=== PATIENT | female | born 2005 | race Caucasian/White ===

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

== ENCOUNTER 2023-05-06 22:04 | Outpatient (REF) | payer BC, SELFPAY ==
[2023-05-08 13:01] LABS: GC Result Negative (Negative)
[2023-05-08 14:07] LABS: Specimen Description URINE
[2023-05-08 14:12] LABS: Chlamydia Result Positive (Negative)
[2023-05-10 08:56] LABS: Hepatitis B Surface Ag Negative (Negative)
[2023-05-10 09:23] LABS: Syphilis Serology (RPR) Negative (Negative)
[2023-05-10 09:50] LABS: Hepatitis C Ab w Rflx HCV PCR Negative (Negative)
[2023-05-10 10:01] LABS: HIV-1/2 Ag & Ab Screen Negative (Negative)
== END 2023-05-06 22:05 | disposition home or self-care (01) ==
LOC: LBN 22:04
PROVIDERS: Visit Provider Physician Assistant Medical
DX: Z11.3 Encounter for screening for infections with a predominantly sexual mode of transmission (principal)
CPT/HCPCS: 86803; 87340; 87389; 87491; 87591; 86592

== ENCOUNTER 2023-06-25 14:19 | Outpatient (REF) | payer BC, SELFPAY ==
[2023-06-27 13:07] LABS: Chlamydia Result Negative (Negative); GC Result Negative (Negative)
== END 2023-06-25 14:20 | disposition home or self-care (01) ==
LOC: LBN 14:19
PROVIDERS: Visit Provider Physician Assistant Medical
DX: Z11.3 Encounter for screening for infections with a predominantly sexual mode of transmission (principal)
CPT/HCPCS: 87491; 87591

== ENCOUNTER 2024-05-18 14:20 | Emergency (ER) | payer BC, SELFPAY ==
[2024-05-18] VITALS (12 sets, daily range): BP systolic 136–158; BP diastolic 74–83; PULSE 63–87; RESP 12–28; TEMP 36.5–36.8; O2SAT 96–100
--- NOTE | 2024-05-18 14:15 | RT.EKG_ITS ---
APPROVED REPORT Exam: Resting ECG Reason for Exam: Chest Pain Patient Location: E HR:75 bpm ECG Measurements Heart Rate 75 AXIS DE 145 P 19 QRSd 139 QRS -13 QT 426 T 46 QTc 475 Conclusion Sinus rhythm...normal P axis, V-rate 60- 99 Right bundle branch block...QRSd>120, terminal axis(90,270)
--- NOTE | 2024-05-18 14:30 | DI.RAD_ITS ---
Exam(s) XR PORTABLE CHEST AP EXAM: XR PORTABLE CHEST AP CLINICAL HISTORY: chest pain TECHNIQUE: 2D digital imaging was performed of the chest. One image was obtained. An AP view was ob tained. COMPARISON: No exams were available for comparison FINDINGS: MEDIASTINUM: Normal. HEART: Normal. PULMONARY VASCULATURE: Normal. Incidental note is made of a right-sided aortic arch. LUNGS: Clear. Note is made of an azygos lobe. PLEURAL SPACE: No pleural effusion or pneumothorax. BONE:Within normal limits for the patient's age. OTHER FINDINGS:The stomach bubble is on the left. IMPRESSION: No acute pulmonary findings. DATA REPOSITORY: RADIATION DOSE DELIVERED:
--- NOTE | 2024-05-18 14:45 | W.ED.GENAD ---
Discharge Plan Disposition Patient Disposition: Home Discharge Details Chief Complaint: Chest Pain Clinical Impression: Chest pain Primary Care Provider: Unknown,Unknown ED Provider: Ej Marrero Home Meds and New Rx's Prescriptions: No Action No Known Home Meds Discharge Instructions Instructions: Chest Pain (DC) Additional Instructions: You were seen in the emergency department for chest pain. We performed labs, EKG, and chest x-ray that were all unremarkable. The exact cause of your symptoms is not known. Follow-up with your environmental issues instructor and primary care doctor. Return here for worsening symptoms or if you have any other concerns. HPI General Date/Time Provider Initiated Documentation: 05/18/24 14:27. 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 She was in class and sitting and not doing anything in particular. There is about 20 minutes after low intensity exercise. She had an episode of a dull chest pain. Started on its own at around 1230. Associated with some shortness of breath. No nausea or sweatiness. She did not had any other complaints with this. Says it has been getting better but brought it up to her teacher and ultimately was brought here. Denies any other complaints. She says she follows up with her environmental issues instructor every 1 to 2 years at [facility]. She cannot remember the name of her environmental issues instructor. Related Data Home Medications ?Medication ?Instructions ?Recorded ?Confirmed Unknown [No Known Home Meds] 05/18/24 05/18/24 Allergies Allergy/AdvReac Type Severity Reaction Status Date / Time No Known Allergies Allergy Verified 05/18/24 14:23 General Stated Complaint: Chest Pain BERTIN: 2 Review of Systems Constitutional Constitutional: Denies chills, Denies fever(s) and Denies headache(s) Eyes Eyes: Denies change in vision ENT Ears, Nose, Mouth, and Throat: Denies headache(s) and Denies odynophagia Cardiovascular Cardiovascular: Reports chest pain and Reports dyspnea Respiratory Respiratory: Reports dyspnea Gastrointestinal Gastrointestinal: Denies abdominal pain, Denies diarrhea, Denies nausea, Denies odynophagia and Denies vomiting Genitourinary Genitourinary: Denies dysuria Musculoskeletal Musculoskeletal: Denies myalgias Integumentary/Breasts Skin/Breast: Denies changing lesions Neurologic Neurologic: Denies behavioral changes and Denies headache(s) Psychiatric Psychiatric: Denies behavioral changes Endocrine Endocrine: Denies heat intolerance Hematologic/Lymphatic Hematologic/Lymphatic: Denies lymphadenopathy Exam Const General: cooperative Nutritional Appearance: average body habitus Orientation: alert, awake and oriented x3 HENMT Head: normal to inspection Ears: external ears normal Mouth: moist mucous membranes Eyes Pupils: PERRL EOM: EOM intact bilaterally and No nystagmus Neck Neck: full ROM and no tracheal deviation Chest Chest: normal inspection of the chest Resp Auscultation: clear to auscultation bilaterally Cardio Rate: regular rate Rhythm: regular rhythm GI Inspection: normal to inspection Palpation: soft, no guarding, not rigid and nontender Back/Spine/Pelvis Back: No no CVA tenderness Thoracic/Lumbar Spine: thoracic and lumbar spine normal to inspection Skin General skin exam: no rashes or lesions noted Neuro General: patient alert, patient awake and patient oriented x3 Cranial Nerves: CN's II-XI intact bilaterally, PERRL and no nystagmus Cognition: normal cognition Motor: muscle tone normal throughout and strength 5/5 throughout Sensory Exam: no sensory deficits noted Extrem General: normal to inspection Course This is a 19-year-old female who presents after an episode of chest pain. History of tetralogy of Fallot with repair in childhood. Has been doing well. She has had intermittent episodes of chest pain like this over the last 5 or 6 years. Has seen her environmental issues instructor for similar pain. She tells me that she had a MRI of her heart and other tests about 2 years ago that were unremarkable. She had not had any symptoms in a while and was worried and came here today. Her EKG is similar to prior showing a right bundle branch block but no other new changes. No signs of ischemia. Will send cardiac enzymes though I do not think this represents acute coronary syndrome and if unremarkable we will not pursue the diagnosis further. Will get chest x-ray to screen for pneumonia or pneumothorax or any signs of pulmonary edema though I think that this is also unlikely. Will send broad labs to look for electrolyte or metabolic cause of the patient's symptoms. Ultimately if her workup is unremarkable she says that she is feeling better and would like to leave. Certainly I would want her to follow-up with her environmental issues instructor. Will await initial testing and reevaluate. Reevaluation(s) Initial Evaluation: Labs, EKG and chest x-ray unremarkable. Symptom-free. Will discharge with cardiology follow-up. Vital Signs Vital signs: Vital Signs Temperature 36.5 C 05/18/24 14:25 Pulse 66 05/18/24 14:25 Respiratory Rate 16 05/18/24 14:25 Blood Pressure 136/83 05/18/24 14:25 Pulse Oximetry 100 05/18/24 14:25 Temperature 36.5 C 05/18/24 14:25 Temperature Source Temporal Artery Scan 05/18/24 14:25 Pulse 66 05/18/24 14:25 Respiratory Rate 16 05/18/24 14:25 Respiratory Effort Normal, Non-Labored 05/18/24 14:36 Blood Pressure 136/83 05/18/24 14:25 Blood Pressure Position Sitting 05/18/24 14:25 Pulse Oximetry 100 05/18/24 14:25 Oxygen Delivery Method Room Air 05/18/24 14:25 Oxygen Flow Rate 0 05/18/24 14:25 Pain Level 9 05/18/24 14:25 Lab/Test Results Lab/Test Results: Labs are grossly unremarkable Medical Decision Making Labs, EKG, and chest x-ray unremarkable. Unclear cause of chest pain. Symptom-free now. Will refer back to her environmental issues instructor. Imaging Data Radiologic Study: Attestation: I personally reviewed and interpreted this imaging study as follows: Imaging: X-Ray (chest) Radiologist's impression: unremarkable ECG Data Interpretation: Normal sinus rhythm with right bundle branch block but otherwise unremarkable EKG with otherwise normal intervals with no ST or T wave changes. Similar to prior EKG. Quality:SDOH Health Related Social Needs: No Data to Display PFSH All Active Problems (Updated 05/18/24 @ 15:29 by Ej Marrero MD) Chest pain (Acute) Social History Smoking/Tobacco Use Status: Never Smoking risk assessment performed?: Yes Alcohol Intake: never Drug use: Never Substance use type: does not use Housing: apartment Do you feel safe at home: Yes Do you feel safe in your relationship?: Yes
[2024-05-18 15:07] LABS: Abs Immature Grans 0.01 10^3/uL (0.0-0.06); Absolute Basophil Count 0.05 10^3/uL (0.0-0.2); Absolute Lymphocyte Count 1.04 10^3/uL (1.2-3.4); Absolute Monocyte Count 0.52 10^3/uL (0.1-0.8); Absolute Neutrophil Count 3.23 10^3/uL (1.2-6.7); HGB 12.8 g/dL (11.2-15.7); Immature Grans % 0.2 %; MCH 28.9 pg (27.0-33.0); MCHC 32.8 % (32.0-36.0); MCV 88 fL (80-95); MPV 12.5 fL (8.0-11.0); Monocytes % 10.5 %; Neutrophils % 65.3 %; Platelet Count 200 10^3/uL (130-400); RBC 4.43 10^6/uL (3.93-5.22); RDW 15.4 % (11.7-14.6); RDW-SD 49.9 fL; WBC 4.95 10^3/uL (4.4-10.8)
--- OUTSIDE RECORDS SUMMARY | 2024-05-18 15:24 | XMS_ITS | Referral Summary ---
Author Organization [facility] Address [address] [place] [address] Care Team Providers Care Maintenance Tech Name Role Phone Unavailable Primary Care Provider Unavailabl e Social History Tobacco Use Types Packs/Day Years Used Date Smoking Tobacco: Never Assessed Sex and Gender Information Value Date Recorded Sex Assigned at Not on file Gender Identity Not on file Sexual Orientation Not on file Plan of Treatment Not on file Procedures Procedure Name Priority Date/Time Associated Diagnosis Comments HEPATITIS C AB W REFLEX TO HCV RNA BY PCR Routine 05/06/2023 15:18 EDT from Last 3 Months or Most Recently Relevant to Health Maintenance Results * HEPATITIS C AB W REFLEX TO HCV RNA BY PCR (05/06/2023 15:18 EDT) Hep C Antibody Negative Negative 05/10/2023 9:45 EDT [facility] Blood VENOUS BLOOD / Unknown 05/06/2023 15:18 EDT 05/07/2023 19:28 EDT Provider Outr Resulting Lab CHEMISTRY & BLOOD GAS ORDERABLES [facility] [address] [place] [address] from Last 3 Months or Most Recently Relevant to Health Maintenance
--- OUTSIDE RECORDS SUMMARY | 2024-05-18 15:24 | XMS_ITS | Encounter Summary ---
Author Organization [facility] Address [address] [place] [address] Care Team Providers Care Machine Deicer Element Winder Name Role Phone Unavailable Primary Care Provider Unavailabl e Encounter Details Date Type Department Care Team (Late st Contact Info) Description 06/26/2023 Lab Requisition [facility] Pathology & Laboratory Medicine - [address] [address] Outr Resulting Lab, Provider Social History Tobacco Use Types Packs/Day Years Used Date Smoking Tobacco: Never Assessed Sex and Gender Information Value Date Recorded Sex Assigned at Not on file Gender Identity Not on file Sexual Orientation Not on file documented as of this encounter Plan of Treatment Not on file documented as of this encounter Procedures Procedure Name Priority Date/Time Associated Diagnosis Comments CHLAMYDIA/N. GONORRHOEAE AMPLIFIED NUCLEIC ACID Routine 06/25/2023 14:20 EDT documented in this encounter Results * CHLAMYDIA/N. GONORRHOEAE AMPLIFIED RNA (06/25/2023 14:20 EDT) Neisseria gonorrhoeae Result Negative Negative 06/27/2023 13:02 EDT [facility] Chlamydia trachomatis Result Negative Negative 06/27/2023 13:02 EDT [facility] Urine URINE / Unknown 06/25/2023 1 4:20 EDT 06/26/2023 21:57 EDT Narrative [facility] - 06/27/2023 13:02 EDT A first catch urine specimen is acceptable for detection of Gonorrhea and Chlamydia, but might detect up to 10% fewer infections when compared with vaginal and endocervical swab samples. Provider Outr Resulting Lab MICROBIOLOGY - GENERAL ORDERABLES [facility] [address] [place] [address] documented in this encounter Visit Diagnoses Not on filedocumented in this encounter
--- OUTSIDE RECORDS SUMMARY | 2024-05-18 15:24 | XMS_ITS | Encounter Summary ---
Author Organization [facility] Address [address] [place] [id number] Care Team Providers Care Grocery Clerk Marking Name Role Phone Unavailable Primary Care Provider Unavailabl e Encounter Details Date Type Department Care Team (Late st Contact Info) Description 05/07/2023 Lab Requisition [facility] Pathology & Laboratory Medicine - [facility] [address] [place] [address] Outr Resulting Lab, Provider Social History Tobacco [...] Comments CHLAMYDIA/N. GONORRHOEAE AMPLIFIED NUCLEIC ACID Routine 05/06/2023 15:18 EDT documented in this encounter Results * (ABNORMAL) CHLAMYDIA/N. GONORRHOEAE AMPLIFIED RNA (05/06/2023 15:18 EDT) Neisseria gonorrhoeae Result Negative Negative 05/08/2023 12:55 EDT [facility] Chlamydia trachomatis Result Positive(A) Negative 05/08/2023 12:55 EDT [facility] Urine URINE / Unknown 05/06/2023 1 5:18 EDT 05/07/2023 22:35 EDT Narrative [facility] - 05/08/2023 12:55 EDT A first catch urine specimen is acceptable for detection of Gonorrhea and Chlamydia, but might detect up to 10% fewer infections when compared with vaginal and endocervical swab samples. Provider Outr Resulting Lab MICROBIOLOGY - GENERAL ORDERABLES [facility] [address] [place] [address] documented in this encounter Visit Diagnoses Not on filedocumented in this encounter
--- OUTSIDE RECORDS SUMMARY | 2024-05-18 15:24 | XMS_ITS | Clinical Summary ---
Author Organization [facility] Address [address] [place] [address] Care Team Providers Care Specialty Sales Consultant Name Role Phone Unavailable Primary Care Provider Unavailabl e Social History Tobacco Use Types Packs/Day Years Used Date Smoking Tobacco: Never Assessed Sex and Gender Information Value Date Recorded Sex Assigned at Not on file Gender Identity Not on file Sexual Orientation Not on file Plan of Treatment Health Maintenance Due Date Last Done Comments Hepatitis B Vaccine (1 of 3 - 19+ 3-dose series) 2022 COVID-19 Vaccine (2022- season) 2023 Hepatitis C Screen Completed 05/06/2023, 10/28/2022 Procedures Procedure Name Priority Date/Time Associated Diagnosis Comments HEPATITIS C AB W REFLEX TO HCV RNA BY PCR Routine 05/06/2023 15:18 EDT from Last 3 Months or Most Recently Relevant to Health Maintenance Results * HEPATITIS C AB W REFLEX TO HCV RNA BY PCR (05/06/2023 15:18 EDT) Hep C Antibody Negative Negative 05/10/2023 9:45 EDT [facility] Blood VENOUS BLOOD / Unknown 05/06/2023 15:18 EDT 05/07/2023 19:28 EDT Provider Outr Resulting Lab CHEMISTRY & BLOOD GAS ORDERABLES [facility] [address] [place] [address] from Last 3 Months or Most Recently Relevant to Health Maintenance
--- OUTSIDE RECORDS SUMMARY | 2024-05-18 15:24 | XMS_ITS | Encounter Summary ---
Author Organization [facility] Address [address] [place] [address] Care Team Providers Care Human Resources Coordinator Name Role Phone Unavailable Primary Care Provider Unavailabl e Encounter Details Date Type Department Care Team (Late st Contact Info) Description 05/07/2023 Lab Requisition [facility] Pathology & Laboratory Medicine - [facility] [address] [place] [address] Outr Resulting Lab, Provider Social History Tobacco [...] Procedure Name Priority Date/Time Associated Diagnosis Comments SYPHILIS SEROLOGY Routine 05/06/2023 15: 18 EDT documented in this encounter Results * SYPHILIS SEROLOGY (05/06/2023 15:18 EDT) Syphilis Serology Negative Negative 05/10/2023 9:18 EDT [facility] Blood VENOUS BLOOD / Unknown 05/06/2023 15:18 EDT 05/07/2023 19:28 EDT Provider Outr Resulting Lab IMMUNOLOGY A ND SEROLOGY ORDERABLES [facility] [address] [place] [address] documented in this encounter Visit Diagnoses Not on filedocumented in this encounter
--- OUTSIDE RECORDS SUMMARY | 2024-05-18 15:24 | XMS_ITS | Encounter Summary ---
Author Organization [facility] Address [address] [place] [address] Care Team Providers Care Diet Supervisor Name Role Phone Unavailable Primary Care Provider Unavailabl e Encounter Details Date Type Department Care Team (Late st Contact Info) Description 05/07/2023 Lab Requisition [facility] Pathology & Laboratory Medicine - [facility] [address] [place] [address] Outr Resulting Lab, Provider Social History Tobacco [...] Procedure Name Priority Date/Time Associated Diagnosis Comments HIV 1/2 ANTIGEN AND ANTIBODY, 4TH GENERATION Routine 05/06/2023 15:18 EDT documented in this encounter Results * HIV 1/2 ANTIGEN AND ANTIBODY, 4TH GENERATION (05/06/2023 15:18 EDT) HIV 1 and 2 Antibody/p24 Antigen, 4th Generation Negative Negative 05/10/2023 9:56 EDT [facility] Comment:If acute HIV-1 infec tion is suspected in a high risk patient, submit plasma specimen for HIV-1 RNA quantitation test. Blood VENOUS BLOOD / Unknown 05/06/2023 15:18 EDT 05/07/2023 19:28 EDT Narrative [facility] - 05/10/2023 9:56 EDT Fourth Generation assay performed on the Siemens Centaur XPT. Provider Outr Resulting Lab IMMUNOLOGY A ND SEROLOGY ORDERABLES [facility] [address] [place] [address] documented in this encounter Visit Diagnoses Not on filedocumented in this encounter
--- OUTSIDE RECORDS SUMMARY | 2024-05-18 15:24 | XMS_ITS | Encounter Summary ---
Author Organization [facility] Address [address] [place] [address] Care Team Providers Care Communications Representative Name Role Phone Unavailable Primary Care Provider Unavailabl e Encounter Details Date Type Department Care Team (Late st Contact Info) Description 05/07/2023 Lab Requisition [facility] Pathology & Laboratory Medicine - [facility] [address] [place] [address] Outr Resulting Lab, Provider Social History Tobacco [...] RNA BY PCR Routine 05/06/2023 15:18 EDT HEPATITIS B SURFACE ANTIGEN Routine 05/06/2023 15:18 EDT documented in this encounter Results * HEPATITIS B SURFACE ANTIGEN (05/06/2023 15:18 EDT) Hep B Surface Ag Negative Negative 05/10/2023 8:51 EDT [facility] Blood VENOUS BLOOD / Unknown 05/06/2023 15:18 EDT 05/07/2023 19:28 EDT Provider Outr Resulting Lab CHEMISTRY & BLOOD GAS ORDERABLES [facility] [address] [place] [address] * HEPATITIS C AB W REFLEX TO HCV RNA BY PCR (05/06/2023 15:18 EDT) Hep C Antibody Negative Negative 05/10/2023 9:45 EDT [facility] Blood VENOUS BLOOD / Unknown 05/06/2023 15:18 EDT 05/07/2023 19:28 EDT Provider Outr Resulting Lab CHEMISTRY & BLOOD GAS ORDERABLES [facility] [address] [place] [address] documented in this encounter Visit Diagnoses Not on filedocumented in this encounter
[2024-05-18 15:25] LABS: ALT 37 U/L (14-59); AST 25 U/L (15-37); Albumin 3.9 g/dL (3.4-5.0); Alkaline Phosphatase 54 U/L (46-116); Anion Gap 9.5 mmol/L (3-11); BUN 8 mg/dL (7-18); Bilirubin, Total 0.68 mg/dL (0.2-1.0); CO2 27.5 mmol/L (21.0-32.0); CREATININE 1.2 mg/dL (0.55-1.02); Calcium 8.9 mg/dL (8.5-10.1); Chloride 107 mmol/L (98-107); Estimated GFR 66.05 (mL/min/1.73m2); Glucose 94 mg/dL (74-106); Magnesium 2.1 mg/dL (1.8-2.4); NT-proBNP 63 pg/mL (<300); Potassium 3.7 mmol/L (3.5-5.1); Sodium 144 mmol/L (136-145); Total Protein 8.3 g/dL (6.4-8.2); Troponin I < 50 ng/L (< or =60)
--- OUTSIDE RECORDS SUMMARY | 2024-05-18 15:25 | XMS_ITS | Encounter Summary ---
Author Organization [facility] [place] [address] Care Team Providers Care Park Warden Name Role Phone Inge Carl MD Primary Care Provider + Reason for Visit * Reason Comments Cerumen Impaction Encounter Details Date Type Department Care Team ([facility] st Contact Info) Description 09/09/2022 9:45 AM EST Office Visit Otolaryngology at [address] [phone] Felipe De Luna MD [address] [place] [address] Bilateral impacted cerumen; External ear canal stenosis, acquired, bilateral Social History Tobacco Use Types Packs/Day Years Used Date Smoking Tobacco: Never Smokeless Tobacco: Never Sex and Gender Information Value Date Recorded Sex Assigned at Not on file Gender Identity Not on file Sexual Orientation Not on file documented as of this encounter Last Filed Vital Signs Vital Sign Reading Time Taken Comments Blood Pressure 100/60 09/09/2022 10:04 AM EST Pulse 82 09/09/2022 10:04 AM EST Temperature 37 ??C (98.6 ??F) 09/09/2022 10:04 AM EST Respiratory Rate - - Oxygen Saturation 99% 09/09/2022 10:04 AM EST Inhaled Oxygen Concentration - - Weight - - Height - - Body Mass Index - - documented in this encounter Progress Notes * Felipe De Luna MD - 09/09/2022 9:45 AM EST Subjective: Shama is a 17-year-old female seen back in the ENT clinic for follow-up of bilateralwax impactions and congenital ear canal stenosis. Her chief complaint today is both ears feel plugged. Objective: Vital signs reviewed in electronic medical record by me today patient is good color pleasant demeanor. The external ear canals are small. There are wax impactions. Mastoids nontender facial nerve function intact bilaterally. Procedure: With the patient's permission and using a head mirror ear speculum and small wax curette, bilateral wax impactions are removed. Eardrums are intact. No bleeding. No fluid in middle ear space. Impression: Bilateral wax impactions removed today. Plan: #1 follow-up ENT October 23 for recheck of ears sooner with problems. documented in this encounter Plan of Treatment Upcoming Encounters Date Type Department Care Team (Late st Contact Info) Description 05/31/2024 9:30 AM EDT Clinical Support Otolaryngology at [address] [phone] Jennifer Grimaldo PA [address] [place] [address] [place] [address] documented as of this encounter Visit Diagnoses Diagnosis Bilateral impacted cerumen Impacted cerumen External ear canal stenosis, acquired, bilateral documented in this encounter Care Teams Park Warden Relationship Specialty Start Date End Date Inge Carl MD [address] [place] [address] PCP - General Pediatrics 10/29/21 documented as of this encounter
--- OUTSIDE RECORDS SUMMARY | 2024-05-18 15:25 | XMS_ITS | Encounter Summary ---
Author Organization [facility] Address [facility] [place] [address] Care Team Providers Care It Generalist Name Role Phone Hayde Uribe MD Primary Care Provider [phone] Encounter Details Date Type Department Care Team (Late st Contact Info) Description 07/22/2020 9:00 AM EDT Office Visit Otolaryngology at [address] [address] Felipe De Luna MD [address] [place] [address] External ear canal stenosis, acquired, bilateral; Bilateral impacted cerumen Social History Tobacco Use Types Packs/Day Years Used Date Smoking Tobacco: Never Smokeless Tobacco: Never Sex and Gender Information Value Date Recorded Sex Assigned at Not on file Gender Identity Not on file Sexual Orientation Not on file documented as of this encounter Last Filed Vital Signs Vital Sign Reading Time Taken Comments Blood Pressure 110/70 07/22/2020 9:38 AM EDT Pulse 59 07/22/2020 9:38 AM EDT Temperature 36.2 ??C (97.1 ??F) 07/22/2020 9:38 AM ED T Respiratory Rate - - Oxygen Saturation 98% 07/22/2020 9:38 AM EDT Inhaled Oxygen Concentration - - Weight - - Height - - Body Mass Index - - documented in this encounter Progress Notes * Felipe De Luna MD - 07/22/2020 9:00 AM EDT Subjective: Lali is a 69-year-old female with bilateral external auditory canal congenital stenosis and wax impactions that are removed every 2-1/2 months approximately. Her chief complaint today is both ears feel a little bit plugged. She is here for wax impaction removal. Objective: Vital signs reviewed in electronic medical record by me today patient is good color pleasant demeanor. The external ear canals are very small and there are bilateral wax impactions. Mastoid nontender facial nerve function intact. Procedure: With the patient's permission and using a head mirror small wax curette and small ear speculum bilateral wax impactions are removed. There is a small amount of bleeding from the right ear canal during the procedure. Both eardrums are intact at the end of the procedure. Floxin drops were placed in the right ear canal and a cottonball placed. Impression: Bilateral wax impactions removed today. Plan: #1 water precautions both ears. 2. Floxin 3 drops right ear daily for 3 days followed by cottonball for 15 minutes. 3. Follow-up ENT in 2 and half months for recheck sooner with problems. documented in this encounter Plan of Treatment Upcoming Encounters Date Type Department Care Team (Late st Contact Info) Description 05/31/2024 9:30 AM EDT Clinical Support Otolaryngology at [address] [phone] Jennifer Grimaldo PA [address] [place] [address] [place] [address] documented as of this encounter Visit Diagnoses Diagnosis External ear canal stenosis, acquired, bilateral Bilateral impacted cerumen Impacted cerumen documented in this encounter Care Teams It Generalist Relationship Specialty Start Date End Date Hayde Uribe MD [address] [place] [address] PCP - General Pediatrics 10/27/17 10/28/21 documented as of this encounter
--- OUTSIDE RECORDS SUMMARY | 2024-05-18 15:25 | XMS_ITS | Encounter Summary ---
Author Organization [facility] Address [facility] [place] [address] Care Team Providers Care Optical Design Engineer Name Role Phone Hayde Uribe MD Primary Care Provider [phone] Encounter Details Date Type Department Care Team (Late st Contact Info) Description 09/30/2020 9:30 AM EST Office Visit Otolaryngology at [address] [address] Felipe De Luna MD [address] [place] [address] External ear canal stenosis, acquired, [...] Sign Reading Time Taken Comments Blood Pressure 106/70 09/30/2020 9:34 AM EST Pulse 61 09/30/2020 9:34 AM EST Temperature 36 ??C (96.8 ??F) 09/30/2020 9:34 AM EST Respiratory Rate - - Oxygen Saturation 94% 09/30/2020 9:34 AM EST Inhaled Oxygen Concentration - - Weight - - Height - - Body Mass Index - - documented in this encounter Progress Notes * Felipe De Luna MD - 09/30/2020 9:30 AM EST Subjective: Shama is a 15-year-old high school senior seen back in the ENT clinic for follow-up of bilateral wax impaction she is known to have bilateral congenital external ear canal stenosis. Her chief complaint today is both ears feel plugged with wax. She is not having any pain bleeding or drainage from her ears. Objective: Vital signs reviewed in electronic medical record by me today patient is good color pleasant demeanor alert oriented to person place and time she is normocephalic atraumatic. The external ear ear canals show stenosis with wax impactions. Mastoids nontender facial nerve function intact. Procedure: With the patient's permission and using an ear speculum a head mirror and a wax curette,bilateral wax impactions are removed. No bleeding. Eardrums are intact bilaterally without middle ear fluid. Impression: Bilateral wax impactions removed today. Plan: #1 water precautions both ears. 2. Follow-up ENT in 2 and half months for recheck sooner with problems. documented in this encounter Plan of Treatment Upcoming Encounters Date Type Department Care Team (Late st Contact Info) Description 05/31/2024 9:30 AM EDT Clinical Support Otolaryngology at [address] [phone] Jennifer Grimaldo PA [address] [place] [address] [place] [address] documented as of this encounter Visit Diagnoses Diagnosis External ear canal stenosis, acquired, bilateral Bilateral impacted cerumen Impacted cerumen documented in this encounter Care Teams Optical Design Engineer Relationship Specialty Start Date End Date Hayde Uribe MD [address] [place] [address] PCP - General Pediatrics 10/27/17 10/28/21 documented as of this encounter
--- OUTSIDE RECORDS SUMMARY | 2024-05-18 15:25 | XMS_ITS | Encounter Summary ---
Author Organization [facility] [place] [address] Care Team Providers Care International Travel Consultant Name Role Phone Unavailable Primary Care Provider Unavailabl e Encounter Details Date Type Department Care Team (Late st Contact Info) Description 12/09/2016 9:00 AM EST Office Visit Otolaryngology [address] [address] Felipe De Luna MD [address] [place] [address] Social History Tobacco Use Types Packs/Day Years Used Date Smoking Tobacco: Never Assessed Sex and Gender Information Value Date Recorded Sex Assigned at Not on file Gender Identity Not on file Sexual Orientation Not on file documented as of this encounter Plan of Treatment Upcoming Encounters Date Type Department Care Team (Late st Contact Info) Description 05/31/2024 9:30 AM EDT Clinical Support Otolaryngology at [address] [address] Jennifer Grimaldo PA [address] [facility] [place] [address] documented as of this encounter Visit Diagnoses Not on filedocumented in this encounter
--- OUTSIDE RECORDS SUMMARY | 2024-05-18 15:25 | XMS_ITS | Encounter Summary ---
Author Organization [facility] [place] [address] Care Team Providers Care Milking Worker Name Role Phone Unavailable Primary Care Provider Unavailabl e Encounter Details Date Type Department Care Team (Late st Contact Info) Description 01/06/2016 Abstract [facility] Information Services [address] [place] [address] Provider, His MD [place] Social History Tobacco Use Types Packs/Day Years Used Date Smoking Tobacco: Never Assessed Sex and Gender Information Value Date Recorded Sex Assigned at Not on file Gender Identity Not on file Sexual Orientation Not on file documented as of this encounter Last Filed Vital Signs Vital Sign Reading Time Taken Comments Blood Pressure - - Pulse - - Temperature - - Respiratory Rate - - Oxygen Saturation - - Inhaled Oxygen Concentration - - Weight 51.3 kg (113 lb) 01/06/2016 4:00 AM EDT Sourced from [place] Conversion Height - - Body Mass Index - - documented in this encounter Plan of Treatment Upcoming Encounters Date Type Department Care Team (Late st Contact Info) Description 05/31/2024 9:30 AM EDT Clinical Support Otolaryngology at [facility] [address] [place] [address] Jennifer Grimaldo PA 580 [facility] OTOLARYNGOLOGY [place], [place] [id number] documented as of this encounter Visit Diagnoses Not on filedocumented in this encounter
--- OUTSIDE RECORDS SUMMARY | 2024-05-18 15:25 | XMS_ITS | Encounter Summary ---
Author Organization [facility] [place] [address] Care Team Providers Care Neurology Technologist Name Role Phone Unavailable Primary Care Provider Unavailabl e Encounter Details Date Type Department Care Team (Late st Contact Info) Description 06/04/2014 10:30 AM EDT Office Visit [address] [address] Felipe De Luna MD [address] [place] [address] Social History Tobacco Use Types [...] AM EDT Clinical Support Otolaryngology at [address] [address] Jennifer Grimaldo PA [address] [facility] [place] [address] documented as of this encounter Visit Diagnoses Not on filedocumented in this encounter
--- OUTSIDE RECORDS SUMMARY | 2024-05-18 15:25 | XMS_ITS | Encounter Summary ---
Author Organization [facility] Address [facility] [place] [address] Care Team Providers Care Brass Sorter Name Role Phone Hayde Uribe MD Primary Care Provider [phone] Encounter Details Date Type Department Care Team (Late st Contact Info) Description 11/11/2019 Interpretation Only [address] [address] Loy Flores MD [address] [place] [address] [place] [address] Social History Tobacco Use Types Packs/Day Years [...] 9:30 AM EDT Clinical Support Otolaryngology at [address] [phone] Jennifer Grimaldo PA [address] [place] [address] [place] [address] documented as of this encounter Procedures Procedure Name Priority Date/Time Associated Diagnosis Comments XR CHEST PA AND LATERAL Routine 11/11/2019 9:06 PM EST documented in this encounter Results * XR Chest PA & Lateral (Generic) (11/11/2019 9:06 PM EST) Anatomical Region Laterality Modality Chest N/A Radiographic Yvonne ging 11/11/2019 9:06 PM EST Impressions 11/11/2019 11:33 PM EST 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 Cardiac enlargement. No comparison available. Evidence of right-sided aortic arch. No consolidation, pleural effusion, or pulmonary vasculature abnormality. Preliminary report signed by a [facility] Supervisor Delivery Department or Fellow: Clarke Galarza at 11/11/2019 9:25 PM I have personally reviewed the image(s) and the resident's interpretation and agree with the findings, Frank Diaz MD at 11/11/2019 11:28 PM Thank you for letting us participate in the care of this patient. For questions regarding this report, please contact the number below. ? Narrative 11/11/2019 11:33 PM EST EXAMINATION: XR Chest 2 Views CLINICAL HISTORY: chest pain, ?cardiac TECHNIQUE: Frontal and lateral chest radiograph. COMPARISON: None. FINDINGS: Right-sided aortic arch. Abdominal viscera appear correct side. No focal consolidation. Incidentally visualized azygous fissure in the right upper lung. No pneumothorax or pleural effusions. Cardiac silhouette is enlarged. Pulmonary vasculature is normal.. No acute osseous abnormalities identified. Median sternotomy wires are present. Fused vertebral bodies thoracolumbar junction on lateral projection. Procedure Note Frank Bear MD - 11/11/2019 EXAMINATION: XR Chest 2 Views CLINICAL HISTORY: chest pain, ?cardiac TECHNIQUE: Frontal and lateral chest radiograph. COMPARISON: None. FINDINGS: Right-sided aortic arch. Abdominal viscera appear correct side. No focal consolidation. Incidentally visualized azygous fissure in theright upper lung. No pneumothorax or pleural effusions. Cardiac silhouette is enlarged. Pulmonary vasculature is normal.. No acute osseousabnormalities identified. Median sternotomy wires are present. Fused vertebral bodies thoracolumbar junction on lateral projection. 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 Cardiac enlargement. No comparison available. Evidence of right-sided aorticarch. No consolidation, pleural effusion, or pulmonary vasculatureabnormality. Preliminary [facility] or Fellow: Clarke Galarza at 11/11/2019 9:25 PM I have personally reviewed the image(s) and the resident's interpretationand agree with the findings, Frank Diaz MD at 11/11/2019 11:28 PM Thank you for letting us participate in the care of this patient. Forquestions regarding this report, please contact the number below. Loy Flores MD IMG DX ORDERABLES documented in this encounter Visit Diagnoses Not on filedocumented in this encounter Care Teams Brass Sorter Relationship Specialty Start Date End Date Hayde Uribe MD [address] [place] [address] PCP - General Pediatrics 10/27/17 10/28/21 documented as of this encounter
--- OUTSIDE RECORDS SUMMARY | 2024-05-18 15:25 | XMS_ITS | Encounter Summary ---
Author Organization [facility] Address [facility] [place] [address] Care Team Providers Care Technology Coordinator Name Role Phone Hayde Uribe MD Primary Care Provider [phone] Encounter Details Date Type Department Care Team (Late st Contact Info) Description 09/08/2021 11:15 AM EST Office Visit Otolaryngology at [address] [phone] Felipe De Luna MD [address] [place] [address] External ear canal stenosis, acquired, [...] Sign Reading Time Taken Comments Blood Pressure 100/71 09/08/2021 11:18 AM EST Pulse 74 09/08/2021 11:18 AM EST Temperature 36.3 ??C (97.4 ??F) 09/08/2021 11:[address] Respiratory Rate - - Oxygen Saturation 94% 09/08/2021 11:18 AM EST Inhaled Oxygen Concentration - - Weight - - Height - - Body Mass Index - - documented in this encounter Progress Notes * Felipe De Luna MD - 09/08/2021 11:15 AM EST Subjective: Shama is an 16-year-old female with bilateral congenital ear canal stenosis seen back in the ENT clinic for interval earwax cleaning. Her chief complaint today is both ears feel a bit clogged. She is in her first semester of college and doing well at [employer]. Objective: Vital signs reviewed in electronic medical record by me today patient is good color pleasant demeanor. The external ear ear canals are small and there is wax accumulation and buildup that is blocking both ear canals bilaterally. Procedure: Using a head mirror ear speculum and a small wax curette bilateral wax impactions are removed. The eardrums are then intact no fluid the middle ear spaces. Impression: Doing well following bilateral wax impaction removal. Plan: #1 follow-up ENT in mid October for ear cleaning sooner with problems. documented in this encounter Plan of Treatment Upcoming Encounters Date Type Department Care Team (Late st Contact Info) Description 05/31/2024 9:30 AM EDT Clinical Support Otolaryngology at [address] [phone] Jennifer Grimaldo PA [address] [place] [address] [place] [address] documented as of this encounter Visit Diagnoses Diagnosis External ear canal stenosis, acquired, bilateral Bilateral impacted cerumen Impacted cerumen documented in this encounter Care Teams Technology Coordinator Relationship Specialty Start Date End Date Hayde Uribe MD [address] [place] [address] PCP - General Pediatrics 10/27/17 10/28/21 documented as of this encounter
--- OUTSIDE RECORDS SUMMARY | 2024-05-18 15:25 | XMS_ITS | Encounter Summary ---
Author Organization [facility] [place] [address] Care Team Providers Care Fondant Cooker Name Role Phone Unavailable Primary Care Provider Unavailabl e Encounter Details Date Type Department Care Team (Late st Contact Info) Description 11/10/2013 Abstract [facility] Information Services [address] [place] [address] Provider, His MD [place] Social [...] - Inhaled Oxygen Concentration - - Weight 38.1 kg (84 lb) 11/10/2013 4:30 AM EST Sourced from [place] Conversion Height - - Body Mass Index - - documented in this encounter Plan of Treatment Upcoming Encounters Date Type Department Care Team (Late st Contact Info) Description 05/31/2024 9:30 AM EDT Clinical Support Otolaryngology at [facility] [address] [place] [address] Jennifer Grimaldo PA 580 [facility] OTOLARYNGOLOGY [place], [place] [phone] documented as of this encounter Visit Diagnoses Not on filedocumented in this encounter
--- OUTSIDE RECORDS SUMMARY | 2024-05-18 15:25 | XMS_ITS | Encounter Summary ---
Author Organization [facility] [place] [address] Care Team Providers Care Fuel Efficient Aircraft Designer Name Role Phone Inge Carl MD Primary Care Provider + Reason for Visit * Reason Comments Cerumen Impaction Encounter Details Date Type Department Care Team ([facility] st Contact Info) Description 10/29/2021 3:00 PM EST Office Visit Otolaryngology at [address] [address] Felipe De Luna MD [address] [place] [address] Bilateral impacted cerumen Social History Tobacco Use Types Packs/Day Years Used Date Smoking Tobacco: Never Smokeless Tobacco: Never Sex and Gender Information Value Date Recorded Sex Assigned at Not on file Gender Identity Not on file Sexual Orientation Not on file documented as of this encounter Last Filed Vital Signs Vital Sign Reading Time Taken Comments Blood Pressure 108/66 10/29/2021 2:44 PM EST Pulse 60 10/29/2021 2:44 PM EST Temperature 37.2 ??C (98.9 ??F) 10/29/2021 2:44 PM ES T Respiratory Rate - - Oxygen Saturation 99% 10/29/2021 2:44 PM EST Inhaled Oxygen Concentration - - Weight - - Height - - Body Mass Index - - documented in this encounter Progress Notes * Felipe De Luna MD - 10/29/2021 3:00 PM EST Subjective: 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 She has congenital bilateral ear canal stenosis and requires every 2 months or so wax removal. Her chief complaint today is both ears feel plugged. Objective: Vital signs reviewed in electronic medical record by me today patient is good color pleasant demeanor alert oriented to person place and time she is normocephalic atraumatic. The external ear canals show stenosis bilaterally. There are wax impactions. Mastoids nontender facial nerve function intact. Procedure: With the patient's permission and wearing appropriate PPE and using a head mirror ear speculum and a wax curette, bilateral wax impactions are removed. No bleeding. Both eardrums are intact. Impression: Bilateral wax impaction removal done today. Plan: #1 follow-up ENT in 2 months for recheck sooner with problems. documented in this encounter Plan of Treatment Upcoming Encounters Date Type Department Care Team (Late st Contact Info) Description 05/31/2024 9:30 AM EDT Clinical Support Otolaryngology at [address] [phone] Jennifer Grimaldo PA [address] [place] [address] [place] [address] documented as of this encounter Visit Diagnoses Diagnosis Bilateral impacted cerumen Impacted cerumen documented in this encounter Care Teams Fuel Efficient Aircraft Designer Relationship Specialty Start Date End Date Inge Carl MD [address] [place] [address] PCP - General Pediatrics 10/29/21 documented as of this encounter
--- OUTSIDE RECORDS SUMMARY | 2024-05-18 15:25 | XMS_ITS | Clinical Summary ---
Author Organization [facility] Address [facility] [place] [address] Care Team Providers Care Carbide Grinder Name Role Phone Inge Carl MD Primary Care Provider + Allergies No known active allergies Medications Medication Sig Dispensed Refills Start Date End Date Status amoxicillin (AMOXIL) 500 mg Tablet TAKE 4 TABLETS BY MOUTH BEFORE DENTAL PROCEDURE 10/28/2020 Active Uqh-Kh-Zvqnhtxw 0.18/0.215/0.25 mg-25 mcg Tablet TAKE 1 TABLET BY MOUTH EVERY DAY 12/17/2020 Active Alberto [place] [facility] Spacer USE DIRECTED WITH albuterol inhaler. 08/03/2022 Active albuteroL 90 mcg/actuation HFA Aerosol Inhaler Inhale into the lungs. 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 0 01/26/2024 External ear canal stenosis, acquired, bilateral 12/29/2017 Bilateral impacted cerumen 12/29/2017 Impacted cerumen of both ears 03/08/2017 Social History Tobacco Use Types Packs/Day Years Used Date Smoking Tobacco: Never Smokeless Tobacco: Never Sex and Gender Information Value Date Recorded Sex Assigned at Not on file Gender Identity Not on file Sexual Orientation Not on file Last Filed Vital Signs Vital Sign Reading Time Taken Comments Blood Pressure 115/62 09/08/2023 1:58 PM EST Pulse 88 09/08/2023 1:58 PM EST Temperature 36.4 ??C (97.6 ??F) 09/08/2023 1 :58 PM EST Respiratory Rate 17 03/27/2022 1:57 PM EDT Oxygen Saturation 94% 09/08/2023 1:5 8 PM EST Inhaled Oxygen Concentration - - Weight 65.8 kg (145 lb) 05/27/2022 2:47 PM EDT Height 137.2 cm (4' 6) 08/01/2012 4:15 AM EDT Sourced from [facility] Body Mass Index - - Plan of Treatment Upcoming Encounters Date Type Department Care Team (Late st Contact Info) Description 05/31/2024 9:30 AM EDT Clinical Support Otolaryngology at [address] [phone] Jennifer Grimaldo PA [address] [place] [address] [place] [address] Health Maintenance Due Date Last Done Comments Chlamydia Screening 2018 HPV vaccine (1 - 3-dose series) 2018 HIV screen 2021 Hepatitis C Screening 2021 Hepatitis B vaccine (0-59 yrs) (1) 2022 Tdap adult 2022 Tetanus vaccine 2022 Covid-19 Vaccine (1 - 2022-24 season) 2023 PAP Smear 02/23/2024 Influenza (Flu) vaccine (1 o f 1 - Influenza standard series) 06/18/2024 Advance Directives Documents on File Type Date Recorded Patient Capsule Filler Expl anation Personal Capsule Filler 08/24/2019 8:04 AM rizwana brink Care Teams Carbide Grinder Relationship Specialty Start Date End Date Inge Carl MD [address] [place] [address] PCP - General Pediatrics 10/29/21
--- OUTSIDE RECORDS SUMMARY | 2024-05-18 15:25 | XMS_ITS | Encounter Summary ---
Author Organization [facility] [place] [address] Care Team Providers Care Market Research Senior Project Manager Name Role Phone Inge Carl MD Primary Care Provider + Encounter Details Date Type Department Care Team (Latest Contact Info) Description 03/12/2023 Travel Social History Tobacco Use Types Packs/Day Years [...] 9:30 AM EDT Clinical Support Otolaryngology at [address] [address] Jennifer Grimaldo PA [address] [place] [address] OTOLARYNGOLOGY [place], [place] [id number] documented as of this encounter Visit Diagnoses Not on filedocumented in this encounter Care Teams Market Research Senior Project Manager Relationship Specialty Start Date End Date Inge Carl MD [address] [place] [address] PCP - General Pediatrics 10/29/21 documented as of this encounter
--- OUTSIDE RECORDS SUMMARY | 2024-05-18 15:25 | XMS_ITS | Encounter Summary ---
Author Organization [facility] [place] [address] Care Team Providers Care Silver Buffer Name Role Phone Unavailable Primary Care Provider Unavailabl e Encounter Details Date Type Department Care Team (Late st Contact Info) Description 08/27/2014 3:30 PM EST Office Visit [address] [address] Felipe De Luna MD [address] [place] [address] Social History Tobacco Use Types [...] 9:30 AM EDT Clinical Support Otolaryngology at [address] [address] Jennifer Grimaldo PA 580 [facility] [place] [address] documented as of this encounter Visit Diagnoses Not on filedocumented in this encounter
--- OUTSIDE RECORDS SUMMARY | 2024-05-18 15:25 | XMS_ITS | Encounter Summary ---
Author Organization [facility] Address [address] [place] [address] Care Team Providers Care Flight Information Expediter Name Role Phone Unavailable Primary Care Provider Unavailabl e Encounter Details Date Type Department Care Team (Late st Contact Info) Description 10/29/2022 Lab Requisition [facility] Pathology & Laboratory Medicine - [facility] [address] [place] [address] Outr Resulting Lab, Provider Social History Tobacco [...] Date/Time Associated Diagnosis Comments SYPHILIS SEROLOGY Routine 10/28/2022 16: 54 EST documented in this encounter Results * SYPHILIS SEROLOGY (10/28/2022 16:54 EST) Syphilis Serology Negative Negative 11/02/2022 11:15 EST [facility] Blood VENOUS BLOOD / Unknown 10/28/2022 16:54 EST 10/31/2022 8:52 EST Provider Outr Resulting Lab IMMUNOLOGY A ND SEROLOGY ORDERABLES [facility] [address] [place] [address] documented in this encounter Visit Diagnoses Not on filedocumented in this encounter
--- OUTSIDE RECORDS SUMMARY | 2024-05-18 15:25 | XMS_ITS | Encounter Summary ---
Author Organization [facility] [place] [address] Care Team Providers Care Metallurgical Tester Name Role Phone Inge Carl MD Primary Care Provider + Encounter Details Date Type Department Care Team (Late Contact Info) Description 10/29/2021 Notes Only Otolaryngology at [address] [address] Veronique Rincon Social History Tobacco Use Types Packs/Day Years Used Date Smoking Tobacco: Never Smokeless Tobacco: Never Sex and Gender Information Value Date Recorded Sex Assigned at Not on file Gender Identity Not on file Sexual Orientation Not on file documented as of this encounter Progress Notes * Veronique Rincon - 10/29/2021 3:14 PM EST Patient will call to make her December follow up with PDR when she knows her college break schedule. Appointment card was given to her with number documented in this encounter Plan of Treatment Upcoming Encounters Date Type Department Care Team (Late Contact Info) Description 05/31/2024 9:30 AM EDT Clinical Support Otolaryngology at [address] [address] Jennifer Grimaldo PA [address] [place] [address] [place] [address] documented as of this encounter Visit Diagnoses Not on filedocumented in this encounter Care Teams Metallurgical Tester Relationship Specialty Start Date End Date Inge Carl MD [address] [place] [address] PCP - General Pediatrics 10/29/21 documented as of this encounter
--- OUTSIDE RECORDS SUMMARY | 2024-05-18 15:25 | XMS_ITS | Encounter Summary ---
[facility] [place] [address] Care Team Providers Care Dental Internship Name Role Phone Inge Carl MD Primary Care Provider + Encounter Details Date Type Department Care Team (Latest Contact Info) Description 09/09/2022 Travel Social History Tobacco Use Types Packs/Day [...] 9:30 AM EDT Clinical Support Otolaryngology at [address] [address] Jennifer Grimaldo PA [address] [place] [address] [place]ARY[place]OLOGY [place], [place] [id number] documented as of this encounter Visit Diagnoses Not on filedocumented in this encounter Care Teams Dental Internship Relationship Specialty Start Date End Date Inge Carl MD [address] [place] [address] PCP - General Pediatrics 10/29/21 documented as of this encounter
--- OUTSIDE RECORDS SUMMARY | 2024-05-18 15:25 | XMS_ITS | Encounter Summary ---
Author Organization [facility] Address [place] [id number] Care Team Providers Care Hat Steamer Name Role Phone Hayde Uribe MD Primary Care Provider [phone] Reason for Visit * Reason Comments Cerumen Impaction Encounter Details Date Type Department Care Team ([facility] st Contact Info) Description 04/03/2019 4:15 PM EDT Office Visit Otolaryngology at [address] [address] Felipe De Luna MD [address] [place] [address] External ear canal stenosis, acquired, [...] Taken Comments Blood Pressure - - Pulse 60 04/03/2019 4:22 PM EDT Temperature - - Respiratory Rate 16 04/03/2019 4:22 PM EDT Oxygen Saturation 98% 04/03/2019 4:22 PM EDT Inhaled Oxygen Concentration - - Weight - - Height - - Body Mass Index - - documented in this encounter Progress Notes * Felipe De Luna MD - 04/03/2019 4:15 PM EDT Objective:Shama is a 14-year-old female seen back in the ENT clinic for bilateral wax impactions. 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 Her chief complaint today is both ears feel plugged. Objective: Vital signs reviewed in electronic medical record by me today patient is good color pleasant demeanor. The external ear ear canals show bilateral wax impactions. Mastoids nontender facial nerve function intact. Procedure: Using the operating microscope ear speculum and wax curette and a 5 suction bilateral wax impactions are removed. There is no bleeding. The eardrums are then found to be intact no fluid the middle ear spaces. Impression: Doing well following bilateral earwax impaction removal. Plan: #1 water precautions both ears. 2. Follow-up ENT in 2 months for recheck. documented in this encounter Plan of Treatment Upcoming Encounters Date Type Department Care Team (Late st Contact Info) Description 05/31/2024 9:30 AM EDT Clinical Support Otolaryngology at [address] [address] Jennifer Grimaldo PA [address] [place] [address] [place] [address] documented as of this encounter Visit Diagnoses Diagnosis External ear canal stenosis, acquired, bilateral Bilateral impacted cerumen Impacted cerumen documented in this encounter Care Teams Hat Steamer Relationship Specialty Start Date End Date Hayde Uribe MD [address] [place] [address] PCP - General Pediatrics 10/27/17 10/28/21 documented as of this encounter
--- OUTSIDE RECORDS SUMMARY | 2024-05-18 15:25 | XMS_ITS | Encounter Summary ---
Author Organization [facility] [place] [address] Care Team Providers Care Gristmill Operator Name Role Phone Hayde Uribe MD Primary Care Provider [phone] Reason for Visit * Reason Comments Follow-up ears Encounter Details Date Type Department Care Team ([facility] st Contact Info) Description 05/06/2020 11:00 AM EDT Office Visit Otolaryngology at [place] [address] [place] [address] Felipe De Luna MD [address] [place] [address] External ear canal stenosis, acquired, [...] Sign Reading Time Taken Comments Blood Pressure 122/72 05/06/2020 11:16 AM EDT ir reg beats Pulse 60 05/06/2020 11:16 AM EDT Temperature 36.6 ??C (97.8 ??F) 05/06/2020 11:16 AM E DT Respiratory Rate - - Oxygen Saturation 98% 05/06/2020 11:16 AM EDT Inhaled Oxygen Concentration - - Weight - - Height - - Body Mass Index - - documented in this encounter Progress Notes * Felipe De Luna MD - 05/06/2020 11:00 AM EDT Subjective: Shama is a 15-year-old female with bilateral congenital external canal stenosis was seen back in the ENT clinic for interval wax impaction removals. Her chief complaint today is both ears feel plugged. No bleeding or drainage. Objective: Vital signs reviewed in electronic medical record by me today. The patient's ear canals are small and there are wax impactions. Procedure: With the patient and her mother's permission and using the ear speculum wax loop and a head mirror bilateral wax impactions are removed. The eardrums are then intact no fluid the middle ear space. No bleeding. Impression: Bilateral wax impactions removed today. Plan: #1 water precautions both ears. 2. Follow-up ENT in 2-1/2 months for recheck sooner with problems. documented in this encounter Plan of Treatment Upcoming Encounters Date Type Department Care Team (Late st Contact Info) Description 05/31/2024 9:30 AM EDT Clinical Support Otolaryngology at [address] [address] Jennifer Grimaldo PA [address] [place] [address] [place] [address] documented as of this encounter Visit Diagnoses Diagnosis External ear canal stenosis, acquired, bilateral Bilateral impacted cerumen Impacted cerumen documented in this encounter Care Teams Gristmill Operator Relationship Specialty Start Date End Date Hayde Urieb MD [address] [place] [address] PCP - General Pediatrics 10/27/17 10/28/21 documented as of this encounter
--- OUTSIDE RECORDS SUMMARY | 2024-05-18 15:25 | XMS_ITS | Encounter Summary ---
Author Organization [facility] [place] [address] Care Team Providers Care Pneumatic Tester Name Role Phone Unavailable Primary Care Provider Unavailabl e Encounter Details Date Type Department Care Team (Late st Contact Info) Description 03/08/2017 Abstract [facility] Information Services [address] [place] [address] Provider, His Denver MD Social History Tobacco Use Types Packs/Day Years Used Date Smoking Tobacco: Never Assessed Sex and Gender Information Value Date Recorded Sex Assigned at Not on file Gender Identity Not on file Sexual Orientation Not on file documented as of this encounter Last Filed Vital Signs Vital Sign Reading Time Taken Comments Blood Pressure 108/62 03/08/2017 4:15 PM EDT Sourced from [employer] Conversion Pulse - - Temperature - - Respiratory Rate - - Oxygen Saturation - - Inhaled Oxygen Concentration - - Weight 59 kg (130 lb) 03/08/2017 4:15 PM EDT Sourced from [employer] Conversion Height - - Body Mass Index - - documented in this encounter Plan of Treatment Upcoming Encounters Date Type Department Care Team (Late st Contact Info) Description 05/31/2024 9:30 AM EDT Clinical Support Otolaryngology at [place] [address] [place] [address] Jennifer Grimaldo PA [address] [place] [address] [place] [address] documented as of this encounter Visit Diagnoses Not on filedocumented in this encounter
--- OUTSIDE RECORDS SUMMARY | 2024-05-18 15:25 | XMS_ITS | Encounter Summary ---
Author Organization [facility] [place] [address] Care Team Providers Care Tire Mold Engraver Name Role Phone Unavailable Primary Care Provider Unavailabl e Encounter Details Date Type Department Care Team (Late st Contact Info) Description 01/06/2016 4:00 PM EDT Office Visit Otolaryngology [address] [address] Felipe De Luna MD [address] [place] [address] Social History Tobacco Use Types [...] 9:30 AM EDT Clinical Support Otolaryngology at [address] [address] Jennifer Grimaldo PA [address] [facility] [place] [address] documented as of this encounter Visit Diagnoses Not on filedocumented in this encounter
--- OUTSIDE RECORDS SUMMARY | 2024-05-18 15:25 | XMS_ITS | Encounter Summary ---
Author Organization [facility] [place] [address] Care Team Providers Care Clinical Science Liaison Name Role Phone Hayde Uribe MD Primary Care Provider [phone] Reason for Visit * Reason Comments Follow-up EAR CANAL STENOSIS Encounter Details Date Type Department Care Team ([facility] st Contact Info) Description 12/16/2020 4:00 PM EST Office Visit Otolaryngology at [address] [address] Felipe De Luna MD [address] [place] [address] Bilateral impacted cerumen; External ear [...] Sign Reading Time Taken Comments Blood Pressure 104/62 12/16/2020 3:53 PM EST Pulse 71 12/16/2020 3:53 PM EST Temperature 36.5 ??C (97.7 ??F) 12/16/2020 3:53 PM ES T Respiratory Rate - - Oxygen Saturation 99% 12/16/2020 3:53 PM EST Inhaled Oxygen Concentration - - Weight - - Height - - Body Mass Index - - documented in this encounter Progress Notes * Felipe De Luna MD - 12/16/2020 4:00 PM EST Subjective: Shama is a 15-year-old female with known bilateral congenital external ear canal stenoses who is seen every few months for removal of wax impactions. Her chief complaint today is that both ears feel plugged. She is not having any purulent drainage or bleeding from the ears. She does not wear hearing aids. Objective: Vital signs reviewed in electronic medical record by me today patient is good color pleasant demeanor. The external ear ear canals show wax impactions with canal stenosis. Mastoids nontender facial nerve function intact. Procedure: With the patient's and her mother's permission, and wearing appropriate PPE, and using an ear speculum a head mirror and wax curette, bilateral wax impactions are removed. No bleeding. Eardrums are intact. No fluid the middle ear spaces. Impression: Doing well following bilateral wax impaction removal in the setting of bilateral congenital external ear canal stenosis. Plan: #1 water precautions both ears. 2. Follow-up ENT in 2-1/2 months for recheck sooner with problems. documented in this encounter Plan of Treatment Upcoming Encounters Date Type Department Care Team (Late st Contact Info) Description 05/31/2024 9:30 AM EDT Clinical Support Otolaryngology at [address] [address] Jennifer Grimaldo PA [address] [place] [address] [place] [address] documented as of this encounter Visit Diagnoses Diagnosis Bilateral impacted cerumen Impacted cerumen External ear canal stenosis, acquired, bilateral documented in this encounter Care Teams Clinical Science Liaison Relationship Specialty Start Date End Date Hayde Uribe MD [address] [place] [address] PCP - General Pediatrics 10/27/17 10/28/21 documented as of this encounter
--- OUTSIDE RECORDS SUMMARY | 2024-05-18 15:25 | XMS_ITS | Encounter Summary ---
Author Organization [facility] [place] [address] Care Team Providers Care Receiving Associate Store Name Role Phone Unavailable Primary Care Provider Unavailabl e Encounter Details Date Type Department Care Team (Late st Contact Info) Description 09/09/2016 2:30 PM EST Office Visit Otolaryngology [address] [address] Felipe De Luna MD [address] [place] [address] Social History Tobacco Use Types [...] 9:30 AM EDT Clinical Support Otolaryngology at [address] [address] Jennifer Grimaldo PA [address] [facility] [place] [address] documented as of this encounter Visit Diagnoses Not on filedocumented in this encounter
--- OUTSIDE RECORDS SUMMARY | 2024-05-18 15:25 | XMS_ITS | Encounter Summary ---
Author Organization [facility] Address [facility] [place] [address] Care Team Providers Care Sustainment Logistics Analyst Name Role Phone Inge Carl MD Primary Care Provider + Encounter Details Date Type Department Care Team (Late st Contact Info) Description 05/27/2022 2:30 PM EDT Office Visit Otolaryngology at [place] [address] [place] [address] Felipe De Luna MD [address] [place] [address] Bilateral impacted cerumen; External ear [...] Reading Time Taken Comments Blood Pressure 110/70 05/27/2022 2:47 PM EDT Pulse 116 05/27/2022 2:47 PM EDT Temperature - - Respiratory Rate - - Oxygen Saturation 98% 05/27/2022 2:47 PM EDT Inhaled Oxygen Concentration - - Weight 65.8 kg (145 lb) 05/27/2022 2:47 PM EDT Height - - Body Mass Index - - documented in this encounter Progress Notes * Felipe De Luna MD - 05/27/2022 2:30 PM EDT Subjective: Tyra is a 17-year-old college student with a history of congenital external ear canalstenosis and chronic wax impactions who is seen back in the ENT clinic for wax removal. Chief complaint today is both ears feel plugged. Objective: Vital signs reviewed in electronic medical record by me today patient has good color pleasant demeanor. The external ear ear canals are small. Both ear canals show wax impactions. Mastoidsnontender facial nerve function intact. Procedure: With the patient's permission and wearing appropriate PPE, and using an ear speculum andwax curette alligator forceps and head mirror, bilateral wax impactions are removed. No bleeding. Eardrums are intact no fluid in the middle ear spaces. Impression: Bilateral wax impactions removed today. Plan: #1 water precautions both ears. 2. Follow-up ENT for ear recheck week of . documented in this encounter Plan of Treatment Upcoming Encounters Date Type Department Care Team ([facility] st Contact Info) Description 05/31/2024 9:30 AM EDT Clinical Support Otolaryngology at [address] [address] Jennifer Grimaldo PA [address] [place] [address] [place] [address] documented as of this encounter Visit Diagnoses Diagnosis Bilateral impacted cerumen Impacted cerumen External ear canal stenosis, acquired, bilateral documented in this encounter Care Teams Sustainment Logistics Analyst Relationship Specialty Start Date End Date Inge Carl MD [address] [place] [address] PCP - General Pediatrics 10/29/21 documented as of this encounter
--- OUTSIDE RECORDS SUMMARY | 2024-05-18 15:25 | XMS_ITS | Encounter Summary ---
Author Organization [facility] [place] [address] Care Team Providers Care Civil Engineer Name Role Phone Hayde Uribe MD Primary Care Provider [phone] Reason for Visit * Reason Onset Date Comments Appointment 12/16/2020 Encounter Details Date Type Department Care Team (Late st Contact Info) Description 12/16/2020 Notes Only Otolaryngology at [address] [address] Carola Huff CMA Appointment () Social History Tobacco Use Types Packs/Day Years Used Date Smoking Tobacco: Never Smokeless Tobacco: Never Sex and Gender Information Value Date Recorded Sex Assigned at Not on file Gender Identity Not on file Sexual Orientation Not on file documented as of this encounter Progress Notes * Carola Huff CMA - 12/16/2020 4:11 PM EST Patient and mom In office today. Mom Gave us permission to see Shama upcoming appointment January for ear cleaning, Permission note in scanned documents. documented in this encounter Plan of Treatment Upcoming Encounters Date Type Department Care Team (Late st Contact Info) Description 05/31/2024 9:30 AM EDT Clinical Support Otolaryngology at [address] [address] Jennifer Grimaldo PA [address] [place] [address] [place] [address] documented as of this encounter Visit Diagnoses Not on filedocumented in this encounter Care Teams Civil Engineer Relationship Specialty Start Date End Date Hayde Uribe MD [address] [place] [address] PCP - General Pediatrics 10/27/17 10/28/21 documented as of this encounter
--- OUTSIDE RECORDS SUMMARY | 2024-05-18 15:25 | XMS_ITS | Encounter Summary ---
Author Organization [facility] [place] [address] Care Team Providers Care Corporate Aircraft Mechanic Name Role Phone Unavailable Primary Care Provider Unavailabl e Encounter Details Date Type Department Care Team (Late st Contact Info) Description 03/08/2017 4:15 PM EDT Office Visit Otolaryngology [address] [address] Felipe De Luna MD [address] [place] [address] Social History Tobacco Use Types [...] 9:30 AM EDT Clinical Support Otolaryngology at [address] [address] Jennifer Grimaldo PA [address] [facility] [place] [address] documented as of this encounter Visit Diagnoses Not on filedocumented in this encounter
--- OUTSIDE RECORDS SUMMARY | 2024-05-18 15:25 | XMS_ITS | Encounter Summary ---
Author Organization [facility] Address [facility] [place] [address] Care Team Providers Care Business Solutions Analyst Name Role Phone Hayde Uribe MD Primary Care Provider [phone] Reason for Visit * Reason Comments Follow-up Encounter Details Date Type Department Care Team ([facility] st Contact Info) Description 05/04/2018 9:30 AM EDT Office Visit Otolaryngology at [place] [address] [place] [address] Felipe De Luna MD [address] [place] [address] External ear canal stenosis, acquired, [...] Taken Comments Blood Pressure - - Pulse 72 05/04/2018 9:27 AM EDT Temperature - - Respiratory Rate - - Oxygen Saturation 97% 05/04/2018 9:27 AM EDT Inhaled Oxygen Concentration - - Weight - - Height - - Body Mass Index - - documented in this encounter Progress Notes * Felipe De Luna MD - 05/04/2018 9:30 AM EDT Subjective: Shama is a 13-year-old female with congenital bilateral external ear canal stenosis and wax impactions who returns the ENT clinic for an interval visit. Her chief complaint today is both ears feel plugged left more than right. She has had no bleeding or drainage from the ears. She occasionally does swim but does not wear earplugs because of her small ear canals unlikely to get water . She is here for evaluation. Objective: Vital signs reviewed in electronic medical record by me today patient is good color pleasant demeanor alert oriented to person place and time she is normocephalic atraumatic. External ear ear canals have bilateral congenital stenosis and wax impactions. Mastoids nontender facial nerve function intact. Procedure: Using the ear speculum head mirror and small wax curette bilateral wax impactions are removed. The eardrums are then intact no fluid the middle ear space. Impression: Bilateral wax impactions removed today in a patient with congenital bilateral ear canalstenosis. Plan: #1 follow-up ENT in 3 months for recheck sooner with problems. documented in this encounter Plan of Treatment Upcoming Encounters Date Type Department Care Team (Late st Contact Info) Description 05/31/2024 9:30 AM EDT Clinical Support Otolaryngology at [address] [address] Jennifer Grimaldo PA [address] [place] [address] [place] [address] documented as of this encounter Visit Diagnoses Diagnosis External ear canal stenosis, acquired, bilateral Bilateral impacted cerumen Impacted cerumen documented in this encounter Care Teams Business Solutions Analyst Relationship Specialty Start Date End Date Hayde Uribe MD [address] [place] [address] PCP - General Pediatrics 10/27/17 10/28/21 documented as of this encounter
--- OUTSIDE RECORDS SUMMARY | 2024-05-18 15:25 | XMS_ITS | Encounter Summary ---
Author Organization [facility] [place] [address] Care Team Providers Care Outpatient Program Coordinator Name Role Phone Unavailable Primary Care Provider Unavailabl e Reason for Visit * Reason Comments Follow-up wax; cerumen impacti on Encounter Details Date Type Department Care Team ([facility] st Contact Info) Description 08/23/2017 4:00 PM EST Office Visit Otolaryngology at [place] [address] [place] [address] Felipe De Luna MD [address] [place] [address] Bilateral impacted cerumen; External ear [...] Pressure - - Pulse - - Temperature 36.2 ??C (97.2 ??F) 08/23/2017 3:43 PM ES T Respiratory Rate - - Oxygen Saturation - - Inhaled Oxygen Concentration - - Weight - - Height - - Body Mass Index - - documented in this encounter Progress Notes * Felipe De Luna MD - 08/23/2017 4:00 PM EST Subjective: Shama Jolley is a 12-year-old female with bilateral ear canal stenosis and wax impactions. Her chief complaint today is that both ears feel plugged. She denies ear drainage or ear bleeding. She denies vertigo or tinnitus. She is here for bilateral wax impaction removal. Objective: Vital signs reviewed in electronic medical record by me today. Patient has good color pleasant demeanor alert oriented to person place and time she is normocephalic atraumatic. The external ear ear canals are small and there are wax impactions bilaterally. Mastoids nontender facial nervefunction intact. Procedure: With the patient and her mother's permission and using the ear speculum a wax curette and head mirror bilateral wax impactions are removed. The eardrums are intact no fluid in the middle ear space. Impression: #1 bilateral wax impactions. 2. External ear canal stenosis bilaterally. Plan: #1 follow-up ENT in 2-1/2 months for recheck sooner with problems. documented in this encounter Plan of Treatment Upcoming Encounters Date Type Department Care Team (Late st Contact Info) Description 05/31/2024 9:30 AM EDT Clinical Support Otolaryngology at [address] [address] Jennifer Grimaldo PA [address] [place] [address] [place] [address] documented as of this encounter Visit Diagnoses Diagnosis Bilateral impacted cerumen Impacted cerumen External ear canal stenosis, acquired, bilateral documented in this encounter
--- OUTSIDE RECORDS SUMMARY | 2024-05-18 15:25 | XMS_ITS | Encounter Summary ---
Author Organization [facility] Address [address] [place] [address] Care Team Providers Care Manager Mechanical Maintenance Name Role Phone Unavailable Primary Care Provider Unavailabl e Encounter Details Date Type Department Care Team (Late st Contact Info) Description 02/09/2022 Lab Requisition [facility] Pathology & Laboratory Medicine - [facility] [address] [place] [address] Outr Resulting Lab, Provider Social History Tobacco [...] Procedure Name Priority Date/Time Associated Diagnosis Comments ZZCOVID-19 TEST [facility] PCR Today 02/09/2022 14:50 EDT COVID-19 TESTING Routine 02/09/2022 14:5 0 EDT documented in this encounter Results * COVID-19 TEST [facility] (02/09/2022 14:50 EDT) Swab 02/09/2022 14:5 0 EDT 02/10/2022 17:10 EDT Provider Outr Resulting Lab MICROBIOLOGY - GENERAL ORDERABLES [facility] [address] [place] [address] * COVID-19 TESTING (02/09/2022 14:50 EDT) COVID-19 rt-PCR Result Negative Negative 02/11/2022 11:46 EDT [facility] Comment: This test has not been FDA cleared or approved. This test has been authorized by FDA under an EUA for use by authorized laboratories. This test has been authorized only for detection of nucleic acid from 2019-nCoV, not for any other viruses or pathogens. This test is only authorized for the duration of the declaration that circumstances exist justifying the authorization of emergency use of in vitro diagnostic tests for detection and/or diagnosis of 2019-nCoV under section 564(b)(1) of Act, 21 U.S.C ?? 360bbb-3(b) (1), unless the authorization is terminated or revoked sooner. Negative results do not preclude 2019-nCoV infection and should not be used as the sole basis for treatment or other patient management decisions. Negative results must be combined with clinical observations, patient history, and epidemiological information. Testing was performed using the elena SARS-CoV-2 assay ([employer] on the Elena 6800 System Performing Lab Elena [address] [facility] 02/11/2022 11:46 EDT [facility] Swab 02/09/2022 14:5 0 EDT 02/10/2022 17:10 EDT Provider Outr Resulting Lab MICROBIOLOGY - GENERAL ORDERABLES [facility] [address] [place] [address] documented in this encounter Visit Diagnoses Not on filedocumented in this encounter
--- OUTSIDE RECORDS SUMMARY | 2024-05-18 15:25 | XMS_ITS | Encounter Summary ---
Author Organization [facility] [address] Care Team Providers Care Motel Manager Name Role Phone Unavailable Primary Care Provider Unavailabl e Encounter Details Date Type Department Care Team (Late st Contact Info) Description 05/11/2016 3:00 PM EDT Office Visit Otolaryngology [address] [address] Felipe De Luna MD [address] [place] [address] Social History Tobacco Use Types [...] AM EDT Clinical Support Otolaryngology at [address] [address] Jennifer Grimaldo PA [address] [facility] [place] [address] documented as of this encounter Visit Diagnoses Not on filedocumented in this encounter
--- OUTSIDE RECORDS SUMMARY | 2024-05-18 15:25 | XMS_ITS | Encounter Summary ---
Author Organization [facility] Address [facility] [place] [address] Care Team Providers Care Licensing Registration Examiner Name Role Phone Hayde Uribe MD Primary Care Provider [phone] Reason for Visit * Reason Comments Cerumen Impaction Encounter Details Date Type Department Care Team ([facility] st Contact Info) Description 08/15/2018 4:00 PM EDT Office Visit Otolaryngology at [place] [address] [place] [address] Felipe De Luna MD [address] [place] [address] Bilateral impacted cerumen; External ear [...] Taken Comments Blood Pressure - - Pulse 67 08/15/2018 3:48 PM EDT Temperature - - Respiratory Rate - - Oxygen Saturation 99% 08/15/2018 3:48 PM EDT Inhaled Oxygen Concentration - - Weight - - Height - - Body Mass Index - - documented in this encounter Progress Notes * Felipe De Luna MD - 08/15/2018 4:00 PM EDT Subjective: Shama Jolley is a 13-year-old female seen back in the ENT clinic for congenital small external ear canals and wax impactions and are cleaned every 3 months. Her chief complaint today is that both ears feel plugged. She does not wear hearing aids. She denies drainage from her ears. Objective: Vital signs reviewed in electronic medical record by me today patient is good color pleasant demeanor alert oriented to person place and time she is normocephalic atraumatic. The external ear ear canals are small and there is wax impactions bilaterally. Mastoids nontender facial nerve function intact. Procedure: With the patient and her mother's permission and using the ear speculum wax curette and a head mirror, bilateral wax impactions are removed. The eardrums are then found to be intact no fluid the middle ear spaces. Impression: Bilateral wax impactions removed today. Plan: #1 follow-up ENT in 3 months for recheck. documented in this encounter Plan of Treatment Upcoming Encounters Date Type Department Care Team (Late st Contact Info) Description 05/31/2024 9:30 AM EDT Clinical Support Otolaryngology at [address] [address] Jennifer Grimaldo PA [address] [place] [address] [place] [address] documented as of this encounter Visit Diagnoses Diagnosis Bilateral impacted cerumen Impacted cerumen External ear canal stenosis, acquired, bilateral documented in this encounter Care Teams Licensing Registration Examiner Relationship Specialty Start Date End Date Hayde Uribe MD [address] [place] [address] PCP - General Pediatrics 10/27/17 10/28/21 documented as of this encounter
--- OUTSIDE RECORDS SUMMARY | 2024-05-18 15:25 | XMS_ITS | Encounter Summary ---
Author Organization [facility] [place] [address] Care Team Providers Care Screen Handler Name Role Phone Unavailable Primary Care Provider Unavailabl e Encounter Details Date Type Department Care Team (Late Contact Info) Description 06/04/2014 Abstract [facility] Information Services [address] [place] [address] Provider, His [place] MD Social History Tobacco Use Types Packs/Day Years Used Date Smoking Tobacco: Never Assessed Sex and Gender Information Value Date Recorded Sex Assigned at Not on file Gender Identity Not on file Sexual Orientation Not on file documented as of this encounter Last Filed Vital Signs Vital Sign Reading Time Taken Comments Blood Pressure 100/64 06/04/2014 10:34 AM EDT Sourced from [place] Conversion Pulse - - Temperature - - Respiratory Rate - - Oxygen Saturation - - Inhaled Oxygen Concentration - - Weight - - Height - - Body Mass Index - - documented in this encounter Plan of Treatment Upcoming Encounters Date Type Department Care Team (Late st Contact Info) Description 05/31/2024 9:30 AM EDT Clinical Support Otolaryngology at [place] [address] [place] [address] Jennifer Grimaldo PA [address] [place] [address] OTOLARYNGOLOGY [place], [place] [id number] documented as of this encounter Visit Diagnoses Not on filedocumented in this encounter
--- OUTSIDE RECORDS SUMMARY | 2024-05-18 15:25 | XMS_ITS | Encounter Summary ---
Author Organization [place] [address] Care Team Providers Care Construction Supervisor/Carpenter Name Role Phone Hayde Uribe MD Primary Care Provider [phone] Reason for Visit * Reason Comments Follow-up cerumen Encounter Details Date Type Department Care Team ([facility] st Contact Info) Description 02/01/2019 2:15 PM EDT Office Visit Otolaryngology at [address] [address] Felipe De Luna MD [address] [place] [address] Bilateral impacted cerumen Social History Tobacco Use Types Packs/Day Years Used Date Smoking Tobacco: Never Smokeless Tobacco: Never Sex and Gender Information Value Date Recorded Sex Assigned at Not on file Gender Identity Not on file Sexual Orientation Not on file documented as of this encounter Last Filed Vital Signs Vital Sign Reading Time Taken Comments Blood Pressure 98/60 02/01/2019 2:31 PM EDT Pulse 54 02/01/2019 2:31 PM EDT Temperature 36.4 ??C (97.6 ??F) 02/01/2019 2:31 PM ED T Respiratory Rate - - Oxygen Saturation 99% 02/01/2019 2:31 PM EDT Inhaled Oxygen Concentration - - Weight - - Height - - Body Mass Index - - documented in this encounter Progress Notes * Felipe De Luna MD - 02/01/2019 2:15 PM EDT Subjective: Shama is a 13-year-old female seen back in the ENT clinic for wax impactions. She has congenital ear canal stenosis. Her chief complaint today is both ears feel plugged. She does not wear hearing aids and there is no bleeding or drainage. Objective: Vital signs reviewed in electronic medical record by me today patient is good color pleasant demeanor. External ear ear canals show small canals with bilateral wax impactions. Procedure: With the patient and her mother's permission and using the operating microscope, ear speculum and a wax curette bilateral wax impactions are removed. There is no bleeding. Both eardrums are intact. Impression: Bilateral wax impactions removed today. Plan: #1 water precautions both ears. 2. Follow-up ENT in 2 months for recheck. documented in this encounter Plan of Treatment Upcoming Encounters Date Type Department Care Team (Late st Contact Info) Description 05/31/2024 9:30 AM EDT Clinical Support Otolaryngology at [address] [address] Jennifer Grimaldo PA [address] [place] [address] [place] [address] documented as of this encounter Visit Diagnoses Diagnosis Bilateral impacted cerumen Impacted cerumen documented in this encounter Care Teams Construction Supervisor/Carpenter Relationship Specialty Start Date End Date Hayde Uribe MD [address] [place] [address] PCP - General Pediatrics 10/27/17 10/28/21 documented as of this encounter
--- OUTSIDE RECORDS SUMMARY | 2024-05-18 15:25 | XMS_ITS | Encounter Summary ---
Author Organization [facility] [place] [address] Care Team Providers Care Human Resources Benefits Coordinator Name Role Phone Hayde Uribe MD Primary Care Provider [phone] Reason for Visit * Reason Comments Follow-up ear canal stenosis Encounter Details Date Type Department Care Team ([facility] st Contact Info) Description 04/30/2021 9:00 AM EDT Office Visit Otolaryngology at [place] [address] [place] [address] Felipe De Luna MD [address] [place] [address] Bilateral impacted cerumen Social History Tobacco Use Types Packs/Day Years Used Date Smoking Tobacco: Never Smokeless Tobacco: Never Sex and Gender Information Value Date Recorded Sex Assigned at Not on file Gender Identity Not on file Sexual Orientation Not on file documented as of this encounter Last Filed Vital Signs Vital Sign Reading Time Taken Comments Blood Pressure 92/60 04/30/2021 8:57 AM EDT Pulse 58 04/30/2021 8:57 AM EDT Temperature 36.7 ??C (98 ??F) 04/30/2021 8:57 AM EDT Respiratory Rate - - Oxygen Saturation 96% 04/30/2021 8:57 AM EDT Inhaled Oxygen Concentration - - Weight - - Height - - Body Mass Index - - documented in this encounter Progress Notes * Felipe De Luna MD - 04/30/2021 9:00 AM EDT Subjective: Shama is an 16-year-old female with congenital bilateral ear canal stenosis and wax impactions who is seen back in the ENT clinic for wax impaction removal. Her chief complaint today is both ears feel plugged. Objective: Vital signs reviewed in electronic medical record by me today patient has good color pleasant demeanor alert oriented to person place and time. The external ear ear canals are small and have wax impactions. Procedure: Using an ear speculum and head mirror and a small wax curette bilateral wax impactions were removed. The eardrums are intact no fluid the middle ear spaces. No bleeding. Impression: Doing well following bilateral wax impaction removal. Plan: #1 follow-up ENT in 2 and half months for earwax impaction removal sooner with problems. documented in this encounter Plan of Treatment Upcoming Encounters Date Type Department Care Team (Late st Contact Info) Description 05/31/2024 9:30 AM EDT Clinical Support Otolaryngology at [address] [address] Jennifer Grimaldo PA [address] [place] [address] [place] [address] documented as of this encounter Visit Diagnoses Diagnosis Bilateral impacted cerumen Impacted cerumen documented in this encounter Care Teams Human Resources Benefits Coordinator Relationship Specialty Start Date End Date Hayde Uribe MD [address] [place] [address] PCP - General Pediatrics 10/27/17 10/28/21 documented as of this encounter
--- OUTSIDE RECORDS SUMMARY | 2024-05-18 15:25 | XMS_ITS | Encounter Summary ---
Author Organization [facility] [place] [address] Care Team Providers Care Feedmobile Driver Name Role Phone Unavailable Primary Care Provider Unavailabl e Encounter Details Date Type Department Care Team (Late st Contact Info) Description 02/18/2015 4:15 PM EDT Office Visit [address] [address] Felipe De Luna MD [address] [place] [address] Social History Tobacco Use Types [...] 9:30 AM EDT Clinical Support Otolaryngology at [address] [address] Jennifer Grimaldo PA 580 [facility] [place] [address] documented as of this encounter Visit Diagnoses Not on filedocumented in this encounter
--- OUTSIDE RECORDS SUMMARY | 2024-05-18 15:25 | XMS_ITS | Encounter Summary ---
Author Organization [facility] [place] [address] Care Team Providers Care Dairy Farm Operator Name Role Phone Unavailable Primary Care Provider Unavailabl e Encounter Details Date Type Department Care Team (Late st Contact Info) Description 03/23/2014 4:00 PM EDT Office Visit [address] [address] Felipe De Luna MD [address] [place] [address] Social History Tobacco Use Types [...] 9:30 AM EDT Clinical Support Otolaryngology at [address] [address] Jennifer Grimaldo PA 580 [facility] [place] [address] documented as of this encounter Visit Diagnoses Not on filedocumented in this encounter
--- OUTSIDE RECORDS SUMMARY | 2024-05-18 15:25 | XMS_ITS | Encounter Summary ---
Author Organization [facility] Address [address] [place] [address] Care Team Providers Care Bow Maker Production Name Role Phone Unavailable Primary Care Provider Unavailabl e Encounter Details Date Type Department Care Team (Late st Contact Info) Description 10/29/2022 Lab Requisition [facility] Pathology & Laboratory Medicine - [facility] [address] [place] [address] Outr Resulting Lab, Provider Social History Tobacco [...] Comments CHLAMYDIA/N. GONORRHOEAE AMPLIFIED NUCLEIC ACID Routine 10/28/2022 16:54 EST documented in this encounter Results * CHLAMYDIA/N. GONORRHOEAE AMPLIFIED RNA (10/28/2022 16:54 EST) Neisseria gonorrhoeae Result Negative Negative 10/30/2022 13:33 EST [facility] Chlamydia trachomatis Result Negative Negative 10/30/2022 13:33 EST [facility] Swab ENTIRE VAGINA / Unknown 10/28/2022 16:54 EST 10/29/2022 18:19 EST Provider Outr Resulting Lab MICROBIOLOGY - GENERAL ORDERABLES [facility] [address] [place] [address] documented in this encounter Visit Diagnoses Not on filedocumented in this encounter
--- OUTSIDE RECORDS SUMMARY | 2024-05-18 15:25 | XMS_ITS | Encounter Summary ---
Author Organization [facility] [place] [address] Care Team Providers Care Medical Services Manager Name Role Phone Unavailable Primary Care Provider Unavailabl e Encounter Details Date Type Department Care Team (Late st Contact Info) Description 05/11/2016 Abstract [facility] Information Services [address] [place] [address] Provider, His MD [place] Social [...] - Inhaled Oxygen Concentration - - Weight 54.4 kg (120 lb) 05/11/2016 3:00 AM EDT Sourced from [place] Conversion Height - - Body Mass Index - - documented in this encounter Plan of Treatment Upcoming Encounters Date Type Department Care Team (Late st Contact Info) Description 05/31/2024 9:30 AM EDT Clinical Support Otolaryngology at [place] [address] [place] [address] Jennifer Grimaldo PA 580 [facility] OTOLARYNGOLOGY [place], [place] [address] documented as of this encounter Visit Diagnoses Not on filedocumented in this encounter
--- OUTSIDE RECORDS SUMMARY | 2024-05-18 15:25 | XMS_ITS | Encounter Summary ---
Author Organization [facility] [place] [address] Care Team Providers Care Glycerine Plant Operator Name Role Phone Unavailable Primary Care Provider Unavailabl e Encounter Details Date Type Department Care Team (Late st Contact Info) Description 03/23/2014 Abstract [facility] Information Services [address] [place] [address] Provider, His MD [place] Social [...] - - Weight 38.1 kg (84 lb) 03/23/2014 4:00 AM EDT Sourced from [place] Conversion Height - - Body Mass Index - - documented in this encounter Plan of Treatment Upcoming Encounters Date Type Department Care Team (Late st Contact Info) Description 05/31/2024 9:30 AM EDT Clinical Support Otolaryngology at [place] [address] [place] [address] Jennifer Grimaldo PA [address] [facility] OTOLARYNGOLOGY [place], [place] [address] documented as of this encounter Visit Diagnoses Not on filedocumented in this encounter
--- OUTSIDE RECORDS SUMMARY | 2024-05-18 15:25 | XMS_ITS | Encounter Summary ---
Author Organization [facility] [place] [address] Care Team Providers Care Cisco Unified Communications Engineer Name Role Phone Unavailable Primary Care Provider Unavailabl e Encounter Details Date Type Department Care Team (Late st Contact Info) Description 09/09/[address] [facility] Information Services [address] [place] [address] Provider, His [place] MD Social History Tobacco Use Types Packs/Day Years Used Date Smoking Tobacco: Never Assessed Sex and Gender Information Value Date Recorded Sex Assigned at Not on file Gender Identity Not on file Sexual Orientation Not on file documented as of this encounter Last Filed Vital Signs Vital Sign Reading Time Taken Comments Blood Pressure 92/62 09/09/2016 2:25 PM EST Sourced from [employer] Conversion Pulse - - Temperature - - Respiratory Rate - - Oxygen Saturation - - Inhaled Oxygen Concentration - - Weight 53.5 kg (118 lb) 09/09/2016 2:30 AM EST Sourced from [employer] Conversion Height - - Body Mass Index - - documented in this encounter Plan of Treatment Upcoming Encounters Date Type Department Care Team (Late st Contact Info) Description 05/31/2024 9:30 AM EDT Clinical Support Otolaryngology at [address] [address] Jennifer Grimaldo PA [address] [place] [address] [place] [address] documented as of this encounter Visit Diagnoses Not on filedocumented in this encounter
--- OUTSIDE RECORDS SUMMARY | 2024-05-18 15:25 | XMS_ITS | Encounter Summary ---
Author Organization [facility] [place] [address] Care Team Providers Care Chief Investment Officer Name Role Phone Unavailable Primary Care Provider Unavailabl e Encounter Details Date Type Department Care Team (Late Contact Info) Description 12/09/2016 Abstract [facility] Information Services [address] [place] [phone] Provider, His [place] MD Social History Tobacco Use Types Packs/Day Years Used Date Smoking Tobacco: Never Assessed Sex and Gender Information Value Date Recorded Sex Assigned at Not on file Gender Identity Not on file Sexual Orientation Not on file documented as of this encounter Last Filed Vital Signs Vital Sign Reading Time Taken Comments Blood Pressure 110/72 12/09/2016 9:00 AM EST Eloina rced from [place] Conversion Pulse - - Temperature - - Respiratory Rate - - Oxygen Saturation - - Inhaled Oxygen Concentration - - Weight - - Height - - Body Mass Index - - documented in this encounter Plan of Treatment Upcoming Encounters Date Type Department Care Team (Late st Contact Info) Description 05/31/2024 9:30 AM EDT Clinical Support Otolaryngology at [place] [address] [place] [address] Jennifer Grimaldo PA [address] [place] [address] OTOLARYNGOLOGY [place], [place] [id number] documented as of this encounter Visit Diagnoses Not on filedocumented in this encounter
--- OUTSIDE RECORDS SUMMARY | 2024-05-18 15:25 | XMS_ITS | Encounter Summary ---
Author Organization [facility] [place] [address] Care Team Providers Care Pipeline Maintenance Supervisor Name Role Phone Unavailable Primary Care Provider Unavailabl e Encounter Details Date Type Department Care Team (Late st Contact Info) Description 06/07/2017 4:15 PM EDT Office Visit Otolaryngology [address] [address] Felipe De Luna MD [address] [place] [address] Social History Tobacco Use Types [...] 9:30 AM EDT Clinical Support Otolaryngology at [address] [address] Jennifer Grimaldo PA 580 [facility] [place] [address] documented as of this encounter Visit Diagnoses Not on filedocumented in this encounter
--- OUTSIDE RECORDS SUMMARY | 2024-05-18 15:25 | XMS_ITS | Encounter Summary ---
Author Organization [facility] [place] [address] Care Team Providers Care Veterans Service Officer Name Role Phone Hayde Uribe MD Primary Care Provider [phone] Reason for Visit * Reason Comments Follow-up recheck ears Encounter Details Date Type Department Care Team ([facility] st Contact Info) Description 06/05/2019 4:00 PM EDT Office Visit Otolaryngology at [address] [address] Felipe De Luna MD [address] [place] [address] External ear canal stenosis, acquired, [...] Reading Time Taken Comments Blood Pressure 100/60 06/05/2019 4:00 PM EDT Pulse 82 06/05/2019 4:00 PM EDT Temperature 37 ??C (98.6 ??F) 06/05/2019 4:00 PM EDT Respiratory Rate - - Oxygen Saturation 98% 06/05/2019 4:00 PM EDT Inhaled Oxygen Concentration - - Weight - - Height - - Body Mass Index - - documented in this encounter Progress Notes * Felipe De Luna MD - 06/05/2019 4:00 PM EDT Subjective: Shama is a 14-year-old female with congenital ear canal stenosis seen back in the ENT clinic for bilateral wax impactions. She comes in every 2 months to have the impactions removed. Her chief complaint today is both ears feel plugged. Objective: Vital signs reviewed in electronic medical record by me today. The external ear ear canals have bilateral wax impactions. The canals are small. Procedure: Using operating microscope ear speculum wax curette and alligator forceps bilateral wax impactions are removed. The canals are small but the eardrums are visualized and there is no fluid the middle ear space the eardrums are intact there is no bleeding. Impression: Bilateral wax impactions removed today area Plan: #1 water precautions both ears. 2. Follow-up ENT in 2 months for recheck. documented in this encounter Plan of Treatment Upcoming Encounters Date Type Department Care Team (Late st Contact Info) Description 05/31/2024 9:30 AM EDT Clinical Support Otolaryngology at [address] [address] Jennifer Grimaldo PA [address] [place] [address] [place] [address] documented as of this encounter Visit Diagnoses Diagnosis External ear canal stenosis, acquired, bilateral Bilateral impacted cerumen Impacted cerumen documented in this encounter Care Teams Veterans Service Officer Relationship Specialty Start Date End Date Hayde Uribe MD [address] [place] [address] PCP - General Pediatrics 10/27/17 10/28/21 documented as of this encounter
--- OUTSIDE RECORDS SUMMARY | 2024-05-18 15:25 | XMS_ITS | Encounter Summary ---
Author Organization [facility] [place] [address] Care Team Providers Care Certified Pathology Assistant Name Role Phone Hayde Uribe MD Primary Care Provider [phone] Reason for Visit * Reason Comments Follow-up recheck ears Encounter Details Date Type Department Care Team ([facility] st Contact Info) Description 08/23/2019 4:15 PM EST Office Visit Otolaryngology at [place] [address] [place] [address] Felipe De Luna MD [address] [place] [address] External ear canal stenosis, acquired, [...] Taken Comments Blood Pressure - - Pulse 79 08/23/2019 4:20 PM EST Temperature 36.5 ??C (97.7 ??F) 08/23/2019 4:20 PM ES T Respiratory Rate - - Oxygen Saturation 99% 08/23/2019 4:20 PM EST Inhaled Oxygen Concentration - - Weight - - Height - - Body Mass Index - - documented in this encounter Progress Notes * Felipe De Luna MD - 08/23/2019 4:15 PM EST Subjective: Lali is a 14-year-old female with congenital small ear canals who is seen back in the ENT clinic for her 2-month removal of wax impactions. Her chief complaint today is that both ears feel plugged. She does not wear hearing aids. She tries to keep water out of her ears. Objective: Vital signs reviewed in electronic medical record by me today. External ear ear canals are small and show bilateral wax impactions mastoids are nontender facial nerve function intact. Procedure: The patient and her mother's permission and using the operating microscope ear speculum 3 and 5 Serbian suction and a wax curette and alligator forceps bilateral wax impactions are removed.There is no bleeding. Eardrums are intact no fluid the middle ear spaces. Impression: Bilateral wax impactions removed today. Plan: #1 water precautions both ears. 2. Follow-up ENT in 2 months for recheck sooner with problems. documented in this encounter Plan of Treatment Upcoming Encounters Date Type Department Care Team (Late st Contact Info) Description 05/31/2024 9:30 AM EDT Clinical Support Otolaryngology at [address] [address] Jennifer Grimaldo PA [address] [place] [address] [place] [address] documented as of this encounter Visit Diagnoses Diagnosis External ear canal stenosis, acquired, bilateral Bilateral impacted cerumen Impacted cerumen documented in this encounter Care Teams Certified Pathology Assistant Relationship Specialty Start Date End Date Hayde Uribe MD [address] [place] [address] PCP - General Pediatrics 10/27/17 10/28/21 documented as of this encounter
--- OUTSIDE RECORDS SUMMARY | 2024-05-18 15:25 | XMS_ITS | Encounter Summary ---
Author Organization [facility] [place] [address] Care Team Providers Care Special Education Teachers Name Role Phone Unavailable Primary Care Provider Unavailabl e Encounter Details Date Type Department Care Team (Late st Contact Info) Description 11/27/2014 4:30 PM EST Office Visit [facility] [address] [place] [address] Felipe De Luna MD [address] [place] [address] Social History Tobacco Use Types [...] 9:30 AM EDT Clinical Support Otolaryngology at [address] [address] Jennifer Grimaldo PA [address] [facility] [place] [address] documented as of this encounter Visit Diagnoses Not on filedocumented in this encounter
--- OUTSIDE RECORDS SUMMARY | 2024-05-18 15:25 | XMS_ITS | Encounter Summary ---
Author Organization [facility] Address [facility] [place] [address] Care Team Providers Care Loan And Credit Manager Name Role Phone Hayde Uribe MD Primary Care Provider [phone] Encounter Details Date Type Department Care Team (Late st Contact Info) Description 08/23/2019 3:40 PM EST Laboratory Appointment Lab at [address] [address] Social History Tobacco Use Types Packs/Day [...] 9:30 AM EDT Clinical Support Otolaryngology at [address] [address] Jennifer Grimaldo PA [address] [place] [address] [place] [address] documented as of this encounter Procedures Procedure Name Priority Date/Time Associated Diagnosis Comments BASIC METABOLIC PANEL (NON-FASTING) Routine 08/23/2019 3:42 PM EST documented in this encounter Results * Basic Metabolic Panel (non-fasting) (08/23/2019 3:42 PM EST) Glucose Lvl 78 65 - 199 mg/dL [facility] Comment:Diabetes: >=200 mg/d L plus symptoms BUN 15 10 - 20 mg/dL [facility] Creatinine 0.81 0.46 - 0.86 mg/dL [facility] Sodium 140 135 - 145 mmol/L [facility] Potassium 4.3 3.5 - 5.0 mmol/L [facility] Comment: Please note: ??Patients with WBC >100,000 may have falsely elevated Potassium levels. ??For accurate Potassium quantification in these patients send serum separator tube (gold top) for subsequent determinations. ??Contact the Clinical Chemistry Laboratory if there are any questions. Chloride 100 98 - 107 mmol/L [facility] CO2 27 22 - 31 mmol/L [facility] Anion Gap 13 5 - 15 mmol/L [facility] Calcium 9.6 8.5 - 10.5 mg/dL [facility] Estimated GFR See note >=60 mL/min/1. 73 m?? [facility] Comment: The eGFR for patients less than 18 years of age should be calculated using the Freed formula. GFR = (0.413 x Height in cm)/serum creatinine. The eGFR was calculated using the CKD-EPI equation. As with all creatinine based estimates of kidney function, eGFR values calculated with the CKD-EPI equation are not accurate in patients with acute kidney failure, extremes of body mass or the acutely ill. [email or web address] [email or web address] eGFR See note >=60 mL/min/1. 73 m?? [facility] Comment: The eGFR for patients less than 18 years of age should be calculated using the Freed formula. GFR = (0.413 x Height in cm)/serum creatinine. The eGFR was calculated using the CKD-EPI equation. As with all creatinine based estimates of kidney function, eGFR values calculated with the CKD-EPI equation are not accurate in patients with acute kidney failure, extremes of body mass or the acutely ill. [email or web address] Blood specimen (specimen) Venous Draw / Unknown 08/23/2019 3:42 PM EST 08/23/2019 3:43 PM EST Narrative Resulting Agency Comment Spec In Lab Dr Lab CHEMISTRY ORDERABLES [facility] [address] [place] [id number] documented in this encounter Visit Diagnoses Not on filedocumented in this encounter Care Teams Loan And Credit Manager Relationship Specialty Start Date End Date Hayde Uribe MD [address] [place] [address] PCP - General Pediatrics 10/27/17 10/28/21 documented as of this encounter
--- OUTSIDE RECORDS SUMMARY | 2024-05-18 15:25 | XMS_ITS | Encounter Summary ---
Author Organization [facility] Address [place] [address] Care Team Providers Care Observer Electrical Prospecting Name Role Phone Hayde Uribe MD Primary Care Provider [phone] Reason for Visit * Reason Comments Follow-up Cerumen Impaction Encounter Details Date Type Department Care Team ([facility] st Contact Info) Description 12/29/2017 4:00 PM EDT Office Visit Otolaryngology at [address] [address] Felipe De Luna MD [address] [place] [address] External ear canal stenosis, acquired, [...] Sign Reading Time Taken Comments Blood Pressure 85/60 12/29/2017 4:02 PM EDT Pulse 58 12/29/2017 4:02 PM EDT Temperature - - Respiratory Rate - - Oxygen Saturation 99% 12/29/2017 4:02 PM EDT Inhaled Oxygen Concentration - - Weight - - Height - - Body Mass Index - - documented in this encounter Progress Notes * Felipe De Luna MD - 12/29/2017 4:00 PM EDT Subjective: Sylvester is a 12-year-old female with congenital external ear canal stenosis andna Shola frequent wax impactions who is seen back in the ENT clinic for her 2 month visit. Chief complaint today is of both ears feel plugged which does affect her hearing in school some. She denies pain bleeding or drainage from the ears. She is here for wax impaction removal. Objective: Vital signs reviewed in electronic medical record by me today patient is good color pleasant demeanor alert oriented to person place and time she is normocephalic atraumatic. The external ear ear canals are small and there is bilateral wax impactions. Mastoids nontender facial nerve function intact. Procedure: With the patient's permission and using the operating microscope ear speculum wax curette and alligator forceps bilateral wax impactions are removed. The eardrums are then intact no fluid the middle ear space. Impression: External ear canal stenoses with wax impactions removed today. Plan: #1 follow-up ENT in 2 months for recheck. documented in this encounter Plan of Treatment Upcoming Encounters Date Type Department Care Team (Late st Contact Info) Description 05/31/2024 9:30 AM EDT Clinical Support Otolaryngology at [address] [address] Jennifer Grimaldo PA [address] [place] [address] [place] [address] documented as of this encounter Visit Diagnoses Diagnosis External ear canal stenosis, acquired, bilateral Bilateral impacted cerumen Impacted cerumen documented in this encounter Care Teams Observer Electrical Prospecting Relationship Specialty Start Date End Date Hayde Uribe MD [address] [place] [address] PCP - General Pediatrics 10/27/17 10/28/21 documented as of this encounter
--- OUTSIDE RECORDS SUMMARY | 2024-05-18 15:25 | XMS_ITS | Encounter Summary ---
[facility] [place] [address] Care Team Providers Care Stain Dipper Name Role Phone Inge Carl MD Primary Care Provider + Encounter Details Date Type Department Care Team (Latest Contact Info) Description 01/26/2024 Travel Social History Tobacco Use Types Packs/Day [...] 9:30 AM EDT Clinical Support Otolaryngology at [address] [address] Jennifer Grimaldo PA [address] [place] [address] OTOLARYNGOLOGY [place], [place] [id number] documented as of this encounter Visit Diagnoses Not on filedocumented in this encounter Care Teams Stain Dipper Relationship Specialty Start Date End Date Inge Carl MD [address] [place] [address] PCP - General Pediatrics 10/29/21 documented as of this encounter
--- OUTSIDE RECORDS SUMMARY | 2024-05-18 15:25 | XMS_ITS | Encounter Summary ---
Author Organization [facility] Address [facility] [place] [address] Care Team Providers Care Employment Counselor Name Role Phone Hayde Uribe MD Primary Care Provider [phone] Reason for Visit * Reason Comments Cerumen Impaction Encounter Details Date Type Department Care Team ([facility] st Contact Info) Description 10/27/2017 4:00 PM EST Office Visit Otolaryngology at [place] [address] [place] [address] Felipe De Luna MD [address] [place] [address] External ear canal stenosis, acquired, [...] Taken Comments Blood Pressure - - Pulse 54 10/27/2017 3:53 PM EST Temperature - - Respiratory Rate - - Oxygen Saturation 99% 10/27/2017 3:53 PM EST Inhaled Oxygen Concentration - - Weight - - Height - - Body Mass Index - - documented in this encounter Progress Notes * Felipe De Luna MD - 10/27/2017 4:00 PM EST Subjective: Shama Jolley is a 12-year-old female with 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 She denies drainage bleeding or infection. She sometimes has a little bit of trouble hearing in the classroom due to the ear plugging. Objective: Vital signs reviewed in electronic medical record by me today patient is good color pleasant demeanor alert oriented to person place and time she is normocephalic atraumatic. The external ear ear canals have stenosis in the bony canal. There is wax impactions bilaterally. Mastoids nontender facial nerve function intact. Procedure: With the patient's permission and using the operating microscope ear speculum wax curette alligator forceps and #5 Miranda suction bilateral wax impactions are removed. The eardrums are then intact no fluid the middle ear space. Impression: Bilateral wax impactions removed today. Plan: #1 water precautions both ears. 2. Follow-up ENT in 2 months for recheck of ears sooner with problems. documented in this encounter Plan of Treatment Upcoming Encounters Date Type Department Care Team (Late st Contact Info) Description 05/31/2024 9:30 AM EDT Clinical Support Otolaryngology at [address] [address] Jennifer Grimaldo PA [address] [place] [address] [place] [address] documented as of this encounter Visit Diagnoses Diagnosis External ear canal stenosis, acquired, bilateral Bilateral impacted cerumen Impacted cerumen documented in this encounter Care Teams Employment Counselor Relationship Specialty Start Date End Date Hayde Uribe MD [address] [place] [address] PCP - General Pediatrics 10/27/17 10/28/21 documented as of this encounter
--- OUTSIDE RECORDS SUMMARY | 2024-05-18 15:25 | XMS_ITS | Encounter Summary ---
Author Organization [facility] Address [facility] [address] Care Team Providers Care Stock Counter Name Role Phone Hayde Uribe MD Primary Care Provider [phone] Encounter Details Date Type Department Care Team (Latest Contact Info) Description 02/19/2021 8:00 AM EDT Clinical Support Otolaryngology at [address] [address] Felipe De Luna MD [address] [place] [address] External ear canal stenosis, acquired, bilateral; [...] Sign Reading Time Taken Comments Blood Pressure 90/50 02/19/2021 7:51 AM EDT Pulse 80 02/19/2021 7:51 AM EDT Temperature 36.6 ??C (97.8 ??F) 02/19/2021 7:51 AM ED T Respiratory Rate - - Oxygen Saturation 97% 02/19/2021 7:51 AM EDT Inhaled Oxygen Concentration - - Weight - - Height - - Body Mass Index - - documented in this encounter Progress Notes * Felipe De Luna MD - 02/19/2021 8:00 AM EDT Subjective: Shama is a 15-year-old high school senior seen back in the ENT clinic for bilateral wax impaction. 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 Her chief complaint today is that both ears feel plugged. No bleeding pain or drainage. Objective: Vital signs reviewed in electronic medical record by me today patient is good color pleasant demeanor alert oriented to person place and time she is normocephalic atraumatic. The external ear ear canals are small and there are wax impactions. No infection or drainage. Mastoids are nontender facial nerve function intact. Procedure: With the patient's permission and wearing appropriate PPE, and using a head mirror ear speculum and a small wax loop, bilateral wax impactions are removed. No bleeding. Eardrums are intactno fluid the middle ear spaces. Impression: Bilateral congenital ear canal stenosis. Bilateral wax impactions removed today. Plan: #1 water precautions both ears for several days. 2. Follow-up ENT in 2-1/2 months for wax removal sooner with problems. documented in this encounter Plan of Treatment Upcoming Encounters Date Type Department Care Team (Late st Contact Info) Description 05/31/2024 9:30 AM EDT Clinical Support Otolaryngology at [address] [address] Jennifer Grimaldo PA [address] [place] [address] [place] [address] documented as of this encounter Visit Diagnoses Diagnosis External ear canal stenosis, acquired, bilateral Bilateral impacted cerumen Impacted cerumen documented in this encounter Care Teams Stock Counter Relationship Specialty Start Date End Date Hayde Uribe MD [address] [place] [address] PCP - General Pediatrics 10/27/17 10/28/21 documented as of this encounter
--- OUTSIDE RECORDS SUMMARY | 2024-05-18 15:25 | XMS_ITS | Encounter Summary ---
Author Organization Replaced By [facility] Address [facility] [place] [address] Care Team Providers Care Stamp Pad Finisher Name Role Phone Hayde Uribe MD Primary Care Provider [phone] Encounter Details Date Type Department Care Team (Late st Contact Info) Description 11/14/2018 4:00 PM EST Office Visit Otolaryngology at [address] [address] Felipe De Luna MD [address] [place] [address] Bilateral impacted cerumen Social History Tobacco Use Types Packs/Day Years Used Date Smoking Tobacco: Never Smokeless Tobacco: Never Sex and Gender Information Value Date Recorded Sex Assigned at Not on file Gender Identity Not on file Sexual Orientation Not on file documented as of this encounter Last Filed Vital Signs Vital Sign Reading Time Taken Comments Blood Pressure 92/62 11/14/2018 3:59 PM EST Pulse 68 11/14/2018 3:59 PM EST Temperature - - Respiratory Rate - - Oxygen Saturation 99% 11/14/2018 3:59 PM EST Inhaled Oxygen Concentration - - Weight - - Height - - Body Mass Index - - documented in this encounter Progress Notes * Felipe De Luna MD - 11/14/2018 4:00 PM EST Subjective: Shama is a 13-year-old female with congenital bilateral external ear canal stenoses and so she has wax impactions that are removed on a regular basis. Her chief complaint today is bothears feel plugged and her hearing is somewhat diminished as a result. She is here for earwax removal. Objective: Vital signs reviewed in electronic medical record by me today patient has good color pleasant demeanor alert oriented to person place and time she is normocephalic atraumatic. The externalear ear canal shows small canals with bilateral wax impactions. Mastoids nontender facial nerve function intact. Procedure: Using the operating microscope ear speculum a small wax curette and a 3 Occitan suction bilateral wax impactions are removed from stenotic ear canals. The eardrums are then found to be intact no fluid the middle ear space no bleeding. Impression: Bilateral wax impactions removed today. Patient continues to have ear canal stenosis. Plan: #1 water precautions both ears. 2. Follow-up ENT in just over 2 months for recheck sooner with problems. documented in this encounter Plan of Treatment Upcoming Encounters Date Type Department Care Team (Late st Contact Info) Description 05/31/2024 9:30 AM EDT Clinical Support Otolaryngology at [address] [address] Jennifer Grimaldo PA [address] [place] [address] [place] [address] documented as of this encounter Visit Diagnoses Diagnosis Bilateral impacted cerumen Impacted cerumen documented in this encounter Care Teams Stamp Pad Finisher Relationship Specialty Start Date End Date Hayde Uribe MD [address] [place] [address] PCP - General Pediatrics 10/27/17 10/28/21 documented as of this encounter
--- OUTSIDE RECORDS SUMMARY | 2024-05-18 15:25 | XMS_ITS | Encounter Summary ---
Author Organization [facility] Address 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 Her chief complaint today is both ears feel plugged. She does use Ciprodex drops at home intermittently for any ear drainage or water contamination. Objective: Vital signs reviewed in electronic medical record by me today patient has good color pleasant demeanor. The external ears demonstrate small ear canals with moist wax obstruction left ear more than right. Mastoids nontender facial nerve function intact. Procedure: With the patient's permission and wearing appropriate PPE and using ear speculum, wax curette, 3 Divehi suction in the operating microscope, bilateral wax impactions are removed. Both eardrums are intact no fluid in the middle ear spaces. No bleeding. Impression: Doing well following removal of bilateral wax impactions in a patient with a history ofear canal stenosis and mild eczema of the ear canals. Plan: #1 water precautions both ears. 2. Ciprodex 3 drops each ear daily as needed for water contamination ears. 3. Follow-up with TRENA Camarillo, ENT clinic in 4 months for ear recheck. 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
--- OUTSIDE RECORDS SUMMARY | 2024-05-18 15:25 | XMS_ITS | Encounter Summary ---
Author Organization [facility] [place] [address] Care Team Providers Care Asbestos Pipe Supervisor Name Role Phone Inge Carl MD Primary Care Provider + Reason for Visit * Reason Onset Date Comments Appointment 06/09/2022 Rescheduling Encounter Details Date Type Department Care Team (Late Contact Info) Description 06/09/2022 Telephone Otolaryngology at [address] [phone] Gris Swift CMA Appointment (Rescheduling) Social History Tobacco Use Types Packs/Day Years Used Date Smoking Tobacco: Never Smokeless Tobacco: Never Sex and Gender Information Value Date Recorded Sex Assigned at Not on file Gender Identity Not on file Sexual Orientation Not on file documented as of this encounter Miscellaneous Notes * Telephone Encounter - Gris Swift CMA - 06/09/2022 9:52 AM EDT LM for patient that her appt in ENT on 09/11 will need to be changed, as Dr. De Luna will not be in the office that day. documented in this encounter Plan of Treatment Upcoming Encounters Date Type Department Care Team (Late Contact Info) Description 05/31/2024 9:30 AM EDT Clinical Support Otolaryngology at [address] [phone] Jennifer Grimaldo PA [address] [place] [address] [place] [address] documented as of this encounter Visit Diagnoses Not on filedocumented in this encounter Care Teams Asbestos Pipe Supervisor Relationship Specialty Start Date End Date Inge Carl MD [address] [place] [address] [facility] [place] [address] PCP - General Pediatrics 10/29/21 documented as of this encounter
--- OUTSIDE RECORDS SUMMARY | 2024-05-18 15:25 | XMS_ITS | Encounter Summary ---
[place] [address] Care Team Providers Care Flower Stripper Name Role Phone Inge Carl MD Primary Care Provider + Reason for Visit * Reason Comments Follow-up Cerumen Impaction Encounter Details Date Type Department Care Team ([facility] st Contact Info) Description 09/08/2023 2:00 PM EST Office Visit Otolaryngology at [address] [phone] Felipe De Luna MD [address] [place] [phone] External ear canal stenosis, acquired, bilateral; [...] EST Temperature 36.4 ??C (97.6 ??F) 09/08/2023 1:58 PM ES T Respiratory Rate - - Oxygen Saturation 94% 09/08/2023 1:58 PM EST Inhaled Oxygen Concentration - - Weight - - Height - - Body Mass Index - - documented in this encounter Progress Notes * Felipe De Luna MD - 09/08/2023 2:00 PM EST Subjective: Lali is a 18-year-old female with a history of bilateral congenital external ear canal stenosis and wax impactions who is here to be seen in the ENT clinic for her every 5 to 6-month ear cleaning. Chief complaint today is both ears feel plugged. Objective: Vital signs reviewed in the EMR by me today. Bilateral ear canals are small with wax impactions. Procedure: With the patient's permission and using the operating microscope, small ear speculum, wax curette and 5 Maori suction, bilateral wax impactions are removed. The eardrums are intact no fluid in the middle ear spaces. No bleeding. Impression: Doing well following bilateral wax impaction removal. Plan: #1 water precautions both ears. 2. Follow-up ENT in January 2024 for recheck sooner with problems. documented in this encounter Plan of Treatment Upcoming Encounters Date Type Department Care Team (Late st Contact Info) Description 05/31/2024 9:30 AM EDT Clinical Support Otolaryngology at [address] [address] Jennifer Grimaldo PA [address] [place] [address] [place] [address] documented as of this encounter Visit Diagnoses Diagnosis External ear canal stenosis, acquired, bilateral Bilateral impacted cerumen Impacted cerumen documented in this encounter Care Teams Flower Stripper Relationship Specialty Start Date End Date Inge Carl MD [address] [place] [address] PCP - General Pediatrics 10/29/21 documented as of this encounter
--- OUTSIDE RECORDS SUMMARY | 2024-05-18 15:25 | XMS_ITS | Encounter Summary ---
Author Organization [facility] Address [facility] [place] [id number] Care Team Providers Care Compugraph Operator Name Role Phone Inge Carl MD Primary Care Provider + Encounter Details Date Type Department Care Team (Late st Contact Info) Description 03/12/2023 2:15 PM EDT Office Visit Otolaryngology at [address] [phone] Felipe De Luna MD [address] [place] [address] External ear canal stenosis, acquired, bilateral; Bilateral impacted cerumen Social History Tobacco Use Types Packs/Day Years Used Date Smoking Tobacco: Never Smokeless Tobacco: Never Sex and Gender Information Value Date Recorded Sex Assigned at Not on file Gender Identity Not on file Sexual Orientation Not on file documented as of this encounter Progress Notes * Felipe De Luna MD - 03/12/2023 2:15 PM EDT Subjective: Shama is a 18-year-old college opal with a history of congenital ear canal stenosis and need for bilateral impacted wax impaction removal on a regular schedule. Her chief complaint today is that both ears feel plugged again. She was seen 6 months ago. Objective: Vital signs reviewed in electronic medical record by me today patient is good color pleasant demeanor. The external ear ear canals show small ear canals with wax impactions. Mastoids are nontender facial nerve function intact. Procedure: With the patient's permission and wearing appropriate PPE and using an ear speculum, head ginette and a wax curette, bilateral wax impactions are removed. No bleeding. Both eardrums are intactno fluid in the middle ear spaces. Impression: Bilateral wax impactions removed today. Plan: #1 follow-up ENT in 6 months for recheck. documented in this encounter Plan of Treatment Upcoming Encounters Date Type Department Care Team ([facility] st Contact Info) Description 05/31/2024 9:30 AM EDT Clinical Support Otolaryngology at [address] [phone] Jennifer Grimaldo PA [address] [place] [address] [place] [address] documented as of this encounter Visit Diagnoses Diagnosis External ear canal stenosis, acquired, bilateral Bilateral impacted cerumen Impacted cerumen documented in this encounter Care Teams Compugraph Operator Relationship Specialty Start Date End Date Inge Carl MD [address] [place] [address] PCP - General Pediatrics 10/29/21 documented as of this encounter
--- OUTSIDE RECORDS SUMMARY | 2024-05-18 15:25 | XMS_ITS | Encounter Summary ---
Author Organization [facility] Address [address] [place] [address] Care Team Providers Care Potato Chip Sacking Machine Operator Name Role Phone Unavailable Primary Care Provider Unavailabl e Encounter Details Date Type Department Care Team (Late st Contact Info) Description 10/29/2022 Lab Requisition [facility] Pathology & Laboratory Medicine - [address] [address] Outr Resulting Lab, Provider Social History Tobacco [...] 1/2 ANTIGEN AND ANTIBODY, 4TH GENERATION Routine 10/28/2022 16:54 EST documented in this encounter Results * HIV 1/2 ANTIGEN AND ANTIBODY, 4TH GENERATION (10/28/2022 16:54 EST) HIV 1 and 2 Antibody/p24 Antigen, 4th Generation Negative Negative 10/30/2022 10:48 EST [facility] Comment:If acute HIV-1 infec tion is suspected in a high risk patient, submit plasma specimen for HIV-1 RNA quantitation test. Blood VENOUS BLOOD / Unknown 10/28/2022 16:54 EST 10/29/2022 17:45 EST Narrative [facility] - 10/30/2022 10:48 EST Fourth Generation assay performed on the Siemens Centaur XPT. Provider Outr Resulting Lab IMMUNOLOGY A ND SEROLOGY ORDERABLES [facility] [address] [place] [address] documented in this encounter Visit Diagnoses Not on filedocumented in this encounter
--- OUTSIDE RECORDS SUMMARY | 2024-05-18 15:25 | XMS_ITS | Encounter Summary ---
Author Organization [facility] Address [address] [place] [address] Care Team Providers Care Rotary Lithographic Press Operator Name Role Phone Unavailable Primary Care Provider Unavailabl e Encounter Details Date Type Department Care Team (Late st Contact Info) Description 10/29/2022 Lab Requisition [facility] Pathology & Laboratory Medicine - [address] [address] Outr Resulting Lab, Provider Social History Tobacco [...] Procedure Name Priority Date/Time Associated Diagnosis Comments HOLD SST Today 10/28/2022 16:54 EST HOLD SST Today 10/28/2022 16:54 EST HEPATITIS C AB W REFLEX TO HCV RNA BY PCR Today 10/28/2022 16:54 EST HEPATITIS B SURFACE ANTIGEN Today 10/28/2022 16:54 EST documented in this encounter Results * HOLD SST (10/28/2022 16:54 EST) Hold Hold 10/29/2022 19:01 EST [facility] Blood VENOUS BLOOD / Unknown 10/28/2022 16:54 EST 10/29/2022 17:49 EST Provider Outr Resulting Lab LAB INFO SER VICE AND SUPPORT & PHONE RESULT [facility] [address] [place] [address] * HOLD SST (10/28/2022 16:54 EST) Hold Hold 10/29/2022 19:01 EST [facility] Blood VENOUS BLOOD / Unknown 10/28/2022 16:54 EST 10/29/2022 17:49 EST Provider Outr Resulting Lab LAB INFO SER VICE AND SUPPORT & PHONE RESULT Performing Organization Address City/[facility]/ZIP Co de Phone Number [facility] [address] [place] [address] * HEPATITIS B SURFACE ANTIGEN (10/28/2022 16:54 EST) Hep B Surface Ag Negative Negative 10/30/2022 10:20 EST [facility] Blood VENOUS BLOOD / Unknown 10/28/2022 16:54 EST 10/29/2022 17:45 EST Provider Outr Resulting Lab CHEMISTRY & BLOOD GAS ORDERABLES Performing Organization Address [facility]/ZIP Co de Phone Number [facility] [address] [place] [address] * HEPATITIS C AB W REFLEX TO HCV RNA BY PCR (10/28/2022 16:54 EST) Hep C Antibody Negative Negative 10/30/2022 10:53 EST [facility] Blood VENOUS BLOOD / Unknown 10/28/2022 16:54 EST 10/29/2022 17:45 EST Provider Outr Resulting Lab CHEMISTRY & BLOOD GAS ORDERABLES Performing Organization Address [facility]/ZIP Co de Phone Number [facility] [address] [place] [address] documented in this encounter Visit Diagnoses Not on filedocumented in this encounter
--- OUTSIDE RECORDS SUMMARY | 2024-05-18 15:25 | XMS_ITS | Encounter Summary ---
Author Organization [facility] [place] [address] Care Team Providers Care Assistant Dean Of Students Name Role Phone Unavailable Primary Care Provider Unavailabl e Encounter Details Date Type Department Care Team (Late st Contact Info) Description 02/06/2014 3:45 PM EDT Office Visit [address] [address] Felipe De Luna MD [address] [place] [address] Social History Tobacco Use Types [...] 9:30 AM EDT Clinical Support Otolaryngology at [address] [address] Jennifer Grimaldo PA [address] [facility] [place] [address] documented as of this encounter Visit Diagnoses Not on filedocumented in this encounter
--- OUTSIDE RECORDS SUMMARY | 2024-05-18 15:25 | XMS_ITS | Encounter Summary ---
Author Organization [facility] [place] [address] Care Team Providers Care Embedded Systems Software Developer Name Role Phone Inge Carl MD Primary Care Provider + Encounter Details Date Type Department Care Team (Latest Contact Info) Description 09/08/2023 Travel Social History Tobacco Use Types Packs/Day [...] AM EDT Clinical Support Otolaryngology at [address] [phone] Jennifer Grimaldo PA [address] [place] [address] OTOLARYNGOLOGY [place], [place] [id number] documented as of this encounter Visit Diagnoses Not on filedocumented in this encounter Care Teams Embedded Systems Software Developer Relationship Specialty Start Date End Date Inge Carl MD [address] [place] [address] PCP - General Pediatrics 10/29/21 documented as of this encounter
--- OUTSIDE RECORDS SUMMARY | 2024-05-18 15:25 | XMS_ITS | Encounter Summary ---
Author Organization [facility] [place] [address] Care Team Providers Care Kitchen Designer Name Role Phone Inge Carl MD Primary Care Provider + Reason for Visit * Reason Comments Cerumen Impaction Encounter Details Date Type Department Care Team ([facility] st Contact Info) Description 03/27/2022 2:00 PM EDT Office Visit Otolaryngology at [address] [phone] Felipe De Luna MD [address] [place] [address] External ear canal stenosis, acquired, [...] Sign Reading Time Taken Comments Blood Pressure 106/60 03/27/2022 1:57 PM EDT Pulse - - Temperature 36.5 ??C (97.7 ??F) 03/27/2022 1:57 PM ED T Respiratory Rate 17 03/27/2022 1:57 PM EDT Oxygen Saturation 99% 03/27/2022 1:57 PM EDT Inhaled Oxygen Concentration - - Weight - - Height - - Body Mass Index - - documented in this encounter Progress Notes * Felipe De Luna MD - 03/27/2022 2:00 PM EDT Subjective: Tyra is a 17-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 Her chief complaint today is both ears feel plugged. She just finished her college year. Objective: Vital signs reviewed in electronic medical record by me today patient has good color pleasant demeanor alert oriented to person place and time. The external ear canals show bilateral wax impactions. Procedure: With the patient's permission and wearing appropriate PPE, and using an ear speculum, wax curette and a head mirror, bilateral wax impactions are removed. No bleeding. Eardrums are intact bilaterally. Impression: Doing well following removal of bilateral wax impactions. Plan: #1 follow-up ENT in 2 months for recheck sooner with problems. documented in this encounter Plan of Treatment Upcoming Encounters Date Type Department Care Team (Late st Contact Info) Description 05/31/2024 9:30 AM EDT Clinical Support Otolaryngology at [address] [address] Jennifer Grimaldo PA [address] [place] [address] [place] [address] documented as of this encounter Visit Diagnoses Diagnosis External ear canal stenosis, acquired, bilateral Bilateral impacted cerumen Impacted cerumen documented in this encounter Care Teams Kitchen Designer Relationship Specialty Start Date End Date Inge Carl MD [address] [place] [address] PCP - General Pediatrics 10/29/21 documented as of this encounter
--- OUTSIDE RECORDS SUMMARY | 2024-05-18 15:26 | XMS_ITS | Encounter Summary ---
Author Organization [facility] Address [phone] [facility] [place] [address] Care Team Providers Care Automatic Glove Former Name Role Phone Hayde Uribe MD Primary Care Provider U albert Encounter Details Date Type Department Care Team (Latest Contact Info) Description 02/03/2019 10:04 AM EDT - 02/03/2019 11:59 PM EDT Hospital Encounter [facility] Imaging - Xray, [address] [facility] [address] [place] [address] Blanche Galvin MD [address] [facility] CPZS[address][id number] [place] [phone] [email or web address] Discharge Disposition: Home or Self Care Social History Tobacco Use Types Packs/Day Years Used Date Smoking Tobacco: Never Assessed Sex and Gender Information Value Date Recorded Sex Assigned at Not on file Gender Identity Not on file Sexual Orientation Not on file documented as of this encounter Plan of Treatment Not on file documented as of this encounter Procedures Procedure Name Priority Date/Time Associated Diagnosis Comments XR CERVICAL SPINE 4-5 VIEWS Routine 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 No evidence of instability. ATTESTATION: I, Dr. Gabe Spear as teaching physician, have reviewed the images for this case and if necessary edited the report originally created by Dr. Arun Mcmahon. Narrative 02/03/2019 4:08 PM EDT TECHNIQUE: XR CERVICAL SPINE 4-5 VIEWS COMPARISON: None. FINDINGS: There is mild reversal of cervical lordosis and C4-5 and C5-6 which may reflect prior ligamentous injury. No evidence of instability. The vertebral bodies, posterior elements, and discs are unremarkable. The paraspinal soft tissues are of normal thickness. Procedure Note Gabe Spear MD, PhD - 02/03/2019 TECHNIQUE: XR CERVICAL SPINE 4-5 VIEWS COMPARISON: None. FINDINGS: There is mild reversal of cervical lordosis and C4-5 and C5-6 which mayreflect prior ligamentous injury. No evidence of instability. The vertebralbodies, posterior elements, and discs are unremarkable. The paraspinal softtissues are of normal thickness. IMPRESSION: Mild reversal of cervical lordosis and C4-5 and C5-6 which may reflectprior ligamentous injury. No evidence of instability. ATTESTATION: I, Dr. Gabe Spear as teaching physician, have reviewed theimages for this case and if necessary edited the report originally created byDr. Arun Mcmahon. Blanche Galvin MD IMG XR SPINE documented in this encounter Visit Diagnoses Not on filedocumented in this encounter Care Teams Automatic Glove Former Relationship Specialty Start Date End Date Hayde Uribe MD PCP - General Pediatrics 07/25/15 documented as of this encounter Additional Source Comments The information contained in this document represents components of the legal health record. It is not the complete legal health record.[facility]
--- OUTSIDE RECORDS SUMMARY | 2024-05-18 15:26 | XMS_ITS | Encounter Summary ---
Author Organization [facility] [place] [address] Care Team Providers Care Electronics Department Manager Name Role Phone Unavailable Primary Care Provider Unavailabl e Encounter Details Date Type Department Care Team (Late st Contact Info) Description 02/06/2013 4:15 PM EDT Office Visit [address] [address] Felipe De Luna MD [address] [place] [address] Social History Tobacco Use Types [...] 9:30 AM EDT Clinical Support Otolaryngology at [address] [address] Jennifer Grimaldo PA [address] [facility] [place] [address] documented as of this encounter Visit Diagnoses Not on filedocumented in this encounter
--- OUTSIDE RECORDS SUMMARY | 2024-05-18 15:26 | XMS_ITS | Encounter Summary ---
Author Organization [facility] Address [phone] [facility] [place] [address] Care Team Providers Care Loader Magazine Grinder Name Role Phone Hayde Uribe MD Primary Care Provider [facility] Encounter Details Date Type Department Care Team (Latest Contact Info) Description 02/03/2019 9:30 AM EDT - 02/03/2019 9:54 AM EDT Hospital Encounter [facility] PEDI BLOOD LAB VIRTUAL DEPARTMENT [address] [place] [address] Blanche Galvin MD [address] [place] [address] CPZS-175-5 [place] [phone] [email or web address] Discharge Disposition: Home or Self Care [...] Procedure Name Priority Date/Time Associated Diagnosis Comments 25-OH VITAMIN D Routine 02/03/2019 9:39 AM EDT Hypocalcemia CBC AND DIFFERENTIAL Routine 02/03/2019 9:39 AM EDT Hypocalcemia TSH Routine 02/03/2019 9:39 AM EDT 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 FREE T4 Routine 02/03/2019 9:39 AM EDT Hypocalcemia PHOSPHORUS Routine 02/03/2019 9:39 AM EDT 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 PARATHYROID HORMONE (PTH) Routine 02/03/2019 9:39 AM EDT 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 MAGNESIUM Routine 02/03/2019 9:39 AM EDT 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 CALCIUM Routine 02/03/2019 9:39 AM EDT 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 ALBUMIN Routine 02/03/2019 9:39 AM EDT 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 documented in this encounter Results * TSH (02/03/2019 9:39 AM EDT) TSH 3.01 0.40 - 5.00 uIU/mL [facility] 02/03/2019 9:39 AM EDT 02/03/2019 12:10 PM EDT Blanche Galvin MD LAB BLOOD ORDERABL ES Performing Organization Address [facility] Co de Phone Number [address] [address] * Phosphorus (02/03/2019 9:39 AM EDT) PHOSPHORUS 3.6 3.0 - 4.5 mg/dL [facility] 02/03/2019 9:39 AM EDT 02/03/2019 12:10 PM EDT Blanche Galvin MD LAB BLOOD ORDERABL ES Performing Organization Address City/[facility]/ZIP Co de Phone Number [address] [address] * Parathyroid hormone (PTH) (02/03/2019 9:39 AM EDT) PARATHYROID HORMONE 46 10 - 60 pg/mL [facility] 02/03/2019 9:39 AM EDT 02/03/2019 12:10 PM EDT Blanche Galvin MD LAB BLOOD ORDERABL ES Performing Organization Address City/[facility]/ZIP Co de Phone Number [address] [address] * Magnesium (02/03/2019 9:39 AM EDT) MAGNESIUM 2.0 1.7 - 2.4 mg/dL [facility] 02/03/2019 9:39 AM EDT 02/03/2019 12:10 PM EDT Blanche Galvin MD LAB BLOOD ORDERABL ES Performing Organization Address City/[facility] Co de Phone Number [address] [address] * Free T4 (02/03/2019 9:39 AM EDT) FREE T4 1.3 0.9 - 1.8 ng/dL [facility] 02/03/2019 9:39 AM EDT 02/03/2019 12:10 PM EDT Blanche Galvin MD LAB BLOOD ORDERABL ES Performing Organization Address [facility] Co de Phone Number [address] [address] * (ABNORMAL) CBC and differential (02/03/2019 9:39 AM EDT) WBC 4.40(L) 4.5 - 13.5 K/uL [facility] RBC 4.10 4.10 - 5.10 M/uL [facility] HGB 11.7(L) 12.0 - 16.0 g/dL [facility] HCT 36.8 36.0 - 46.0 % [facility] PLT 170 150 - 450 K/uL [facility] MCV 89.8 78.0 - 102.0 fL [facility] MCH 28.5 25.0 - 35.0 pg [facility] MCHC 31.8 31.0 - 37.0 g/dL [facility] RDW 14.1 11.5 - 14.5 % [facility] MPV 13.0(H) 8.4 - 12.0 fl [facility] NRBC 0.00 0 - 0.20 /100 WBCs [facility] ABSOLUTE NRBC 0.00 0 - 0.01 K/uL [facility] DIFF METHOD Auto [facility] NEUTS 65.6(H) 40 - 59 % [facility] LYMPHS 18.6(L) 33 - 48 % [facility] MONOS 11.4(H) 4 - 11 % [facility] EOS 3.0 0 - 8 % [facility] BASOS 0.9 0 - 3 % [facility] % IMMATURE GRANS 0.5(H) 0.0 - 0.3 % [facility] ABSOLUTE NEUTS 2.89 1.8 - 8.0 K/uL [facility] ABSOLUTE LYMPHS 0.82(L) 1.5 - 6.5 K/uL [facility] ABSOLUTE MONOS 0.50 0.2 - 1.5 K/uL [facility] ABSOLUTE EOS 0.13 0.0 - 1.1 K/uL [facility] ABSOLUTE BASOS 0.04 0.0 - 0.4 K/uL [facility] ABS IMMATURE GRANS 0.02 0.00 - 0.03 K/uL [facility] Blood 02/03/2019 9:39 AM EDT 02/03/2019 12:11 PM EDT Blanche Galvin MD LAB BLOOD ORDERABL ES Performing Organization Address City/[facility]/ZIP Co de Phone Number [address] [address] * Calcium (02/03/2019 9:39 AM EDT) CALCIUM 9.5 8.5 - 10.5 mg/dL [facility] 02/03/2019 9:39 AM EDT 02/03/2019 12:10 PM EDT Blanche Galvin MD LAB BLOOD ORDERABL ES [address] [address] * Albumin (02/03/2019 9:39 AM EDT) ALBUMIN 4.3 3.3 - 5.0 g/dL [facility] 02/03/2019 9:39 AM EDT 02/03/2019 12:10 PM EDT Blanche Galvin MD LAB BLOOD ORDERABL ES Performing Organization Address [facility] Co de Phone Number [address] [address] * 25-OH vitamin D (02/03/2019 9:39 AM EDT) 25 OH VIT D (TOTAL) 23 20 - 80 ng/mL [facility] 02/03/2019 9:39 AM EDT 02/03/2019 12:10 PM EDT Blanche Galvin MD LAB BLOOD ORDERABL ES Performing Organization Address [facility] de Phone Number [address] [address] documented in this encounter Visit Diagnoses Diagnosis Hypocalcemia 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 It is not the complete legal health record.[facility]
--- OUTSIDE RECORDS SUMMARY | 2024-05-18 15:26 | XMS_ITS | Encounter Summary ---
Author Organization [facility] [place] [address] Care Team Providers Care Safety Leader Name Role Phone Unavailable Primary Care Provider Unavailabl e Encounter Details Date Type Department Care Team (Late st Contact Info) Description 03/09/2011 4:15 PM EDT Office Visit [address] [address] Felipe De Luna MD [address] [place] [address] Social History Tobacco Use Types [...] 9:30 AM EDT Clinical Support Otolaryngology at [address] [address] Jennifer Grimaldo PA 580 [facility] [place] [address] documented as of this encounter Visit Diagnoses Not on filedocumented in this encounter
--- OUTSIDE RECORDS SUMMARY | 2024-05-18 15:26 | XMS_ITS | Encounter Summary ---
Author Organization [facility] [place] [address] Care Team Providers Care Vendor Analyst Name Role Phone Unavailable Primary Care Provider Unavailabl e Encounter Details Date Type Department Care Team (Late st Contact Info) Description 05/08/2013 4:15 PM EDT Office Visit [address] [address] Felipe De Luna MD [address] [place] [address] Social History Tobacco Use Types [...] 9:30 AM EDT Clinical Support Otolaryngology at [address] [address] Jennifer Grimaldo PA 580 [facility] [place] [address] documented as of this encounter Visit Diagnoses Not on filedocumented in this encounter
--- OUTSIDE RECORDS SUMMARY | 2024-05-18 15:26 | XMS_ITS | Encounter Summary ---
Author Organization [facility] [place] [address] Care Team Providers Care Stainless Steel Finisher Name Role Phone Unavailable Primary Care Provider Unavailabl e Encounter Details Date Type Department Care Team (Late st Contact Info) Description 08/01/2012 4:15 PM EDT Office Visit [address] [address] Felipe De Luna MD 590 [place] [address] Social History Tobacco Use Types [...] AM EDT Clinical Support Otolaryngology at [address] [address] Jennifer Grimaldo PA [address] [facility] [address] documented as of this encounter Visit Diagnoses Not on filedocumented in this encounter
--- OUTSIDE RECORDS SUMMARY | 2024-05-18 15:26 | XMS_ITS | Encounter Summary ---
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 Referral ID Status Reason Start Date Expiration Date Visits Re quested Visits Authorized [id number] Closed 08/07/2019 08/06/2020 1 1 Encounter Details Date Type Department Care Team (Late st Contact Info) Description 08/07/2019 Orders Only [facility] Medical Genetics [address] [place] [address] Yawkey; O[address] [place] [address] Blanche Galvin MD 55 [facility] CPZS-175-[address] [place] [address] [email or web address] 22q11.2 deletion syndrome (Primary Dx); Tetralogy of Fallot; Hypocalcemia Social History Tobacco Use Types Packs/Day Years Used Date Smoking Tobacco: Never Assessed Sex and Gender Information Value Date Recorded Sex Assigned at Not on file Gender Identity Not on file Sexual Orientation Not on file documented as of this encounter Plan of Treatment Scheduled Referrals Name Type Priority Associated Diagnoses Order Schedule Ambulatory referral to [facility] Psychology Assessment [facility] - [facility] USE ONLY Outpatient Referral Routine 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 It is not the complete legal health record.[facility]
--- OUTSIDE RECORDS SUMMARY | 2024-05-18 15:26 | XMS_ITS | Encounter Summary ---
Author Organization [facility] [place] [address] Care Team Providers Care Interactive Graphic Designer Name Role Phone Unavailable Primary Care Provider Unavailabl e Encounter Details Date Type Department Care Team (Late st Contact Info) Description 09/24/2010 4:30 PM EST Office Visit [facility] [address] [place] [address] Felipe De Luna MD 590 [place] [address] Social History Tobacco Use Types [...] 9:30 AM EDT Clinical Support Otolaryngology at [address] [address] Jennifer Grimaldo PA 580 [facility] [place] [address] documented as of this encounter Visit Diagnoses Not on filedocumented in this encounter
--- OUTSIDE RECORDS SUMMARY | 2024-05-18 15:26 | XMS_ITS | Encounter Summary ---
Author Organization [facility] [place] [address] Care Team Providers Care Real Estate Assistant Name Role Phone Unavailable Primary Care Provider Unavailabl e Encounter Details Date Type Department Care Team (Late st Contact Info) Description 10/31/2012 4:15 PM EST Office Visit [address] [address] Felipe De Luna MD 590 [place] [address] Social History Tobacco Use Types [...] 9:30 AM EDT Clinical Support Otolaryngology at [address] [address] Jennifer Grimaldo PA 580 [facility] [place] [address] documented as of this encounter Visit Diagnoses Not on filedocumented in this encounter
--- OUTSIDE RECORDS SUMMARY | 2024-05-18 15:26 | XMS_ITS | Encounter Summary ---
Author Organization [facility] [place] [address] Care Team Providers Care Felt Pad Cutter Name Role Phone Unavailable Primary Care Provider Unavailabl e Encounter Details Date Type Department Care Team (Late st Contact Info) Description 08/08/2013 4:30 PM EDT Office Visit [address] [address] Felipe De Luna MD 590 [place] [address] Social History Tobacco Use Types [...] AM EDT Clinical Support Otolaryngology at [address] [address] Jennifer Grimaldo PA 580 [facility] [place] [address] documented as of this encounter Visit Diagnoses Not on filedocumented in this encounter
--- OUTSIDE RECORDS SUMMARY | 2024-05-18 15:26 | XMS_ITS | Encounter Summary ---
Author Organization [facility] Address [phone] [facility] [place] [address] Care Team Providers Care Fiscal Specialist Name Role Phone Hayde Uribe MD Primary Care Provider U albert Encounter Details Date Type Department Care Team (Late st Contact Info) Description 05/26/2021 8:00 AM EDT Telemedicine [facility] Medical Genetics [address] [place] [address] Yawkey; Omkar [address] [place] [address] Blanche Galvin MD [address] [place] [address] CPZS-175-5 [place] [address] 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 Patient name: ??Shama Jolley Date of note: ??05/26/21 Date of scheduled visit: 05/26/21 The patient did not keep their scheduled appointment. I would be happy to see them. Please ask them call to reschedule. ? Blanche Galvin MD, BLIND HOOKER, MSCE Staff Window Clerk? ? ? 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 It is not the complete legal health record.[facility]
--- OUTSIDE RECORDS SUMMARY | 2024-05-18 15:26 | XMS_ITS | Clinical Summary ---
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 Hypocalcemia 09/14/2017 Family History Medical History Relation Comments No Known Problems Brother No Known Problems Father Rheumatoid arthritis Maternal Aunt No Known Problems Maternal Grandfather No Known Problems Maternal Grandmother No Known Problems Mother No Known Problems Paternal Grandfather No Known Problems Paternal Grandmother Bipolar disorder Paternal Uncle No Known Problems Sister Relation Status Comments Brother Alive Father Alive Maternal Aunt Alive Maternal Grandfather Alive Maternal Grandmother Alive Mother Alive Paternal Grandfather Alive Paternal Grandmother Alive Paternal Uncle Alive Sister Alive Social History Tobacco Use Types Packs/Day Years Used Date Smoking Tobacco: Never Assessed Education Answer Date Recorded Are you interested in more education? Not on usama e 02/12/2023 Are you concerned about learning? Not on file 02/12/2023 No 02/12/2023 No 02/12/2023 Digital Access Answer Date Recorded No 03/15/2023 No 03/15/2023 No 03/15/2023 Reliable internet access at home? Not on file 03/15/2023 Device with a working camera? Not on file Sex and Gender Information Value Date Recorded Sex Assigned at Not on file Gender Identity Not on file Sexual Orientation Not on file Last Filed Vital Signs Vital Sign Reading Time Taken Comments Blood Pressure 108/74 02/03/2019 8:48 AM EDT Pulse 74 02/03/2019 8:48 AM EDT Temperature - - Respiratory Rate - - Oxygen Saturation - - Inhaled Oxygen Concentration - - Weight 65.7 kg (144 lb 13.5 oz) 02/03/2019 8:48 AM EDT Height 170.7 cm (5' 7.21) 02/03/2019 8:48 AM ED T Body Mass Index 22.55 02/03/2019 8:48 AM EDT Plan of Treatment Health Maintenance Due Date Last Done Comments Adult Td,Tdap Booster 2003 MMR VACCINES (1 of 1 - Stand philly series) 02/23/2004 COMBINED DTaP,Tdap,Td (1 - Tdap) 2010 DEPRESSION SCREENING 02/23/2016 SMOKING Hx and SMOKELESS TOB ACCO SCREENING 02/23/2016 HPV VACCINES (1 - 3-dose series) 2018 CHLAMYDIA SCREENING 2019 ADOLESCENT UNIVERSAL LIPID SCREENING 02/23/2020 HEPATITIS C SCREENING 2021 HIV ONE-TIME SCREENING (18-6 5 YEARS) 2021 HEPATITIS B VACCINES (1 of 3 - 19+ 3-dose series) 2022 COVID-19 VACCINE (1 - 2022-2 4 season) 2023 PAP SMEAR 02/23/2024 HEPATITIS A VACCINES Aged Out No long er eligible based on patient's age to complete this topic HIB VACCINES Aged Out No longer eligi ble based on patient's age to complete this topic MENINGOCOCCAL VACCINES (ACWY) Aged Out No longer eligible based on patient's age to complete this topic PNEUMOCOCCAL VACCINES (0-64 years) Aged Out No longer eligible based on patient's age to complete this topic Medical Devices Not on file Care Teams Conference Coordinator Relationship Specialty Start Date End Date Hayde Uribe MD PCP - General Pediatrics 07/25/15 Additional Source Comments The information contained in this document represents components of the legal health record. It is not the complete legal health record.[facility]
--- OUTSIDE RECORDS SUMMARY | 2024-05-18 15:26 | XMS_ITS | Encounter Summary ---
Author Organization [facility] [place] [address] Care Team Providers Care Housekeeping Director Name Role Phone Unavailable Primary Care Provider Unavailabl e Encounter Details Date Type Department Care Team (Late st Contact Info) Description 12/24/2011 2:30 PM EST Office Visit [facility] [address] [place] [address] Felipe De Luna MD 590 [place] [address] Social History Tobacco Use Types [...] 9:30 AM EDT Clinical Support Otolaryngology at [address] [address] Jennifer Grimaldo PA [address] [facility] [place] [address] documented as of this encounter Visit Diagnoses Not on filedocumented in this encounter
--- OUTSIDE RECORDS SUMMARY | 2024-05-18 15:26 | XMS_ITS | Encounter Summary ---
Author Organization [facility] [place] [address] Care Team Providers Care Mannequin Coloring Artist Name Role Phone Unavailable Primary Care Provider Unavailabl e Encounter Details Date Type Department Care Team (Late st Contact Info) Description 06/11/2011 1:00 PM EDT Office Visit [address] [address] Felipe De Luna MD 590 [place] [address] Social History Tobacco Use Types [...] 9:30 AM EDT Clinical Support Otolaryngology at [address] [address] Jennifer Grimaldo PA 580 [facility] [place] [address] documented as of this encounter Visit Diagnoses Not on filedocumented in this encounter
--- OUTSIDE RECORDS SUMMARY | 2024-05-18 15:26 | XMS_ITS | Encounter Summary ---
Author Organization [facility] [place] [address] Care Team Providers Care Raveler Name Role Phone Unavailable Primary Care Provider Unavailabl e Encounter Details Date Type Department Care Team (Late st Contact Info) Description 11/10/2013 4:30 PM EST Office Visit [facility] 580 [place] [address] Felipe De Luna MD 590 [place] [address] Social History Tobacco Use Types [...] 9:30 AM EDT Clinical Support Otolaryngology at [address] [address] Jenniefr Grimaldo PA 580 [facility] [place] [address] documented as of this encounter Visit Diagnoses Not on filedocumented in this encounter
--- OUTSIDE RECORDS SUMMARY | 2024-05-18 15:26 | XMS_ITS | Encounter Summary ---
Author Organization [facility] [place] [address] Care Team Providers Care Equipment Man Name Role Phone Unavailable Primary Care Provider Unavailabl e Encounter Details Date Type Department Care Team (Late st Contact Info) Description 09/03/2011 3:45 PM EST Office Visit [facility] 580 [place] [address] Felipe De Luna MD 590 [place] [address] Social History Tobacco Use Types [...] AM EDT Clinical Support Otolaryngology at [address] [address] Jennifer Grimaldo PA [address] [facility] [place] [address] documented as of this encounter Visit Diagnoses Not on filedocumented in this encounter
--- OUTSIDE RECORDS SUMMARY | 2024-05-18 15:26 | XMS_ITS | Encounter Summary ---
Author Organization [facility] [place] [address] Care Team Providers Care Renewable Energy Consultant Name Role Phone Unavailable Primary Care Provider Unavailabl e Encounter Details Date Type Department Care Team (Late st Contact Info) Description 03/31/2012 4:15 PM EDT Office Visit [address] [address] Felipe De Luna MD 590 [place] [address] Social History Tobacco Use Types [...] AM EDT Clinical Support Otolaryngology at [address] [address] Jennifer Grimaldo PA [address] [facility] [place] [address] documented as of this encounter Visit Diagnoses Not on filedocumented in this encounter
--- OUTSIDE RECORDS SUMMARY | 2024-05-18 15:26 | XMS_ITS | Encounter Summary ---
Author Organization [facility] [place] [address] Care Team Providers Care Orthophotography Technician Name Role Phone Unavailable Primary Care Provider Unavailabl e Encounter Details Date Type Department Care Team (Late st Contact Info) Description 08/08/2013 Abstract [facility] [address] [place] [address] Provider, His MD [place] Social [...] - Inhaled Oxygen Concentration - - Weight 37.6 kg (83 lb) 08/08/2013 4:30 AM EDT Sourced from [place] Conversion Height - - Body Mass Index - - documented in this encounter Plan of Treatment Upcoming Encounters Date Type Department Care Team (Late st Contact Info) Description 05/31/2024 9:30 AM EDT Clinical Support Otolaryngology at [place] [address] [place] [address] Jennifer Grimaldo PA [address] [facility] OTOLARYNGOLOGY [place], [place] [address] documented as of this encounter Visit Diagnoses Not on filedocumented in this encounter
--- OUTSIDE RECORDS SUMMARY | 2024-05-18 15:26 | XMS_ITS | Encounter Summary ---
Author Organization [facility] [place] [address] Care Team Providers Care Hotel Supplies Salesperson Name Role Phone Unavailable Primary Care Provider Unavailabl e Encounter Details Date Type Department Care Team (Late st Contact Info) Description 12/08/2010 2:45 PM EST Office Visit [facility] [address] [place] [address] Felipe De Luna MD [address] [place] [address] Social History Tobacco Use Types [...] AM EDT Clinical Support Otolaryngology at [address] [address] Jennifer Grimaldo PA [address] [facility] [place] [address] documented as of this encounter Visit Diagnoses Not on filedocumented in this encounter
--- OUTSIDE RECORDS SUMMARY | 2024-05-18 15:26 | XMS_ITS | Encounter Summary ---
Author Organization [facility] [place] [address] Care Team Providers Care Baseball Sewer Hand Name Role Phone Unavailable Primary Care Provider Unavailabl e Encounter Details Date Type Department Care Team (Late st Contact Info) Description 08/01/2012 Abstract [facility] Information Services [address] [place] [address] Provider, His MD [place] Social [...] Concentration - - Weight - - Height 137.2 cm (4' 6) 08/01/2012 4:15 AM EDT Sourced from [facility] Body Mass Index - - documented in this encounter Plan of Treatment Upcoming Encounters Date Type Department Care Team (Late st Contact Info) Description 05/31/2024 9:30 AM EDT Clinical Support Otolaryngology at [place] [address] [place] [address] Jennifer Grimaldo PA 580 [facility] OTOLARYNGOLOGY [place], [place] [id number] documented as of this encounter Visit Diagnoses Not on filedocumented in this encounter
--- OUTSIDE RECORDS SUMMARY | 2024-05-18 15:27 | XMS_ITS | Continuity of Care Document ---
Author Organization [facility] Address [address] [place] [address]- Care Team Providers Care Studio Operator Name Role Phone Inge Carl MD Primary Care Physician Encounter [facility] [place] [place] Date(s): 03/24/23 - 04/23/23 [facility] [address] [place], [place] [id number]- Allergies, Adverse Reactions, Alerts No Known Allergies Medications No Home Meds Maintenance, 10/23/20 8:51:00 EST, Supply Start Date: 10/23/20 Status: Ordered omeprazole 20 mg oral enteric coated capsule 1 capsule = 20 mg, By Mouth, 2 times a day, # 30 capsule, 0 Refills, Maintenance, 11/15/19 16:03:00EST, EC Capsule, [facility][id number], 170, cm, 11/15/19 14:57:00 EST, Height, 67.6, kg, 11/15/19 14:57:00 EST, Dry Weight Start Date: 11/15/19 Status: Ordered Problem List Condition Confirmation Course Effective Dates Status [facility] atus Informant 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 Social History Social History Type Response Smoking Status Never smoker; Tobacc o user in household: No entered on: 03/27/16 Sex Patient Care team information Care Team Personnel Name: Inge Carl MD Position: Reference Physician Member Role: PCP Address: Address: [address] [place] [address]- Care Team Related Persons Name: NAIDA VERA Address: home [address] [place] [address] Name: NAIDA VERA Address: home [address] [place] [address] Name: BREANNA VERA Address: home [address] [place] [address] Name: DRISS BONDS Address: home [address] [place] [address] [place] [address]
--- OUTSIDE RECORDS SUMMARY | 2024-05-18 15:27 | XMS_ITS | Encounter Summary ---
Author Organization [facility] Address [phone] [facility] [place] [address] Care Team Providers Care Practical Nursing Instructor Name Role Phone Hayde Uribe MD Primary Care Provider U bubbaailjose manuel Encounter Details Date Type Department Care Team (Latest Contact Info) Description 09/14/2017 3:42 PM EST - 09/14/2017 11:59 PM EST Hospital En[place] [facility] [place] [facility] [address] [place] [id number] Blanche Galvin MD [address] [place] [address] [id number] [place] [id number] [email or web address] Discharge Disposition: Home or Self Care [...] Procedure Name Priority Date/Time Associated Diagnosis Comments CBC AND DIFFERENTIAL Routine 09/14/2017 3:44 PM EST 22q11.2 deletion syndrome TSH Routine 09/14/2017 3:44 PM EST 22q11.2 deletion syndrome FREE T4 Routine 09/14/2017 3:44 PM EST 22q11.2 deletion syndrome documented in this encounter Results * TSH (09/14/2017 3:44 PM EST) TSH 1.61 0.40 - 5.00 uIU/mL [facility] 09/14/2017 3:44 PM EST 09/14/2017 6:39 PM EST Blanche Galvin MD LAB BLOOD ORDERABL ES Performing Organization Address City/[facility] Co de Phone Number [address] [address] * Free T4 (09/14/2017 3:44 PM EST) FREE T4 1.1 0.9 - 1.8 ng/dL [facility] 09/14/2017 3:44 PM EST 09/14/2017 6:39 PM EST Blanche Galvin MD LAB BLOOD ORDERABL ES Performing Organization Address City/[facility] Co de Phone Number [address] [address] * (ABNORMAL) CBC and differential (09/14/2017 3:44 PM EST) WBC 6.02 4.5 - 13.5 K/uL [facility] RBC 4.24 4.10 - 5.10 M/uL [facility] HGB 12.6 12.0 - 16.0 g/dL [facility] HCT 37.4 36.0 - 46.0 % [facility] PLT 183 150 - 450 K/uL [facility] MCV 88.2 78.0 - 102.0 fL [facility] MCH 29.7 25.0 - 35.0 pg [facility] MCHC 33.7 31.0 - 37.0 g/dL [facility] RDW 12.7 11.5 - 14.5 % [facility] MPV 12.6(H) 8.4 - 12.0 fl [facility] NRBC 0.00 0 - 0.20 /100 WBCs [facility] ABSOLUTE NRBC 0.00 0 - 0.01 K/uL [facility] DIFF METHOD Auto [facility] NEUTS 58.2 40 - 59 % [facility] LYMPHS 27.7(L) 33 - 48 % [facility] MONOS 10.5 4 - 11 % [facility] EOS 2.3 0 - 8 % [facility] BASOS 1.0 0 - 3 % [facility] % IMMATURE GRANS 0.3 0.0 - 0.3 % [facility] ABSOLUTE NEUTS 3.50 1.8 - 8.0 K/uL [facility] ABSOLUTE LYMPHS 1.67 1.5 - 6.5 K/uL [facility] ABSOLUTE MONOS 0.63 0.2 - 1.5 K/uL [facility] ABSOLUTE EOS 0.14 0.0 - 1.1 K/uL [facility] ABSOLUTE BASOS 0.06 0.0 - 0.4 K/uL [facility] ABS IMMATURE GRANS 0.02 0.00 - 0.03 K/uL [facility] Blood 09/14/2017 3:44 PM EST 09/14/2017 6:39 PM EST Blanche Galvin MD LAB BLOOD ORDERABL ES [facility] [address] [place] [address] documented in this encounter Visit Diagnoses Diagnosis 22q11.2 deletion syndrome documented in this encounter Care Teams Practical Nursing Instructor Relationship Specialty Start Date End Date Hayde Uribe MD PCP - General Pediatrics 07/25/15 documented as of this encounter Additional Source Comments The information contained in this document represents components of the legal health record. It is not the complete legal health record.[facility]
--- OUTSIDE RECORDS SUMMARY | 2024-05-18 15:27 | XMS_ITS | Continuity of Care Document ---
Author Organization [facility] Address [address] [place] [address]- Care Team Providers Care Orthopedic Rn Name Role Phone Inge Carl MD Primary Care Physician Encounter [facility] Date(s): 04/28/21 - 05/28/21 [facility] [address] [facility] [address]- Attending Physician: Suraj De La Fuente Admitting Physician: Admtr, Suraj Referring Physician: Admtr, Ar8 Allergies, Adverse Reactions, Alerts Substance Reaction Severity Status NKA Active Medications No Home Meds Maintenance, 10/23/20 8:51:00 EST, Supply Start Date: 10/23/20 Status: Ordered omeprazole 20 mg oral enteric coated capsule 1 capsule = 20 mg, By Mouth, 2 times a day, # 30 capsule, 0 Refills, Maintenance, 11/15/19 16:03:00EST, EC Capsule, [facility] #[id number], 170, cm, 11/15/19 14:57:00 EST, Height, 67.6, kg, 11/15/19 14:57:00 EST, Dry Weight Start Date: 11/15/19 Status: Ordered Problem List Condition Effective Dates Status Health Status Inform ant 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
--- OUTSIDE RECORDS SUMMARY | 2024-05-18 15:27 | XMS_ITS | Continuity of Care Document ---
Author Organization [facility] Address [address] [place] [address]- Care Team Providers Care Injection Press Operator Name Role Phone Meseret DEGROOT, Inge Caldwell Primary Care Physician Encounter [facility] Date(s): 05/07/20 - 06/06/20 [facility] [address] [place] [address] Allergies, Adverse Reactions, Alerts Substance Reaction Severity Status NKA Active Medications omeprazole 20 mg oral enteric coated capsule 1 capsule = 20 mg, By Mouth, 2 times a day, # 30 capsule, 0 Refills, Maintenance, 11/15/19 16:03:00EST, EC Capsule, [facility] #[id number], 170, cm, 11/15/19 14:57:00 EST, Height, 67.6, [...]
--- OUTSIDE RECORDS SUMMARY | 2024-05-18 15:27 | XMS_ITS | Continuity of Care Document ---
Author Organization [facility] Address [address] [place] [address] Care Team Providers Care Travel Writer Name Role Phone Inge Carl Primary Care Physician Unava ilable Encounter [facility] [id number] Date(s): 04/20/20 - 04/20/20 [facility] [address] [place] [address]- Encounter Diagnosis Crushing injury of neck(Discharge Diagnosis) - 04/20/20 Acute neck pain(Discharge Diagnosis) - 04/20/20 Discharge Disposition: Home or Self Care Attending Physician: Raúl Jerome Admitting Physician: Raúl Jerome Allergies, Adverse Reactions, Alerts No Known Allergies Assessment and Plan Extracted from: Title:Neck Injury *ED Author:Raúl Jerome Date:04/20/20 History of Present Illness The patient presents with neck injury. The onset was just prior to arrival. The course/duration of symptoms is constant. Location: Neck cervical spine. Type of injury: direct blow. The location where the incident occurred was at home. Radiating pain none. The character of symptoms is pain, swelling and Abrasion to R upper back area. The degree at present is moderate. The exacerbating factor is movement. 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 Therapy today: none. Associated symptoms: denies headache, denies dizziness, denies focal weakness, denies altered sensation, denies nausea and denies vomiting. Additional history: Patient was outside when a tree limb fell from an old tree. Branch fell approximately 25 feet. Patient was struck in the upper back at the base of her C-spine. No loss of consciousness. No notes or tingling in her arms or legs. No headache. No other significant injury.. Review of Systems Constitutional symptoms: No fever, no chills. Respiratory symptoms: No shortness of breath, Cardiovascular symptoms: No chest pain, Gastrointestinal symptoms: No abdominal pain, Neurologic symptoms: No headache, no altered level of consciousness. Additional review of systems information: All other systems reviewed and otherwise negative. Health Status Allergies: Allergic Reactions (Selected) No Known Allergies. Past Medical/ Family/ Social History Medical history: No active or resolved past medical history items have been selected or recorded.. Surgical history: No active procedure history items have been selected or recorded.. Family history: No family history items have been selected or recorded.. Social history: Social & Psychosocial History Social History Alcohol Never Substance Abuse Never Tobacco Never (less than 100 in lifetime) Tobacco Use:. Electronic Cigarette/Vaping Electronic Cigarette Use: Never. Psychosocial History No active psychosocial history has been recorded. Problem list: No qualifying data available . Physical Examination Vital Signs Vital Signs 04/20/2020 16:49 EDT Temperature Temporal 36.4 DegC Peripheral Pulse Rate 63 bpm Respiratory Rate 18 br/min Systolic Blood Pressure 101 mmHg Diastolic Blood Pressure 77 mmHg SpO2 100 % . Measurements 04/20/2020 16:55 EDT Weight Dosing 63.500 kg 04/20/2020 16:55 EDT Height/Length Dosing 170.000 cm 04/20/2020 16:49 EDT Height/Length Estimated 170.000 cm Weight Estimated 63.500 kg . Basic Oxygen Information 04/20/2020 16:49 EDT Oxygen Therapy Room air . General: Alert, no acute distress. Skin: Warm, dry, pink, Small abrasion noted to right trapezius. Bleeding has dried. No other wounds noted.. Head: Normocephalic, atraumatic. Neck: Supple, trachea midline, Step-off: Mild to moderate tenderness to palpation over the C7/T1 junction area. Mild tenderness to palpation over paraspinous muscles around T1. No step-offs appreciated. No other significant finding. Eye: Pupils are equal, round and reactive to light, extraocular movements are intact. Cardiovascular: Regular rate and rhythm, Normal peripheral perfusion. Respiratory: Lungs are clear to auscultation, respirations are non-labored. Back: Nontender, no step-offs. Musculoskeletal: Normal ROM, normal strength. Neurological: Alert and oriented to person, place, time, and situation. Psychiatric: Cooperative, appropriate mood & affect. Medical Decision Making Soft tissue neck CT: Report PROCEDURE INFORMATION: Exam: CT Cervical Spine Without Contrast Exam date and time: 04/20/2020 17:07 Age: 15 years old Clinical indication: Injury or trauma; Injury history: Tree branch fell on neck; Initial encounter; Blunt trauma TECHNIQUE: Imaging protocol: Computed tomography images of the cervical spine without contrast. Radiation optimization: All CT scans at this facility use at least one of these dose optimization techniques: automated exposure control; mA and/or kV adjustment per patient size (includes targeted exams where dose is matched to clinical indication); or iterative reconstruction. COMPARISON: No relevant prior studies available. FINDINGS: Median sternotomy wires. Vertebrae: No acute fracture or subluxation in the cervical spine. 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 Discs/Spinal canal/Neural foramina: No significant spinal stenosis. Soft tissues: No suspicious lesions. 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 Lungs: Azygos fissure, normal variant. No airspace consolidation. Vasculature: Right sided aortic arch. IMPRESSION: 1. No cervical spine fracture. 2. Incidental findings as described. Signature Line Final Dictated: 04/20/2020 5:52 pm Kristyn Nair MD Signed (Electronic Signature): 04/20/2020 5:52 pm Signed by: Kristyn Nair MD. Reexamination/ Reevaluation Vital signs Basic Oxygen Information 04/20/2020 16:49 EDT Oxygen Therapy Room air Impression and Plan Diagnosis Crushing injury of neck ([id number] S17.9XXA, Discharge, Medical) Acute neck pain (HHD95-PT M54.2, Discharge, Medical) Plan Condition: Stable. Disposition: Medically cleared, Discharged: time 04/20/2020 18:09:00. Patient was given the following educational materials: Cervical Sprain, Head Injury, Pediatric, Head Injury, Pediatric, Cervical Sprain. Follow up with: Inge Carl Within 5 to 7 days There is no obvious fracture seen on the CT scan. This is reassuring. Tylenol as needed for pain control. Ice 4-6 times a day for next 2 days. Return if any issues.. Counseled: Patient, Family, Regarding diagnosis, Regarding diagnostic results, Regarding treatment plan, Patient indicated understanding of instructions. Orders: Launch Orders Patient Care: Discharge (Order): 04/20/2020 18:11 EDT Charges: ED Professional Fees Care Set [facility] (Order) [id number] Level 3: EPF Hx/Exam: Moderate Charge (Order): 04/20/2020 18:11 EDT, 1. Functional Status 04/20/20 History of Fall in Last 3 Months [facility] N o 04/20/20 Recent Travel History No recent travel COVID-19 Screening None Results Radiology Reports true* Exam Date Time Procedure Performing Provider Status 04/20/20 5:[address] Spine Cervical w/o Contrast Cross, D avid; Auth (Verified) Notes: (CT Spine Cervical w/o Contrast) Reason For Exam: C7-T1 Injury - Branch fell on neck Report PROCEDURE INFORMATION: Exam: CT Cervical Spine Without Contrast Exam date and time: 04/20/2020 17:07 Age: 15 years old Clinical indication: Injury or trauma; Injury history: Tree branch fell on neck; Initial encounter; Blunt trauma TECHNIQUE: Imaging protocol: Computed tomography images of the cervical spine without contrast. Radiation optimization: All CT scans at this facility use at least one of these dose optimization techniques: automated exposure control; mA and/or kV adjustment per patient size (includes targeted exams where dose is matched to clinical indication); or iterative reconstruction. COMPARISON: No relevant prior studies available. FINDINGS: Median sternotomy wires. Vertebrae: No acute fracture or subluxation in the cervical spine. 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 Discs/Spinal canal/Neural foramina: No significant spinal stenosis. Soft tissues: No suspicious lesions. 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 Lungs: Azygos fissure, normal variant. No airspace consolidation. Vasculature: Right sided aortic arch. IMPRESSION: 1. No cervical spine fracture. 2. Incidental findings as described. Final Dictated: 04/20/2020 5:52 pm Kristyn Nair MD Signed (Electronic Signature): 04/20/2020 5:52 pm Signed by: Kristyn Nair MD Image Vital Signs Most recent to oldest [Reference Range]: 1 2 Temperature Temporal [36-38 DegC] 36.4 D egC (04/20/20 4:49 PM) Peripheral Pulse Rate [55-90 bpm] 66 bpm (04/20/20 6:15 PM) 63 bpm (04/20/20 4:49 PM) Respiratory Rate [14-20 br/min] 16 br/mi n (04/20/20 6:15 PM) 18 br/min (04/20/20 4:49 PM) Blood Pressure [90-138/45-84 mmHg] 90/63 mmHg (04/20/20 6:15 PM) 101/77mmHg (04/20/20 4:49 PM) Mean Arterial Pressure, Cuff 72 mmHg (04/20/20 6:15 PM) 85 mmHg (04/20/20 4:49 PM) SpO2 [92-100 %] 100 % (04/20/20:15 PM) 100 % (04/20/20 4:49 PM) Height/Length Estimated 170.000 cm (04/20/20 4:49 PM) Height/Length Dosing 170.000 cm (04/20/20 4:55 PM) Weight Estimated 63.500 kg (04/20/20 4:49 PM) Weight Dosing 63.500 kg (04/20/20 4:55 PM) Social History Social History Type Response Smoking Status Never (less than 100 in lifetime) entered on: 04/20/20 Sex Hospital Discharge Instructions Patient Education 04/20/2020 18:09:56 Head Injury, Pediatric Head Injury, Pediatric There are many types of head injuries. Head injuries can be as minor as a bump, or they can be moresevere. More severe head injuries include: ??? A jarring injury to the brain (concussion). ??? A bruise of the brain (contusion). This means there is bleeding in the brain that can cause swelling. ??? A cracked skull (skull fracture). ??? Bleeding in the brain that collects, clots, and forms a bump (hematoma). After a head injury, your child may need to be observed for a while in the emergency department or urgent care.??Sometimes admission to the hospital is needed. After a head injury has happened, most problems occur within the first 24 hours, but side effects may occur up to 7???10 days after the injury. It is important to watch your child's condition for anychanges. What are the causes? There are many possible causes of a head injury. In younger children, head injury from abuse or falls is the most common. In older children, falls, bicycle injuries, sports accidents, and car accidents (motor vehicle collisions) are common causes of head injury. What are the symptoms? There are many possible symptoms of a head injury. Visible symptoms of a head injury include a bruise, bump, or bleeding at the site of the injury. Other non- visible symptoms include: ??? Trouble being awakened. ??? Fainting. ??? Seizures. ??? Headache. ??? Dizziness. ??? Nausea or vomiting. ??? Confusion. ??? Memory problems. Other possible symptoms that may develop after the head injury include: ??? Poor attention and concentration. ??? Fatigue or tiring easily. ??? Problems walking or losing balance. ??? Irritability or crying more often. ??? Being uncomfortable around bright lights or loud noises. ??? Anxiety or depression. ??? Losing a learned skill, such as toilet training or reading. ??? Changes in eating or sleeping habits. How is this diagnosed? This condition can usually be diagnosed based on your child's symptoms, a description of the injury, and a physical exam. Your child may also have imaging tests done, such as a CT scan or MRI. Your child will also be closely watched. How is this treated? Treatment for this condition depends on the severity and type of injury your child has. The main goal of treatment is to prevent complications and allow the brain time to heal. For mild head injury, your child may be sent home and treatment may include: ??? Observation and checking on your child often. ??? Physical rest. ??? Brain rest. ??? Pain medicines. For severe brain injury, treatment may include: ??? Close observation. This includes hospitalization with frequent physical exams. ??? Pain medicines. ??? Breathing support. This may include using a ventilator. ??? Managing the pressure inside the brain (intracranial pressure or ICP) by: ??? Monitoring the ICP. ??? Giving medicines to decrease the ICP. ??? Positioning your child to decrease the ICP. ??? Medicine to prevent seizures. ??? Surgery to stop bleeding or to remove blood clots (craniotomy). ??? Surgery to remove part of the skull (decompressive craniectomy). This allows room for the brainto swell. Follow these instructions at home: Medicines ??? Give jdxj-ode-xajwpig and prescription medicines only as told by your child's health care provider. ??? Do not give your child aspirin because of the association with Sondra syndrome. Activity ??? Encourage your child to rest as much as possible and avoid activities that are physically hard or tiring. Rest helps the brain to heal. ??? Make sure your child gets enough sleep. ??? Limit activities that require a lot of thought or attention, such as: ??? Watching TV. ??? Playing memory games and puzzles. ??? Doing homework. ??? Working on the computer, social media, and [employer]. ??? Having another head injury, especially before the first one has healed, can be dangerous. Keep your child from activities that could cause another head injury, such as: ??? Riding a bicycle. ??? Playing sports. ??? Participating in gym class or recess. ??? Climbing on playground equipment. ??? Ask your child's health care provider when it is safe for your child to return to his or her regular activities. Ask your child's health care provider for a vttp-cg-bbig plan for your child to slowly go back to activities. General instructions ??? Watch your child carefully for new or worsening symptoms. This is very important in the first 24 hours after the head injury. ??? Keep all follow-up visits as told by your child's health care provider. This is important. ??? Tell all of your child's teachers and other caregivers about your child's injury, symptoms, andactivity restrictions. Have them report any new or worsening problems. How is this prevented? Your child should: ??? Wear a seatbelt when he or she is in a moving vehicle. ??? Use the appropriate-sized car seat or booster seat when in a moving vehicle. ??? Wear a helmet when riding a bicycle, skiing, or doing any other sport or activity that has a risk of injury. You can: ??? Make your living areas safer for your child. ??? Childproof any dangerous parts of your home. ??? Install window guards and safety wayne. ??? Make sure the playground that your child uses is safe. Get help right away if: ??? Your child has: ??? A severe headache that is not helped by medicine. ??? Clear or bloody fluid coming from his or her nose or ears. ??? Changes in his or her vision. ??? A seizure. ??? Your child's symptoms get worse. ??? Your child vomits. ??? Your child's dizziness gets worse. ??? Your child cannot walk or does not have control over his or her arms or legs. ??? Your child will not stop crying. ??? Your child passes out. ??? You cannot wake up your child. ??? Your child is sleepier and has trouble staying awake. ??? Your child will not eat or nurse. ??? Your child's pupils change size. These symptoms may represent a serious problem that is an emergency. Do not wait to see if the symptoms will go away. Get medical help right away. Call your local emergency services (911 in the [place] This information is not intended to replace advice given to you by your health care provider. Make sure you discuss any questions you have with your health care provider. Document Released: 10/04/2006 Document Revised: 01/28/2018 Document Reviewed: 04/13/2017 [employer] Patient Education ?? 2019 [employer] 04/20/2020 18:09:56 Cervical Sprain Cervical Sprain A cervical sprain is a stretch or tear in one or more of the tough, cord-like tissues that connect bones (ligaments) in the neck. Cervical sprains can range from mild to severe. Severe cervical sprains can cause the spinal bones (vertebrae) in the neck to be unstable. This can lead to spinal cord damage and can result in serious nervous system problems. The amount of time that it takes for a cervical sprain to get better depends on the cause and extent of the injury. Most cervical sprains heal in 4???6 weeks. What are the causes? Cervical sprains may be caused by an injury (trauma), such as from a motor vehicle accident, a fall, or sudden forward and backward whipping movement of the head and neck (whiplash injury). Mild cervical sprains may be caused by wear and tear over time, such as from poor posture, sitting in a chair that does not provide support, or looking up or down for long periods of time. What increases the risk? The following factors may make you more likely to develop this condition: ??? Participating in activities that have a high risk of trauma to the neck. These include contact sports, auto racing, gymnastics, and diving. ??? Taking risks when driving or riding in a motor vehicle, such as speeding. ??? Having osteoarthritis of the spine. ??? Having poor strength and flexibility of the neck. ??? A previous neck injury. ??? Having poor posture. ??? Spending a lot of time in certain positions that put stress on the neck, such as sitting at a computer for long periods of time. What are the signs or symptoms? Symptoms of this condition include: ??? Pain, soreness, stiffness, tenderness, swelling, or a burning sensation in the front, back, or sides of the neck. ??? Sudden tightening of neck muscles that you cannot control (muscle spasms). ??? Pain in the shoulders or upper back. ??? Limited ability to move the neck. ??? Headache. ??? Dizziness. ??? Nausea. ??? Vomiting. ??? Weakness, numbness, or tingling in a hand or an arm. Symptoms may develop right away after injury, or they may develop over a few days. In some cases, symptoms may go away with treatment and return (recur) over time. How is this diagnosed? This condition may be diagnosed based on: ??? Your medical history. ??? Your symptoms. ??? Any recent injuries or known neck problems that you have, such as arthritis in the neck. ??? A physical exam. ??? Imaging tests, such as: ??? X-rays. ??? MRI. ??? CT scan. How is this treated? This condition is treated by resting and icing the injured area and doing physical therapy exercises. Depending on the severity of your condition, treatment may also include: ??? Keeping your neck in place (immobilized) for periods of time. This may be done using: ??? A cervical collar. This supports your chin and the back of your head. ??? A cervical traction device. This is a sling that holds up your head. This removes weight and pressure from your neck, and it may help to relieve pain. ??? Medicines that help to relieve pain and inflammation. ??? Medicines that help to relax your muscles (muscle relaxants). ??? Surgery. This is rare. Follow these instructions at home: If you have a cervical collar: ??? Wear it as told by your health care provider. Do not remove the collar unless instructed by your health care provider. ??? Ask your health care provider before you make any adjustments to your collar. ??? If you have long hair, keep it outside of the collar. ??? Ask your health care provider if you can remove the collar for cleaning and bathing. If you areallowed to remove the collar for cleaning or bathing: ??? Follow instructions from your health care provider about how to remove the collar safely. ??? Clean the collar by wiping it with mild soap and water and drying it completely. ??? If your collar has removable pads, remove them every 1???2 days and wash them by hand with soapand water. Let them air-dry completely before you put them back in the collar. ??? Check your skin under the collar for irritation or sores. If you see any, tell your health careprovider. Managing pain, stiffness, and swelling ??? If directed, use a cervical traction device as told by your health care provider. ??? If directed, apply heat to the affected area before you do your physical therapy or as often astold by your health care provider. Use the heat source that your health care provider recommends, such as a moist heat pack or a heating pad. ??? Place a towel between your skin and the heat source. ??? Leave the heat on for 20???30 minutes. ??? Remove the heat if your skin turns bright red. This is especially important if you are unable to feel pain, heat, or cold. You may have a greater risk of getting burned. ??? If directed, put ice on the affected area: ??? Put ice in a plastic bag. ??? Place a towel between your skin and the bag. ??? Leave the ice on for 20 minutes, 2???3 times a day. Activity ??? Do not drive while wearing a cervical collar. If you do not have a cervical collar, ask your health care provider if it is safe to drive while your neck heals. ??? Do not drive or use heavy machinery while taking prescription pain medicine or muscle relaxants, unless your health care provider approves. ??? Do not lift anything that is heavier than 10 lb (4.5 kg) until your health care provider tells you that it is safe. ??? Rest as directed by your health care provider. Avoid positions and activities that make your symptoms worse. Ask your health care provider what activities are safe for you. ??? If physical therapy was prescribed, do exercises as told by your health care provider or physical therapist. General instructions ??? Take cqdv-bwh-gozwluv and prescription medicines only as told by your health care provider. ??? Do not use any products that contain nicotine or tobacco, such as cigarettes and e-cigarettes. These can delay healing. If you need help quitting, ask your health care provider. ??? Keep all follow-up visits as told by your health care provider or physical therapist. This is important. How is this prevented? To prevent a cervical sprain from happening again: ??? Use and maintain good posture. Make any needed adjustments to your workstation to help you use good posture. ??? Exercise regularly as directed by your health care provider or physical therapist. ??? Avoid risky activities that may cause a cervical sprain. Contact a health care provider if: ??? You have symptoms that get worse or do not get better after 2 weeks of treatment. ??? You have pain that gets worse or does not get better with medicine. ??? You develop new, unexplained symptoms. ??? You have sores or irritated skin on your neck from wearing your cervical collar. Get help right away if: ??? You have severe pain. ??? You develop numbness, tingling, or weakness in any part of your body. ??? You cannot move a part of your body (you have paralysis). ??? You have neck pain along with: ??? Severe dizziness. ??? Headache. Summary ??? A cervical sprain is a stretch or tear in one or more of the tough, cord- like tissues that connect bones (ligaments) in the neck. ??? Cervical sprains may be caused by an injury (trauma), such as from a motor vehicle accident, a fall, or sudden forward and backward whipping movement of the head and neck (whiplash injury). ??? Symptoms may develop right away after injury, or they may develop over a few days. ??? This condition is treated by resting and icing the injured area and doing physical therapy exercises. This information is not intended to replace advice given to you by your health care provider. Make sure you discuss any questions you have with your health care provider. Document Released: 07/31/2008 Document Revised: 06/02/2017 Document Reviewed: 06/02/2017 [employer] Patient Education ?? 2019 [employer]. Follow Up Care 04/20/2020 16:48:07 With:Inge Carl Address: [address] [place] [id number] When:5 to 7 days Comments:There is no obvious fracture seen on the CT scan. This is reassuring.Tylenol as needed for pain control. Ice 4-6 times a day for next 2 days. Return if any issues.
--- OUTSIDE RECORDS SUMMARY | 2024-05-18 15:27 | XMS_ITS | Continuity of Care Document ---
Author Organization [facility] Address [address] [place] [address]- Care Team Providers Care Chain Splitter Name Role Phone Meseret DEGROOT, Inge Caldwell Primary Care Physician Encounter [facility] Date(s): 11/15/19 - 11/25/19 [facility] [address] [place] [id number]- [facility] Attending Physician: Admtr, Patric8 Admitting Physician: AdmtrSuraj Referring Physician: Admtr, Ar8 Allergies, Adverse Reactions, Alerts Substance Reaction Severity Status NKA Active Medications omeprazole 20 mg oral enteric coated capsule 1 capsule = 20 mg, By Mouth, 2 times a day, # 30 capsule, 0 Refills, Maintenance, 11/15/19 16:03:00EST, EC Capsule, [facility] #[id number], 170, cm, 11/15/19 14:57:00 EST, Height, 67.6, [...]
--- OUTSIDE RECORDS SUMMARY | 2024-05-18 15:27 | XMS_ITS | Continuity of Care Document ---
Author Organization [facility] Address [address] [place] [address]- Care Team Providers Care Project Lead Name Role Phone Inge Carl MD Primary Care Physician Encounter [facility] [place] [facility] Date(s): 11/15/19 - 11/25/19 [facility] [address] [place] [address]- [facility] Attending Physician: Suraj De La Fuente Admitting Physician: AdmtrSuraj Referring Physician: Admtr, Ar8 Allergies, Adverse Reactions, Alerts Substance Reaction Severity Status NKA Active Medications omeprazole 20 mg oral enteric coated capsule 1 capsule = 20 mg, By Mouth, 2 times a day, # 30 capsule, 0 Refills, Maintenance, 11/15/19 16:03:00EST, EC Capsule, [facility] #[id number], 170, cm, 11/15/19 14:57:00 EST, Height, 67.6, [...]
--- OUTSIDE RECORDS SUMMARY | 2024-05-18 15:27 | XMS_ITS | Continuity of Care Document ---
Author Organization [facility] Address [address] [place] [address]- Care Team Providers Care Research And Evaluation Analyst Name Role Phone Meseret DEGROOT, Inge Caldwell Primary Care Physician Encounter [facility] Date(s): 10/23/20 - 11/22/20 [facility] [address] [place] [id number]- Attending Physician: Suraj De La Fuente Admitting Physician: AdmtrSuraj Referring Physician: Admtr, ArBryon Allergies, Adverse Reactions, Alerts Substance Reaction Severity Status NKA Active Medications No Home Meds Maintenance, 10/23/20 8:51:00 EST, Supply Start Date: 10/23/20 Status: Ordered omeprazole 20 mg oral enteric coated capsule 1 capsule = 20 mg, By Mouth, 2 times a day, # 30 capsule, 0 Refills, Maintenance, 11/15/19 16:03:00EST, EC Capsule, [facility] #[id number], 170, cm, 11/15/19 14:57:00 EST, Height, 67.6, [...]
--- OUTSIDE RECORDS SUMMARY | 2024-05-18 15:27 | XMS_ITS | Continuity of Care Document ---
Author Organization [facility] Address [address] [place] [id number]- Care Team Providers Care Health Assessment And Treatment Teacher Name Role Phone Samuel Gotti Primary Care Physician U navailable Encounter [facility] Date(s): 12/13/23 - 12/13/[address] [phone] Encounter Diagnosis Encounter for screening for infections with a predominantly sexual mode of transmission(Final) - Discharge Disposition: Home Attending Physician: BIGG ROSARIO MD Admitting Physician: BIGG ROSARIO MD Allergies, Adverse Reactions, Alerts No Known Allergies Problem List Condition Confirmation Course Effective Dates Status Health 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 Vaginalis [Negative] Negative (12/13/23 6:00 PM) Chlamydia trachomatis [Negative] Negativ e (12/13/23 6:00 PM) Social History Social History Type Response Smoking Status Never (less than 100 in lifetime) entered on: 11/11/19 Sex Patient Care team information Care Team Personnel Name: Samuel Gotti Position: [facility] No Access Member Role: Primary Care Physician Care Team Related Persons Name: NAIDA VERA Address: Home [address] [place], [place] [id number] Name: NAIDA VERA Address: Home [address] [place], [facility] [id number]
--- OUTSIDE RECORDS SUMMARY | 2024-05-18 15:27 | XMS_ITS | Encounter Summary ---
Author Organization 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 Blanche Galvin MD [address] [place] [address] [id number] [place] [address] Email: [email or web address] Referral ID Status Reason Start Date Expiration Date Visits Re quested Visits Authorized [id number] Closed 09/14/2017 09/14/2018 1 1 Reason for Visit * Reason Comments DiGeorge Syndrome Encounter Details Date Type Department Care Team (Late st Contact Info) Description 09/14/2017 2:00 PM EST Office Visit [facility] Medical Genetics [address] [place] [address] [address]; [address] [place] [address] Blanche Galvin MD [address] [place] [address] [id number] [place] [address] [email or web address] 22q11.2 deletion syndrome (Primary Dx); Tetralogy of Fallot; Hypocalcemia Social History Tobacco Use Types Packs/Day Years Used Date Smoking Tobacco: Never Assessed Sex and Gender Information Value Date Recorded Sex Assigned at Not on file Gender Identity Not on file Sexual Orientation Not on file documented as of this encounter Last Filed Vital Signs Vital Sign Reading Time Taken Comments Blood Pressure 111/66 09/14/2017 2:55 PM EST Pulse 71 09/14/2017 2:55 PM EST Temperature - - Respiratory Rate - - Oxygen Saturation - - Inhaled Oxygen Concentration - - Weight 63.8 kg (140 lb 10.5 oz) 09/14/2017 2:55 PM EST Height 167.6 cm (5' 5.98) 09/14/2017 2:55 PM ES T Body Mass Index 22.71 09/14/2017 2:55 PM EST Body Mass Index Percentile 79.67% 09/14/2017 2:5 5 PM EST Growth Chart: [facility][NOTE 3] (Girls, 2- 20 Years) documented in this encounter Progress Notes * Blanche Galvin MD - 09/14/2017 2:00 PM EST Images from the original note were not included. [facility] for 22q11 New Patient Visit Chief Complaint: 22q11.2 Deletion Syndrome Reason for Referral: Shama Jolley is a 12 y.o. 6 m.o. female seen today in follow-up at the [facility] for 22q11. She was referred by Dr. Uribe. Shama came today with both her mother and father. 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 Wereviewed leonardo systems related to 22q11.2 deletion syndrome. 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 This was done at [facility]. She has had episodes in the past offeeling dizzy and faint, but these were not thought to be cardiac in origin. She now sees cardiology every 2 years. The heart defect was noted prenatally, which prompted genetic testing shortly afterbirth. Palate: No concerns about VPI noted from the family. She has a palate behavioral medical director. In elementary school some kids had trouble understanding her. As a kid she would projectile vomit. She rarely had things coming out her nose. Musculoskeletal: She has some cramping in her hands. Sleep: She can't sleep when the thoughts on her head. She needs at least 8 hours of sleep. She doesnote having some trouble with anxiety. Her hands would shake before a test. Genetics: Karyotype shows 46, XX, del (22) (q11.2) .pedro 22q11.2. No mention of a ECHO VASCULAR TECHNOLOGIST ever being done. Shama did see genetics in [place] at 4 months old. Parents were never tested. She has two younger siblings who do not have any clinical features and therefore have not been tested. ENT: She passed her hearing exam. 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 She had bilateral myringotomy with aspiration in 2007. She has minimal conductive hearing loss. Endocrine: Calcium was found to be low at and required supplementation. These labs have not been checked recently, but will be done today. Immune: Shama does not have a history of frequent ear infections. She does seem to catch illnesses easily. Her mother recalls one set of labs showing low T cells. 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 Adult teeth appear normally formed. Educational and Occupational History: Shama is a freshman in high school and is in regular classes. She gets A's and B's in school, but her parents report that she works very hard for her grades. She has a 504 plan for her heart, preferential seating, and 50% extra time on tests. She feels like she has the answer in her head while taking a test and then when she starts writing she forgets it. Multi-step directions are difficult for her. She does not feel like this is anxiety related. It is currently taking her hours (4-5) to complete her homework. She has trouble with reading comprehension. Her favorite class is world history.Her last neuropsychological evaluation was in the first grade when she tested out of her IEP. PMH: Shama has the following known medical problems: Patient Active Problem List Diagnosis ??? 22q11.2 deletion syndrome ??? Tetralogy of Fallot ??? Hypocalcemia History: History ??? Length: 47.6 cm (18.75) Weight: 2.75 kg (6 lb 1 oz) ??? One: 7 Five: 7 Ten: 8 ??? Delivery Method: Vaginal, Spontaneous Delivery ??? Gestation Age: 36 5/7 wks ??? Days in Hospital: 5 ??? Hospital Name: [facility] ??? Hospital Location: [place] Shama was born to a 35 year old mother. She had grunting with decreased tone at and respiratory effort which required blowby oxygen. In NICU for prematurity. Had hypocalcemia and given calcium gluconate on DOL2, on DOL4 serum calcium was 9.1. Echo during admission showed TOF with small PDA. Genetic consult recommended chromosomes and 22q11 FISH per TOF and hypocalcemia. This testingshowed that Shama had 22q11.2 deletion syndrome (DiGeorge) Family History Family History Problem Relation Age of Onset ??? No Known Problems Mother ??? No Known Problems Father ??? No Known Problems Sister ??? No Known Problems Brother ??? No Known Problems Maternal Grandmother ??? No Known Problems Maternal Grandfather ??? No Known Problems Paternal Grandmother ??? No Known Problems Paternal Grandfather ??? Bipolar disorder Paternal Uncle ??? Rheumatoid arthritis Maternal Aunt Family history: See pedigree under Media tab. Additional History I have reviewed past medical, surgical, social and family history, medications and allergies as documented below: Patient Active Problem List Diagnosis Date Noted ??? 22q11.2 deletion syndrome 09/14/2017 ??? Tetralogy of Fallot 09/14/2017 ??? Hypocalcemia 09/14/2017 No past medical history on file. Past Surgical History: Procedure Laterality Date ??? TETRALOGY OF FALLOT REPAIR Meds: No current outpatient prescriptions on file prior to visit. No current facility-administered medications on file prior to visit. Allergies: Review of patient's allergies indicates not on file. Immunizations: There is no immunization history on file for this patient. Social History: Social History Social History ??? Marital status: Single Spouse name: N/A ??? Number of children: N/A ??? Years of education: N/A Social History Main Topics ??? Smoking status: None ??? Smokeless tobacco: None ??? Alcohol use None ??? Drug use: None ??? Sexual activity: Not Asked Other Topics Concern ??? None Social History Narrative Social History: Shama lives at home with her mother, father, brother, and sister. [place] live in [place] town in [place]. She feels better when she is outside and active. She does indoor track and soccer. She does have some trouble with depth perception. She notices this when she skis. Her parents worry about this with driving. She asks a lot of questions over and over. She uses her parents as a safe place to ask questions. Developmental History: As a child Shama has gross motor and speech delays. Review of Systems Pediatric Review of Symptoms: History obtained from parents, chart review and the patient. General ROS: negative Psychological ROS: negative Ophthalmic ROS: negative ENT ROS: positive for - impacted cerumen Allergy and Immunology ROS: negative Hematological and Lymphatic ROS: negative Endocrine ROS: negative Respiratory ROS: negative Cardiovascular ROS: no chest pain or dyspnea on exertion positive for - history of repaired tetralogy of Fallot Gastrointestinal ROS: negative Urinary ROS: negative Supersonic Engineer ROS: negative Musculoskeletal ROS: negative Neurological ROS: negative Dermatological ROS: negative Imaging results: Echocardiogram: followed by cardiology at [facility] Renal Ultrasound: unclear if this has been done Previous Laboratory Results: Chemistry/Endocrine Chemistry (calcium, albumin, PTH, Mg Phos and vitamin D were collected but not as yet performed) Thyroid studies are normal FREE T4 Date/Time Value Ref Range Status 09/14/2017 03:44 PM 1.1 0.9 - 1.8 ng/dL Final TSH Date/Time Value Ref Range Status 09/14/2017 03:44 PM 1.61 0.40 - 5.00 uIU/mL Final Hematology CBC shows normal blood counts with slightly increased mean platelet volume (12.6) Absolute Lymphocyte number is 1.67 in the normal range (1.5-6.5 K/uL) WBC Date/Time Value Ref Range Status 09/14/2017 03:44 PM 6.02 4.5 - 13.5 K/uL Final HCT Date/Time Value Ref Range Status 09/14/2017 03:44 PM 37.4 36.0 - 46.0 % Final PLT Date/Time Value Ref Range Status 09/14/2017 03:44 PM 183 150 - 450 K/uL Final Physical Exam Vitals: 09/14/17 1455 BP: 111/66 BP Location: Right arm Patient Position: Sitting Cuff Size: Medium Pulse: 71 Weight: 63.8 kg (140 lb 10.5 oz) Height: 167.6 cm (65.98) Body mass index is 22.71 kg/(m^2). 80 %ile (Z= 0.83) based on [facility][NOTE 3] 2-20 Years BMI-for-age data using vitals from 09/14/2017. Height on 22q11 curve: >91% for age, and also >91% for an adult woman with 22q11.2 deletion syndrome Weight on 22q11 curve: 85% BMI on 22q11 curve: 50-75% 09/14/2017 Visit date not found Height % 83 %ile (Z= 0.96) based on CDC 2-20 Years knwmwro-jwb-pso data using vitals from 09/14/2017. No previous contact with height data on file. Weight % 86 %ile (Z= 1.07) based on [facility][NOTE 3] 2-20 Years eonwvz-qxs-opd data using vitals from 09/14/2017. No previous contact with weight data on file. Physical Examination: General: alert, active, in no acute distress, interactive and somewhat quiet, tends to speak without making eye contact unless prompted, vocal quality at times muffled Facies: midface hypoplasia and unremarkable chin Head Shape: normal Fontanel: not applicable because of age Hair: normal hair whorl, unremarkable texture, normal distribution and unremarkable in color Ears: normal form, small, normal position, over-folded helices, normal antihelix, narrow canal and normal lobes Eyes: pupils equal, round, reactive to light, conjunctiva clear, extraocular movements intact, slight hooding, possible very mild hypertelorism (not formally measured today), normal eyebrows, normal palpebral filssures, slightly upslanting, normal sclerae and normal irides Nose: bulbous tip and hypoplastic alae Philtrum: unremarkable Lips: unremarkable Mouth: unremarkable, normal appearing palate with palate behavioral medical director in place, long, normal appearing midline uvula, normal gums, normal tongue and normal teeth Neck: normal Chest: unremarkable Heart: regular rate, regular rhythm, normal S1S2 and no murmurs or clicks appreciated Lungs: clear - bilaterally Abdomen: not examined : not examined Musculoskeletal: Back/Spine: normal curvature of spine, Arms: unremarkable, unremarkable hands and bilateral normal palmar creases , unremarkable fingers and tapered digits, bilateral unremarkable thumb and normal fingernails and Legs: unremarkable, unremarkable feet, unremarkable toes and overlapping 2nd toe and normal toenails Skin: unremarkable pigmentation and unremarkable texture Neurologic: Cranial Nerves: intact and Muscle Mass: normal Marfan Syndrome: Not performed Other: Assessment Shama is a 12 year old girl with a history of 22q11.2 deletion syndrome, tetralogy of Fallot, 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 Of note, Shama has no history ofear/sinus infections or pneumonia, no history of palate defects/repair with the exception of her palate behavioral medical director for narrow palate, no current or additional history of seizures or hypocalcemia outside the period, no behavioral or psychiatric concerns including no previous diagnosis of ADHD, anxiety, or depression. She has a robust social life and is participating in indoor track and soccer teams. Shama is very interested in getting good grades to go to college, and as yet is not certain what she would like to study but possibly history would be of interest. Of note, Shama's mother is a high rigger, and she has considerable support at home with any math questions, and is currently taking Algebra I with ease. Overall, we feel that Shama is doing really well. She appears to be on the higher functioning side of the spectrum of 22q11.2 deletion syndrome. We are pleased at how well she is doing in school. She is getting good grades that have placed her on the honor roll in regular classes with a difficult course load in her first semester in high school (freshman year). Of note, Shama is likely one of the younger students in her freshman class. Her parents do have concerns about the length of timeit takes Shama to finish her homework since it is taking 4-5 hours. We have recommended that Shama have a neuropsychological evaluation to better understand her strengths and weaknesses academically. Her parents have also questioned whether she has problems with attention and we reviewed thistype of evaluation should be able to further clarify that as well. Shama is very interested in learning to drive. Her parents do have some concerns about her visuospatial skills in regards to driving. We reviewed that many people with 22q11.2 deletion syndrome have their drivers??? licenses, but many do have anxiety regarding driving. Shama also expressed concerns about taking the test for her learner???s permit since she feels that often she knows the answers while taking a test, but then the answer escapes her when she should write it down. There is a workbook called Studying for a Silverware Assembler's License which breaks down armor reconnaissance vehicle driver's education into smaller steps with quizzes at the end of each chapter for review. We also reviewed that she should take her time learning to drive and not feel pressured to get her permit and license on the exact day she is allowed, which would be her 13th birthday in February. Background Individuals with 22q11.2 deletion syndrome, also known by clinical diagnoses of DiGeorge Syndrome, Iqco-fixsea-bclkqi Syndrome, autosomal dominant Opitz G/BBB syndrome among other diagnoses, can havea widely variable presentation even within members of the same family that share a deletion of the same size. It is an autosomal dominant condition with 50% risk of recurrence in each parented by an affected individual. Deletions are de chapo in 90% of individuals, and familial (inherited from a parent) in 10% of individuals. Characteristic findings include congenital anomalies of the heart (primarily conotruncal, 75%), immune deficiency due to thymus aplasia or hypoplasia (77 %), hypoparathyroidism or hypocalcemia (64-77%), and palatal clefts (27%) or velopharyngeal insufficiency (35%). In adulthood there is increasedrisk of major psychiatric disorders such as psychosis or schizophrenia in possibly 25-30% of individuals, however this is based on a small number of adults and the majority of individuals are known to not develop mental illness. Other conditions more common in adults with 22q11 deletion in comparison to the general population include scoliosis (47.3%, 6% needing surgical), gall bladder inflammation (19.%), cystic acne (23%),and thyroid disorders (hypothyroidism 20%, hyperthryoidism 5%). Parathyroid insufficiency and hypocalcemia (64-77%) can occur at any time even in individuals with no previous history of hypocalcemia.Times of increased risk include and during periods of stress including severe illness andsurgical intervention. Any individual that has an initial unprovoked seizure should have a calcium level checked. Baseline mild thrombocytopenia is common (28.2%), and there is increased risk of ITP in this population (11.8%). Individuals with 22q11.2 deletion with severe bleeding problems should be investigated, as patients are haploinsufficient for glycoprotein 1B beta, which may unmask an autosomal recessive Jovan-Soulier Syndrome with mutation present on the other 22nd chromosome. Recurrent infections are common including pneumonia (38.5%), otitis media (34.6%), and sinusitis (11.5%). Individuals with severe infectious illness should have HIV testing and an immune panel (CBC with differential, lymphocyte subsets, CD45 RA/RO, FOXP3,Tcell receptor AB/CD, immunoglobulins, vaccine serologies including pneumococcal titers, and antigen stimulation). Individuals with 22q11.2 deletion can have variable cognitive effects (average IQ in the borderlinerange with relative strength in verbal skills). Full scale IQ ranges anywhere from moderate intellectual disability range to average IQ, so discussion of career and social functioning goals needs to be tailored to each individual's strengths and needs. Some people with 22q11 deletion attend college and/or graduate school and have professional careers. Adolescents with 22q11.2 deletion that have more cognitive challenges may benefit from any of the following: transition services to negotiate developmental disability services, vocational rehabilitation, social security eligibility, special needs trusts, guardianship or power of deputy commonwealth's attorney, and supported employment and/or independent living environments. The health care management guidelines for individuals who have 22q11.2 deletion syndrome recommend the following evaluations annually in adolescence: Ionized calcium, parathyroid hormone, TSH, complete blood count with differential, dental care,and ECG. Physicians caring for adolescent patients with 22q11.2 deletion syndrome should be aware of and address the following topics anually: Spine exam to evaluate for scoliosis, school performance, socialization/functioning, psychiatric/emotional/behavioral, systems review, genetic counseling, and gynecologic and contraceptive services. Resources for Patients and Families: [facility] for 22q11 at [facility]: http://www.[facility].org/children/services/treatmentprograms.aspx?bv=1351? Check out the Support and Wellness Tab to see many helpful websites and agencies in your area! ? [facility] 22q11 Clinic Page on Facebook: https://www.[employer].com/[email or web address] We put up informational posts of interest to families with 22q11 Deletion syndrome nearly every day ? [facility] 22q11 Clinic on Steek SAitter: [email or web address] ? 22q [employer] ([place] Support for patients with 22q11 Deletion Syndrome) Contact Ana Gómez . This is a large support network of patients and families in the [place] region. Ana is a parent of a young woman with 22q11 deletion syndrome and very knowledgeable about local resources ? [employer] has pages for families in each state of the where patients and families can meet each other online as well as receive announcements about events such as 22q at the Zoo ? International 22q Foundation: http://www.22q.org? 22q at the Zoo A day for families of children with 22q11 conditions to meet up at the local zoo! Usually happens on a Wednesday near . This year the [place] 22q at the Zoo will be on March 04, 2018 at [facility] (near [place]) Contact is Sarita [email or web address] has a summer camp for children and teens with 22q11 deletion syndrome outside [place] http://www.[employer].org/programs http://22q.es has information about 22q11 conditions for [place]e speaking families. The [employer] organization has great articles in [place] about anxiety, depression, and schizophrenia: http://www.[employer].org/Find-Support/Diverse-Communities/Dgnhir-Rlyqtf-Mjdjog/La-raulito lo-floiiw-tm-nd-ttfbeggyd-hecebb Reference Imtiaz NIÑO et al, Practical Guidelines for managing patients with 22q11.2 deletion syndrome, Journal of Pediatrics 2011; 159(2):332-339. Imtiaz NIÑO, et al. Clinical features of 78 adults with 22q11 deletion syndrome, Am J Med Jaz 2005; 138A:307-313. These guidelines are publicly available at the following website: http://www.ncbi.nlm.nih.gov/pmc/articles/CIH8976305/pdf/xhdnv9524.pdf Plan 1. Calcium, albumin, vitamin D, PTH, CBC with differential, free T4, TSH annually (done today) 2. Routine dental care?? 3. Monitor calcium levels carefully during , surgical intervention (pre- and postoperatively), or severe illness. Any individual that has an initial unprovoked seizure should have a calcium level taken?? 4. Referral to psychiatry for any concerning symptoms, if they arise 5. Review recurrence risk?? (done today) 6. Referral for neuropsychological evaluation (sent today).?? 7. Annual influenza vaccination?? (Hayde Uribe MD, or new PCP) 8. Renal ultrasound: need to confirm this has been completed. 9. Follow up in 1-2 years based on family preference given distance to [place]. If Lali and her family opt for 2 year visit we would recommend that Dr. Uribe order labs listed above (see #1) for routine screening in one year. Medical Genetics Attending I personally spent 90 minutes upor-eq-moqp with this patient and her family, greater than 50% in extensive counseling and education and including obtaining a three generation family history with analysis of relevance, past medical history and review, review of relevant systems, physical examination as documented above, discussing a differential diagnosis, impression, options for further evaluation, genetic counseling, and potential therapies. 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 Ordered: 09/14/2017 documented as of this encounter Results * TSH (09/14/2017 3:44 PM EST) TSH 1.61 0.40 - 5.00 uIU/mL [facility] 09/14/2017 3:44 PM EST 09/14/2017 6:39 PM EST Blanche Galvin MD LAB BLOOD ORDERABL ES [facility] [address] [place] [address] * Free T4 (09/14/2017 3:44 PM EST) FREE T4 1.1 0.9 - 1.8 ng/dL [facility] 09/14/2017 3:44 PM EST 09/14/2017 6:39 PM EST Blanche Galvin MD LAB BLOOD ORDERABL ES [facility] [address] [place] [address] * (ABNORMAL) CBC and differential (09/14/2017 3:44 PM EST) WBC 6.02 4.5 - 13.5 K/uL [facility] RBC 4.24 4.10 - 5.10 M/uL [facility] HGB 12.6 12.0 - 16.0 g/dL [facility] HCT 37.4 36.0 - 46.0 % [facility] PLT 183 150 - 450 K/uL [facility] MCV 88.2 78.0 - 102.0 fL [facility] MCH 29.7 25.0 - 35.0 pg [facility] MCHC 33.7 31.0 - 37.0 g/dL [facility] RDW 12.7 11.5 - 14.5 % [facility] MPV 12.6(H) 8.4 - 12.0 fl [facility] NRBC 0.00 0 - 0.20 /100 WBCs [facility] FOR INCURABLES ABSOLUTE NRBC 0.00 0 - 0.01 K/uL [facility] DIFF METHOD Auto [place] [facility] NEUTS 58.2 40 - 59 % [facility] LYMPHS 27.7(L) 33 - 48 % [facility] MONOS 10.5 4 - 11 % [facility] EOS 2.3 0 - 8 % [facility] BASOS 1.0 0 - 3 % [facility] % IMMATURE GRANS 0.3 0.0 - 0.3 % [facility] ABSOLUTE NEUTS 3.50 1.8 - 8.0 K/uL [facility] ABSOLUTE LYMPHS 1.67 1.5 - 6.5 K/uL [facility] ABSOLUTE MONOS 0.63 0.2 - 1.5 K/uL [facility] ABSOLUTE EOS 0.14 0.0 - 1.1 K/uL [facility] ABSOLUTE BASOS 0.06 0.0 - 0.4 K/uL [facility] ABS IMMATURE GRANS 0.02 0.00 - 0.03 K/uL [facility] Blood 09/14/2017 3:44 PM EST 09/14/2017 6:39 PM EST Blanche Galvin MD LAB BLOOD ORDERABL ES [facility] [address] [place] [address] documented in this encounter Visit Diagnoses Diagnosis 22q11.2 deletion syndrome- Primary Tetralogy of Fallot Hypocalcemia documented in this encounter Care Teams Criminal Intelligence Analyst Relationship Specialty Start Date End Date Hayde Uribe MD PCP - General Pediatrics 07/25/15 documented as of this encounter Additional Source Comments The information contained in this document represents components of the legal health record. It is not the complete legal health record.[facility]
--- OUTSIDE RECORDS SUMMARY | 2024-05-18 15:27 | XMS_ITS | Continuity of Care Document ---
Author Organization [facility] Address [address] [place] [id number]- Care Team Providers Care Pediatric Neurologist Name Role Phone Meseret DEGROOT, Ineg Caldwell Primary Care Physician Encounter [facility] Date(s): 07/27/22 - 08/26/22 [facility] [address] [place] [id number]- Allergies, Adverse Reactions, Alerts No Known Allergies Medications No Home Meds Maintenance, 10/23/20 8:51:00 EST, Supply Start Date: 10/23/20 Status: Ordered omeprazole 20 mg oral enteric coated capsule 1 capsule = 20 mg, By Mouth, 2 times a day, # 30 capsule, 0 Refills, Maintenance, 11/15/19 16:03:00EST, EC Capsule, [id number], 170, cm, 11/15/19 14:57:00 EST, Height, 67.6, kg, 11/15/19 14:57:00 EST, Dry Weight Start Date: 11/15/19 Status: Ordered Problem List Condition Confirmation Course Effective Dates Status [facility] atus Informant 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 Please excuse her absence. [X ] May return to school. Thank you for your attention to these matters. Please call [phone] with any questionsor concerns. Masha Trujillo MD Patient Care team information Care Team Personnel Name: Inge Carl MD Position: Reference Physician Member Role: PCP Address: Address: [address] [place] [address]- Care Team Related Persons Name: NAIDA VERA Address: home [address] [place] [address] Name: NAIDA VERA Address: home [facility] [place], [place] [address] Name: BREANNA VERA Address: home [address] [place] [address] Name: DRISS BONDS Address: [address] [place] [address]
--- OUTSIDE RECORDS SUMMARY | 2024-05-18 15:27 | XMS_ITS | Continuity of Care Document ---
Author Organization [facility] Address [address] [place] [id number]- Care Team Providers Care Storekeeper Engineering Name Role Phone Meseret DEGROOT, Inge Caldwell Primary Care Physician Encounter [facility] Date(s): 10/23/21 - 11/22/21 [facility] [address] [place] [id number]- Attending Physician: Suraj De La Fuente Admitting Physician: Suraj De La Fuente Referring Physician: AdmtrSuraj Allergies, Adverse Reactions, Alerts No Known Allergies Medications No Home Meds Maintenance, 10/23/20 8:51:00 EST, Supply Start Date: 10/23/20 Status: Ordered omeprazole 20 mg oral enteric coated capsule 1 capsule = 20 mg, By Mouth, 2 times a day, # 30 capsule, 0 Refills, Maintenance, 11/15/19 16:03:00EST, EC Capsule, [id number], 170, cm, 11/15/19 14:57:00 EST, Height, 67.6, [...]
--- OUTSIDE RECORDS SUMMARY | 2024-05-18 15:27 | XMS_ITS | Continuity of Care Document ---
Author Organization [facility] Address [address] [place] [id number]- Care Team Providers Care Tick Sewer Name Role Phone Samuel Gotti Primary Care Physician U navailable Encounter BVT Date(s): 11/11/19 - 11/11/[address] [id number]- Encounter Diagnosis Tetralogy of Fallot s/p repair(Discharge Diagnosis) - 11/11/19 Chest pain(Discharge Diagnosis) - 11/11/19 Discharge Disposition: Home or Self Care Attending Physician: BRAYAN DUPREE Admitting Physician: BRAYAN DUPREE Allergies, Adverse Reactions, Alerts No Known Allergies Assessment and Plan Extracted from: Title:General Medical Problem *ED Author:BRAYAN DUPREE Date:11/11/19 History of Present Illness 14-year-old female with history of tetralogy of flow with surgery in [place] as an currently followed by pediatric cardiology at [facility] presents for chest pain. Patient has been having intermittent chest pain throughout the late summer and fall, was seen down at [facility] and had echocardiogram which showed some right heart enlargement and so this was followed by cardiac MRI which did not show any cause of the pain, mother states that the area was pain was from scar tissue stretching. She has this pain intermittently, sometimes a few times a week, lasting 5 to 10 minutes, not brought on by exertion. She reports today she was at work washing dishes when she developed a chest tightness which is unusual for her, it lasted about 1 hour and 15 minutes until it started to improve although it has not gone away entirely. Onset was about 5:15 PM. No fevers or chills. Did have mild illness about 1 week ago which she has recovered from. No shortness of breath although she does feel this pain when she takes a deep breath. No history of blood clots, no recent long trips, surgeries, or travel, no calf pain or swelling. No chest traumas. She does exercise and does not feel chest pain with exertion.. Review of Systems Constitutional symptoms: No fever, Skin symptoms: No rash, Eye symptoms: No recent vision problems, ENMT symptoms: No sore throat, Respiratory symptoms: No shortness of breath, Cardiovascular symptoms: Chest pain, No palpitations, Gastrointestinal symptoms: No abdominal pain, Genitourinary symptoms: No dysuria, Musculoskeletal symptoms: No back pain, Neurologic symptoms: No headache, Endocrine symptoms: No polyuria, Health Status Allergies: Allergic Reactions (Selected) No Known Allergies No Known Medication Allergies. Past Medical/ Family/ Social History Medical [...] No qualifying data available . Physical Examination General: Alert. Skin: Warm, dry. Head: Atraumatic. Neck: Supple. Eye: Normal conjunctiva. Cardiovascular: Bradycardic, no murmurs rubs or gallops noted, regular rhythm. Respiratory: Lungs are clear to auscultation, respirations are non-labored, breath sounds are equal. Gastrointestinal: Soft, Nontender, Non distended, Normal bowel sounds. Neurological: Alert and oriented to person, place, time, and situation, No focal neurological deficit observed. Psychiatric: Cooperative. Medical Decision Making Rationale: 14-year-old female with history of tetralogy of flow status post repair as an followed by [facility] pediatric cardiology presents for chest tightness which is new from her previous chest pains. EKG shows sinus bradycardia with right bundle branch block, I do not have any previous, I do not currently have any access to her previous records. She looks comfortable. Satting 100%. Afebrile with normal blood pressure. Recent echocardiogram and cardiac MRI. I will check cardiac enzymes and BNP as well as electrolytes and chest x-ray as well as bedside ultrasound and follow-up with [facility] pediatric cardiology.. Reexamination/ Reevaluation Time: 11/11/2019 21:54:00 . Notes: Call to [facility] for pediatric cardiology consultation. Time: 11/11/2019 22:02:00 . Notes: [facility] called back with a different number to call [phone]. I have called this number.. Time: 11/11/2019 22:17:00 . Notes: I spoke with Dr. Livingston from pediatric cardiology at [facility]. She was very familiar with this patient as she is the physician who follows her. We discussed the labs, EKG, chest x-ray and bedside ultrasound. She states patient has had multiple episodes of chest pain off and on for years, often with no known cause. She states most concerning problem would be arrhythmias. Patient has been observed on the monitor for a period of time with reassuring labs and she did not feel anything further was needed today. Recommends outpatient follow-up. Patient and family instructed to call office Wednesday morning to set up this appointment. Additional verbal instructions given.. Impression and Plan Diagnosis Tetralogy of Fallot s/p repair ([id number] Z87.74, Discharge, Medical) Chest pain (AFQ23-CD R07.9, Discharge, Medical) Plan Patient was given the following educational materials: Nonspecific Chest Pain, Pediatric, AA Blank Template (CUSTOM), Tetralogy of Fallot, Adult. Follow up with: ; Follow-up with your specialist In 2 days 11/13/2019 Call on Wednesday to schedule an appointment. Counseled: Patient, Family. Medications No Known Medications Problem List Condition Effective Dates Status Health Status Inform ant Tetralogy of Fallot s/p repair(Confirmed) Active Results Laboratory List Name Date Automated Differential Standard 11/11/19 CBC w/Diff Standard 11/11/19 Comprehensive Metabolic Panel Standard ( CMP Standard) 11/11/19 Magnesium Level 11/11/19 Pro-BNP (BNP (proBNP)) 11/11/19 TSH [place] 11/11/19 Troponin-T 11/11/19 Most recent to oldest [Reference Range]: 1 NRBC Auto Pct [0.00-0.20 %] 0.00 % (11/11/19 8:53 PM) Creatinine [0.50-0.90 mg/dL] 0.75 mg/dL (11/11/19 8:53 PM) AGAP [10.0-18.0 mmol/L] 17.9 mmol/L (11/11/19 8:53 PM) Glucose Lvl [70-100 mg/dL] 83 mg/dL (11/11/19 8:53 PM) Hct [34.1-44.9 %] 35.5 % (11/11/19 8:53 PM) Hgb [11.5-15.7 gm/dL] 11.7 gm/dL (11/11/19 8:53 PM) Lymph Auto [15.0-45.0 %] 26.4 % (11/11/19 8:53 PM) Magnesium [1.60-2.60 mg/dL] 2.10 mg/dL (11/11/19 8:53 PM) MCH [25.6-32.2 pg] 28.7 pg (11/11/19 8:53 PM) MCHC [32.3-36.5 gm/dL] 33.0 gm/dL (11/11/19 8:53 PM) MCV [79.4-94.8 fL] 87.2 fL (11/11/19 8:53 PM) Troup Auto [4.0-14.0 %] 14.8 % *HI* (11/11/19 8:53 PM) MPV [9.4-12.4 fL] 12.3 fL (11/11/19 8:53 PM) Neutro Auto [50.0-75.0 %] 56.1 % (11/11/19 8:53 PM) Osmolality [268.0-291.0 mOsm/kg] 277.9 m Osm/kg (11/11/19 8:53 PM) Platelet [150-400 x10(3)/uL] 178 x10(3)/ uL (11/11/19 8:53 PM) RBC [3.93-5.22 x10(6)/uL] 4.07 x10(6)/uL (11/11/19 8:53 PM) Sodium Lvl [136-145 mmol/L] 140 mmol/L (11/11/19 8:53 PM) Total Protein [6.6-8.7 gm/dL] 7.1 gm/dL (11/11/19 8:53 PM) TSH [0.270-4.200 uIU/mL] 1.73 uIU/mL *NA* (11/11/19 8:53 PM) Albumin Lvl [3.50-5.20 gm/dL] 4.40 gm/dL (11/11/19 8:53 PM) Alk Phos [35-105 IntUnit/L] 63 IntUnit/L (11/11/19 8:53 PM) ALT [0-33 IntUnit/L] 11 IntUnit/L (11/11/19 8:53 PM) AST [0-32 IntUnit/L] 17 IntUnit/L (11/11/19 8:53 PM) Basophil Auto [0.0-2.0 %] 0.3 % (11/11/19 8:53 PM) Bili Total [0.0-1.3 mg/dL] 0.4 mg/dL (11/11/19 8:53 PM) CO2 [22-29 mmol/L] 24 mmol/L (11/11/19 8:53 PM) Eos Auto [0.0-8.0 %] 2.1 % (11/11/19 8:53 PM) WBC [4.0-10.0 x10(3)/uL] 3.4 x10(3)/uL *LOW* (11/11/19 8:53 PM) BUN [6-23 mg/dL] 11 mg/dL (11/11/19 8:53 PM) Calcium Lvl [8.6-10.2 mg/dL] 9.1 mg/dL (11/11/19 8:53 PM) Chloride [98-107 mmol/L] 102 mmol/L (11/11/19 8:53 PM) Potassium Lvl [3.5-5.1 mmol/L] 3.9 mmol/ L (11/11/19 8:53 PM) Troponin-T [0.000-0.029 ng/mL] <0.010 ng /mL (11/11/19 8:53 PM) Lymph Absolute [1.20-3.70 x10(3)/uL] 0.8 9 x10(3)/uL *LOW* (11/11/19 8:53 PM) Troup Absolute [0.20-0.40 x10(3)/uL] 0.50 x10(3)/uL *HI* (11/11/19 8:53 PM) Eos Absolute [0.04-0.54 x10(3)/uL] 0.07 x10(3)/uL (11/11/19 8:53 PM) NRBC Absolute [0.00-0.01 x10(3)/uL] 0.00 x10(3)/uL (11/11/19 8:53 PM) Neutro Absolute [1.56-6.13 x10(3)/uL] 1. 89 x10(3)/uL (11/11/19 8:53 PM) RDW-CV [11.7-14.4 %] 13.2 % (11/11/19 8:53 PM) Pro-BNP [0.0-125.0 pg/mL] 31.8 pg/mL (11/11/19 8:53 PM) GFR Comment GFR not calculated f or patients under 18 years of age. *NA* (11/11/19 8:53 PM) Immature Gran % [0.00-2.30 %] 0.30 % (11/11/19 8:53 PM) Immature Gran Absolute 0.01 x10(3)/uL *NA* (11/11/19 8:53 PM) Basophil Absolute [0.00-0.10 x10(3)/uL] 0.01 x10(3)/uL (11/11/19 8:53 PM) Radiology Reports true* Exam Date Time Procedure Performing Provider Status 11/11/19 9:06 PM XR Chest 2 Views Marie Esquivel; Castro (V erified) Notes: (XR Chest 2 Views) Reason For Exam: chest pain, ?cardiac;chest pain, ?cardiac XR Chest 2 Views EXAMINATION: XR Chest 2 Views CLINICAL HISTORY: [...] vertebral bodies thoracolumbar junction on lateral projection. 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 Cardiac enlargement. No comparison available. Evidence of right-sided aortic arch. No consolidation, pleural effusion, or pulmonary vasculature abnormality. Preliminary report signed by a [facility] Mixer Pigment or Fellow: Clarke Galarza at 11/11/2019 9:25 PM I have personally reviewed the image(s) and the resident's interpretation and agree with the findings, Marie Diaz MD at 11/11/2019 11:28 PM Thank you for letting us participate in the care of this patient. For questions regarding this report, please contact the number below. Electronically signed by: Marie Diaz MD, [facility] ([phone]), at 11/11/2019 11:28 PM Final Dictated: 11/11/2019 11:28 pm MARIE NIETO Signed (Electronic Signature): 11/11/2019 11:28 pm Signed by: MARIE NIETO Vital Signs Most recent to oldest [Reference Range]: 1 Temperature Temporal [36-38 DegC] 37 Deg C (11/11/19 8:08 PM) Peripheral Pulse Rate [55-90 bpm] 59 bpm (11/11/19 8:08 PM) Blood Pressure [90-138/45-84 mmHg] 118/7 7mmHg (11/11/19 8:08 PM) SpO2 [92-100 %] 100 % (11/11/19 8:08 PM) Height 170.000 cm (11/11/19 8:08 PM) Height/Length Dosing 170.000 cm (11/11/19 8:14 PM) Weight 67.400 kg (11/11/19 8:08 PM) Weight Dosing 67.400 kg (11/11/19 8:14 PM) Social History Social History Type Response Smoking Status Never (less than 100 in lifetime) entered on: 11/11/19 Sex Hospital Discharge Instructions Patient Education 11/11/2019 22:30:46 Tetralogy of Fallot, Adult Tetralogy Of Fallot, Adult Tetralogy of Fallot (ToF) is a combination of four heart defects that are present at (congenital ). ToF develops in an unborn baby early in , while the heart is developing. When you have ToF, some blood is prevented from going directly to the lungs for oxygen, and blood that enters the heart mixes with blood that is leaving the heart. This makes it difficult for the body to get enough oxygen-rich blood. There are four defects that make up ToF: ??? A hole between the right side and left side of the heart (ventricular septal defect, or VSD). ??? A missing or underdeveloped valve that limits blood flow from the right side of the heart to the lungs (pulmonary stenosis). ??? Excess thickness of the muscles on the right side of the heart (right ventricle hypertrophy). ??? Abnormal position of the main blood vessel that carries blood away from the heart (overriding aorta). You may have some symptoms of ToF as an adult, even if you had surgery to correct the defect when you were younger. Symptoms during adulthood depend on the type of defect that you have and how successful your prior surgery was. The most common problem for adults with ToF is a leaky valve between the heart and lungs. Problems in other areas of the heart or lungs can also develop. What are the causes? The cause of this condition is not known. In some cases, it may be caused by genes that are passed from parent to child (inherited). What are the signs or symptoms? Symptoms of this condition in adults may include: ??? Low energy or fatigue. ??? Inability to exercise. ??? Abnormal heart rate (too fast or too slow). ??? Abnormal heart rhythm. ??? A feeling that the heart is fluttering. ??? Dizziness or fainting. ??? Cough. ??? Shortness of breath. How is this diagnosed? This condition may be diagnosed based on: ??? A physical exam. ??? Electrocardiogram (ECG) to check for irregular heartbeats (arrhythmias). This test may be done while you exercise (stress test). ??? Echocardiogram to check for heart changes. ??? Heart MRI. ??? Blood tests. ??? A Holter monitor or event monitor test. This test involves wearing a portable device that monitors your heart rate over time. ??? Placing a long, flexible tube (catheter) into your heart to measure pressure inside of your heart chambers (cardiac catheterization). You may work with a strategic communications specialist (rn eligibility). How is this treated? Treatment for this condition depends on how well your heart is functioning and what changes are likely to develop in the future. Possible treatments include: ??? Medicine that: ??? Controls your blood pressure. ??? Controls your heart rate or your heart's ability to pump blood. ??? Helps the body get rid of excess fluids (diuretic). ??? Helps prevent infection of the inner layer of the heart or the heart valves (endocarditis). This may be given before you have certain dental procedures. ??? Thins the blood (anticoagulant) to prevent blood clots in your heart. ??? An electrical device that helps to regulate your heart rhythm (pacemaker or cardioverter defibrillator). ??? Surgery to repair or replace a leaky heart valve. ??? A heart transplant, if heart failure begins to develop. This is rare. Follow these instructions at home: Lifestyle ??? Do not use any products that contain nicotine or tobacco, such as cigarettes and e-cigarettes. If you need help quitting, ask your health care provider. ??? Do not abuse drugs or alcohol. Limit alcohol intake to no more than 1 drink a day for non- women and 2 drinks a day for men. One drink equals 12 oz of beer, 5 oz of wine, or 1?? oz of hard liquor. Activity ??? Exercise as directed by your health care provider. You may need to limit exercise that requiresa lot of energy (is strenuous), such as weight lifting or competitive sports. Ask your health care provider what activities are safe for you. ??? Do not lift anything that is heavier than the limit that your health care provider tells you, until he or she says that it is safe. Medicines ??? Take qumg-qxr-wazsmau and prescription medicines only as told by your health care provider. Check with your health care provider before starting any new medicines. ??? If you are prescribed an antibiotic medicine, use it as told by your health care provider. Do not stop using the antibiotic even if you start to feel better. ??? Ask your health care provider whether you need to take antibiotics before you go to the dentist. General instructions ??? Eat a heart-healthy diet and maintain a healthy weight. A heart-healthy diet includes whole grains, fresh fruits and vegetables, low-fat dairy products, and lean proteins. Work with a diet and nutrition aides teacher (dietitian), if needed. ??? Tell all health care providers who care for you that you have ToF. ??? Keep a record of your medical information to share with your health care providers. Make sure that you know: ??? Which type of defect you were born with. ??? Which surgeries you have had. ??? Which medicines you are taking. ??? If you are considering : ??? Work with a rn eligibility and a specialist (computer forwarding system markup clerk) who are familiar with managing heart defects during . ??? You may decide to have a blood test to check whether you carry genes that could cause ToF in your baby. ??? Keep all follow-up visits as told by your health care provider. This is important to make sure that you are not developing complications, such as: ??? A leaky valve. ??? An enlarged aorta. ??? Heart failure. ??? Arrhythmias. ??? Endocarditis. ??? Lung problems. Contact a health care provider if: ??? You develop any possible symptoms of heart disease, such as: ??? Dizziness. ??? Fatigue. ??? Feeling your heart flutter. ??? A heartbeat that is too fast or too slow. ??? Trouble exercising. ??? Coughing often. ??? You become or you plan to become . Get help right away if: ??? You have chest pain. ??? You have trouble breathing. ??? You faint. Summary ??? Symptoms during adulthood depend on the type of defect that you have and how successful your prior surgery was. ??? Exercise as directed by your health care provider. You may need to limit exercise that requiresa lot of energy (is strenuous), such as weight lifting or competitive sports. Ask your health care provider what activities are safe for you. ??? If you plan to become , talk with a strategic communications specialist (rn eligibility) and a specialist (computer forwarding system markup clerk). This information is not intended to replace advice given to you by your health care provider. Make sure you discuss any questions you have with your health care provider. Document Released: 10/25/2015 Document Revised: 05/22/2019 Document Reviewed: 05/27/2017 AIS Interactive Patient Education ?? 2019 [employer]. 11/11/2019 22:30:46 AA Blank Template (CUSTOM) Please read all of the information that accompanies these instructions. You came to the emergency department with chest pain. You have been diagnosed with chest pain of unknown cause, your work-up today was overall unremarkable. Please schedule a follow up appointment with your rn eligibility, she would like you to call the office Wednesday morning to schedule an appointment this is important. Please seek medical care or return to the emergency department if you develop chest pain, shortnessof breath, fainting or near fainting, exercise-induced chest pain, or a new or concerning symptom. We are open 24 hours a day, 7 days a week. 11/11/2019 22:30:46 Nonspecific Chest Pain, Pediatric Nonspecific Chest Pain, Pediatric Chest pain is an uncomfortable, tight, or painful feeling in the chest. Chest pain may go away on its own and is usually not dangerous. There are many possible causes of your child's chest pain. Suchas: ??? A pulled muscle (strain). ??? Muscle cramping. ??? A pinched nerve. ??? Coughing. ??? Stress. ??? Breathing too quickly, or deeply (hyperventilating). ??? Acid reflux or heartburn. Some causes of chest pain are more serious than others. Such as: ??? A direct blow to the chest. ??? A lung infection (pneumonia). ??? Asthma. ??? Inflammation of the lining of the lung (pleuritis). ??? Heart issues. This is rare in children. Your child's health care provider may do lab tests and other studies to find the cause of your child's pain. Treatment will depend on the cause of your child's chest pain. Follow these instructions at home: General instructions ??? Give ixqd-ytf-lkplrum and prescription medicines only as told by your child's health care provider. ??? Watch your child's condition for any changes. Tell your child's health care provider about any new symptoms. ??? If your child was prescribed an antibiotic medicine, give it as told by his or her health care provider. Do not stop giving the antibiotic even if your child starts to feel better. ??? Keep all follow-up visits as told by your child's health care provider. This is important. Managing pain, stiffness, and swelling ??? If directed, put ice on the injured area. ??? Put ice in a plastic bag. ??? Place a towel between your child's skin and the bag. ??? Leave the ice on for 20 minutes, 2???3 times a day Activity ??? Have your child avoid the following if it causes pain: ??? Physical activity. ??? Lifting heavy objects. Contact a health care provider if: ??? Your child: ??? Has a fever. ??? Coughs up white phlegm (sputum) that is thick. ??? Your child's chest pain does not go away. Get help right away if your child: ??? Has chest pain that becomes severe and radiates into the neck, arms, or jaw. ??? Has trouble breathing. ??? Has a fever and symptoms suddenly get worse. ??? Has a heart that starts to beat fast while he or she is at rest. ??? Who is younger than 3 months, has a temperature of 100.4??F (38??C) or higher. ??? Faints. ??? Coughs up blood. ??? Has chest pain that gets worse. Summary ??? Chest pain is an uncomfortable, tight, or painful feeling in the chest. There are many possiblecauses of chest pain. ??? Chest pain may go away on its own and is usually not dangerous. ??? Give qpfb-ltr-vsbymwz and prescription medicines only as told by your child's health care provider. If your child was prescribed an antibiotic medicine, give it as told by his or her health care provider. Do not stop giving the antibiotic even if your child starts to feel better. ??? Watch your child's condition for any changes. ??? Get help right away if your child's chest pain gets worse. This information is not intended to replace advice given to you by your health care provider. Make sure you discuss any questions you have with your health care provider. Document Released: 12/22/2007 Document Revised: 05/05/2019 Document Reviewed: 05/05/2019 AIS Interactive Patient Education ?? 2019 [employer]. Follow Up Care 11/11/2019 19:58:11 With:Follow-up with your specialist Address:Unknown When:11/13/2019 Comments:Call on Wednesday to schedule an appointment
--- OUTSIDE RECORDS SUMMARY | 2024-05-18 15:27 | XMS_ITS | Continuity of Care Document ---
Author Organization [facility] Address [address] [place] [address]- Care Team Providers Care [place] Name Role Phone Inge Carl MD Primary Care Physician Encounter [facility] Date(s): 11/15/19 - 11/22/19 [facility] [address] [place] [id number]- [facility] Attending Physician: Natasha Livingston MD Referring Physician: Inge Carl MD Allergies, Adverse Reactions, Alerts Substance Reaction Severity Status NKA Active Medications omeprazole 20 mg oral enteric coated capsule 1 capsule = 20 mg, By Mouth, 2 times a day, # 30 capsule, 0 Refills, Maintenance, 11/15/19 16:03:00EST, EC Capsule, [id number], 170, cm, 11/15/19 14:57:00 EST, Height, 67.6, kg, 11/15/19 14:57:00 EST, Dry Weight Start Date: 11/15/19 Status: Ordered Problem List Condition Effective Dates Status Health Status Inform ant 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) Active Vital Signs Most recent to oldest [Reference Range]: 1 Height 170.0 cm (11/15/19 2:57 PM) Weight 67.6 kg (11/15/19 2:57 PM) Oxygen Saturation [94-100 %] 98 % (11/15/19 2:57 PM) Pulse Rate [55-90 bpm] 74 bpm (11/15/19 2:57 PM) Body Mass Index [18.5-24.99] 23.39 (11/15/19 2:57 PM) Blood Pressure [80-130/50-80 mm Hg] 104/ 68mm Hg (11/15/19 2:57 PM) Mode of Delivery (Oxygen) Room air (11/15/19 2:57 PM) Blood pressure sites Arm, right (11/15/19 2:57 PM) Dry Weight 67.6 kg (11/15/19 2:57 PM) Social History Social History Type Response Smoking Status Never smoker; Tobacc o user in household: No entered on: 03/27/16 Sex
--- OUTSIDE RECORDS SUMMARY | 2024-05-18 15:27 | XMS_ITS | Encounter Summary ---
Author Organization [facility] Address [phone] [facility] [place] [address] Care Team Providers Care Pipe Testing Technician Name Role Phone Hayde Uribe MD Primary Care Provider U navailable Reason for Visit * Reason Comments Follow-up Encounter Details Date Type Department Care Team (Latest Contact Info) Description 06/06/2018 3:00 PM EDT Office Visit [facility] [place] [facility] [address] [place] [id number] Kaylynn Ascencio, PhD [address] [place], [place] [id number] [place] [address] [email or web address] Encounters for administrative purpose (Primary Dx) Social History Tobacco Use Types Packs/Day Years Used Date Smoking Tobacco: Never Assessed Sex and Gender Information Value Date Recorded Sex Assigned at Not on file Gender Identity Not on file Sexual Orientation Not on file documented as of this encounter Progress Notes * Kaylynn Ascencio, PhD - 06/06/2018 3:00 PM EDT Spoke with Shama Jolley's parents to review the results of the recent neuropsychological evaluation and recommendations. All questions were addressed. Sugey Ascencio, PhD ABPP Clinical Neuropsychologist documented in this encounter Plan of Treatment Not on file documented as of this encounter Visit Diagnoses Diagnosis Encounters for administrative purpose- Primary Encounters for unspecified administrative purpose documented in this encounter Care Teams Pipe Testing Technician Relationship Specialty Start Date End Date Hayde Uribe MD PCP - General Pediatrics 07/25/15 documented as of this encounter Additional Source Comments The information contained in this document represents components of the legal health record. It is not the complete legal health record.[facility]
--- OUTSIDE RECORDS SUMMARY | 2024-05-18 15:27 | XMS_ITS | Encounter Summary ---
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 Blanche Galvin MD [address] [place], [place] [id number] [id number] Email: [email or web address] Referral ID Status Reason Start Date Expiration Date Visits Re quested Visits Authorized [id number] Closed 09/14/2017 09/14/2018 1 1 Encounter Details Date Type Department Care Team (Latest Contact Info) Description 05/16/2018 10:00 AM EDT Office Visit [facility] [address] [address] Kaylynn Ascencio, PhD [address] [place] [address] [email or web address] 22q11.2 deletion syndrome (Primary Dx); Anxiety; Attention and concentration deficit Social History Tobacco Use Types Packs/Day Years Used Date Smoking Tobacco: Never Assessed Sex and Gender Information Value Date Recorded Sex Assigned at Not on file Gender Identity Not on file Sexual Orientation Not on file documented as of this encounter Progress Notes * Kaylynn Ascencio, PhD - 05/16/2018 10:00 AM EDT Images from the original note were not included. Shama Jolley was seen for neuropsychological evaluation. Results to follow. Sugey Ascencio, PhD ABPP Clinical Neuropsychologist Neuropsychological Evaluation Name: Shama Jolley [facility]#: [id number] Date of : 2005 Date of Evaluation: 05/16/2018 Age at Evaluation: 13:2 Education: entering Date of Report: 06/30/2018 Reason for Referral: Shama Jolley is a 13-year-old young woman who has been diagnosed with 22q11.2 deletion syndrome. This is a genetic syndrome that can be associated with developmental delays and chronic medical conditions. Her sales technician home theater at [facility] ([facility]), Dr. Galvin, referred her for a neuropsychological evaluation to characterize her current functioning and to assist with differential diagnosis and treatment planning. Informed Consent: Shama and her parents came to the evaluation. The nature and purpose of the evaluation, potential risks, and limits of confidentiality were explained in [place] Island[place], which is their chickahominy indians-eastern division language. Shama assented and her father consented to the evaluation. A signed consent form is included in the internal record. Brief Review of Salient History: Shama is the oldest of three children to her biological parents(sister Shanthi - age 12, brother Maxine - age 11). The family lives in [place], [place]. Her mother is a actuarial mathematician at the same high school that Shama attends. Her father is a pina. Shama was born slightly premature (36 5/7 weeks) and was treated in the NICU for respiratory distress and noted to have low tone. 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 Additional aspects of her medical history areincluded below and described in more detail in her medical record. Early developmental history was notable for motor and language delays. She received early services but has not received formal special education services and accommodations as part of an individualized education program (IEP) since 1st grade. She is currently in 10th grade at [employer] in [place], [place]. She is currently placed in regular education classes and making mostly As.Her parents have some concern that honors classes will be more challenging for her, although she took honors science and was successful. She has a 504 plan (50% extra time on tests, preferential seating) and accesses to a resource room (45 minutes, approximately every other day). The resource room is staffed by a regular high school physical education teacher and there is some support around strategies but not acrossall subjects. While she is in high school, Shama would like to complete her [employer] degree and then pursue work intClosely. There are no current plans for her to attend college immediately after finishing high school. Psychiatric history is unremarkable. There have been no significant depressive episodes, self-injurious behaviors, or suicidal ideation. There are no concerns about alcohol or substance use. There isno history of formal psychiatric services. Current Functioning: Shama???s parents reported that she has always made steady developmental progress. She works very hard and has high standards for her academic and soccer performances. As external demands have increased and as she approaches the transition to adulthood, there are specific areas of concern that her parents are hoping to address with the current evaluation. Executive Function. There have been longstanding concerns about attention but this is becoming morenoticeable as external demands increase. She frequently ???zones out?? and has difficulty following multi-step instructions (e.g., more than two). She frequently procrastinates and occasionally thiscontributes to anxiety. She has difficulty judging how long things will take and struggles to breakthings down. She sometimes struggles to interpret the intention of questions or assignments. There are also difficulties regulating her phone use. She is mostly texting friends and spending time on [employer] and [employer]. It contributes to difficulties with time management and her parents must take her phone away. She does minimize use in school. Learning. She often needs more time than most children her age to process new information. It is hard for her to remember information in the moment but once she learns it, she can retain it. She can advocate for herself and asks clarifying questions when she doesn???t understand things. Spatial and Motor Planning. There are some concerns about spatial skills, including depth perception when skiing, judging space. When she was younger, clumsiness and difficulties regulating personal space were more noticeable. Academic Functioning. To complete school work, she receives a lot of help from her mother, who is ateacher in the same school. She is spending approximately four hours a night on homework. She is struggling more as the curriculum places more demands on abstract reasoning. 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 With reading comprehension, she struggles with open-ended questions and has difficulty distinguishing between main ideasand supporting details. Math has historically been challenging for her because it is multi-step andrequires attention to detail. She is currently taking geometry in an online course. Social and Emotional Functioning. There are some concerns about social immaturity. She has difficulty generating realistic goals (e.g., believes that she might join the national soccer team). She hasmeaningful relationships with peers but can be socially awkward; she sometimes has difficulty making conversation or initiating social activities. She can be ???black and white?? in her interpretation of conversations and needs prompting to fully understand others??? perspectives. She can also wander off in conversations. Her interests are age-appropriate. There are occasional and chronic concerns about her stress level and anxiety. This are not necessarily getting worse over time. Since she was little, she has repeated questions for reassurance. Thereare no obsessions or compulsions. There are no concerns about mood. Medical History: ??? 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 Vision: normal ??? Hearing: small ear canals so cleaned regularly, hearing is otherwise OK ??? Sleep: likes to stay up late, no trouble with maintenance, no parasomnias ??? Appetite/Weight/Body Image: no concerns, typical concerns about body image ??? Energy Level: often fatigued (sometimes sleep but maybe also amount of effort) ??? Repetitive Behaviors: none ??? Sensory Sensitivities: some concerns that others chew loud but no other concerns Previous Evaluations (reviewed): ??? July 2009 (age 4, 1st grade) [facility] [place] ??? July 2009 (age 4, 1st grade) [facility] Summary of Findings Behavioral Observations: Shama easily transitioned to the evaluation process with her parents. She was easily engaged in conversation, discussing her interest in soccer and her experience of school. Her speech was fluent and grammatical but there were occasional articulation errors that compromised intelligibility. Comprehension was grossly intact although she occasionally needed for abstract concepts to be explained or for instructions to be repeated. During testing, she was serious and reserved, working hard and refusing opportunities for breaks. There were no significant difficulties with restlessness but she was sometimes quick to respond. She completed all that she was asked to do. Validity: Embedded and standalone measures of performance and symptom validity fell within normal limits. Coupled with apparent effort to perform well on testing, results are believed to be an accurate representation of current abilities. Intellectual Ability: Shama completed the [place] Intelligence Scale for Children - Fifth Edition (WISC-V). This test estimates a child???s intellectual aptitude by combining performances on measures of verbal knowledge and nonverbal skills and performances on measures of ability to flexibly apply these skills in everyday situations (i.e., working memory and processing speed). Shama???s performances on the WISC-V subtests were variable, ranging from the low to average range for age. There was significant variability among the index scores (WMI > PSI, VCI, VSI, FRI; VCI > FRI) such that the overall estimate of her intellectual functioning should be interpreted with caution. Performances are likely to vary depending on task demands. In this context, her overall i ntellectual functioning can be conceptualized as falling in the lower end of the low average range for age (Full Scale IQ, SS = 81; General Ability Index, SS = 76). Cognitive Abilities: Shama completed measures to assess different aspects of cognitive or ???thinking?? abilities, including attention, executive functions, language, spatial and nonverbal reasoning abilities, learning and memory, and graphomotor abilities. Salient aspects of her profile are asfollows: ??? Verbal knowledge and oral expression represented an area of relative strength, falling in the low average to average range. Her general fund of knowledge and ability to define the meaning of words fell in the low average to average range. Her ability to describe similarities between words also fell in the lower end of the average range. ??? Nonverbal abilities, including spatial perception and reasoning skills, were weaker than her verbal abilities, and she had difficulty on tasks that required uybg-cw-[id number] analysis. Construction of block designs was low average with internal and global rotation errors on difficult problems. Her ability to quickly identify puzzle pieces that could be used to construct a pattern was also low average. Her approach to copying a complex figure was piecemeal without evidence of an appreciation of the global structure. These aspects of her performance suggest difficulty with spatial skills and indeed, on a task assessing her spatial perceptual abilities, her performance fell significantly belowage-based expectations (3rd %ile). Nonverbal reasoning tasks were slightly weaker, likely in part due to impulsivity and/or attentional demands (e.g., she was often quick to respond). ??? On formal testing, her ability to regulate attention was within normal limits but there were difficulties with set-shifting and cognitive efficiency. Her passive span of auditory attention was excellent; she could repeat sequences of up to eight digits. Her performance on a measure of sustainedattention was notable for a high number of omissions and commissions but all other measures of inattention, impulsivity, and vigilance were within normal limits. However, she had significant difficulty shifting between tasks (i.e., there was a performance cost associated with the addition of a set-shifting component on two different measures). Processing speed, or the rate at which she can integrate and act upon new information, was also relatively slow although variable, ranging from the low to low average range. ??? Performances on learning and memory tasks were variable with the pattern of her performances indicating that she learns best when new information is presented in a structured and organized format. Once she learns new information, she can retain it. o Auditory working memory was average for age and as noted above, her passive span of auditory attention was strong which will support rote memorization. o Consistent with this, when first presented with a word list, she recalled 7/15 words (average). Yet over the course of four subsequent learning trials, her learning slope was restricted with total learning falling in the low range. After presentation of a distracter list, she could recall most ofthe words that she had learned but did not benefit from cueing. After a longer delay period, there was no significant loss of information. Delayed recognition was poor due to reduced initial encodingand a high number of false positive responses. o Initial encoding of narrative passages was significantly stronger, falling in the average range. After a delay period, recall and recognition remained in the average range. o Visual learning was assessed by asking her to recall a complex figure that she had copied. As above, she had difficulty generating an accurate copy, which likely negatively impacted her ability to learn it. Delayed recall performances were below expectations but there was no evidence of forgetting. Delayed recognition of details of the figure was average. ??? Dexterity and drawing were below expectations. Dexterity was slow bilaterally but there was an expected right-hand advantage. Her ability to copy increasingly complex geometric figures was poor. As above, she also had difficulty copying a complex figure; her approach was piecemeal and there were spatial distortions. Her handwriting was legible without significant evidence of spatial planning difficulties. Academic Functions: Performances on measures of academic achievement indicated that many of her fundamental academic skills are within age-based expectations. However, with increased demands on fluency and comprehension, reading performances declined significantly. Reading. At the single word level and under untimed circumstances, decoding was average. However, performance dropped to low average to average under time constraints. When asked to read narrative passages aloud, she appeared to try to boyle and made multiple errors (accuracy in the low to low average range). However, her reading speed was low average. Writing. At the single word level, spelling skills fell in the low average range. When asked to write an essay about her favorite game, she took time to outline her approach. Within the time limit, she generated an average amount of text and included sufficient reasons for liking the game. Mathematics. Under untimed circumstances, her ability to solve increasingly difficult arithmetic problems was average for age. Teacher Report. On a standardized questionnaire, her teacher, Bang MarcusJavier, indicated that Shama is an active participant in class, exceeds behavioral expectations, and completes her homework. Performances on tests and quizzes fell in the average range. She rated all academic skills as falling within grade- based expectations ([place]er/Reading, Writing, Arithmetic/Math, Social Studies, and Science). Emotional and Social Functions: Child Report On a standardized questionnaire, Shama did not endorse any areas of clinically significant concern. However, her responses suggested that in daily life, she experiences difficulties with attentionand sometimes feels that she is unable to successfully manage her daily responsibilities. Her responses also suggested that she sometimes worries that others may harm her or has unusual sensory experiences but this may be related to literal interpretation of the questions as she denied similar experiences in the clinical interview. Parent Report Her mother completed a series of standardized questionnaires aimed to characterize her emotional, behavioral, and social functioning. Results indicated several areas of possible clinical concern: ??? ADHD Symptoms. She endorsed significant difficulties with inattention (6/9 DSM symptoms with 9/9 endorsed as ???sometimes?? ). She also endorsed significant difficulties with aspects of executivefunction related to problem- solving, including initiation, working memory, planning, and organization. There were no concerns regarding hyperactivity, impulsivity, or aspects of executive function important in behavioral regulation. ??? Social Communication. She indicated that Shama???s motivation to engage in social interactions is reduced and that she sometimes has difficulty knowing how to respond in a situation, despite adequate awareness. Responses also indicated that she may sometimes struggle with functional communication. ??? Anxiety. Responses indicated vulnerability to anxiety, which may partly be related to reduced self-confidence and social communication (i.e., she sometimes exhibits social anxiety). She also has high standards for her performance, including in school. ??? Body Image. She indicated that Shama sometimes believes that she is overweight or worries about becoming overweight. Teacher Report Shama???s teacher also completed a series of standardized questionnaires aimed to characterize her emotional, behavioral, and social functioning. Her teacher indicated relatively few concerns. Sheindicated that Shama may be vulnerable to learning concerns and exhibits mild inattention (1/9 DSM symptom with 9/9 endorsed as ???sometimes?? ). Otherwise, there were no significant areas of concern. Formulation and Diagnostic Impressions Shama Jolley is a 13-year-old young woman who has been diagnosed with 22q11.2 deletion syndrome.This is a genetic syndrome that can be associated with developmental delays and chronic medical conditions. Her medical status is currently stable. She is currently in 10th grade at [employer] in [place], [place]. She is currently placed in regular education classes and making mostly As. She has a 504 plan (50% extra time on tests, preferential seating) and accesses to a resource room (45 minutes, approximately every other day). The resource room is staffed by a regular high school physical education teacher and there is some support around strategies but not across all subjects. She plans to pursue her [employer] degree while in high school. Results of formal testing are reassuring in that they indicate that Shama has many age-appropriate skills. However, as is often seen in the context of 22q11.2 deletion syndrome, her neuropsychological profile is notable for uneven development of her skills. The pattern of strengths and weaknesses is likely to manifest in everyday situations as a specific learning profile and social- emotional vulnerabilities. As such, overall estimates of cognitive ability (i.e., Full Scale IQ) should be interpreted with caution as these are unlikely to accurately predict performances across settings. Nonetheless, her overall aptitude can be conceptualized as broadly falling in the lower end of the low average range for age. Aspects of her profile overlap with what has been described as a Nonverbal Learning Disability, which has been associated with 22q11.2 deletion syndrome. She had difficulty on tasks requiring her to perceive spatial relationships, especially those that required her to engage in llor-fo-lueyl analysis (e.g., putting together puzzle pieces). This learning style is sometimes associated with difficulty ???seeing the forest through the trees?? or understanding how to hierarchically organize new information based on salience or importance. She also had some difficulty analyzing and completing visual patterns. She also has reduced dexterity and difficulty with drawing. In comparison, Shama???sfund of verbal knowledge (facts, words) and her ability to explain concepts to others was stronger,falling in low average to average range. Weaknesses in attentional regulation and aspects of executive function are also often associated with NLD. Shama???s processing speed was variable but relatively slow, indicating that she is likely to need more time to integrate and act upon new information. On formal testing, attentional regulation was within normal limits, although she had difficulty quickly changing between response sets (i.e., shifting back and forth). Qualitatively, she also exhibited some impulsivity and attention to detail as she rushed through some tasks. Her mother reported similar concerns in the home environment, raising concerns about an Attention Deficit Hyperactivity Disorder (ADHD). However, her teacher did not endorse significant inattention in school, perhaps because of Shama???s high expectations for her behavior in this setting, but as such, formal diagnosis with ADHD is deferred. Regardless, Shama is vulnerable to academic difficulties. Given her cognitive profile, her success in school is laudable, but I do have concerns that she is working harder than should be expected to maintain her academic performance. Children with similar profiles often struggle with aspects of mathematics (e.g., fractions, decimals) and this is an area of longstanding vulnerability. Given herslower processing speed, she is also likely to need more time to learn new information and to complete assignments (e.g., her reading fluency was relatively reduced). Learning and memory performancessuggested that she will have difficulty learning new information that is presented in a relatively u nstructured format or without adequate context. Similarly, she may have difficulty with tasks that require inference or organization of information based on importance or salience (e.g., identifying the main ideas). She will require learning supports to meet academic expectations and demands shouldbe carefully monitored and adjusted to minimize emotional costs. Currently, there are no significant areas of emotional or social difficulty but her functioning in these areas should continue to be monitored closely. Given her learning style, she will be vulnerable to anxiety. She may be easily overwhelmed when too much information is presented at once or not clearly linked to information that she already knows. She may also sometimes have difficulty with social communication that requires comprehension of non-literal language (e.g., idioms or metaphor) and be ???black and white?? . She may sometimes need assistance understanding how context can influence social communication. Shama likely has some awareness of this, as she endorses low self-confidence and that she does not have the skills needed to consistently meet the demands of her environment. From a neurological perspective, her most salient weaknesses (e.g., spatial perception, pattern recognition, and construction) suggest weaknesses in right hemisphere networks. Etiology is likely developmental as the pattern of strengths and weaknesses overlaps with lifelong concerns and there has been no reported change in her developmental trajectory. It is my hope that with ongoing interventions and supports, she will continue to make steady developmental progress. 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 Continued Monitoring of Medical Condition. Shama should continue to be followed by Dr. Galvin and other specialists as recommended by them. Any change in her medical functioning should be reported to her drafter marine and relevant specialists. 2. Individual Psychotherapy may be helpful to Shama as she prepares for the transition to adulthood. The goals of this intervention may be to help her to develop social communication skills and tobetter appreciate her strengths and weaknesses. If her parents are interested in pursuing this, then they should ask for referrals from her drafter marine. 3. Academic Placement, Services, and Accommodations. Results of this evaluation indicate that Shama has the motivation and many cognitive and academic skills to support placement in the regular education environment. However, for reasons outlined below, she is highly vulnerable to academic difficulties given her NLD profile and associated weaknesses in executive functions. She should continue to receive academic services and accommodations and these should be formalized in an individualized education program (IEP). Generalized Academic Support. Shama will need academic support services across subjects. She should continue to work receive daily instruction from a business continuity specialist. The following areasshould be targeted: For Slower Processing Speed: ??? Assignments should be modified to promote timely completion (e.g., elimination of redundant problems or those that she has already mastered). ??? There should be time limits for homework and before she leaves school, the recommended time limits for each assignment should be determined. Once she has worked for this period, she should be permitted to discontinue without penalty. ??? New information should be reviewed after it is presented to ensure comprehension. ??? She should have advanced copies of teacher notes to minimize note-taking. For Attention: ??? Preferential seating ??? Reminders to check her work for accuracy and to slow down ??? Extra time to make transitions For Writing: ??? Assistance identifying topics that are appropriate for an assignment. She may have difficulty determining the appropriate scope (i.e., too narrow or too broad) and struggle to identify the main points that she wants to convey. ??? She should be taught note-taking strategies that help her to identify main ideas and to differentiate them from details. For Reading: ??? She should be taught reading comprehension strategies to identify the main ideas so that she does not become bogged down by details. ??? She should be taught strategies about how to eliminate multiple-choice answers. ??? She will likely be most successful with factual questions and should be encouraged to focus on those. ??? She should have extra time on tests given her slower reading speed. For Math: ??? She will need assistance with skills that place demands on hidu-zd-adomy analysis (e.g., fractions, decimals, geometry). ??? She will need assistance with word problems (i.e., breaking them down into steps and knowing the order of operations). ??? She will need extra time on tests as fluency will be reduced with slower processing speed. Academic Planning. Shama???s academic load should be monitored closely. Although she would like to take honors classes, there should be careful consideration of these so that the demands do not overwhelm her. However, she should also be encouraged to continue to achieve at the highest level thatshe can. Monitoring of Emotional and Social Functioning. Shama should meet regularly with the school psychologist or counselor to monitor her emotional and social functioning in school. This individual should also check in regularly with her teachers. Any concerns should be shared with her parents. 4. Continued Participation in Extracurricular Activities. Shama should continue to participate in extracurricular activities that she enjoys, especially those that offer her opportunities for success and social interactions within a structured environment. 5. Neuropsychological re-evaluation is recommended in 2-3 years if there are ongoing concerns regarding her developmental progress or supports that may be needed to support the transition to adulthood. At her parents??? request, I would be happy to continue to follow her. It was a pleasure to work with Shama and her family. Please feel free to contact me at [phone] if there are questions regarding the results of this evaluation. Kaylynn Ascencio (Molly), Ph.D., ABPP Board Certified in Clinical Neuropsychology Board Certified Subspecialist in Pediatric Neuropsychology Licensed Psychologist CC: The Parents of Shama Jolley Dr. Galvin, [facility] [place] Genetics Score Interpretation Guide: All raw scores on individual measures were converted to standardized scores using test-specific normative data for a child???s age at testing. Standard scores have a mean of 100 and a standard deviation of 15, thus scores in the average range fall between 86 and 114. Scaled scores have a mean of 10 and a standard deviation of 3, thus scores in the average range fall bet ween 8 and 12. T scores have a mean of 50 and a standard deviation of 10, thus scores in the average range fall between 41 and 59. Z scores indicate the number of standard deviations from the mean. In all cases, these standardized scores are associated with percentiles, indicating where a child???sperformance falls in relation to same-aged peers (e.g., 50th percentile means that a child performsbetter than 50% of her same-aged peers). Scores on individual tests are listed in a table at the end of this report and each performance will be described below. NEUROPSYCHOLOGICAL EXAMINATION Raw z SS % Classification Intellectual Ability [place] Intelligence Scale for Children - 5th ed. (WISC-V) Verbal Comprehension 15 -0.93 86 18 Low Average Visual Spatial 13 -1.27 81 10 Low Average Fluid Reasoning 11 -1.73 74 4 Very Low Working Memory 20 0.00 100 50 Average Processing Speed 11 -1.67 75 5 Very Low Full Scale IQ 52 -1.27 81 10 Low Average Nonverbal 38 -1.73 74 4 Very Low General Ability 32 -1.60 76 5 Very Low Cognitive Proficiency 31 -1.07 84 14 Low Average Verbal Comprehension Subtests Similarities 28 -0.67 8 25 Average Vocabulary 29 -1.00 7 16 Low Average Information 19 -0.67 8 25 Average Visual Spatial Subtests Block Design 22 -1.33 6 9 Low Average Visual Puzzles 14 -1.00 7 16 Low Average Fluid Reasoning Subtests Matrix Reasoning 14 -1.67 5 5 Very Low Figure Weights 17 -1.33 6 9 Low Average Working Memory Subtests Digit Span 34 1.00 13 84 High Average Picture Span 25 -1.00 7 16 Low Average Processing Speed Subtests Coding 54 -1.00 7 16 Low Average Symbol Search 16 -2.00 4 2 Extremely Low Academic Achievement Faiza Individual Achievement Tests - 3rd (WIAT-III) AE/GE Word Reading 60 0.07 101 53 15:0 / 10:2 Essay Composition 0.53 108 70 19:3 / 12:9 Word Count 132 0.33 105 63 Average Theme Dev and Text Organization 12 0.67 110 75 High Average [place] Decoding 36 -0.20 97 42 13:0 / 8:1 Numerical Operations 37 -0.40 94 34 13:4 / 7:7 Spelling 32 -0.87 87 19 11:8 / 6:7 Basic Reading 198 -0.13 98 45 Average M[place] Oral Reading Test (GORT-5) AE/GE Rate 36 -1.00 7 16 11:3 / 5:4 Accuracy 27 -1.33 6 9 9:0 / 3:4 Fluency 63 -1.33 6 9 9:9 / 4:4 Comprehension 26 -1.67 5 5 8:6 / 3:2 Oral Reading Index 11 -1.60 76 5 Very Low Test of Word Reading Efficiency - 2nd ed. (TOWRE-2) AE/GE Sight Word Efficiency 70 -1.13 83 13 10:3 / 4:8 Phonemic Decoding Efficiency 39 -0.67 90 25 10:9 / 5:0 Total Word Reading Efficiency 173 -0.93 86 18 Low Average Attention & Executive Functions Faiza Intelligence Scale for Children - 5th ed. (WISC-V) Digit Span Forward 14 1.67 15 95 Very High Digit Span Backward 10 0.00 10 50 Average Digit Span Sequencing 10 0.33 11 63 Average Longest Digit Span Forward 8 Longest Digit Span Backward 4 Longest Digit Span Sequence 6 Longest Picture Span Stimulus 4 [place] Executive Function System (D-KEFS) [place] Making Test Visual Scanning 22 0.00 10 50 Average Number Sequencing 21 1.00 13 84 High Average Letter Sequencing 25 0.67 12 75 High Average Number-Letter Switching 149 -3.00 1 <1 Extremely Low Motor Speed 23 0.33 11 63 Average Total Switching Errors 7 -3.00 1 <1 Extremely Low Verbal Fluency Total Letter 19 -1.67 5 5 Very Low Total Category 34 -0.33 9 37 Average Category Switching Total 9 -1.33 6 9 Low Average Category Switching Accuracy 7 -1.33 6 9 Low Average Total Set-Loss Errors 1 0.33 11 63 Average Total Repetition Errors 0 0.00 10 50 Average Patrizia' Continuous Performance Test (CPT-II)* Clinical Profile, Confidence Index 33.65 Non-Clinical Omissions 0.90 59 Mildly Atypical Commissions 0.90 59 Mildly Atypical Hit RT 0.70 57 Within Average Range Hit RT Std. Error -0.40 46 Within Average Range Variability -0.50 45 Within Average Range Detectability 0.70 57 Within Average Range Response Style -0.20 48 Within Average Range Perseverations -0.20 48 Within Average Range Hit RT Block Change 0.00 50 Within Average Range Hit SE Block Change 0.60 56 Within Average Range Hit RT TARA Change -0.40 46 Within Average Range Hit SE TARA Change -0.20 48 Within Average Range Visuospatial Functions [facility] PhoenixLightArrow Dev. Test of Visual Motor Integration (VMI-6) 19 -2.60 61 <1 AE: 7:1 Perkins & Perkins Sudhir-Osterrieth Complex Figure Test Copy 20.5 ?1 Extremely Low Motor-Free Visual Perception Test - 3rd ed. (MVPT-3) 42 -1.87 72 3 AE: <11:0 Memory [place] Verbal Learning Test - Children's (CVLT-C) List A Trials 1-5 Total* 37 -2.10 29 2 Extremely Low List A Trial 1 7 0.00 100 50 Average List A Trial 5 8 -2.50 63 1 Extremely Low Learning [place] List A Trials 1-5 0 -3.00 <60 <1 Extremely Low List A Short Delay Free Recall 6 -2.00 70 2 Extremely Low List A Short Delay Cued Recall 6 -2.50 63 1 Extremely Low List A Long Delay Free Recall 9 -1.00 85 16 Low Average List A Long Delay Cued Recall 8 -1.50 78 6 Very Low Semantic Clustering (ratio) 1.6 0.50 108 68 Serial Clustering (ratio) 1.2 -1.00 85 16 Perseverations (free & cued)? ? 5 0.00 100 50 Intrusions (free & cued)? ? ? 14 2.50 138 99 Correct Recognition Hits 11 -2.00 70 2 Extremely Low Recognition Discriminability 71.11 -5.00 <60 <1 Extremely Low False Positives? ? ? 9 5.00 175 >99 Forced-Choice Recognition ?error score with lower score indicating higher performance Perkins & Perkins Sudhir-Osterrieth Complex Figure Test* Immediate Recall 12.5 -2.10 29 2 Extremely Low Delayed Recall 13 -2.10 29 2 Extremely Low Recognition Total Correct 20 -0.50 45 31 Average Wide Range Assessment of Memory & Learning (WRAML-2) Story Memory 38 0.00 10 50 Average Story Memory Recall 34 0.00 10 50 Average Story Memory Recognition 35 0.33 11 63 Average Motor Functions Grooved Pegboard (scored as age 16) Dominant 86 -2.61 61 <1 Extremely Low Non-Dominant 103 -3.38 49 <1 Extremely Low Emotional, Behavioral, & Adaptive Functioning Behavior Rating Inventory of Executive Function (BRIEF) Parent* Inhibit -0.90 41 35 Within Normal Limits Shift 0.10 51 66 Within Normal Limits Emotional Control -1.00 40 19 Within Normal Limits Initiate 2.10 71 98 Clinically Significant Working Memory 2.10 71 96 Clinically Significant Plan / Organize 2.40 74 98 Clinically Significant Organization of Materials 2.10 71 ?99 Clinically Significant Monitor 1.40 64 92 Within Normal Limits Behavior Regulation Index -0.80 42 33 Within Normal Limits Metacognitive Index 2.50 75 98 Clinically Significant Global Executive Composite (ROXANNE+CA) 1.30 63 89 Within Normal Limits Validity Negativity Acceptable Inconsistency Acceptable Behavior Assessment System for Children (BASC-3) Parent* Externalizing Problems -0.30 47 Within Normal Limits Internalizing Problems 0.70 57 Within Normal Limits Behavioral Symptoms Index 0.50 55 Within Normal Limits Adaptive Skills -1.30 37 At-Risk Validity F Acceptable Response Pattern Acceptable Consistency Acceptable Hyperactivity -0.30 47 Within Normal Limits Aggression -0.50 45 Within Normal Limits Conduct Problems 0.00 50 Within Normal Limits Anxiety 1.10 61 At-Risk Depression 0.30 53 Within Normal Limits Somatization 0.40 54 Within Normal Limits Atypicality 0.40 54 Within Normal Limits Withdrawal 1.40 64 At-Risk Attention Problems 1.40 64 At-Risk Adaptability -0.50 45 Within Normal Limits Social Skills -0.80 42 Within Normal Limits Leadership -1.60 34 At-Risk Activities of Daily Living -0.80 42 Within Normal Limits Functional Communication -1.90 31 At-Risk Anger Control -0.50 45 Within Normal Limits Bullying -0.60 44 Within Normal Limits Developmental Social Disorders 1.10 61 At-Risk Emotional Self-Control -0.10 49 Within Normal Limits Executive Functioning 0.90 59 Within Normal Limits Negative Emotionality 0.40 54 Within Normal Limits Resiliency -0.90 41 Within Normal Limits Behavior Assessment System for Children (BASC-3) Teacher* Externalizing Problems -0.30 47 Within Normal Limits Internalizing Problems 0.10 51 Within Normal Limits School Problems 1.00 60 At-Risk Behavioral Symptoms Index 0.00 50 Within Normal Limits Adaptive Skills -0.20 48 Within Normal Limits Validity F Acceptable Response Pattern Acceptable Consistency Acceptable Hyperactivity 0.10 51 Within Normal Limits Aggression -0.30 47 Within Normal Limits Conduct Problems -0.60 44 Within Normal Limits Anxiety 0.60 56 Within Normal Limits Depression -0.20 48 Within Normal Limits Somatization -0.10 49 Within Normal Limits Attention Problems 0.80 58 Within Normal Limits Learning Problems 1.10 61 At-Risk Atypicality -0.20 48 Within Normal Limits Withdrawal -0.10 49 Within Normal Limits Adaptability -0.10 49 Within Normal Limits Social Skills 0.10 51 Within Normal Limits Leadership -0.20 48 Within Normal Limits Study Skills -0.20 48 Within Normal Limits Functional Communication -0.40 46 Within Normal Limits Anger Control -0.30 47 Within Normal Limits Bullying -0.50 45 Within Normal Limits Developmental Social Disorders 0.00 50 Within Normal Limits Emotional Self-Control -0.10 49 Within Normal Limits Executive Functioning 0.40 54 Within Normal Limits Negative Emotionality 0.20 52 Within Normal Limits Resiliency -0.20 48 Within Normal Limits Behavior Assessment System for Children (BASC-3) Self Report* School Problems -0.20 48 Within Normal Limits Internalizing Problems 0.30 53 Within Normal Limits Inattention/Hyperactivity 0.30 53 Within Normal Limits Emotional Symptoms Index 0.40 54 Within Normal Limits Personal Adjustment -0.50 45 Within Normal Limits Validity F Acceptable Response Pattern Acceptable Consistency Acceptable L Acceptable V Acceptable Attitude to School -0.50 45 Within Normal Limits Attitude to Teachers -0.10 49 Within Normal Limits Sensation Seeking 0.10 51 Within Normal Limits Atypicality 1.20 62 At-Risk Locus of Control 0.10 51 Within Normal Limits Social Stress -0.10 49 Within Normal Limits Anxiety -0.70 43 Within Normal Limits Depression -0.20 48 Within Normal Limits Sense of Inadequacy 1.00 60 At-Risk Somatization 0.50 55 Within Normal Limits Attention Problems 1.00 60 At-Risk Hyperactivity -0.40 46 Within Normal Limits Relations with Parents -0.10 49 Within Normal Limits Interpersonal Relations 0.40 54 Within Normal Limits Self-Esteem 0.00 50 Within Normal Limits Self-[place] -1.90 31 At-Risk Anger Control -0.50 45 Within Normal Limits Aminah 0.50 55 Within Normal Limits Test Anxiety 1.00 60 At-Risk Ego Strength 0.30 53 Within Normal Limits Functional Impairment 0.40 54 Within Normal Limits Child & Adolescent Symptom Inventory - 5 (JOE-5) Parent Disorders that meet DSM-V criteria are listed below AD/HD, Inattentive Child & Adolescent Symptom Inventory - 5 (JOE-5) Teacher Current Functioning Tests, Quizzes 2 Average Homework 4 Superior Class Participation 4 Superior Classroom Behavior 4 Superior Current Academic Performance [place] Islander/Reading 2 At or About Grade Level Writing 2 At or About Grade Level Arithmetic/Math 2 At or About Grade Level Social Studies 2 At or About Grade Level Science 2 At or About Grade Level Does not meet criteria for any DSM-V diagnoses Social Responsiveness Scale - 2nd ed. (SRS-2) - Parent* Social Awareness 0.30 53 62 Within Normal Limits Social Cognition 1.10 61 86 Mild Social Communication 0.60 56 73 Within Normal Limits Social Motivation 1.90 69 97 Moderate Restricted Interest/Repetitive Behav. 0.60 56 73 Within Normal Limits Social Communication & Interaction 1.00 60 84 Mild Total SRS-2 Score 1.00 60 84 Mild Social Responsiveness Scale - 2nd ed. (SRS-2) - Teacher* Social Awareness 0.10 51 54 Within Normal Limits Social Cognition 0.60 56 73 Within Normal Limits Social Communication 0.70 57 76 Within Normal Limits Social Motivation -0.20 48 42 Within Normal Limits Restricted Interest/Repetitive Behav. 0.10 51 54 Within Normal Limits Social Communication & Interaction 0.40 54 66 Within Normal Limits Total SRS-2 Score 0.40 54 66 Within Normal Limits * Scaled to T-score (mean of 50 and a standard deviation of 10) Error score with lower score indicating higher performance z-scores have a mean of 0 and a standard deviation of 1. Standard Scores (SS) have a mean of 100 and a standard deviation of 15. Scaled Scores have a mean of 10 and a standard deviation of 3. 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 It is not the complete legal health record.Located Within [facility]
--- OUTSIDE RECORDS SUMMARY | 2024-05-18 15:27 | XMS_ITS | Continuity of Care Document ---
Author Organization [facility] Address [address] [place] [address]- Care Team Providers Care Solution Sales Senior Executive Name Role Phone Meseret DEGROOT, Inge Caldwell Primary Care Physician [place] [facility] [place](s): 04/03/21 - 05/03/21 [facility] [address] [place] [address]- Allergies, Adverse Reactions, Alerts Substance Reaction Severity Status NKA Active Medications No Home Meds Maintenance, 10/23/20 8:51:00 EST, Supply Start Date: 10/23/20 Status: Ordered omeprazole 20 mg oral enteric coated capsule 1 capsule = 20 mg, By Mouth, 2 times a day, # 30 capsule, 0 Refills, Maintenance, 11/15/19 16:03:00EST, EC Capsule, [facility] #[id number], 170, cm, 11/15/19 14:57:00 EST, Height, 67.6, [...]
--- OUTSIDE RECORDS SUMMARY | 2024-05-18 15:27 | XMS_ITS | Continuity of Care Document ---
Author Organization [facility] Address [address] [place] [address]- Care Team Providers Care Acidizer Helper Name Role Phone Inge Carl MD Primary Care Physician Encounter [facility] [place] Date(s): 07/31/22 - 08/30/22 [facility] [address] [place] [address]- Allergies, Adverse Reactions, Alerts No Known Allergies Medications No Home Meds Maintenance, 10/23/20 8:51:00 EST, Supply Start Date: 10/23/20 Status: Ordered omeprazole 20 mg oral enteric coated capsule 1 capsule = 20 mg, By Mouth, 2 times a day, # 30 capsule, 0 Refills, Maintenance, 11/15/19 16:03:00EST, EC Capsule, [id number], 170, cm, 11/15/19 14:57:00 EST, Height, 67.6, kg, 11/15/19 14:57:00 EST, Dry Weight Start Date: 11/15/19 Status: Ordered Problem List Condition Confirmation Course Effective Dates Status [facility] Informant 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 Social History Social History Type Response Smoking Status Never smoker; Tobacc o user in household: No entered on: 03/27/16 Sex Patient Care team information Care Team Personnel Name: Inge Carl MD Position: Reference Physician Member Role: PCP Address: Address: [address] [place] [address]- Care Team Related Persons Name: NAIDA VERA Address: home [address] [place] [address] Name: NAIDA VERA Address: home [address] [place] [address] Name: BREANNA VERA Address: home [address] [place] [address] Name: DRISS BONDS Address: home [address] [place] [address] [place] [address]
== END 2024-05-18 16:10 | disposition home or self-care (01) ==
PROVIDERS: Emergency Provider Student in an Organized Health Care Education/Training Program
DX: R07.9 Chest pain, unspecified (principal)
CPT/HCPCS: 80053; 93005; 99283; 71045; 83735; 83880; 84484; 85025; 93010; 99282

== ENCOUNTER 2024-06-22 18:21 | Emergency (ER) | payer BC, SELFPAY ==
[2024-06-22 18:24] VITALS: BP 125/87; PULSE 84; RESP 20; TEMP 37.3; O2SAT 98
--- NOTE | 2024-06-22 18:30 | DI.RAD_ITS ---
Exam(s) XR FINGER LT MIDDLE EXAM: XR FINGER LT MIDDLE CLINICAL HISTORY: mallet finger. TECHNIQUE: 2D digital imaging was performed. COMPARISON: No exams were available for comparison FINDINGS: 3 views No evidence of acute fracture or dislocation no abnormal soft tissue densities. No radiopaque foreig n bodies. It is noted that there is slight flexion at the level the DIP joint indicating probable unopposed fle x or tendon and possible injury of the extensor tendon. IMPRESSION: No fracture evident. Appearance is probably that of mallet finger, as described above. DATA REPOSITORY: RADIATION DOSE DELIVERED:
--- NOTE | 2024-06-22 18:37 | W.ED.GENAD ---
Discharge Plan Disposition Patient Disposition: Home Condition: Stable Discharge Details Clinical Impression: Mallet deformity of left middle finger Primary Care Provider: Unknown,Unknown ED Provider: Pnocho Chu Home Meds and New Rx's Prescriptions: No Action No Known Home Meds Discharge Instructions Instructions: Common Finger Injuries ED Additional Instructions: You were seen in the emergency department for your mallet finger of your left middle finger, there is no fracture on x-ray, you likely have a ruptured tendon of this finger and need to remain in the stack splint as we discussed 10/05 for at least 6 weeks, you need to remain in this diligently, every time you come out of the splint and have your finger flex you interrupt healing and you need to reset the timer of 6 weeks healing time. You may develop odors and may apply [id number]-png-[id number] fungal lotions to the finger, use Tylenol and ibuprofen as needed for pain, follow-up with orthopedics for any complications, you can start to use the splint only at night for another few weeks at the 6-week power. Referrals: [facility] [Provider Group] HPI General Date/Time Provider Initiated Documentation: 06/22/24 18:31. HPI Narrative: 19 year-old female presents to ED today by POV/ambulating with a chief complaint of L 3rd fingertip stuck in flexion, was putting on her work uniform for [employer] last week and felt a pop. Quality described as isolated fingertip of L middle finger stuck in partial flexion, no radiation to skin changes, ecchymosis, palmar dillan tenderness, crepitus, numbness. Severity is described as mild. Palliating factors include nothing specific. Provoking factors include nothing specific. Patient not anticoagulated. Related Data Home Medications ?Medication ?Instructions ?Recorded ?Confirmed Unknown [No Known Home Meds] 05/18/24 05/18/24 Allergies Allergy/AdvReac Type Severity Reaction Status Date / Time No Known Allergies Allergy Verified 05/18/24 14:23 General Stated Complaint: Orthopedic BERTIN: 4 Review of Systems All systems reviewed & are unremarkable except as noted in HPI and below Exam Narrative Exam Narrative: GENERAL APPEARANCE: Well-nourished, non-toxic, awake and alert, atraumatic, no acute distress. SKIN: Warm, pink, dry, intact, without rashes/lesions/ulcerations. HEAD: Normocephalic, atraumatic, normal hair distribution for gender/age. EYES: Normal conjunctiva, no exudates on lids/lashes. ENT: Nares patent, no circumoral cyanosis, no facial swelling NECK: Supple, trachea midline, painless cervical ROM. LUNGS/CHEST: Non-labored respirations, normal A/P diameter, symmetrical expansion, no chest wall deformity HEART (CV/PV): Regular rate, no peripheral edema, no JVD. ABDOMEN: Soft, non-distended, no guarding. MSK: Normal ROM, no swelling/deformity to bilateral UEs or LEs, moving all extremities without weakness, no cyanosis, spine midline without tenderness, normal curvature. L HAND: Left third finger tip is stuck in partial flexion at the DIP, brisk capillary refill distal, sensation intact, no palmar dillan tenderness, left radial pulse 2+ NEURO: Mental Status AAOx4 - alert to person, place, time, events No facial droop, no forehead involvement. Motor: No focal weakness - strength 5/5 in bilateral UEs and LEs, proximal and distal, symmetric. Sensory: sensation intact to light touch globally. Gait normal: patient ambulated without ataxia into ED room. PSYCH: euthymic, cooperative, pleasant, appropriate speech Course Vital Signs Vital signs: Vital Signs Temperature 37.3 C 06/22/24 18:24 Pulse 84 06/22/24 18:24 Respiratory Rate 20 06/22/24 18:24 Blood Pressure 125/87 06/22/24 18:24 Pulse Oximetry 98 06/22/24 18:24 Temperature 37.3 C 06/22/24 18:24 Pulse 84 06/22/24 18:24 Respiratory Rate 20 06/22/24 18:24 Respiratory Effort Normal 06/22/24 18:27 Blood Pressure 125/87 06/22/24 18:24 Blood Pressure Position Sitting 06/22/24 18:24 Pulse Oximetry 98 06/22/24 18:24 Oxygen Delivery Method Room Air 06/22/24 18:24 Oxygen Flow Rate 0 06/22/24 18:24 Pain Level 1 06/22/24 18:24 Medical Decision Making This dictation utilizes wcnvi-eo-trcv dictation software and may contain unedited grammatical errors. 19 year-old female presents to ED today by POV/ambulating with a chief complaint of L 3rd fingertip stuck in flexion, was putting on her work uniform for [employer] last week and felt a pop. Quality described as isolated fingertip of L middle finger stuck in partial flexion, no radiation to skin changes, ecchymosis, palmar dillan tenderness, crepitus, numbness. Severity is described as mild. Palliating factors include nothing specific. Provoking factors include nothing specific. Patients' medical history: noncontributory. Family and social history: noncontributory. Patient is R-hand dominant. Pertinent exam findings / vital signs include L HAND: Left third finger tip is stuck in partial flexion at the DIP, brisk capillary refill distal, sensation intact, no palmar dillan tenderness, left radial pulse 2+. Differential / pathologies of concern include mallet finger, fracture. Diagnostic studies of: -XR Finger - shows no fracture, shows mallet deformity. Interventions of: -stack splint and counseling on care. ED Course/Assessment/Plan: 19-year-old female was talking on her shirt to her work uniform, was about to start [employer] job this week and felt a pop, this occurred last week at some time she has been unable to move the fingertip since. She has brisk capillary refill and no signs of neurovascular compromise, I counseled her extensively on use of stack splint 10/05 for minimum of 6 weeks, recommend follow-up with orthopedics for any complications, spent extensive time counseling on care with the stack splint. Findings not consistent with fracture, neurovascular compromise. Disposition of mallet deformity of left middle finger. Patient verbalized understanding of the plan and return to ED criteria and engaged in shared decision making. Medical Records Medical records reviewed: Yes I reviewed the patient's medical records. Imaging Data Radiologic Study: Attestation: I personally reviewed and interpreted this imaging study as follows: Imaging: X-Ray Radiologist's impression: EXAM: XR FINGER LT MIDDLE CLINICAL HISTORY: mallet finger. TECHNIQUE: 2D digital imaging was performed. COMPARISON: No exams were available for comparison FINDINGS: 3 views No evidence of acute fracture or dislocation no abnormal soft tissue densities. No radiopaque foreign bodies. It is noted that there is slight flexion at the level the DIP joint indicating probable unopposed flex or tendon and possible injury of the extensor tendon. IMPRESSION: No fracture evident. Appearance is probably that of mallet finger, as described above. Quality:SDOH Health Related Social Needs: No Data to Display PFSH All Active Problems (Updated 06/22/24 @ 19:48 by TRENA Joy) Mallet deformity of left middle finger (Acute) Social History Smoking/Tobacco Use Status: Never Smoking risk assessment performed?: Yes Alcohol Intake: never Drug use: Socially Substance use type: marijuana Housing: apartment Do you feel safe at home: Yes Do you feel safe in your relationship?: Yes PAWSS Have you Been Recently Intoxicated or Drunk Within the Last 30 days?: No Have you Ever Experienced Previous Episodes of Alcohol Withdrawal?: No Have you ever Experienced Withdrawal Seizures?: No Have you ever Experienced Delirium Tremens(DT)s?: No Have you ever undergone Alcohol Rehabilitation Treatment (i.e, inpt ot outpatient treatment programs)?: No Have you ever Experienced Blackouts?: No Have you ever Combined Alcohol with other Downers within the last 90 days?: No Have you ever Combined Alcohol with any other Substance of Abuse during the last 90 days?: No Positive Blood Alcohol level on Presentation? [PCS.BAL]: No Evidence of Increased Autonomic Activity (i.e. HR>120, tremor, sweating, agitation, nausea)?: No Result: 0
--- OUTSIDE RECORDS SUMMARY | 2024-06-22 18:49 | XMS_ITS | Encounter Summary ---
Author Organization [facility] Address [facility] [place] [address] Care Team Providers Care Leather Polisher Name Role Phone Hayde Uribe MD Primary Care Provider [phone] Reason for Visit * Reason Comments Follow-up Cerumen Impaction Encounter Details Date Type Department Care Team ([facility] st Contact Info) Description 12/29/2017 4:00 PM EDT Office Visit Otolaryngology at [address] [address] Felipe De Luna MD [address] [place] [address] External ear canal stenosis, acquired, [...] cerumen documented in this encounter Care Teams Leather Polisher Relationship Specialty Start Date End Date Hayde Uribe MD [address] [place] [address] PCP - General Pediatrics 10/27/17 10/28/21 documented as of this encounter
--- OUTSIDE RECORDS SUMMARY | 2024-06-22 18:49 | XMS_ITS | Encounter Summary ---
Author Organization [facility] Address [facility] [place] [address] Care Team Providers Care Dough Mixing Machine Operator Name Role Phone Inge Carl MD Primary Care Provider + Encounter Details Date Type Department Care Team (Late st Contact Info) Description 05/27/2022 2:30 PM EDT Office Visit Otolaryngology at [place] [address] [place] [address] Felipe De Luna MD [address] [place] [address] Bilateral impacted cerumen; External ear [...] bilateral documented in this encounter Care Teams Dough Mixing Machine Operator Relationship Specialty Start Date End Date Inge Carl MD [address] [place] [address] PCP - General Pediatrics 10/29/21 documented as of this encounter
--- OUTSIDE RECORDS SUMMARY | 2024-06-22 18:49 | XMS_ITS | Encounter Summary ---
Author Organization [facility] Address [facility] [place] [address] Care Team Providers Care Labor Trainer Name Role Phone Hayde Uribe MD Primary Care Provider [phone] Encounter Details Date Type Department Care Team (Latest Contact Info) Description 02/19/2021 8:00 AM EDT Clinical Support Otolaryngology at [address] [address] Felipe De Luna MD [address] [place] [address] External ear canal stenosis, acquired, bilateral; [...] cerumen documented in this encounter Care Teams Labor Trainer Relationship Specialty Start Date End Date Hayde Urbie MD [address] [place] [address] PCP - General Pediatrics 10/27/17 10/28/21 documented as of this encounter
--- OUTSIDE RECORDS SUMMARY | 2024-06-22 18:49 | XMS_ITS | Encounter Summary ---
Author Organization [place] [address] Care Team Providers Care Consumer Loan Underwriter Name Role Phone Inge Carl MD Primary Care Provider + Encounter Details Date Type Department Care Team (Late st Contact Info) Description 10/29/2021 Notes Only Otolaryngology at [address] [address] Veronique Rincon Social History Tobacco [...] on filedocumented in this encounter Care Teams Consumer Loan Underwriter Relationship Specialty Start Date End Date Inge Carl MD [address] [place] [id number] PCP - General Pediatrics 10/29/21 documented as of this encounter
--- OUTSIDE RECORDS SUMMARY | 2024-06-22 18:49 | XMS_ITS | Encounter Summary ---
Author Organization [facility] Address [address] [place] [address] Care Team Providers Care Electronic Equipment Installer Name Role Phone Unavailable Primary Care Provider Unavailabl e Encounter Details Date Type Department Care Team (Late st Contact Info) Description 05/07/2023 Lab Requisition [facility] Pathology & Laboratory Medicine - [facility] [address] [place] [address] Outr Resulting Lab, Provider Social History Tobacco [...] Syphilis Serology Negative Negative 05/10/2023 9:18 EDT [facility] Blood VENOUS BLOOD / Unknown 05/06/2023 15:18 EDT 05/07/2023 19:28 EDT Provider Outr Resulting Lab IMMUNOLOGY A ND SEROLOGY ORDERABLES [facility] [address] [place] [address] documented in this encounter Visit Diagnoses Not on filedocumented in this encounter
--- OUTSIDE RECORDS SUMMARY | 2024-06-22 18:49 | XMS_ITS | Clinical Summary ---
Author Organization [facility] Address [facility] [place] [address] Care Team Providers Care Animation Artist Name Role Phone Inge Carl MD Primary Care Provider + Allergies No known active allergies Medications Medication Sig Dispensed Refills Start Date End Date Status amoxicillin (AMOXIL) 500 mg Tablet TAKE 4 TABLETS BY MOUTH BEFORE DENTAL PROCEDURE 10/28/2020 Active Nmu-Rt-Twygdynq 0.18/0.215/0.25 mg-25 mcg Tablet TAKE 1 TABLET BY MOUTH EVERY DAY 12/17/2020 Active Alberto [place] [facility] Spacer USE DIRECTED WITH albuterol inhaler. [...] 6) 08/01/2012 4:15 AM EDT Sourced from [place] [facility] Body Mass Index - - Plan of Treatment Health Maintenance Due Date Last Done Comments Chlamydia Screening 2018 HPV vaccine (1 - 3-dose series) 2018 HIV screen 2021 Hepatitis C Screening 2021 Hepatitis B vaccine (0-59 yrs) (1) 2022 Tdap adult 2022 Tetanus vaccine 2022 Covid-19 Vaccine (1 - 24 season) 2023 PAP Smear 02/23/2024 Influenza (Flu) vaccine (1 o f 1 - Influenza standard series) 06/18/2024 Advance Directives Documents on File Type Date Recorded Patient Otolaryngology Nurse Expl anation Personal Otolaryngology Nurse 08/24/2019 8:04 AM rizwana brink Care Teams Animation Artist Relationship Specialty Start Date End Date Inge Carl MD [address] [place] [address] PCP - General Pediatrics 10/29/21
--- OUTSIDE RECORDS SUMMARY | 2024-06-22 18:49 | XMS_ITS | Encounter Summary ---
Author Organization [facility] Address [address] [place] [address] Care Team Providers Care Stock Mixer Name Role Phone Unavailable Primary Care Provider Unavailabl e Encounter Details Date Type Department Care Team (Late st Contact Info) Description 05/07/2023 Lab Requisition [facility] Pathology & Laboratory Medicine - [facility] [address] [place] [address] Outr Resulting Lab, Provider Social History Tobacco [...] gonorrhoeae Result Negative Negative 05/08/2023 12:55 EDT [facility] Chlamydia trachomatis Result Positive(A) Negative 05/08/2023 12:55 EDT [facility] Urine URINE / Unknown 05/06/2023 1 5:18 EDT 05/07/2023 22:35 EDT Narrative [facility] - 05/08/2023 12:55 EDT A first catch urine specimen is acceptable for detection of Gonorrhea and Chlamydia, but might detect up to 10% fewer infections when compared with vaginal and endocervical swab samples. Provider Outr Resulting Lab MICROBIOLOGY - GENERAL ORDERABLES [facility] [address] [place] [address] documented in this encounter Visit Diagnoses Not on filedocumented in this encounter
--- OUTSIDE RECORDS SUMMARY | 2024-06-22 18:49 | XMS_ITS | Encounter Summary ---
Author Organization [facility] Address [address] [place] [address] Care Team Providers Care Environmental Remediation Consultant Name Role Phone Unavailable Primary Care Provider Unavailabl e Encounter Details Date Type Department Care Team (Late st Contact Info) Description 02/09/2022 Lab Requisition [facility] Pathology & Laboratory Medicine - [facility] [address] [place] [address] Outr Resulting Lab, Provider Social History Tobacco [...] Priority Date/Time Associated Diagnosis Comments ZZCOVID-19 TEST [facility] PCR Today 02/09/2022 14:50 EDT COVID-19 TESTING Routine 02/09/2022 14:5 0 EDT documented in this encounter Results * [facility] (02/09/2022 14:50 EDT) Swab 02/09/2022 14:5 0 EDT 02/10/2022 17:10 EDT Provider Outr Resulting Lab MICROBIOLOGY - GENERAL ORDERABLES [facility] [address] [place] [address] * COVID-19 TESTING (02/09/2022 14:50 EDT) COVID-19 rt-PCR Result Negative Negative 02/11/2022 11:46 EDT [facility] Comment: This test has [...] was performed using the elena SARS-CoV-2 assay ([employer] on the Elena 6800 System Performing Lab Elena [address] [facility] Lab 02/11/2022 11:46 EDT [facility] Swab 02/09/2022 14:5 0 EDT 02/10/2022 17:10 EDT Provider Outr Resulting Lab MICROBIOLOGY - GENERAL ORDERABLES [facility] [address] [place] [address] documented in this encounter Visit Diagnoses Not on filedocumented in this encounter
--- OUTSIDE RECORDS SUMMARY | 2024-06-22 18:49 | XMS_ITS | Encounter Summary ---
Author Organization [facility] Address [address] [place] [address] Care Team Providers Care Precipitator Name Role Phone Unavailable Primary Care Provider Unavailabl e Encounter Details Date Type Department Care Team (Late st Contact Info) Description 06/26/[address] [facility] Pathology & Laboratory Medicine - [address] [address] Outr Resulting Lab, Provider Social History Tobacco [...] gonorrhoeae Result Negative Negative 06/27/2023 13:02 EDT [facility] Chlamydia trachomatis Result Negative Negative 06/27/2023 13:02 EDT [facility] Urine URINE / Unknown 06/25/2023 1 4:20 EDT 06/26/2023 21:57 EDT Narrative [facility] - 06/27/2023 13:02 EDT A first catch urine specimen is acceptable for detection of Gonorrhea and Chlamydia, but might detect up to 10% fewer infections when compared with vaginal and endocervical swab samples. Provider Outr Resulting Lab MICROBIOLOGY - GENERAL ORDERABLES [facility] [address] [place] [address] documented in this encounter Visit Diagnoses Not on filedocumented in this encounter
--- OUTSIDE RECORDS SUMMARY | 2024-06-22 18:49 | XMS_ITS | Encounter Summary ---
Author Organization [facility] [place] [address] Care Team Providers Care Help Aid Name Role Phone Unavailable Primary Care Provider Unavailabl e Reason for Visit * Reason Comments Follow-up wax; cerumen impacti on Encounter Details Date Type Department Care Team ([facility] st Contact Info) Description 08/23/2017 4:00 PM EST Office Visit Otolaryngology at [place] [address] [place] [address] Felipe De Luna MD [address] [place] [address] Bilateral impacted cerumen; External ear [...]
--- OUTSIDE RECORDS SUMMARY | 2024-06-22 18:49 | XMS_ITS | Encounter Summary ---
Author Organization [facility] Address [address] [place] [address] Care Team Providers Care Manager Intel Name Role Phone Unavailable Primary Care Provider Unavailabl e Encounter Details Date Type Department Care Team (Late st Contact Info) Description 10/29/2022 Lab Requisition [facility] Pathology & Laboratory Medicine - [address] [address] Outr Resulting Lab, Provider Social History Tobacco [...] 4th Generation Negative Negative 10/30/2022 10:48 EST [facility] Comment:If acute HIV-1 infec tion is suspected in a high risk patient, submit plasma specimen for HIV-1 RNA quantitation test. Blood VENOUS BLOOD / Unknown 10/28/2022 16:54 EST 10/29/2022 17:45 EST Narrative [facility] - 10/30/2022 10:48 EST Fourth Generation assay performed on the Siemens Centaur XPT. Provider Outr Resulting Lab IMMUNOLOGY A ND SEROLOGY ORDERABLES [facility] [address] [place] [address] documented in this encounter Visit Diagnoses Not on filedocumented in this encounter
--- OUTSIDE RECORDS SUMMARY | 2024-06-22 18:49 | XMS_ITS | Encounter Summary ---
Author Organization [facility] Address [facility] [place] [id number] Care Team Providers Care Meter Setter Name Role Phone Inge Carl MD Primary Care Provider + Encounter Details Date Type Department Care Team (Late st Contact Info) Description 01/26/2024 2:30 PM EDT Office Visit Otolaryngology at [address] [address] Felipe De Luna MD [address] [place] [address] Bilateral impacted cerumen; External ear [...] and using ear speculum, wax curette, 3 Barbadian suction in the operating microscope, bilateral wax [...] ears documented in this encounter Care Teams Meter Setter Relationship Specialty Start Date End Date Inge Carl MD [address] [place] [address] PCP - General Pediatrics 10/29/21 documented as of this encounter
--- OUTSIDE RECORDS SUMMARY | 2024-06-22 18:49 | XMS_ITS | Encounter Summary ---
Author Organization [facility] Address [address] [place] [address] Care Team Providers Care Resident Physician Name Role Phone Unavailable Primary Care Provider Unavailabl e Encounter Details Date Type Department Care Team (Late st Contact Info) Description 05/07/2023 Lab Requisition [facility] Pathology & Laboratory Medicine - [facility] [address] [place] [address] Outr Resulting Lab, Provider Social History Tobacco [...] 4th Generation Negative Negative 05/10/2023 9:56 EDT [facility] Comment:If acute HIV-1 infec tion is suspected in a high risk patient, submit plasma specimen for HIV-1 RNA quantitation test. Blood VENOUS BLOOD / Unknown 05/06/2023 15:18 EDT 05/07/2023 19:28 EDT Narrative [facility] - 05/10/2023 9:56 EDT Fourth Generation assay performed on the Siemens Centaur XPT. Provider Outr Resulting Lab IMMUNOLOGY A ND SEROLOGY ORDERABLES [facility] [address] [place] [address] documented in this encounter Visit Diagnoses Not on filedocumented in this encounter
--- OUTSIDE RECORDS SUMMARY | 2024-06-22 18:49 | XMS_ITS | Encounter Summary ---
Author Organization [facility] [place] [address] Care Team Providers Care Mechanical Detailer Name Role Phone Inge Carl MD Primary Care Provider + Reason for Visit * Reason Onset Date Comments Appointment 06/09/2022 Rescheduling Encounter Details Date Type Department Care Team (Late st Contact Info) Description 06/09/2022 Telephone Otolaryngology at [address] [address] Gris Swift CMA Appointment (Rescheduling) [...] on filedocumented in this encounter Care Teams Mechanical Detailer Relationship Specialty Start Date End Date Inge Carl MD [address] [place] [id number] PCP - General Pediatrics 10/29/21 documented as of this encounter
--- OUTSIDE RECORDS SUMMARY | 2024-06-22 18:49 | XMS_ITS | Encounter Summary ---
Author Organization [facility] [place] [address] Care Team Providers Care Newspaper Clipper Name Role Phone Hayde Uribe MD Primary Care Provider [phone] Reason for Visit * Reason Comments Follow-up recheck ears Encounter Details Date Type Department Care Team ([facility] st Contact Info) Description 06/05/2019 4:00 PM EDT Office Visit Otolaryngology at [address] [address] Felipe De Luna MD [address] [place] [address] External ear canal stenosis, acquired, [...] cerumen documented in this encounter Care Teams Newspaper Clipper Relationship Specialty Start Date End Date Hayde Uribe MD [address] [place] [address] PCP - General Pediatrics 10/27/17 10/28/21 documented as of this encounter
--- OUTSIDE RECORDS SUMMARY | 2024-06-22 18:49 | XMS_ITS | Encounter Summary ---
Author Organization [facility] [place] [address] Care Team Providers Care Field Service Technician Name Role Phone Hayde Uribe MD Primary Care Provider [phone] Reason for Visit * Reason Onset Date Comments Appointment 12/16/2020 Encounter Details Date Type Department Care Team (Late st Contact Info) Description 12/16/2020 Notes Only Otolaryngology at [address] [address] Carola Huff CMA Appointment () [...] today. Mom Gave us permission to see [facility] upcoming appointment January for ear cleaning, Permission note in scanned documents. documented in this encounter Plan of Treatment Not on file documented as of this encounter Visit Diagnoses Not on filedocumented in this encounter Care Teams Field Service Technician Relationship Specialty Start Date End [place] [address] PCP - General Pediatrics 10/27/17 10/28/21 documented as of this encounter
--- OUTSIDE RECORDS SUMMARY | 2024-06-22 18:49 | XMS_ITS | Encounter Summary ---
Author Organization [facility] Address [facility] [place] [address] Care Team Providers Care Photographer Still Name Role Phone Hayde Uribe MD Primary Care Provider [phone] Encounter Details Date Type Department Care Team (Late st Contact Info) Description 09/08/2021 11:15 AM EST Office Visit Otolaryngology at [address] [address] Felipe De Luna MD [address] [place] [address] External ear canal stenosis, acquired, [...] semester of college and doing well at [employer]. Objective: Vital signs reviewed in [...] cerumen documented in this encounter Care Teams Photographer Still Relationship Specialty Start Date End Date Hayde Uribe MD [address] [place] [address] PCP - General Pediatrics 10/27/17 10/28/21 documented as of this encounter
--- OUTSIDE RECORDS SUMMARY | 2024-06-22 18:49 | XMS_ITS | Encounter Summary ---
Author Organization [facility] Address [facility] [place] [address] Care Team Providers Care Power Transformer Repair Supervisor Name Role Phone Hayde Uribe MD Primary Care Provider [phone] Reason for Visit * Reason Comments Cerumen Impaction Encounter Details Date Type Department Care Team ([facility] st Contact Info) Description 10/27/2017 4:00 PM EST Office Visit Otolaryngology at [place] [address] [place] [address] Felipe De Luna MD [address] [place] [address] External ear canal stenosis, acquired, [...] cerumen documented in this encounter Care Teams Power Transformer Repair Supervisor Relationship Specialty Start Date End Date Hayde Uribe MD [address] [place] [address] PCP - General Pediatrics 10/27/17 10/28/21 documented as of this encounter
--- OUTSIDE RECORDS SUMMARY | 2024-06-22 18:49 | XMS_ITS | Clinical Summary ---
Author Organization [facility] Address [address] [place] [address] Care Team Providers Care Marketing Analytics Lead Name Role Phone Unavailable Primary Care Provider [...] 3-dose series) 2022 COVID-19 Vaccine (2022- season) 2024 Hepatitis C Screen Completed 05/06/2023, 10/28/2022 Procedures Procedure Name Priority Date/Time Associated Diagnosis Comments HEPATITIS C AB W REFLEX TO HCV RNA BY PCR Routine 05/06/2023 15:18 EDT from Last 3 Months or Most Recently Relevant to Health Maintenance Results * HEPATITIS C AB W REFLEX TO HCV RNA BY PCR (05/06/2023 15:18 EDT) Hep C Antibody Negative Negative 05/10/2023 9:45 EDT [facility] Blood VENOUS BLOOD / Unknown 05/06/2023 15:18 EDT 05/07/2023 19:28 EDT Provider Outr Resulting Lab CHEMISTRY & BLOOD GAS ORDERABLES [facility] [address] [place] [address] from Last 3 Months or Most Recently Relevant to Health Maintenance
--- OUTSIDE RECORDS SUMMARY | 2024-06-22 18:49 | XMS_ITS | Encounter Summary ---
Author Organization [facility] [place] [address] Care Team Providers Care Automotive Dismantler Name Role Phone Inge Carl MD Primary [...] on filedocumented in this encounter Care Teams Automotive Dismantler Relationship Specialty Start Date End Date Inge Carl MD [address] [place] [id number] PCP - General Pediatrics 10/29/21 documented as of this encounter
--- OUTSIDE RECORDS SUMMARY | 2024-06-22 18:49 | XMS_ITS | Encounter Summary ---
Author Organization [facility] Address [address] [place] [address] Care Team Providers Care Research Geneticist Name Role Phone Unavailable Primary Care Provider Unavailabl e Encounter Details Date Type Department Care Team (Late st Contact Info) Description 10/29/2022 Lab Requisition [facility] Pathology & Laboratory Medicine - [facility] [address] [place] [address] Outr Resulting Lab, Provider Social History Tobacco [...] Syphilis Serology Negative Negative 11/02/2022 11:15 EST [facility] Blood VENOUS BLOOD / Unknown 10/28/2022 16:54 EST 10/31/2022 8:52 EST Provider Outr Resulting Lab IMMUNOLOGY A ND SEROLOGY ORDERABLES [facility] [address] [place] [address] documented in this encounter Visit Diagnoses Not on filedocumented in this encounter
--- OUTSIDE RECORDS SUMMARY | 2024-06-22 18:49 | XMS_ITS | Encounter Summary ---
Author Organization [facility] Address [address] [place] [address] Care Team Providers Care Spread Cutter Name Role Phone Unavailable Primary Care Provider Unavailabl e Encounter Details Date Type Department Care Team (Late st Contact Info) Description 05/07/2023 Lab Requisition [facility] Pathology & Laboratory Medicine - [facility] [address] [place] [address] Outr Resulting Lab, Provider Social History Tobacco [...] Surface Ag Negative Negative 05/10/2023 8:[address] [facility] Blood VENOUS BLOOD / Unknown 05/06/2023 15:18 EDT 05/07/2023 19:28 EDT Provider Outr Resulting Lab CHEMISTRY & BLOOD GAS ORDERABLES [facility] [address] [place] [address] * HEPATITIS C AB W REFLEX TO HCV RNA BY PCR (05/06/2023 15:18 EDT) Hep C Antibody Negative Negative 05/10/2023 9:[address] [facility] Blood VENOUS BLOOD / Unknown 05/06/2023 15:18 EDT 05/07/2023 19:28 EDT Provider Outr Resulting Lab CHEMISTRY & BLOOD GAS ORDERABLES [facility] [address] [place] [address] documented in this encounter Visit Diagnoses Not on filedocumented in this encounter
--- OUTSIDE RECORDS SUMMARY | 2024-06-22 18:49 | XMS_ITS | Encounter Summary ---
Author Organization [facility] Address [facility] [place] [address] Care Team Providers Care Agricultural Education Instructor Name Role Phone Hayde Uribe MD Primary Care Provider [phone] Reason for Visit * Reason Comments Follow-up Encounter Details Date Type Department Care Team ([facility] st Contact Info) Description 05/04/2018 9:30 AM EDT Office Visit Otolaryngology at [place] [address] [place] [address] Felipe De Luna MD [address] [place] [address] External ear canal stenosis, acquired, [...] cerumen documented in this encounter Care Teams Agricultural Education Instructor Relationship Specialty Start Date End Date Hayde Uribe MD [address] [place] [address] PCP - General Pediatrics 10/27/17 10/28/21 documented as of this encounter
--- OUTSIDE RECORDS SUMMARY | 2024-06-22 18:49 | XMS_ITS | Encounter Summary ---
Author Organization [facility] [place] [address] Care Team Providers Care Metal Coater Name Role Phone Hayde Uribe MD Primary Care Provider [phone] Reason for Visit * Reason Comments Follow-up cerumen Encounter Details Date Type Department Care Team ([facility] st Contact Info) Description 02/01/2019 2:15 PM EDT Office Visit Otolaryngology at [address] [address] Felipe De Luna MD [address] [place] [address] Bilateral impacted cerumen Social History [...] cerumen documented in this encounter Care Teams Metal Coater Relationship Specialty Start Date End Date Hayde Uribe MD [address] [place] [address] PCP - General Pediatrics 10/27/17 10/28/21 documented as of this encounter
--- OUTSIDE RECORDS SUMMARY | 2024-06-22 18:49 | XMS_ITS | Encounter Summary ---
Author Organization [facility] [place] [address] Care Team Providers Care Stock Checkerer Name Role Phone Inge Carl MD Primary [...] on filedocumented in this encounter Care Teams Stock Checkerer Relationship Specialty Start Date End Date Inge Carl MD [address] [place] [phone] PCP - General Pediatrics 10/29/21 documented as of this encounter
--- OUTSIDE RECORDS SUMMARY | 2024-06-22 18:49 | XMS_ITS | Encounter Summary ---
Author Organization [facility] Address [facility] [place] [id number] Care Team Providers Care [employer] Special Education Teacher Name Role Phone Inge Carl MD Primary Care Provider + Encounter Details Date Type Department Care Team (Late st Contact Info) Description 03/12/2023 2:15 PM EDT Office Visit Otolaryngology at [address] [address] Felipe De Luna MD [address] [place] [address] External ear canal stenosis, acquired, [...] cerumen documented in this encounter Care Teams [employer] Special Education Teacher Relationship Specialty Start Date End Date Inge Carl MD [address] [facility] Nicole [facility] [address] PCP - General Pediatrics 10/29/21 documented as of this encounter
--- OUTSIDE RECORDS SUMMARY | 2024-06-22 18:49 | XMS_ITS | Encounter Summary ---
[place] [address] Care Team Providers Care Choker Setter Name Role Phone Inge Carl MD [...] on filedocumented in this encounter Care Teams Choker Setter Relationship Specialty Start Date End Date Inge Carl MD [address] [facility] [phone] PCP - General Pediatrics 10/29/21 documented as of this encounter
--- OUTSIDE RECORDS SUMMARY | 2024-06-22 18:49 | XMS_ITS | Encounter Summary ---
Author Organization [facility] Address [facility] [place] [address] Care Team Providers Care Lens Engraver Name Role Phone Hayde Uribe MD Primary Care Provider Encounter Details Date Type Department Care Team (Late st Contact Info) Description 11/11/2019 Interpretation Only [address] [address] Loy Flores MD [address] [place] [address] [place] [address] Social History Tobacco Use Types Packs/Day Years [...] vasculature abnormality. Preliminary report signed by a [facility] Computational Geneticist or Fellow: Clarke Galarza at 11/11/2019 9:25 PM I have personally reviewed the image(s) and the resident's interpretation and agree with the findings, Frank Diaz MD at 11/11/2019 11:28 PM Thank you for letting us participate in the care of this patient. For questions regarding this report, please contact the number below. ? Electronically signed by: Frank Diaz MD, [facility] ([phone]), at 11/11/2019 11:28 PM Narrative 11/11/2019 11:33 PM EST EXAMINATION: XR [...] pulmonary vasculatureabnormality. Preliminary report signed by a [facility] Resident or Fellow: Clarke Galarza at 11/11/2019 [...] on filedocumented in this encounter Care Teams Lens Engraver Relationship Specialty Start Date End Date Hayde Uribe MD [address] [place] [address] PCP - General Pediatrics 10/27/17 10/28/21 documented as of this encounter
--- OUTSIDE RECORDS SUMMARY | 2024-06-22 18:49 | XMS_ITS | Encounter Summary ---
Author Organization [facility] Address [facility] [place] [address] Care Team Providers Care User Support Specialist Name Role Phone Hayde Uribe MD Primary Care Provider [phone] Encounter Details Date Type Department Care Team (Late st Contact Info) Description 07/22/2020 9:00 AM EDT Office Visit Otolaryngology at [address] [address] Felipe De Luna MD [address] [place] [address] External ear canal stenosis, acquired, [...] cerumen documented in this encounter Care Teams User Support Specialist Relationship Specialty Start Date End Date Hayde Uribe MD [address] [place] [address] PCP - General Pediatrics 10/27/17 10/28/21 documented as of this encounter
--- OUTSIDE RECORDS SUMMARY | 2024-06-22 18:49 | XMS_ITS | Encounter Summary ---
Author Organization [facility] Address [address] [place] [address] Care Team Providers Care Item Repair Manager Name Role Phone Unavailable Primary Care Provider Unavailabl e Encounter Details Date Type Department Care Team (Late st Contact Info) Description 10/29/2022 Lab Requisition [facility] Pathology & Laboratory Medicine - [facility] [address] [place] [address] Outr Resulting Lab, Provider Social History Tobacco [...] gonorrhoeae Result Negative Negative 10/30/2022 13:33 EST [facility] Chlamydia trachomatis Result Negative Negative 10/30/2022 13:33 EST [facility] Swab ENTIRE VAGINA / Unknown 10/28/2022 16:54 EST 10/29/2022 18:19 EST Provider Outr Resulting Lab MICROBIOLOGY - GENERAL ORDERABLES [facility] [address] [place] [address] documented in this encounter Visit Diagnoses Not on filedocumented in this encounter
--- OUTSIDE RECORDS SUMMARY | 2024-06-22 18:49 | XMS_ITS | Encounter Summary ---
Author Organization [facility] Address [facility] [place] [id number] Care Team Providers Care Sign Language Teacher Name Role Phone Hayde Uribe MD Primary Care Provider [phone] Reason for Visit * Reason Comments Cerumen Impaction Encounter Details Date Type Department Care Team ([facility] st Contact Info) Description 08/15/2018 4:00 PM EDT Office Visit Otolaryngology at [place] [address] [place] [address] Felipe De Luna MD [address] [place] [address] Bilateral impacted cerumen; External ear [...] bilateral documented in this encounter Care Teams Sign Language Teacher Relationship Specialty Start Date End Date Hayde Uribe MD [address] [place] [address] PCP - General Pediatrics 10/27/17 10/28/21 documented as of this encounter
--- OUTSIDE RECORDS SUMMARY | 2024-06-22 18:49 | XMS_ITS | Encounter Summary ---
Author Organization [facility] [place] [address] Care Team Providers Care Ash Pit Worker Name Role Phone Hayde Uribe MD Primary Care Provider [phone] Reason for Visit * Reason Comments Follow-up EAR CANAL STENOSIS Encounter Details Date Type Department Care Team ([facility] st Contact Info) Description 12/16/2020 4:00 PM EST Office Visit Otolaryngology at [address] [address] Felipe De Luna MD [address] [place] [address] Bilateral impacted cerumen; External ear [...] bilateral documented in this encounter Care Teams Ash Pit Worker Relationship Specialty Start Date End Date Hayde Uribe MD [address] [place] [address] PCP - General Pediatrics 10/27/17 10/28/21 documented as of this encounter
--- OUTSIDE RECORDS SUMMARY | 2024-06-22 18:49 | XMS_ITS | Encounter Summary ---
Author Organization [facility] [place] [address] Care Team Providers Care Automotive Service Management Teacher Name Role Phone Hayde Uribe MD Primary Care Provider [phone] Reason for Visit * Reason Comments Follow-up ear canal stenosis Encounter Details Date Type Department Care Team ([facility] st Contact Info) Description 04/30/2021 9:00 AM EDT Office Visit Otolaryngology at [place] [address] [place] [address] Felipe De Luna MD [address] [place] [address] Bilateral impacted cerumen Social History [...] cerumen documented in this encounter Care Teams Automotive Service Management Teacher Relationship Specialty Start Date End Date Hayde Uribe MD [address] [place] [address] PCP - General Pediatrics 10/27/17 10/28/21 documented as of this encounter
--- OUTSIDE RECORDS SUMMARY | 2024-06-22 18:49 | XMS_ITS | Encounter Summary ---
Author Organization Replaced By [facility] [place] [address] Care Team Providers Care Analysis Analyst Name Role Phone Inge Carl MD Primary Care Provider + Reason for Visit * Reason Comments Cerumen Impaction Encounter Details Date Type Department Care Team ([facility] st Contact Info) Description 10/29/2021 3:00 PM EST Office Visit Otolaryngology at [address] [address] Felipe De Luna MD [address] [place] [address] Bilateral impacted cerumen Social History [...] Tyra is an 16-year-old college freshman at [employer] who is seen back in the [...] cerumen documented in this encounter Care Teams Analysis Analyst Relationship Specialty Start Date End Date Inge Carl MD [address] [facility] [place] [address] PCP - General Pediatrics 10/29/21 documented as of this encounter
--- OUTSIDE RECORDS SUMMARY | 2024-06-22 18:49 | XMS_ITS | Encounter Summary ---
Author Organization [facility] [place] [address] Care Team Providers Care Apparatus Operator Name Role Phone Unavailable Primary Care Provider Unavailabl e Encounter Details Date Type Department Care Team (Late st Contact Info) Description 06/07/2017 4:15 PM EDT Office Visit Otolaryngology [place] [address] [place] [address] Felipe De Luna MD [address] [place] [address] Social History Tobacco Use Types [...]
--- OUTSIDE RECORDS SUMMARY | 2024-06-22 18:49 | XMS_ITS | Encounter Summary ---
Author Organization [facility] [place] [address] Care Team Providers Care Bullard Operator Name Role Phone Inge Carl MD [...] on filedocumented in this encounter Care Teams Bullard Operator Relationship Specialty Start Date End Date Inge Carl MD [address] [place] [phone] PCP - General Pediatrics 10/29/21 documented as of this encounter
--- OUTSIDE RECORDS SUMMARY | 2024-06-22 18:49 | XMS_ITS | Encounter Summary ---
[place] [address] Care Team Providers Care Overnight Cashier Name Role Phone Hayde Uribe MD Primary Care Provider [phone] Encounter Details Date Type Department Care Team (Late st Contact Info) Description 08/23/2019 3:40 PM EST Laboratory Appointment Lab at [address] [address] Social History Tobacco Use Types [...] Date/Time Associated Diagnosis Comments BASIC METABOLIC PANEL Routine 08/23/2019 3:42 PM EST documented in this encounter Results * Basic Metabolic Panel (non-fasting) (08/23/2019 3:42 PM EST) Glucose 78 65 - 199 mg/dL [facility] Comment:Diabetes: >=200 mg/d L plus symptoms Blood Urea Nitrogen 15 10 - 20 mg/dL [facility] Creatinine 0.81 0.46 - 0.86 mg/dL [facility] Sodium 140 135 - 145 mmol/L [facility] Potassium 4.3 3.5 - 5.0 mmol/L [facility] Comment: Please note: ??Patients with WBC >100,000 may have falsely elevated Potassium levels. ??For accurate Potassium quantification in these patients send serum separator tube (gold top) for subsequent determinations. ??Contact the Clinical Chemistry Laboratory if there are any questions. Chloride 100 98 - 107 mmol/L [facility] Carbon Dioxide 27 22 - 31 mmol/L [facility] Anion Gap 13 5 - 15 mmol/L [facility] Calcium 9.6 8.5 - 10.5 mg/dL [facility] Est Glomerular Filtration Rate See note >=60 mL/min/1. 73 m?? [facility] Comment: The eGFR for patients [...] of body mass or the acutely ill. http://[employer]/DHMCnkf eGFR See note >=60 mL/min/1. 73 m?? [facility] Comment: The eGFR for patients [...] of body mass or the acutely ill. http://[employer]/DHMCnkf Blood specimen (specimen) Venous Draw / Unknown 08/23/2019 3:42 PM EST 08/23/2019 3:43 PM EST Narrative Resulting Agency Comment Spec In Lab Dr Lab CHEMISTRY ORDERABLES [facility] [address] [place] [address] documented in this encounter Visit Diagnoses Not on filedocumented in this encounter Care Teams Overnight Cashier Relationship Specialty Start Date End Date Hayde Uribe MD [address] [place] [address] PCP - General Pediatrics 10/27/17 10/28/21 documented as of this encounter
--- OUTSIDE RECORDS SUMMARY | 2024-06-22 18:49 | XMS_ITS | Referral Summary ---
Author Organization [facility] Address [address] [place] [address] Care Team Providers Care Char Conveyor Tender Cellar Name Role Phone Unavailable Primary Care Provider [...] C Antibody Negative Negative 05/10/2023 9:45 EDT [facility] Blood VENOUS BLOOD / Unknown 05/06/2023 15:18 EDT 05/07/2023 19:28 EDT Provider Outr Resulting Lab CHEMISTRY & BLOOD GAS ORDERABLES [facility] [address] [place] [address] from Last 3 Months or Most Recently Relevant to Health Maintenance
--- OUTSIDE RECORDS SUMMARY | 2024-06-22 18:49 | XMS_ITS | Encounter Summary ---
[place] [address] Care Team Providers Care Navy Fighter Pilot Name Role Phone Inge Carl MD Primary Care Provider + Reason for Visit * Reason Comments Follow-up Cerumen Impaction Encounter Details Date Type Department Care Team ([facility] st Contact Info) Description 09/08/2023 2:00 PM EST Office Visit Otolaryngology at [address] [address] Felipe De Luna MD [address] [place] [address] External ear canal stenosis, acquired, bilateral; [...] small ear speculum, wax curette and 5 Vincentian suction, bilateral wax impactions are removed. The [...] cerumen documented in this encounter Care Teams Navy Fighter Pilot Relationship Specialty Start Date End Date Inge Carl MD [address] [place] [address] PCP - General Pediatrics 10/29/21 documented as of this encounter
--- OUTSIDE RECORDS SUMMARY | 2024-06-22 18:49 | XMS_ITS | Encounter Summary ---
Author Organization [place] [address] Care Team Providers Care Geographic Information Systems Engineer Name Role Phone Hayde Uribe MD Primary Care Provider [phone] Reason for Visit * Reason Comments Follow-up ears Encounter Details Date Type Department Care Team ([facility] st Contact Info) Description 05/06/2020 11:00 AM EDT Office Visit Otolaryngology at [place] [address] [place] [address] Felipe De Luna MD [address] [place] [address] External ear canal stenosis, acquired, [...] cerumen documented in this encounter Care Teams Geographic Information Systems Engineer Relationship Specialty Start Date End Date Hayde Uribe MD [address] [place] [address] PCP - General Pediatrics 10/27/17 10/28/21 documented as of this encounter
--- OUTSIDE RECORDS SUMMARY | 2024-06-22 18:49 | XMS_ITS | Encounter Summary ---
Author Organization [facility] Address [place] [id number] Care Team Providers Care Whitesmith Name Role Phone Hayde Uribe MD Primary Care Provider [phone] Reason for Visit * Reason Comments Cerumen Impaction Encounter Details Date Type Department Care Team ([facility] st Contact Info) Description 04/03/2019 4:15 PM EDT Office Visit Otolaryngology at [address] [address] Felipe De Luna MD [address] [place] [address] External ear canal stenosis, acquired, [...] cerumen documented in this encounter Care Teams Whitesmith Relationship Specialty Start Date End Date Hayde Uribe MD [address] [place] [address] PCP - General Pediatrics 10/27/17 10/28/21 documented as of this encounter
--- OUTSIDE RECORDS SUMMARY | 2024-06-22 18:49 | XMS_ITS | Encounter Summary ---
Author Organization [facility]ly [facility] Address [facility] [place] [address] Care Team Providers Care Marketing Support Manager Name Role Phone Hayde Uribe MD Primary Care Provider [phone] Encounter Details Date Type Department Care Team (Late st Contact Info) Description 09/30/2020 9:30 AM EST Office Visit Otolaryngology at [address] [address] Felipe De Luna MD [address] [place] [address] External ear canal stenosis, acquired, [...] cerumen documented in this encounter Care Teams Marketing Support Manager Relationship Specialty Start Date End Date Hayde Uribe MD [address] [place] [address] PCP - General Pediatrics 10/27/17 10/28/21 documented as of this encounter
--- OUTSIDE RECORDS SUMMARY | 2024-06-22 18:49 | XMS_ITS | Encounter Summary ---
Author Organization [facility] Address [facility] [place] [address] Care Team Providers Care Hand Bobbin Cleaner Name Role Phone Hayde Uribe MD Primary Care Provider [phone] Encounter Details Date Type Department Care Team (Late st Contact Info) Description 11/14/2018 4:00 PM EST Office Visit Otolaryngology at [address] [address] Felipe De Luna MD [address] [place] [address] Bilateral impacted cerumen Social History [...] a small wax curette and a 3 Ethiopian suction bilateral wax impactions are removed from [...] cerumen documented in this encounter Care Teams Hand Bobbin Cleaner Relationship Specialty Start Date End Date Hayde Uribe MD [address] [place] [address] PCP - General Pediatrics 10/27/17 10/28/21 documented as of this encounter
--- OUTSIDE RECORDS SUMMARY | 2024-06-22 18:49 | XMS_ITS | Encounter Summary ---
Author Organization [facility] Address [address] [place] [address] Care Team Providers Care Property Accountant Name Role Phone Unavailable Primary Care Provider Unavailabl e Encounter Details Date Type Department Care Team (Late st Contact Info) Description 10/29/2022 Lab Requisition [facility] Pathology & Laboratory Medicine - [address] [address] Outr Resulting Lab, Provider Social History Tobacco [...] 16:54 EST) Hold Hold 10/29/2022 19:01 EST [facility] Blood VENOUS BLOOD / Unknown 10/28/2022 16:54 EST 10/29/2022 17:49 EST Provider Outr Resulting Lab LAB INFO SER VICE AND SUPPORT & PHONE RESULT [facility] [address] [place] [address] * HOLD SST (10/28/2022 16:54 EST) Hold Hold 10/29/2022 19:01 EST [facility] Blood VENOUS BLOOD / Unknown 10/28/2022 16:54 EST 10/29/2022 17:49 EST Provider Outr Resulting Lab LAB INFO SER VICE AND SUPPORT & PHONE RESULT Performing Organization Address City/[facility]/ZIP Co de Phone Number [facility] [address] [place] [address] * HEPATITIS B SURFACE ANTIGEN (10/28/2022 16:54 EST) Hep B Surface Ag Negative Negative 10/30/2022 10:20 EST [facility] Blood VENOUS BLOOD / Unknown 10/28/2022 16:54 EST 10/29/2022 17:45 EST Provider Outr Resulting Lab CHEMISTRY & BLOOD GAS ORDERABLES Performing Organization Address [facility]/ZIP Co de Phone Number [facility] [address] [place] [address] * HEPATITIS C AB W REFLEX TO HCV RNA BY PCR (10/28/2022 16:54 EST) Hep C Antibody Negative Negative 10/30/2022 10:53 EST [facility] Blood VENOUS BLOOD / Unknown 10/28/2022 16:54 EST 10/29/2022 17:45 EST Provider Outr Resulting Lab CHEMISTRY & BLOOD GAS ORDERABLES Performing Organization Address [facility]/ZIP Co de Phone Number [facility] [address] [place] [address] documented in this encounter Visit Diagnoses Not on filedocumented in this encounter
--- OUTSIDE RECORDS SUMMARY | 2024-06-22 18:49 | XMS_ITS | Encounter Summary ---
Author Organization [facility] [place] [address] Care Team Providers Care Finger Buffs Assembler Name Role Phone Hayde Uribe MD Primary Care Provider [phone] Reason for Visit * Reason Comments Follow-up recheck ears Encounter Details Date Type Department Care Team ([facility] st Contact Info) Description 08/23/2019 4:15 PM EST Office Visit Otolaryngology at [place] [address] [place] [address] Felipe De Luna MD [address] [place] [address] External ear canal stenosis, acquired, [...] operating microscope ear speculum 3 and 5 Romanian suction and a wax curette and alligator [...] cerumen documented in this encounter Care Teams Finger Buffs Assembler Relationship Specialty Start Date End Date Hayde Uribe MD [address] [place] [address] PCP - General Pediatrics 10/27/17 10/28/21 documented as of this encounter
--- OUTSIDE RECORDS SUMMARY | 2024-06-22 18:49 | XMS_ITS | Encounter Summary ---
Author Organization [facility] [place] [address] Care Team Providers Care Casing Inspector Name Role Phone Inge Carl MD Primary Care Provider + Reason for Visit * Reason Comments Cerumen Impaction Encounter Details Date Type Department Care Team ([facility] st Contact Info) Description 03/27/2022 2:00 PM EDT Office Visit Otolaryngology at [address] [address] Felipe De Luna MD [address] [place] [address] External ear canal stenosis, acquired, [...] cerumen documented in this encounter Care Teams Casing Inspector Relationship Specialty Start Date End Date Inge Carl MD [address] [place] [facility] [place] [address] PCP - General Pediatrics 10/29/21 documented as of this encounter
--- OUTSIDE RECORDS SUMMARY | 2024-06-22 18:49 | XMS_ITS | Encounter Summary ---
Author Organization [facility] [place] [address] Care Team Providers Care Data Reduction Technician Name Role Phone Inge Carl MD Primary Care Provider + Reason for Visit * Reason Comments Cerumen Impaction Encounter Details Date Type Department Care Team ([facility] st Contact Info) Description 09/09/2022 9:45 AM EST Office Visit Otolaryngology at [address] [address] Felipe De Luna MD [address] [place] [address] Bilateral impacted cerumen; External ear [...] bilateral documented in this encounter Care Teams Data Reduction Technician Relationship Specialty Start Date End Date Inge Carl MD [address] [place] [address] PCP - General Pediatrics 10/29/21 documented as of this encounter
--- OUTSIDE RECORDS SUMMARY | 2024-06-22 18:50 | XMS_ITS | Encounter Summary ---
Author Organization [facility] [place] [address] Care Team Providers Care Wire Mesh Filter Fabricator Name Role Phone Unavailable Primary Care Provider Unavailabl e Encounter Details Date Type Department Care Team (Late st Contact Info) Description 03/23/2014 4:00 PM EDT Office Visit [facility] [address] [place] [address] Felipe De Luna MD [address] [place] [address] Social History Tobacco Use Types [...]
--- OUTSIDE RECORDS SUMMARY | 2024-06-22 18:50 | XMS_ITS | Encounter Summary ---
Author Organization [facility] [place] [address] Care Team Providers Care Tissue Coordinator Name Role Phone Unavailable Primary Care Provider Unavailabl e Encounter Details Date Type Department Care Team (Late st Contact Info) Description 10/31/2012 4:15 PM EST Office Visit [facility] [address] [place] [address] Felipe De Luna MD [address] [place] [address] Social History Tobacco Use Types [...]
--- OUTSIDE RECORDS SUMMARY | 2024-06-22 18:50 | XMS_ITS | Encounter Summary ---
Author Organization [facility] [place] [address] Care Team Providers Care Transportation Equipment Painter Name Role Phone Unavailable Primary Care Provider Unavailabl e Encounter Details Date Type Department Care Team (Late st Contact Info) Description 12/09/2016 Abstract [facility] Information Services [address] [facility] [phone] Provider, His [place] MD Social History Tobacco [...] 12/09/2016 9:00 AM EST Eloina rced from [place] Conversion Pulse - - Temperature - - Respiratory Rate - - Oxygen Saturation - - Inhaled Oxygen Concentration - - Weight - - Height - - Body Mass Index - - documented in this encounter Plan of Treatment Not on file documented as of this encounter Visit Diagnoses Not on filedocumented in this encounter
--- OUTSIDE RECORDS SUMMARY | 2024-06-22 18:50 | XMS_ITS | Encounter Summary ---
Author Organization [facility] [place] [address] Care Team Providers Care Data Deliverables Manager Name Role Phone Unavailable Primary Care Provider Unavailabl e Encounter Details Date Type Department Care Team (Late st Contact Info) Description 02/18/2015 4:15 PM EDT Office Visit [facility] [address] [place] [address] Felipe De Luna MD [address] [place] [address] Social History Tobacco Use Types [...]
--- OUTSIDE RECORDS SUMMARY | 2024-06-22 18:50 | XMS_ITS | Encounter Summary ---
Author Organization [facility] [place] [address] Care Team Providers Care Sustainment Logistics Analyst Name Role Phone Unavailable Primary Care Provider Unavailabl e Encounter Details Date Type Department Care Team (Late st Contact Info) Description 11/10/[address] [facility] Information Services [address] [facility] [place] [phone] Provider, His [place] MD Social History Tobacco [...] lb) 11/10/2013 4:30 AM EST Sourced from [place] Conversion Height - - Body Mass Index - - documented in this encounter Plan of Treatment Not on file documented as of this encounter Visit Diagnoses Not on filedocumented in this encounter
--- OUTSIDE RECORDS SUMMARY | 2024-06-22 18:50 | XMS_ITS | Encounter Summary ---
Author Organization [facility] [place] [address] Care Team Providers Care Miner Helper Name Role Phone Unavailable Primary Care Provider Unavailabl e Encounter Details Date Type Department Care Team (Late st Contact Info) Description 12/09/2016 9:00 AM EST Office Visit Otolaryngology [place] [address] [place] [address] Felipe De Luna MD [address] [place] [address] Social History Tobacco Use Types [...]
--- OUTSIDE RECORDS SUMMARY | 2024-06-22 18:50 | XMS_ITS | Encounter Summary ---
Author Organization [facility] [place] [address] Care Team Providers Care Retirement Consultant Name Role Phone Unavailable Primary Care Provider Unavailabl e Encounter Details Date Type Department Care Team (Late st Contact Info) Description 08/27/2014 3:30 PM EST Office Visit [facility] [address] [place] [address] Felipe De Luna MD [address] [place] [address] Social History Tobacco Use Types [...]
--- OUTSIDE RECORDS SUMMARY | 2024-06-22 18:50 | XMS_ITS | Encounter Summary ---
Author Organization [facility] [place] [address] Care Team Providers Care Pass Worker Name Role Phone Unavailable Primary Care Provider Unavailabl e Encounter Details Date Type Department Care Team (Late st Contact Info) Description 01/06/2016 Abstract [facility] Information Services [address] [place] [phone] Provider, His [place] MD Social History Tobacco [...] lb) 01/06/2016 4:00 AM EDT Sourced from [place] Kim Height - - Body Mass Index - - documented in this encounter Plan of Treatment Not on file documented as of this encounter Visit Diagnoses Not on filedocumented in this encounter
--- OUTSIDE RECORDS SUMMARY | 2024-06-22 18:50 | XMS_ITS | Encounter Summary ---
Author Organization [facility] [place] [address] Care Team Providers Care Fish Bait Processing Supervisor Name Role Phone Unavailable Primary Care Provider Unavailabl e Encounter Details Date Type Department Care Team (Late st Contact Info) Description 08/08/2013 Abstract [facility] Information Services [address] [facility] [place] [phone] Provider, His [place] MD Social History Tobacco [...] lb) 08/08/2013 4:30 AM EDT Sourced from [place] Kim Height - - Body Mass Index - - documented in this encounter Plan of Treatment Not on file documented as of this encounter Visit Diagnoses Not on filedocumented in this encounter
--- OUTSIDE RECORDS SUMMARY | 2024-06-22 18:50 | XMS_ITS | Encounter Summary ---
Author Organization [facility] Address [phone] [place] [address] Care Team Providers Care Sales Support Associate Name Role Phone Hayde Uribe MD Primary Care Provider U albert Encounter Details Date Type Department Care Team (Late st Contact Info) Description 05/26/2021 8:00 AM EDT Telemedicine [facility] Medical Genetics [address] [place] [address] [place]; [address] [place] [address] Blanche Galvin MD [address] [place] [address] [id number] [place] [address] 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 Patient name: ??Shama Jolley Date of note: ??05/26/21 Date of scheduled visit: 05/26/21 The patient did not keep their scheduled appointment. I would be happy to see them. Please ask them call to reschedule. ? Blanche Galvin MD, LEAD SQL DEVELOPER, MSCE Staff Hand Grinder? ? ? 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 It is not the complete legal health record.[facility]
--- OUTSIDE RECORDS SUMMARY | 2024-06-22 18:50 | XMS_ITS | Encounter Summary ---
Author Organization [facility] [place] [address] Care Team Providers Care Venetian Blind Washer Name Role Phone Unavailable Primary Care Provider Unavailabl e Encounter Details Date Type Department Care Team (Late st Contact Info) Description 03/23/2014 Abstract [facility] Information Services [address] [facility] [place] [phone] Provider, His [place] MD Social History Tobacco [...] lb) 03/23/2014 4:00 AM EDT Sourced from [place] Kim Height - - Body Mass Index - - documented in this encounter Plan of Treatment Not on file documented as of this encounter Visit Diagnoses Not on filedocumented in this encounter
--- OUTSIDE RECORDS SUMMARY | 2024-06-22 18:50 | XMS_ITS | Encounter Summary ---
Author Organization [facility] [place] [address] Care Team Providers Care Renal Case Manager Name Role Phone Unavailable Primary Care Provider Unavailabl e Encounter Details Date Type Department Care Team (Late st Contact Info) Description 05/11/2016 3:00 PM EDT Office Visit Otolaryngology [place] [address] [place] [address] Felipe De Luna MD [address] [place] [address] Social History Tobacco Use Types [...]
--- OUTSIDE RECORDS SUMMARY | 2024-06-22 18:50 | XMS_ITS | Encounter Summary ---
Author Organization [facility] [place] [address] Care Team Providers Care Vp Global Marketing [employer] Name Role Phone Unavailable Primary Care Provider Unavailabl e Encounter Details Date Type Department Care Team (Late st Contact Info) Description 12/08/2010 2:45 PM EST Office Visit [facility] [address] [place] [address] Felipe De Luna MD [address] [place] [address] Social History Tobacco Use Types [...]
--- OUTSIDE RECORDS SUMMARY | 2024-06-22 18:50 | XMS_ITS | Encounter Summary ---
Author Organization [facility] [place] [address] Care Team Providers Care Sales Account Representative Name Role Phone Unavailable Primary Care Provider Unavailabl e Encounter Details Date Type Department Care Team (Late st Contact Info) Description 09/09/[address] [facility] Information Services [address] [facility] [place] [phone] Provider, His [place] MD Social History Tobacco [...] 92/62 09/09/2016 2:25 PM EST Sourced from [place] Conversion Pulse - - Temperature - - Respiratory Rate - - Oxygen Saturation - - Inhaled Oxygen Concentration - - Weight 53.5 kg (118 lb) 09/09/2016 2:30 AM EST Sourced from [place] Conversion Height - - Body Mass Index - - documented in this encounter Plan of Treatment Not on file documented as of this encounter Visit Diagnoses Not on filedocumented in this encounter
--- OUTSIDE RECORDS SUMMARY | 2024-06-22 18:50 | XMS_ITS | Encounter Summary ---
Author Organization [facility] [place] [address] Care Team Providers Care Tape Duplicator Name Role Phone Unavailable Primary Care Provider Unavailabl e Encounter Details Date Type Department Care Team (Late st Contact Info) Description 02/06/2014 3:45 PM EDT Office Visit [facility] [address] [place] [address] Felipe De Luna MD [address] [place] [address] Social History Tobacco Use Types [...]
--- OUTSIDE RECORDS SUMMARY | 2024-06-22 18:50 | XMS_ITS | Encounter Summary ---
Author Organization [facility] [place] [address] Care Team Providers Care Disk Grinder Name Role Phone Unavailable Primary Care Provider Unavailabl e Encounter Details Date Type Department Care Team (Late st Contact Info) Description 02/06/2013 4:15 PM EDT Office Visit [facility] [address] [place] [address] Felipe De Luna MD [address] [place] [address] Social History Tobacco Use Types [...]
--- OUTSIDE RECORDS SUMMARY | 2024-06-22 18:50 | XMS_ITS | Encounter Summary ---
Author Organization [facility] [place] [address] Care Team Providers Care Rod And Tube Straightener Name Role Phone Unavailable Primary Care Provider Unavailabl e Encounter Details Date Type Department Care Team (Late st Contact Info) Description 12/24/2011 2:30 PM EST Office Visit [facility] [address] [place] [address] Felipe De Luna MD [address] [place] [address] Social History Tobacco Use Types [...]
--- OUTSIDE RECORDS SUMMARY | 2024-06-22 18:50 | XMS_ITS | Encounter Summary ---
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 Blanche Galvin MD [address] [place] [address] [address] [place] [address] Email: [email or web address] Referral ID Status Reason Start Date Expiration Date Visits Re quested Visits Authorized [id number] Closed 09/14/2017 09/14/2018 1 1 Reason for Visit * Reason Comments DiGeorge Syndrome Encounter Details Date Type Department Care Team (Late st Contact Info) Description 09/14/2017 2:00 PM EST Office Visit [facility] Medical Genetics [address] [place] [address] [address]; [address] [place] [address] Blanche Galvin MD [address] [facility] [address] [place] [address] 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 [facility][Note 3] for 22q11 New Patient Visit Chief Complaint: 22q11.2 Deletion Syndrome Reason for Referral: Shama Jolley is a 12 y.o. 6 m.o. female seen today in follow-up at the [facility][Note 3] for 22q11. She was referred by Dr. Uribe. Shama came today with both her mother and father. 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 Wereviewed leonardo systems related to 22q11.2 deletion syndrome. 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 This was done at [facility]. She has had episodes in the past offeeling dizzy and faint, but these were not thought to be cardiac in origin. She now sees cardiology every 2 years. The heart defect was noted prenatally, which prompted genetic testing shortly afterbirth. Palate: No concerns about VPI noted from the family. She has a palate chlorinator operator. In elementary school some kids had trouble [...] (q11.2) .pedro 22q11.2. No mention of a AIR BATTLE MANAGER ever being done. Shama did see genetics in [place] at 4 months old. Parents were never [...] Days in Hospital: 5 ??? Hospital Name: [facility] ??? Hospital Location: [place] Shama was born to a 35 year [...] Fallot Gastrointestinal ROS: negative Urinary ROS: negative Loft Patternmaker ROS: negative Musculoskeletal ROS: negative Neurological ROS: negative Dermatological ROS: negative Imaging results: Echocardiogram: followed by cardiology at [facility] Renal Ultrasound: unclear if this [...] kg/(m^2). 80 %ile (Z= 0.83) based on [facility] 2-20 Years BMI-for-age data using vitals from 09/14/2017. Height on 22q11 curve: >91% for age, and also >91% for an adult woman with 22q11.2 deletion syndrome Weight on 22q11 curve: 85% BMI on 22q11 curve: 50-75% 09/14/2017 Visit date not found Height % 83 %ile (Z= 0.96) based on CDC 2-20 Years tavqwum-cwg-bnq data using vitals from 09/14/2017. No previous contact with height data on file. Weight % 86 %ile (Z= 1.07) based on [facility] 2-20 Years cesqne-tuu-dxp data using vitals from 09/14/2017. No previous [...] Mouth: unremarkable, normal appearing palate with palate chlorinator operator in place, long, normal appearing midline uvula, [...] defects/repair with the exception of her palate chlorinator operator for narrow palate, no current or additional [...] interest. Of note, Shama's mother is a pe teacher, and she has considerable support at home [...] is a workbook called Studying for a Live In Caregiver's License which breaks down bellman driver's education into smaller steps with quizzes [...] known by clinical diagnoses of DiGeorge Syndrome, Rkec-fqjbvp-lswsqz Syndrome, autosomal dominant Opitz G/BBB syndrome among [...] special needs trusts, guardianship or power of corporate associate attorney, and supported employment and/or independent living [...] contraceptive services. Resources for Patients and Families: [facility] for 22q11 at [facility]: http://www.[facility].org/children/services/treatmentprograms.aspx?pp=8053? Check out the Support and Wellness Tab to see many helpful websites and agencies in your area! ? [facility] 22q11 Clinic Page on Facebook: https://www.Mediaspectrum.[email or web address] We put up informational posts of interest to families with 22q11 Deletion syndrome nearly every day ? [facility] 22q11 Clinic on Wirescanitter: [email or web address] ? 22q Nation ([place] Support for patients with 22q11 Deletion Syndrome) Contact Ana Gómez . This is a large support network of patients and families in the [place] region. Ana is a parent of a young woman with 22q11 deletion syndrome and very knowledgeable about local resources ? [employer] has pages for families in each state [...] will be on March 04, 2018 at [facility] (near [place]) Contact is Sarita [email or web address] has a summer camp for children and teens with 22q11 deletion syndrome outside [place] http://www.[employer].org/programs http://22q.es has information about 22q11 conditions for Canadian speaking families. The [employer] organization has great articles in [place] about anxiety, depression, and schizophrenia: http://www.Lenskart.com.org/Find-Support/Diverse-Communities/Dbstfb-Sxhuwm-Cmgrxa/La-raulito ya-hychbh-yy-ws-tbhgnnful-ealgsu Reference Imtiaz NIÑO et al, Practical Guidelines for managing patients with 22q11.2 deletion syndrome, Journal of Pediatrics 2011; 159(2):332-339. Imtiaz NIÑO, et al. Clinical features of 78 adults with 22q11 deletion syndrome, Am J Med Jaz 2005; 138A:307-313. These guidelines are publicly available at the following website: http://www.ncbi.nlm.nih.gov/pmc/articles/HHZ0222531/pdf/ukmwe3496.pdf Plan 1. Calcium, albumin, vitamin D, PTH, [...] based on family preference given distance to [place]. If Lali and her family opt for 2 year visit we would recommend that Dr. Uribe order labs listed above (see #1) for routine screening in one year. 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 Ordered: 09/14/2017 documented as of this encounter Results * TSH (09/14/2017 3:44 PM EST) TSH 1.61 0.40 - 5.00 uIU/mL [facility] 09/14/2017 3:44 PM EST 09/14/2017 6:39 PM EST Blanche Galvin MD LAB BLOOD ORDERABL ES [facility] [address] [place] [address] * Free T4 (09/14/2017 3:44 PM EST) FREE T4 1.1 0.9 - 1.8 ng/dL [facility] 09/14/2017 3:44 PM EST 09/14/2017 6:39 PM EST Blanche Galvin MD LAB BLOOD ORDERABL ES [facility] [address] [place] [address] * (ABNORMAL) CBC and differential (09/14/2017 3:44 PM EST) WBC 6.02 4.5 - 13.5 K/uL [facility] RBC 4.24 4.10 - 5.10 M/uL [facility] HGB 12.6 12.0 - 16.0 g/dL [facility] HCT 37.4 36.0 - 46.0 % [facility] PLT 183 150 - 450 K/uL [facility] MCV 88.2 78.0 - 102.0 fL [facility] MCH 29.7 25.0 - 35.0 pg [facility] MCHC 33.7 31.0 - 37.0 g/dL [facility] RDW 12.7 11.5 - 14.5 % [facility] MPV 12.6(H) 8.4 - 12.0 fl [facility] NRBC 0.00 0 - 0.20 /100 WBCs [facility] ABSOLUTE NRBC 0.00 0 - 0.01 K/uL [facility] DIFF METHOD Auto [facility] NEUTS 58.2 40 - 59 % [facility] LYMPHS 27.7(L) 33 - 48 % [facility] MONOS 10.5 4 - 11 % [facility] EOS 2.3 0 - 8 % [facility] BASOS 1.0 0 - 3 % [facility] % IMMATURE GRANS 0.3 0.0 - 0.3 % [facility] ABSOLUTE NEUTS 3.50 1.8 - 8.0 K/uL [facility] ABSOLUTE LYMPHS 1.67 1.5 - 6.5 K/uL [facility] ABSOLUTE MONOS 0.63 0.2 - 1.5 K/uL [facility] ABSOLUTE EOS 0.14 0.0 - 1.1 K/uL [facility] ABSOLUTE BASOS 0.06 0.0 - 0.4 K/uL [facility] ABS IMMATURE GRANS 0.02 0.00 - 0.03 K/uL [facility] Blood 09/14/2017 3:44 PM EST 09/14/2017 6:39 PM EST Blanche Galvin MD LAB BLOOD ORDERABL ES [facility] [address] [place] [address] documented in this encounter Visit Diagnoses Diagnosis 22q11.2 deletion syndrome- Primary Tetralogy of Fallot Hypocalcemia documented in this encounter Care Teams Holistic Pulser Relationship Specialty Start Date End Date Hayde Uribe MD PCP - General Pediatrics 07/25/15 documented as of this encounter Additional Source Comments The information contained in this document represents components of the legal health record. It is not the complete legal health record.[facility]
--- OUTSIDE RECORDS SUMMARY | 2024-06-22 18:50 | XMS_ITS | Encounter Summary ---
Author Organization [facility] [place] [address] Care Team Providers Care Systems Test Engineer Name Role Phone Unavailable Primary Care Provider Unavailabl e Encounter Details Date Type Department Care Team (Late st Contact Info) Description 11/27/2014 4:30 PM EST Office Visit [facility] [address] [place] [address] Felipe De Luna MD [address] [place] [address] Social History Tobacco Use Types [...]
--- OUTSIDE RECORDS SUMMARY | 2024-06-22 18:50 | XMS_ITS | Encounter Summary ---
Author Organization [facility] [place] [address] Care Team Providers Care Search Engine Marketing Strategist Name Role Phone Unavailable Primary Care Provider Unavailabl e Encounter Details Date Type Department Care Team ([facility] st Contact Info) Description 06/04/2014 10:30 AM EDT Office Visit [facility] [address] [place] [address] Felipe De Luna MD [address] [place] [address] Social History Tobacco Use Types [...]
--- OUTSIDE RECORDS SUMMARY | 2024-06-22 18:50 | XMS_ITS | Encounter Summary ---
Author Organization [facility] [place] [address] Care Team Providers Care Casting Plug Assembler Name Role Phone Unavailable Primary Care Provider Unavailabl e Encounter Details Date Type Department Care Team (Late st Contact Info) Description 05/11/2016 Abstract [facility] Information Services [address] [facility] [place] [phone] Provider, His [place] MD Social History Tobacco [...] lb) 05/11/2016 3:00 AM EDT Sourced from [place] Kim Height - - Body Mass Index - - documented in this encounter Plan of Treatment Not on file documented as of this encounter Visit Diagnoses Not on filedocumented in this encounter
--- OUTSIDE RECORDS SUMMARY | 2024-06-22 18:50 | XMS_ITS | Encounter Summary ---
Author Organization [facility] Address [phone] [facility] [place] [address] Care Team Providers Care Ip Technology Transactions Attorney Name Role Phone Hayde Uribe MD Primary Care Provider U albert Encounter Details Date Type Department Care Team (Latest Contact Info) Description 02/03/2019 10:04 AM EDT - 02/03/2019 11:59 PM EDT Hospital Encounter [facility] Imaging - Xray, [address] [facility] [address] [place] [address] Blanche Galvin MD [address] [facility] [address] [place] [phone] [email or web address] Discharge Disposition: Home or Self Care [...] on filedocumented in this encounter Care Teams Ip Technology Transactions Attorney Relationship Specialty Start Date End Date Hayde Uribe MD PCP - General Pediatrics 07/25/15 documented as of this encounter Additional Source Comments The information contained in this document represents components of the legal health record. It is not the complete legal health record.[facility]
--- OUTSIDE RECORDS SUMMARY | 2024-06-22 18:50 | XMS_ITS | Encounter Summary ---
Author Organization [facility] Address [phone] [facility] [place] [address] Care Team Providers Care Stringed Instrument Tuner Name Role Phone Hayde Uribe MD Primary Care Provider U navailable Reason for Visit * Reason Comments Follow-up Encounter Details Date Type Department Care Team (Latest Contact Info) Description 06/06/2018 3:00 PM EDT Office Visit [facility] Psychology Assessment Center [address] [place] [address] Kaylynn Ascencio, PhD [address] [place], [place] [phone] [place] [address] [email or web address] Encounters for administrative purpose (Primary Dx) Social [...] purpose documented in this encounter Care Teams Stringed Instrument Tuner Relationship Specialty Start Date End Date Hayde Uribe MD PCP - General Pediatrics 07/25/15 documented as of this encounter Additional Source Comments The information contained in this document represents components of the legal health record. It is not the complete legal health record.[facility]
--- OUTSIDE RECORDS SUMMARY | 2024-06-22 18:50 | XMS_ITS | Encounter Summary ---
Author Organization [facility] [place] [address] Care Team Providers Care Rfid Specialist Name Role Phone Unavailable Primary Care Provider Unavailabl e Encounter Details Date Type Department Care Team (Late st Contact Info) Description 06/11/2011 1:00 PM EDT Office Visit [facility] [address] [place] [address] Felipe De Luna MD [address] [place] [address] Social History Tobacco Use Types [...]
--- OUTSIDE RECORDS SUMMARY | 2024-06-22 18:50 | XMS_ITS | Encounter Summary ---
Author Organization [facility] [place] [address] Care Team Providers Care Country Sales Manager Name Role Phone Unavailable Primary Care Provider Unavailabl e Encounter Details Date Type Department Care Team (Late st Contact Info) Description 08/08/2013 4:30 PM EDT Office Visit [facility] [address] [place] [address] Felipe De Luna MD [address] [place] [address] Social History Tobacco Use Types [...]
--- OUTSIDE RECORDS SUMMARY | 2024-06-22 18:50 | XMS_ITS | Encounter Summary ---
Author Organization [facility] Address [phone] [facility] [place] [address] Care Team Providers Care Radiology Rn Name Role Phone Hayde Uribe MD Primary [facility] Encounter Details Date Type Department Care Team (Latest Contact Info) Description 02/03/2019 9:30 AM EDT - 02/03/2019 9:54 AM EDT Hospital Encounter [facility]OD LAB VIRTUAL DEPARTMENT [address] [place] [address] Blanche Galvin MD [address] [place] [address] [address] [place] [phone] [email or web address] Discharge Disposition: Home or Self Care [...] EDT) TSH 3.01 0.40 - 5.00 uIU/mL [facility] 02/03/2019 9:39 AM EDT 02/03/2019 12:10 PM EDT Blanche Galvin MD LAB BLOOD ORDERABL ES Performing Organization Address [facility] Co de Phone Number [address] [address] * Phosphorus (02/03/2019 9:39 AM EDT) PHOSPHORUS 3.6 3.0 - 4.5 mg/dL [facility] 02/03/2019 9:39 AM EDT 02/03/2019 12:10 PM EDT Blanche Galvin MD LAB BLOOD ORDERABL ES Performing Organization Address City/[facility]/ZIP Co de Phone Number [address] [address] * Parathyroid hormone (PTH) (02/03/2019 9:39 AM EDT) PARATHYROID HORMONE 46 10 - 60 pg/mL [facility] 02/03/2019 9:39 AM EDT 02/03/2019 12:10 PM EDT Blanche Galvin MD LAB BLOOD ORDERABL ES Performing Organization Address City/[facility]/ZIP Co de Phone Number [address] [address] * Magnesium (02/03/2019 9:39 AM EDT) MAGNESIUM 2.0 1.7 - 2.4 mg/dL [facility] 02/03/2019 9:39 AM EDT 02/03/2019 12:10 PM EDT Blanche Galvin MD LAB BLOOD ORDERABL ES Performing Organization Address City/[facility] Co de Phone Number [address] [address] * Free T4 (02/03/2019 9:39 AM EDT) FREE T4 1.3 0.9 - 1.8 ng/dL [facility] 02/03/2019 9:39 AM EDT 02/03/2019 12:10 PM EDT Blanche Galvin MD LAB BLOOD ORDERABL ES Performing Organization Address [facility] Co de Phone Number [address] [address] * (ABNORMAL) CBC and differential (02/03/2019 9:39 AM EDT) WBC 4.40(L) 4.5 - 13.5 K/uL [facility] RBC 4.10 4.10 - 5.10 M/uL [facility] HGB 11.7(L) 12.0 - 16.0 g/dL [facility] HCT 36.8 36.0 - 46.0 % [facility] PLT 170 150 - 450 K/uL [facility] MCV 89.8 78.0 - 102.0 fL [facility] MCH 28.5 25.0 - 35.0 pg [facility] MCHC 31.8 31.0 - 37.0 g/dL [facility] RDW 14.1 11.5 - 14.5 % [facility] MPV 13.0(H) 8.4 - 12.0 fl [facility] NRBC 0.00 0 - 0.20 /100 WBCs [facility] ABSOLUTE NRBC 0.00 0 - 0.01 K/uL [facility] DIFF METHOD Auto [place] [facility] NEUTS 65.6(H) 40 - 59 % [facility] LYMPHS 18.6(L) 33 - 48 % [facility] MONOS 11.4(H) 4 - 11 % [facility] EOS 3.0 0 - 8 % [facility] BASOS 0.9 0 - 3 % [facility] % IMMATURE GRANS 0.5(H) 0.0 - 0.3 % [facility] ABSOLUTE NEUTS 2.89 1.8 - 8.0 K/uL [facility] ABSOLUTE LYMPHS 0.82(L) 1.5 - 6.5 K/uL [facility] ABSOLUTE MONOS 0.50 0.2 - 1.5 K/uL [facility] ABSOLUTE EOS 0.13 0.0 - 1.1 K/uL [facility] ABSOLUTE BASOS 0.04 0.0 - 0.4 K/uL [facility] ABS IMMATURE GRANS 0.02 0.00 - 0.03 K/uL [facility] Blood 02/03/2019 9:39 AM EDT 02/03/2019 12:11 PM EDT Blanche Galvin MD LAB BLOOD ORDERABL ES Performing Organization Address City/[facility]/ZIP Co de Phone Number [address] [address] * Calcium (02/03/2019 9:39 AM EDT) CALCIUM 9.5 8.5 - 10.5 mg/dL [facility] 02/03/2019 9:39 AM EDT 02/03/2019 12:10 PM EDT Blanche Galvin MD LAB BLOOD ORDERABL ES [address] [address] * Albumin (02/03/2019 9:39 AM EDT) ALBUMIN 4.3 3.3 - 5.0 g/dL [facility] 02/03/2019 9:39 AM EDT 02/03/2019 12:10 PM EDT Blanche Galvin MD LAB BLOOD ORDERABL ES Performing Organization Address [facility] Co de Phone Number [address] [address] * 25-OH vitamin D (02/03/2019 9:39 AM EDT) 25 OH VIT D (TOTAL) 23 20 - 80 ng/mL [facility] 02/03/2019 9:39 AM EDT 02/03/2019 12:10 PM EDT Blanche Galvin MD LAB BLOOD ORDERABL ES Performing Organization Address [facility] de Phone Number [address] [address] documented in this encounter Visit Diagnoses Diagnosis 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 It is not the complete legal health record.[facility]
--- OUTSIDE RECORDS SUMMARY | 2024-06-22 18:50 | XMS_ITS | Encounter Summary ---
Author Organization [facility] [place] [address] Care Team Providers Care Lab Associate Name Role Phone Unavailable Primary Care Provider Unavailabl e Encounter Details Date Type Department Care Team (Late st Contact Info) Description 09/03/2011 3:45 PM EST Office Visit [facility] [address] [place] [address] Felipe De Luna MD [address] [place] [address] Social History Tobacco Use Types [...]
--- OUTSIDE RECORDS SUMMARY | 2024-06-22 18:50 | XMS_ITS | Encounter Summary ---
Author Organization [facility] [place] [address] Care Team Providers Care Locator Name Role Phone Unavailable Primary Care Provider Unavailabl e Encounter Details Date Type Department Care Team (Late st Contact Info) Description 08/01/2012 Abstract [facility] Information Services [address] [place] [phone] Provider, His [place] MD Social History Tobacco [...] [place] Kim Body Mass Index - - documented in this encounter Plan of Treatment Not on file documented as of this encounter Visit Diagnoses Not on filedocumented in this encounter
--- OUTSIDE RECORDS SUMMARY | 2024-06-22 18:50 | XMS_ITS | Encounter Summary ---
Author Organization [facility] Address [phone] [facility] [place] [address] Care Team Providers Care Director Career Name Role Phone Hayde Uribe MD Primary Care Provider U bubbaailjose manuel Encounter Details Date Type Department Care Team (Latest Contact Info) Description 09/14/2017 3:42 PM EST - 09/14/2017 11:59 PM EST Hospital Encounter [facility] PEDI BLOOD LAB VIRTUAL DEPARTMENT [address] [place] [address] Blanche Galvin MD [address] [place] [address] CPZS-[id number] [place] [id number] [email or web address] Discharge Disposition: Home or Self Care [...] EST) TSH 1.61 0.40 - 5.00 uIU/mL [facility] 09/14/2017 3:44 PM EST 09/14/2017 6:39 PM EST Blanche Galvin MD LAB BLOOD ORDERABL ES Performing Organization Address City/[facility] Co de Phone Number [address] [address] * Free T4 (09/14/2017 3:44 PM EST) FREE T4 1.1 0.9 - 1.8 ng/dL [facility] 09/14/2017 3:44 PM EST 09/14/2017 6:39 PM EST Blanche Galvin MD LAB BLOOD ORDERABL ES Performing Organization Address City/[facility] Co de Phone Number [address] [address] * (ABNORMAL) CBC and differential (09/14/2017 3:44 PM EST) WBC 6.02 4.5 - 13.5 K/uL [facility] RBC 4.24 4.10 - 5.10 M/uL [facility] HGB 12.6 12.0 - 16.0 g/dL [facility] HCT 37.4 36.0 - 46.0 % [facility] PLT 183 150 - 450 K/uL [facility] MCV 88.2 78.0 - 102.0 fL [facility] MCH 29.7 25.0 - 35.0 pg [facility] MCHC 33.7 31.0 - 37.0 g/dL [facility] RDW 12.7 11.5 - 14.5 % [facility] MPV 12.6(H) 8.4 - 12.0 fl [facility] NRBC 0.00 0 - 0.20 /100 WBCs [facility] ABSOLUTE NRBC 0.00 0 - 0.01 K/uL [facility] DIFF METHOD Auto [facility] NEUTS 58.2 40 - 59 % [facility] LYMPHS 27.7(L) 33 - 48 % [facility] MONOS 10.5 4 - 11 % [facility] EOS 2.3 0 - 8 % [facility] BASOS 1.0 0 - 3 % [facility] % IMMATURE GRANS 0.3 0.0 - 0.3 % [facility] ABSOLUTE NEUTS 3.50 1.8 - 8.0 K/uL [facility] ABSOLUTE LYMPHS 1.67 1.5 - 6.5 K/uL [facility] ABSOLUTE MONOS 0.63 0.2 - 1.5 K/uL [facility] ABSOLUTE EOS 0.14 0.0 - 1.1 K/uL [facility] ABSOLUTE BASOS 0.06 0.0 - 0.4 K/uL [facility] ABS IMMATURE GRANS 0.02 0.00 - 0.03 K/uL [facility] Blood 09/14/2017 3:44 PM EST 09/14/2017 6:39 PM EST Blanche Galvin MD LAB BLOOD ORDERABL ES [facility] [address] [place] [address] documented in this encounter Visit Diagnoses Diagnosis 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 It is not the complete legal health record.[facility]
--- OUTSIDE RECORDS SUMMARY | 2024-06-22 18:50 | XMS_ITS | Encounter Summary ---
Author Organization [facility] [address] Care Team Providers Care Geophysical Prospecting Surveyor Name Role Phone Unavailable Primary Care Provider Unavailabl e Encounter Details Date Type Department Care Team (Late st Contact Info) Description 01/06/2016 4:00 PM EDT Office Visit Otolaryngology [place] [address] [place] [address] Felipe De Luna MD [address] [place] [address] Social History Tobacco Use Types [...]
--- OUTSIDE RECORDS SUMMARY | 2024-06-22 18:50 | XMS_ITS | Encounter Summary ---
Author Organization [facility] [place] [address] Care Team Providers Care Tow Motor Driver Name Role Phone Unavailable Primary Care Provider Unavailabl e Encounter Details Date Type Department Care Team (Late st Contact Info) Description 09/24/2010 4:30 PM EST Office Visit [facility] [address] [place] [address] Felipe De Luna MD [address] [place] [address] Social History Tobacco Use Types [...]
--- OUTSIDE RECORDS SUMMARY | 2024-06-22 18:50 | XMS_ITS | Clinical Summary ---
Author Organization [facility] Address [phone] [facility] [employer] [place] [id number] Care Team Providers Care Hearing Examiner Name Role Phone Hayde Uribe MD [...] 2022-2 4 season) 2023 PAP SMEAR 02/23/2024 INFLUENZA VACCINE (#1) 2024 HEPATITIS A VACCINES Aged Out No long [...] Medical Devices Not on file Care Teams Hearing Examiner Relationship Specialty Start Date End Date Hayde Uribe MD PCP - General Pediatrics 07/25/15 Additional Source Comments The information contained in this document represents components of the legal health record. It is not the complete legal health record.[facility]
--- OUTSIDE RECORDS SUMMARY | 2024-06-22 18:50 | XMS_ITS | Encounter Summary ---
Author Organization [facility] [place] [place] [address] Care Team Providers Care Bond Trader Name Role Phone Unavailable Primary Care Provider Unavailabl e Encounter Details Date Type Department Care Team (Late st Contact Info) Description 03/31/2012 4:15 PM EDT Office Visit [facility] [address] [place] [address] Felipe De Luna MD [address] [place] [address] Social History Tobacco Use Types [...]
--- OUTSIDE RECORDS SUMMARY | 2024-06-22 18:50 | XMS_ITS | Encounter Summary ---
Author Organization [facility] [place] [address] Care Team Providers Care Military Lawyer Name Role Phone Unavailable Primary Care Provider Unavailabl e Encounter Details Date Type Department Care Team (Late st Contact Info) Description 09/09/2016 2:30 PM EST Office Visit Otolaryngology [place] [address] [place] [address] Felipe De Luna MD [address] [place] [address] Social History Tobacco Use Types [...]
--- OUTSIDE RECORDS SUMMARY | 2024-06-22 18:50 | XMS_ITS | Encounter Summary ---
Author Organization 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 Hypocalcemia Blanche Galvin MD [address] [place], [place] [id number] [address] [address] Email: [email or web address] Referral ID Status Reason Start Date Expiration Date Visits Re quested Visits Authorized [id number] Closed 09/14/2017 09/14/2018 1 1 Encounter Details Date Type Department Care Team (Latest Contact Info) Description 05/16/2018 10:00 AM EDT Office Visit [facility] Psychology Assessment Center [address] [address] Kaylynn Ascencio, PhD [address] [place] [address] [email or web address] 22q11.2 deletion syndrome (Primary Dx); Anxiety; Attention [...] Clinical Neuropsychologist Neuropsychological Evaluation Name: Shama Jolley [facility]#: [id number] Date of : 2005 Date of Evaluation: 05/16/2018 Age at Evaluation: 13:2 Education: entering Date of Report: 06/30/2018 Reason for Referral: Shama Jolley is a 13-year-old young woman who has been diagnosed with 22q11.2 deletion syndrome. This is a genetic syndrome that can be associated with developmental delays and chronic medical conditions. Her stockroom attendant at [facility] ([facility]), Dr. Galvin, referred her for a neuropsychological evaluation to characterize her current functioning and to assist with differential diagnosis and treatment planning. Informed Consent: Shama and her parents came to the evaluation. The nature and purpose of the evaluation, potential risks, and limits of confidentiality were explained in Burkinan, which is their [place] language. Shama assented and her father consented to the evaluation. A signed consent form is included in the internal record. Brief Review of Salient History: Shama is the oldest of three children to her biological parents(sister Shanthi - age 12, brother Maxine - age 11). The family lives in [place], [place]. Her mother is a mathematics professor at the same high school that Shama [...] She is currently in 10th grade at [employer] in [place], [place]. She is currently placed in regular [...] resource room is staffed by a regular education reporter and there is some support around strategies but not acrossall subjects. 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 There are no current plans for her [...] mostly texting friends and spending time on [employer] and [employer]. 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 With reading comprehension, she struggles [...] April 2003 at age 1 months at 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?? July 2009 (age 4, 1st grade) [facility] Summary of Findings Behavioral Observations: Shama easily [...] she had difficulty on tasks that required fpic-yn-bgwby analysis. Construction of block designs was low [...] passages aloud, she appeared to try to byole and made multiple errors (accuracy in the [...] On a standardized questionnaire, her teacher, Bang MarcusMarina, indicated that Shama is an active participant in class, exceeds behavioral expectations, and completes her homework. Performances on tests and quizzes fell in the average range. She rated all academic skills as falling within grade- based expectations (Burkinan/Reading, Writing, Arithmetic/Math, Social Studies, and Science). Emotional [...] areas of concern. Formulation and Diagnostic Impressions Sahma Jolley is a 13-year-old young woman who has been diagnosed with 22q11.2 deletion syndrome.This is a genetic syndrome that can be associated with developmental delays and chronic medical conditions. Her medical status is currently stable. She is currently in 10th grade at [employer] in [place], [place]. She is currently placed in regular education classes and making mostly As. She has a 504 plan (50% extra time on tests, preferential seating) and accesses to a resource room (45 minutes, approximately every other day). The resource room is staffed by a regular education reporter and there is some support around strategies but not across all subjects. 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 Results of [...] those that required her to engage in axte-ss-pxqpi analysis (e.g., putting together puzzle pieces). This [...] medical functioning should be reported to her insulation technician and relevant specialists. 2. Individual Psychotherapy may be helpful to Shama as she prepares for the transition to adulthood. The goals of this intervention may be to help her to develop social communication skills and tobetter appreciate her strengths and weaknesses. If her parents are interested in pursuing this, then they should ask for referrals from her insulation technician. 3. Academic Placement, Services, and Accommodations. Results [...] to work receive daily instruction from a quality review specialist. The following areasshould be targeted: For [...] assistance with skills that place demands on rnzj-we-kgmrf analysis (e.g., fractions, decimals, geometry). ??? She [...] Please feel free to contact me at [phone] if there are questions regarding the results of this evaluation. Kaylynn Ascencio (Molly), Ph.D., ABPP Board Certified in Clinical Neuropsychology Board Certified Subspecialist in Pediatric Neuropsychology Licensed Psychologist CC: The Parents of Shama Jolley Dr. Galvin, [facility] Genetics Score Interpretation Guide: All raw scores [...] Stimulus 4 Sayda-Galicia Executive Function System (D-KEFS) Drifting Making Test Visual Scanning 22 0.00 10 [...] -0.20 48 Within Average Range Visuospatial Functions [facility] Diagn[facility] Dev. Test of Visual Motor Integration (VMI-6) [...] 8 -2.50 63 1 Extremely Low Learning Latimer List A Trials 1-5 0 -3.00 <60 [...] 75 98 Clinically Significant Global Executive Composite (ROXANNE+VA) 1.30 63 89 Within Normal Limits Validity [...] Limits Self-Esteem 0.00 50 Within Normal Limits Self-Drexel -1.90 31 At-Risk Anger Control -0.50 45 [...] Classroom Behavior 4 Superior Current Academic Performance Burkinan/Reading 2 At or About Grade Level Writing [...] standard deviation of 10 Tests Administered by Head Chopper: WISC-V, WRAML-2, DKEFS, CVLT-C, GPB, WIAT-III (NO, Essay, Spelling), MVPT-3 Head Chopper: Myriam King 8 hours 45118 3 hours 68638 documented in this encounter Plan of Treatment Not on file documented as of this encounter Visit Diagnoses Diagnosis 22q11.2 deletion syndrome- Primary Anxiety Anxiety state, unspecified Attention and concentration deficit documented in this encounter Care Teams Manager Billing Relationship Specialty Start Date End Date Hayde Uribe MD PCP - General Pediatrics 07/25/15 documented as of this encounter Additional Source Comments The information contained in this document represents components of the legal health record. It is not the complete legal health record.[facility]
--- OUTSIDE RECORDS SUMMARY | 2024-06-22 18:50 | XMS_ITS | Encounter Summary ---
Author Organization 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 Kaylynn Ascencio, PhD [address] [place] [address] [place] [address] Email: [email or web address] Referral ID Status Reason Start Date Expiration Date Visits Re quested Visits Authorized [id number] Closed 08/07/2019 08/06/2020 1 1 Encounter Details Date Type Department Care Team (Late st Contact Info) Description 08/07/2019 Orders Only [facility] [address] [place] [address] [place]; [address] [place] [address] Blanche Galvin MD [address] [facility] CPZS-175-[address] [place] [address] [email or web address] 22q11.2 deletion syndrome (Primary Dx); Tetralogy [...] Associated Diagnoses Order Schedule Ambulatory referral to [facility] Assessment [facility] - [facility] USE ONLY Outpatient Referral Routine 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 It is not the complete legal health record.[facility]
--- OUTSIDE RECORDS SUMMARY | 2024-06-22 18:50 | XMS_ITS | Encounter Summary ---
Author Organization [facility] [place] [address] Care Team Providers Care Personal Lines Agent Name Role Phone Unavailable Primary Care Provider Unavailabl e Encounter Details Date Type Department Care Team (Late st Contact Info) Description 05/08/2013 4:15 PM EDT Office Visit [facility] [address] [place] [address] Felipe De Luna MD [address] [place] [address] Social History Tobacco Use Types [...]
--- OUTSIDE RECORDS SUMMARY | 2024-06-22 18:50 | XMS_ITS | Encounter Summary ---
Author Organization [facility] [place] [address] Care Team Providers Care Sweeper Driver Name Role Phone Unavailable Primary Care Provider Unavailabl e Encounter Details Date Type Department Care Team ([facility] st Contact Info) Description 08/01/2012 4:15 PM EDT Office Visit [facility] [address] [place] [address] Felipe De Luna MD [address] [place] [address] Social History Tobacco Use Types [...]
--- OUTSIDE RECORDS SUMMARY | 2024-06-22 18:50 | XMS_ITS | Encounter Summary ---
Author Organization [facility] [place] [address] Care Team Providers Care Manager Flight Name Role Phone Unavailable Primary Care Provider Unavailabl e Encounter Details Date Type Department Care Team (Late st Contact Info) Description 03/08/2017 4:15 PM EDT Office Visit Otolaryngology [place] [address] [place] [address] Felipe De Luna MD [address] [place] [address] Social History Tobacco Use Types [...]
--- OUTSIDE RECORDS SUMMARY | 2024-06-22 18:50 | XMS_ITS | Encounter Summary ---
Author Organization [facility] [place] [address] Care Team Providers Care Consumer Loan Manager Name Role Phone Unavailable Primary Care Provider Unavailabl e Encounter Details Date Type Department Care Team (Late st Contact Info) Description 03/09/2011 4:15 PM EDT Office Visit [facility] [address] [place] [address] Felipe De Luna MD [address] [place] [address] Social History Tobacco Use Types [...]
--- OUTSIDE RECORDS SUMMARY | 2024-06-22 18:50 | XMS_ITS | Encounter Summary ---
Author Organization [facility] [place] [address] Care Team Providers Care Heavy Duty Custodian Name Role Phone Unavailable Primary Care Provider Unavailabl e Encounter Details Date Type Department Care Team (Late st Contact Info) Description 11/10/2013 4:30 PM EST Office Visit [facility] [address] [place] [address] Felipe De Luna MD [address] [place] [address] Social History Tobacco Use Types [...]
--- OUTSIDE RECORDS SUMMARY | 2024-06-22 18:50 | XMS_ITS | Encounter Summary ---
Author Organization [facility] [place] [address] Care Team Providers Care Manager Simulation Name Role Phone Unavailable Primary Care Provider Unavailabl e Encounter Details Date Type Department Care Team (Late st Contact Info) Description 06/04/2014 Abstract [facility] Information Services [address] [facility] [place] [phone] Provider, His [place] MD Social History Tobacco [...] 100/64 06/04/2014 10:34 AM EDT Sourced from [place] Conversion Pulse - - Temperature - - Respiratory Rate - - Oxygen Saturation - - Inhaled Oxygen Concentration - - Weight - - Height - - Body Mass Index - - documented in this encounter Plan of Treatment Not on file documented as of this encounter Visit Diagnoses Not on filedocumented in this encounter
--- OUTSIDE RECORDS SUMMARY | 2024-06-22 18:50 | XMS_ITS | Encounter Summary ---
Author Organization [facility] Address [phone] [facility] [place] [address] Care Team Providers Care Network Engineer Name Role Phone Hayde Uribe MD Primary Care Provider U albert Encounter Details Date Type Department Care Team (Late st Contact Info) Description 02/03/2019 9:00 AM EDT Office Visit [facility] Medical Genetics [address] [place] [address] [place]; [address] [address] Blanche Galvin MD [address] [place] [address] [id number] [place] [phone] [email or web address] [email or web address] 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 [facility] for 22q11 Follow-Up Patient Visit Chief Complaint: 22q11.2 Deletion Syndrome Reason for Referral: Wendy Jolley is a 13 y.o. 11 m.o. female seen today in follow-up at the [facility] for 22q11. She was referred by Dr. Uribe. Wendy came today with both her mother and father. We last saw Wendy on 09/14/2017. Interim History Wendy had some problems with being out of breath when running track (400y) in high school. 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 She saw her compression molding machine operator who did an echocardiogram which showed right atrial dilation, but not concerning for a pressure gradient. She has not yet had a catheterization, and they are wa tching her for now. There has been no discussion of pulmonary valve replacement. Wendy has sinceswitched to the [place] event, shot put. Wendy also had a neuropsychological evaluation with Dr. Sugey Ascencio in May 2018. Since we last saw Wendy she has done very well. She has her driving permit and is getting ready to take her driving test in February. Her parents tell me that her driving is going well, that they do not have scary moments with Wendy's driving anymore. Wendy's grades have gone down a bit this semester, but she is taking more difficult courses her sophomore year (Honors Biology, Honors Uruguayan, study galvan, cooking). She is no longer interested inbecoming a nurse, and will be doing Criminal Justice track next year in her high school. Wendy took her math course online last summer, with the help of her mother who is a mathematician research, and this was much less stressful. The plan is to take Algebra II online this summer with a part-time job. Wendy hopes to move into a dorm when she starts college, and is saving her money for college. 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 Wereviewed leonardo systems related to 22q11.2 deletion syndrome. Cardiology: Wendy had a tetralogy of Fallot repair with a transannular patch on 2003 at theage of 2 months. This [facility]. She has had episodes in the past offeeling dizzy and faint, but these were not thought to be cardiac in origin. She now sees cardiology every 2 years. The heart defect was noted prenatally, which prompted genetic testing shortly afterbirth. Palate: No concerns about VPI noted from the family. She has a palate fire manager. In elementary school some kids had trouble understanding her. As a child she would projectile vomit. She rarely had [...] (q11.2) .pedro 22q11.2. No mention of a REEL REPAIRER ever being done. Wendy did see genetics in [place] at 4 months old. Parents were never [...] recently, but will be done today. Immune: Wendy does not have a history of frequent ear infections. She does seem to catch illnesses easily. Her mother recalls one set of labs showing low T cells. 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 Adult teeth appear normally formed. Educational and Occupational History: Wendy is a freshman in high school and [...] reading comprehension. Her favorite class is world [employer]. PMH: Wendy has the following known medical problems: Patient Active Problem List Diagnosis ??? 22q11.2 deletion syndrome ??? Tetralogy of Fallot ??? Hypocalcemia History: History ??? Length: 47.6 cm (1' 6.75) Weight: 2.75 kg (6 lb 1 oz) ??? One: 7 Five: 7 Ten: 8 ??? Delivery Method: Vaginal, Spontaneous ??? Gestation Age: 36 5/7 wks ??? Days in Hospital: 5 ??? [facility] Name: [facility] ??? Hospital Location: [place] Wendy was born to a 35 year old mother. She had grunting with decreased tone at and respiratory effort which required blowby oxygen. In NICU for prematurity. Had hypocalcemia and given calcium gluconate on DOL2, on DOL4 serum calcium was 9.1. Echo during admission showed TOF with small PDA. Genetic consult recommended chromosomes and 22q11 FISH per TOF and hypocalcemia. 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 No current facility-administered medications on file prior to visit. Allergies: No known drug allergies Immunizations: There is no immunization history on file for this patient. Social History: Social History Socioeconomic History ??? Marital status: Single Spouse name: Not on file ??? Number of children: Not on file ??? Years of education: Not on file ??? Highest education level: Not on file Occupational History ??? Not on file Social Needs ??? Financial resource strain: Not on file ??? Food insecurity: Worry: Not on file Inability: Not on file ??? Transportation needs: Medical: Not on file Non-medical: Not on file Tobacco Use ??? Smoking status: Not on file Substance and Sexual Activity ??? Alcohol use: Not on file ??? Drug use: Not on file ??? Sexual activity: Not on file Lifestyle ??? Physical activity: Days per week: Not on file Minutes per session: Not on file ??? Stress: Not on file Relationships ??? Social connections: Talks on phone: Not on file Gets together: Not on file Attends alevism service: Not on file Active member of club or organization: Not on file Attends meetings of clubs or organizations: Not on file Relationship status: Not on file ??? Intimate partner violence: Fear of current or ex partner: Not on file Emotionally abused: Not on file Physically abused: Not on file Forced sexual activity: Not on file Other Topics Concern ??? Not on file Social History Narrative Social History: Wendy lives at home with her mother, father, brother, and sister. They live in [place] town in [place]. She feels better when she is outside and active. She does indoor track and soccer. She does have some trouble with depth perception. She notices this when she skis. Her parents worry about this with driving. She asks a lot of questions over and over. She uses her parents as a safe place to ask questions. Developmental History: As a child Wendy has gross motor and speech delays. Review [...] Fallot Gastrointestinal ROS: negative Urinary ROS: negative Homicide Squad Captain ROS: negative Musculoskeletal ROS: negative Neurological ROS: negative Dermatological ROS: negative Imaging results: Echocardiogram: followed by cardiology at [facility] Cervical spine: Mild reversal of cervical lordosis and C4-5 and C5-6 which may reflect prior ligamentous injury. No evidence of instability. Narrative TECHNIQUE: XR CERVICAL SPINE 4-5 VIEWS COMPARISON: None. FINDINGS: There is mild reversal of cervical lordosis and C4-5 and C5-6 which may reflect prior ligamentous injury. No evidence of instability. The vertebral bodies, posterior elements, and discs are unremarkable. The paraspinal soft tissues are of normal thickness. These are essentially normal films without fusion or other congenital anomalies, or instability Wendy is free to continue with her sports Renal Ultrasound: unclear if this has been done Previous Laboratory Results: Chemistry/Endocrine Chemistry Corrected Calcium is normal 9.3 mg/dL Parathyroid hormone appropriate Thyroid studies are normal CALCIUM Date/Time Value Ref Range Status 02/03/2019 09:39 AM 9.5 8.5 - 10.5 mg/dL Final ALBUMIN Date/Time Value Ref Range Status 02/03/2019 09:39 AM 4.3 3.3 - 5.0 g/dL Final MAGNESIUM Date/Time Value Ref Range Status 02/03/2019 09:39 AM 2.0 1.7 - 2.4 mg/dL Final PHOSPHORUS Date/Time Value Ref Range Status 02/03/2019 09:39 AM 3.6 3.0 - 4.5 mg/dL Final PARATHYROID HORMONE Date/Time Value Ref Range Status 02/03/2019 09:39 AM 46 10 - 60 pg/mL Final FREE T4 Date/Time Value Ref Range Status 02/03/2019 09:39 AM 1.3 0.9 - 1.8 ng/dL Final 09/14/2017 03:44 PM 1.1 0.9 - 1.8 ng/dL Final TSH Date/Time Value Ref Range Status 02/03/2019 09:39 AM 3.01 0.40 - 5.00 uIU/mL Final 09/14/2017 03:44 PM 1.61 0.40 - 5.00 uIU/mL Final Hematology CBC shows normal blood counts with slightly increased mean platelet volume (12.6) Absolute Lymphocyte number is 0.82, which is low. This may be a temporary dip prior to, during, or following infection. This is the likely cause of Wendy's low white blood cell count (WBC). Elevation of MPV is normally seen in people with 22q11.2 deletion WBC Date/Time Value Ref Range Status 02/03/2019 09:39 AM 4.40 (L) 4.5 - 13.5 K/uL Final 09/14/2017 03:44 PM 6.02 4.5 - 13.5 K/uL Final HCT Date/Time Value Ref Range Status 02/03/2019 09:39 AM 36.8 36.0 - 46.0 % Final 09/14/2017 03:44 PM 37.4 36.0 - 46.0 % Final PLT Date/Time Value Ref Range Status 02/03/2019 09:39 AM 170 150 - 450 K/uL Final 09/14/2017 03:44 PM 183 150 - 450 K/uL Final Results for WENDY JOLLEY ( ) as of 02/03/2019 15:45 Ref. Range 02/03/2019 09:39 WBC Latest Ref Range: 4.5 - 13.5 K/uL 4.40 (L) RBC Latest Ref Range: 4.10 - 5.10 M/uL 4.10 Hgb Latest Ref Range: 12.0 - 16.0 g/dL 11.7 (L) HCT Latest Ref Range: 36.0 - 46.0 % 36.8 MCV Latest Ref Range: 78.0 - 102.0 fL 89.8 MCH Latest Ref Range: 25.0 - 35.0 pg 28.5 MCHC Latest Ref Range: 31.0 - 37.0 g/dL 31.8 PLT Latest Ref Range: 150 - 450 K/uL 170 MPV Latest Ref Range: 8.4 - 12.0 fl 13.0 (H) RDW Latest Ref Range: 11.5 - 14.5 % 14.1 Diff Method Unknown Auto Neutrophils Latest Ref Range: 40 - 59 % 65.6 (H) Lymphs Latest Ref Range: 33 - 48 % 18.6 (L) Monos Latest Ref Range: 4 - 11 % 11.4 (H) Eos Latest Ref Range: 0 - 8 % 3.0 Basos Latest Ref Range: 0 - 3 % 0.9 Granulocytes, immature (%) Latest Ref Range: 0.0 - 0.3 % 0.5 (H) NRBC% (auto) Latest Ref Range: 0 - 0.20 /100 WBCs 0.00 Neutrophil # Latest Ref Range: 1.8 - 8.0 K/uL 2.89 Lymph# Latest Ref Range: 1.5 - 6.5 K/uL 0.82 (L) Cheyenne# Latest Ref Range: 0.2 - 1.5 K/uL 0.50 Eos# Latest Ref Range: 0.0 - 1.1 K/uL 0.13 Baso# Latest Ref Range: 0.0 - 0.4 K/uL 0.04 Granulocytes, immature Latest Ref Range: 0.00 - 0.03 K/uL 0.02 NRBC#, auto Latest Ref Range: 0 - 0.01 K/uL 0.00 Physical Exam Vitals: 02/03/19 0848 BP: 108/74 BP Location: Right arm Patient Position: Sitting Cuff Size: Medium Pulse: 74 Weight: 65.7 kg (144 lb 13.5 oz) Height: 170.7 cm (5' 7.21) Body mass index is 22.55 kg/m??. 73 %ile (Z= 0.60) based on CDC (Girls, 2-20 Years) BMI-for-age based on BMI available as of 02/03/2019. Height on 22q11 curve: >>91% for age, and also >>91% for an adult woman with 22q11.2 deletion syndrome Weight on 22q11 curve: 85% BMI on 22q11 curve: 50% 02/03/2019 09/14/2017 Height % 90 %ile (Z= 1.26) based on CDC (Girls, 2-20 Years) Khsjznj-feb-rkp data based on Stature recorded on 02/03/2019. 83 %ile (Z= 0.96) based on CDC (Girls, 2-20 Years) Ffzqlmo-ppd-lrb data based on Stature recorded on 09/14/2017 from contact on 09/14/2017. Weight % 84 %ile (Z= 1.01) based on CDC (Girls, 2-20 Years) xawtck-hvr-tgt data using vitals from 02/03/2019. 86 %ile (Z= 1.07) based on [facility] (Girls, 2-20 Years) tuqqts-oxf-vlk data using vitals from 09/14/2017 from contact on 09/14/2017. Physical Examination: General: alert, active, in no [...] Mouth: unremarkable, normal appearing palate with palate fire manager in place, long, normal appearing midline uvula, [...] Cranial Nerves: intact and Muscle Mass: normal Assessment Wendy is a 13 y.o. 11 m.o. 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 Of note, Wendy has no history of ear/sinus infections or pneumonia, no history of palate defects/repair with the exception of her palate fire manager for narrow palate, no current or additional history of seizures or hypocalcemia out side the period, no behavioral or psychiatric concerns including no previous diagnosis ofADHD, anxiety, or depression. She has a robust social life and is participating in indoor track, outdoor track/field, and soccer teams. Wendy is very interested in getting good grades to go to college, and as yet is not certain what she would like to study but possibly history would be of interest. Of note, Wendy's mother is a high density talc coater operator, and she has considerable support at home with any math questions, and the plan is that Wendy will take Algebra II next summer Overall, we feel that Wendy is doing really well. She appears to be on the higher functioning side of the spectrum of 22q11.2 deletion syndrome. We are pleased at how well she is doing in school. Wendy took a little dip in her grades but is doing respectably in her two honors classes. Should Wendy go to college (she has ambition to leave home and live in a dorm), we would want to do a neuropsychology evaluation close to the time of high school graduation for accommodations in college. Wendy now has her permit, and will have her driving test in the next month! Wendy has never had a renal ultrasound, which is recommended at diagnosis. I will give her parents an order and they will be able to schedule this study closer to home. Wendy's parents are interested in spreading out her 22q11 clinic visits as it is a long travel from [place] to [place]. We will alternate the 22q11 labs at home with her locomotive oiler--so in January 2020 or thereabouts Wendy should have serum calcium, albumin, Mg, Phos, parathyroid hormone, free T4, TSH, and CBC with differential. If these studies could be faxed by Dr. Uribe's office I would greatly appreciate it Should Wendy have increased distress, stress, anxiety where it is interfering with her schoolwork, social life, and other endeavors, I would be happy to schedule an appointment sooner than January 2021. Background Individuals with 22q11.2 deletion syndrome, also known by clinical diagnoses of DiGeorge Syndrome, Ugxk-ulnrxw-ifmghb Syndrome, autosomal dominant Opitz G/BBB syndrome among [...] special needs trusts, guardianship or power of buffing wheel former automatic, and supported employment and/or independent living environments. [...] contraceptive services. Resources for Patients and Families: [facility] for [facility]q11 at [facility]: http://www.[facility].org/children/services/treatmentprograms.aspx?cc=1466? Check out the Support and Wellness Tab to see many helpful websites and agencies in your area! ? [facility] 22q11 Clinic Page on Facebook: https://www.[employer].com/WLS58c14.2Clinic We put up informational posts of interest to families with 22q11 Deletion syndrome nearly every day ? [facility] 22q11 Clinic on [employer]: [email or web address] ? 22q Nation ([place] Support for patients with 22q11 Deletion Syndrome) Contact Ana Gómez . This is a large support network of patients and families in the [place] region. Ana is a parent of a young woman with 22q11 deletion syndrome and very knowledgeable about local resources ? Facebook has pages for families in each state of the [place] where patients and families can meet each [...] will be on March 04, 2018 at [facility] (near [place]) Contact is Sarita [email or web address] has a summer camp for children and teens with 22q11 deletion syndrome outside [place] http://www.Rep.org/programs http://22q.es has information about 22q11 conditions for Panamanian speaking families. The [employer] organization has great articles in Panamanian about anxiety, depression, and schizophrenia: http://www.Jibe.org/Find-Support/Diverse-Communities/Czhyoq-Gsbswa-Lojhuk/La-raulito ih-qkreuz-tt-xu-afgrtrnxe-yobidz Reference Imtiaz NIÑO et al, Practical Guidelines for managing patients with 22q11.2 deletion syndrome, Journal of Pediatrics 2011; 159(2):332-339. Imtiaz NIÑO, et al. Clinical features of 78 adults with 22q11 deletion syndrome, Am J Med Jaz 2005; 138A:307-313. These guidelines are publicly available at the following website: http://www.ncbi.nlm.nih.gov/pmc/articles/UFM8318519/pdf/zrzqy3164.pdf Plan 1. Calcium, albumin, vitamin D, PTH, [...] they arise 5. Review recurrence risk?? (done with last visit) 6. Next neuropsychological evaluation in January 2021. 7. Annual influenza vaccination?? (Hayde Uribe MD (Inactive), or new PCP) 8. Renal ultrasound: Parents have order to perform this locally 9. Follow up in 2 years based on family preference given distance to [place]. If Lali and her family opt for 2 year visit we would recommend that Dr. Uribe (Inactive) order labs listed above (see#1) for routine screening in one year. documented in this encounter Plan of Treatment Not on file documented as of this encounter Results * XR CERVICAL SPINE [...] Mcmahon. Blanche Galvin MD IMG XR SPINE * TSH (02/03/2019 9:39 AM EDT) TSH 3.01 0.40 - 5.00 uIU/mL [facility] 02/03/2019 9:39 AM EDT 02/03/2019 12:10 PM EDT Blanche Galvin MD LAB BLOOD ORDERABL ES [address] [address] * Phosphorus (02/03/2019 9:39 AM EDT) PHOSPHORUS 3.6 3.0 - 4.5 mg/dL [facility] 02/03/2019 9:39 AM EDT 02/03/2019 12:10 PM EDT Blanche Galvin MD LAB BLOOD ORDERABL ES [address] [address] * Parathyroid hormone (PTH) (02/03/2019 9:39 AM EDT) PARATHYROID HORMONE 46 10 - 60 pg/mL [facility] 02/03/2019 9:39 AM EDT 02/03/2019 12:10 PM EDT Blanche Galvin MD LAB BLOOD ORDERABL ES Performing Organization Address City/[facility]/ZIP Co de Phone Number [address] [address] * Magnesium (02/03/2019 9:39 AM EDT) MAGNESIUM 2.0 1.7 - 2.4 mg/dL [facility] 02/03/2019 9:39 AM EDT 02/03/2019 12:10 PM EDT Blanche Galvin MD LAB BLOOD ORDERABL ES Performing Organization Address City/[facility]/ZIP Co de Phone Number [address] [address] * Free T4 (02/03/2019 9:39 AM EDT) FREE T4 1.3 0.9 - 1.8 ng/dL [facility] 02/03/2019 9:39 AM EDT 02/03/2019 12:10 PM EDT Blanche Galvin MD LAB BLOOD ORDERABL ES Performing Organization Address City/[facility]/ZIP Co de Phone Number [address] [address] * (ABNORMAL) CBC and differential (02/03/2019 9:39 AM EDT) WBC 4.40(L) 4.5 - 13.5 K/uL [facility] RBC 4.10 4.10 - 5.10 M/uL [facility] HGB 11.7(L) 12.0 - 16.0 g/dL [facility] HCT 36.8 36.0 - 46.0 % [facility] PLT 170 150 - 450 K/uL [facility] MCV 89.8 78.0 - 102.0 fL [facility] MCH 28.5 25.0 - 35.0 pg [facility] MCHC 31.8 31.0 - 37.0 g/dL [facility] RDW 14.1 11.5 - 14.5 % [facility] MPV 13.0(H) 8.4 - 12.0 fl [facility] NRBC 0.00 0 - 0.20 /100 WBCs [facility] ABSOLUTE NRBC 0.00 0 - 0.01 K/uL [facility] DIFF METHOD Auto [facility] NEUTS 65.6(H) 40 - 59 % [facility] LYMPHS 18.6(L) 33 - 48 % [facility] MONOS 11.4(H) 4 - 11 % [facility] EOS 3.0 0 - 8 % [facility] BASOS 0.9 0 - 3 % [facility] % IMMATURE GRANS 0.5(H) 0.0 - 0.3 % [facility] ABSOLUTE NEUTS 2.89 1.8 - 8.0 K/uL [facility] ABSOLUTE LYMPHS 0.82(L) 1.5 - 6.5 K/uL [facility] ABSOLUTE MONOS 0.50 0.2 - 1.5 K/uL [facility] ABSOLUTE EOS 0.13 0.0 - 1.1 K/uL [facility] ABSOLUTE BASOS 0.04 0.0 - 0.4 K/uL [facility] ABS IMMATURE GRANS 0.02 0.00 - 0.03 K/uL [facility] Blood 02/03/2019 9:39 AM EDT 02/03/2019 12:11 PM EDT Blanche Galvin MD LAB BLOOD ORDERABL ES Performing Organization Address City/[facility] Co de Phone Number [facility] [address] [place] [address] * Calcium (02/03/2019 9:39 AM EDT) CALCIUM 9.5 8.5 - 10.5 mg/dL [facility] 02/03/2019 9:39 AM EDT 02/03/2019 12:10 PM EDT Blanche Galvin MD LAB BLOOD ORDERABL ES Performing Organization Address City/[facility] Co de Phone Number [address] [address] * Albumin (02/03/2019 9:39 AM EDT) ALBUMIN 4.3 3.3 - 5.0 g/dL [facility] 02/03/2019 9:39 AM EDT 02/03/2019 12:10 PM EDT Blanche Galvin MD LAB BLOOD ORDERABL ES Performing Organization Address City/[facility] Co de Phone Number [facility] [address] [place] [address] * 25-OH vitamin D (02/03/2019 9:39 AM EDT) 25 OH VIT D (TOTAL) 23 20 - 80 ng/mL [facility] 02/03/2019 9:39 AM EDT 02/03/2019 12:10 PM EDT Blanche Galvin MD LAB BLOOD ORDERABL ES Performing Organization Address City/[facility] Co de Phone Number [address] [address] documented in this encounter Visit Diagnoses Diagnosis 22q11.2 deletion syndrome- Primary Hypocalcemia documented in this encounter Care Teams Network Engineer Relationship Specialty Start Date End Date Hayde Uribe MD PCP - General Pediatrics 07/25/15 documented as of this encounter Additional Source Comments The information contained in this document represents components of the legal health record. It is not the complete legal health record.[facility]
--- OUTSIDE RECORDS SUMMARY | 2024-06-22 18:50 | XMS_ITS | Encounter Summary ---
Author Organization [facility] [place] [address] Care Team Providers Care Neon Sign Erector Name Role Phone Unavailable Primary Care Provider Unavailabl e Encounter Details Date Type Department Care Team (Late st Contact Info) Description 03/08/2017 Abstract [facility] Information Services [address] [place] [id number] Provider, His [place] MD Social History Tobacco [...] 108/62 03/08/2017 4:15 PM EDT Sourced from [facility] Pulse - - Temperature - - Respiratory Rate - - Oxygen Saturation - - Inhaled Oxygen Concentration - - Weight 59 kg (130 lb) 03/08/2017 4:15 PM EDT Sourced from [place] Conversion Height - - Body Mass Index - - documented in this encounter Plan of Treatment Not on file documented as of this encounter Visit Diagnoses Not on filedocumented in this encounter
--- NOTE | 2024-06-22 19:54 | DI.VRAD_ITS ---
PROCEDURE INFORMATION: Exam: XR Left Finger(s) Exam date and time: 06/22/2024 7:18 PM Age: 19 years old Clinical indication: Finger(s); Left middle finger pain down into palm, unable to straighten TECHNIQUE: Imaging protocol: Radiologic exam of the left fingers. Views: Minimum 2 views. COMPARISON: No relevant prior studies available. FINDINGS: Bones/joints: No acute fracture. No dislocation. Mild dorsal angulation at the level of the left 3rd DIP joint. Soft tissues: No soft tissue radiopaque foreign body. IMPRESSION: 1. Mild dorsal angulation at the level of the left 3rd DIP joint. 2. No acute fracture or dislocation. Dictated and Authenticated by: Raúl Garduno MD. Ordering:RBANDON Isaac MD
== END 2024-06-22 20:14 | disposition home or self-care (01) ==
PROVIDERS: Emergency Provider Physician Assistant
DX: M20.012 Mallet finger of left finger(s) (principal); M79.642 Pain in left hand
CPT/HCPCS: 29130; 99283; 73140

== ENCOUNTER 2024-08-14 15:31 | Outpatient (CLI) | payer BC, SELFPAY ==
--- NOTE | 2024-08-14 15:15 | DI.RAD_ITS ---
Exam(s) XR CHEST 2V PA LATERAL EXAM: XR CHEST 2V PA LATERAL CLINICAL HISTORY: SOB, RO6.02, evaluate pathology TECHNIQUE: 2D digital imaging was performed. Two views. COMPARISON: CR XR PORTABLE CHEST AP from 05/18/2024 FINDINGS: HEART: Normal size. Aorta: Right-sided aortic arch. PULMONARY VASCULATURE: Normal. MEDIASTINUM: Unremarkable. LUNGS: Clear. Azygos lobe, normal variant. PLEURAL SPACE: No pleural effusion or pneumothorax. BONE:Unremarkable for age. Sternal wires. SOFT TISSUES: Unremarkable. IMPRESSION: No acute abnormality. DATA REPOSITORY: RADIATION DOSE DELIVERED:
== END 2024-08-14 15:51 ==
LOC: DI 15:33
PROVIDERS: Visit Provider Nurse Practitioner Family
DX: R06.02 Shortness of breath (principal)
CPT/HCPCS: 71046

== ENCOUNTER 2024-09-01 13:40 | Outpatient (CLI) | payer BC, SELFPAY ==
--- NOTE | 2024-09-01 13:30 | RT.EKG_ITS ---
APPROVED REPORT Exam: Resting ECG Reason for Exam: evaluate cardiac status Patient Location: O HR:60 bpm ECG Measurements Heart Rate 60 AXIS RI 166 P -16 QRSd 147 QRS 34 QT 471 T 37 QTc 471 Conclusion Sinus rhythm...normal P axis, V-rate 50- 99 Right bundle branch block...QRSd>120, terminal axis(90,270)
== END 2024-09-01 13:41 | disposition home or self-care (01) ==
LOC: DI.CM 13:40
PROVIDERS: Visit Provider Physician Assistant
DX: R07.9 Chest pain, unspecified (principal)
CPT/HCPCS: 93010

== ENCOUNTER 2024-09-01 14:38 | Emergency (ER) | payer BC, SELFPAY ==
--- NOTE | 2024-09-01 14:30 | RT.EKG_ITS ---
APPROVED REPORT Exam: Resting ECG Reason for Exam: chest pain Patient Location: E HR:57 bpm ECG Measurements Heart Rate 57 AXIS NH [id number] P [id number] QRSd 152 QRS 24 QT 487 T 32 QTc 474 Conclusion Atrial fibrillation at a rate of 57 with a RBBB without acute ischemic change
[2024-09-01 14:40] VITALS: BP 139/94; PULSE 66; RESP 18; TEMP 36.7; O2SAT 99
--- NOTE | 2024-09-01 14:57 | W.ED.GENAD ---
Discharge Plan Disposition Patient Disposition: Home Condition: Stable Discharge Details Clinical Impression: Atrial fibrillation, Chest pain Primary Care Provider: Inge Carl ED Provider: Annel Childs Home Meds and New Rx's Prescriptions: No Action No Known Home Meds Discharge Instructions Instructions: Chest Pain, Adult ED, Atrial Fibrillation and Atrial Flutter ED Additional Instructions: Please follow-up with your eating disorder specialist at [facility]. Please call their office on Wednesday to arrange an appointment. Stand Alone Forms: Work Release Discharge Data Discharge Physician: Annel Childs HPI General Date/Time Provider Initiated Documentation: 09/01/24 14:44. HPI Narrative: The patient is a 19-year-old female with a history of tetralogy of Fallot status postrepair as an who comes emergency department for chest pain. The patient reports that last night she was tossing and turning in bed around 10 PM she felt sensation of constriction in the middle of her chest without radiation. Reports that she also felt that her heart was racing but she checked her watch and her heart rate was not fast. Reports this has been on and off since last night and has not gone away. Reports that she has had similar type problem in the past more frequently since spring without any particular finding on workup. Reports she last saw her eating disorder specialist at [facility] last spring was unremarkable echocardiogram. Reports that she is supposed to follow-up next spring but is thinking of following up sooner due to the recurrent nature of her chest discomfort. Reports that she is currently not on medications including [id number] medications and in fact discontinued her control pills 3 months ago. Denies any fevers or chills with this. Denies any cough. Denies leg pain or leg swelling or recent travel. Denies any abdominal pain, nausea or vomiting or any concern. Reports that the symptoms that she is experiencing today comes and goes without exacerbating or relieving factor and varies in duration. Related Data Home Medications ?Medication ?Instructions ?Recorded ?Confirmed Unknown [No Known Home Meds] 09/01/24 09/01/24 Allergies Allergy/AdvReac Type Severity Reaction Status Date / Time No Known Allergies Allergy Verified 09/01/24 13:24 General Stated Complaint: Chest Pain BERTIN: 3 Review of Systems Narrative: Review of systems are negative except as mentioned. Constitutional Constitutional: Denies fever(s) Cardiovascular Cardiovascular: Reports as per HPI, Reports chest pain, Denies leg edema, Reports palpitations and Denies dyspnea Respiratory Respiratory: Denies cough and Denies dyspnea Gastrointestinal Gastrointestinal: Denies abdominal pain Endocrine Endocrine: Reports palpitations Exam Narrative Exam Narrative: The patient is in no acute distress. Patient is alert awake oriented x 3. Oral mucosal membranes are moist. Heart is regular in rate and rhythm with a equal radial pulses. Lungs are clear to auscultation. The abdomen is soft with normal bowel sounds and nontender to palpation throughout. No lower extremity edema or calf tenderness is noted bilaterally. Speech is clear. She has no facial asymmetry. Skin is warm and dry. Const General: healthy appearing, comfortable and no acute distress Chest Chest: normal palpation of entire chest wall and no tenderness Resp Effort & Inspection: normal respiratory effort Auscultation: clear to auscultation bilaterally Cardio Rate: regular rate Rhythm: regular rhythm Course Vital Signs Vital signs: Vital Signs Temperature 36.7 C 09/01/24 14:40 Pulse 66 09/01/24 14:40 Respiratory Rate 18 09/01/24 14:40 Blood Pressure 139/94 H 09/01/24 14:40 Pulse Oximetry 99 09/01/24 14:40 Temperature 36.7 C 09/01/24 14:40 Temperature Source Oral 09/01/24 14:40 Pulse 66 09/01/24 14:40 Respiratory Rate 18 09/01/24 14:40 Respiratory Effort Normal, Non-Labored 09/01/24 14:45 Blood Pressure 139/94 H 09/01/24 14:40 Blood Pressure Position Supine 09/01/24 14:40 Pulse Oximetry 99 09/01/24 14:40 Oxygen Delivery Method Room Air 09/01/24 14:40 Oxygen Flow Rate 0 09/01/24 14:40 Pain Level 5 09/01/24 14:40 Medical Decision Making Due to patient's past medical history cardiac workup has been started. An EKG had been done which showed that the patient is in atrial fibrillation. At the time of my evaluation the patient had regular rate and rhythm. It appeared to be regular on the monitor as well. This will need to be closely observed. I ordered a repeat EKG which shows that the patient is back in sinus rhythm. I spoke with the patient regarding this and states that she is always in and out of atrial fibrillation and this is not anything unusual for her. Given this history I wonder if the irregular, rapid beat that she felt on and off since last night could be rapid atrial fibrillation that I am not able to capture today just yet. She continues to be on the monitor for now. Chest x-ray is back and this is unremarkable. Blood work is back and it is nondiagnostic with normal D-dimer, troponin, counts and chemistries. I updated the patient on workup result and of plan for discharge. She is encouraged to follow-up with her eating disorder specialist through [facility] and urged to return to the emergency department with any worsening symptoms or any other concerns. The patient's heart score is 1 which puts her at a low risk for major adverse cardiac event. The patient's CHADS score is 0 therefore we will hold off on starting her anticoagulation. Again patient is aware of diagnosis of atrial fibrillation through her eating disorder specialist and they did not recommend anticoagulation either. Patient agreed to plan of discharge. She has requested a work note which will be provided to her also. Imaging Data Radiologic Study: Imaging: X-Ray Radiologist's impression: No acute pulmonary findings. ECG Data Attestation: I personally reviewed and interpreted this ECG (s) as follows: (Atrial fibrillation at a rate of 57 with a RBBB without acute ischemic change) Interpretation: I reviewed her EKG and it shows that the patient is back to sinus rhythm at a rate of 55 with a RBBB without acute ischemic change Quality:SDOH Health Related Social Needs: No Data to Display PFSH All Active Problems (Updated 09/01/24 @ 16:03 by Annel Childs DO) Chest pain (Acute) Atrial fibrillation (Chronic) Social History Smoking/Tobacco Use Status: Never Smoking risk assessment performed?: Yes Alcohol Intake: never Drug use: Socially Substance use type: marijuana Housing: apartment Do you feel safe at home: Yes Do you feel safe in your relationship?: Yes
[2024-09-01 15:05] LABS: Abs Immature Grans 0.01 10^3/uL (0.0-0.06); Absolute Basophil Count 0.05 10^3/uL (0.0-0.2); Absolute Lymphocyte Count 0.98 10^3/uL (1.2-3.4); Absolute Monocyte Count 0.44 10^3/uL (0.1-0.8); Absolute Neutrophil Count 3.56 10^3/uL (1.2-6.7); Eosinophils % 1.9 %; HCT 37.1 % (36.0-46.0); HGB 12.1 g/dL (11.2-15.7); Immature Grans % 0.2 %; Lymphocytes % 19.1 %; MCHC 32.6 % (32.0-36.0); MCV 92 fL (80-95); MPV 11.9 fL (8.0-11.0); Monocytes % 8.6 %; Neutrophils % 69.2 %; Platelet Count 182 10^3/uL (130-400); RBC 4.03 10^6/uL (3.93-5.22); RDW 13.2 % (11.7-14.6); RDW-SD 44.1 fL; WBC 5.14 10^3/uL (4.4-10.8)
--- NOTE | 2024-09-01 15:07 | DI.RAD_ITS ---
Exam(s) XR CHEST 2V PA LATERAL EXAM: XR CHEST 2V PA LATERAL CLINICAL HISTORY: chest pain TECHNIQUE: 2D digital imaging was performed of the chest. Two images were obtained. PA and lateral views were obtained. COMPARISON: CR XR CHEST 2V PA LATERAL from 08/14/2024 FINDINGS: MEDIASTINUM: Normal. HEART: Normal. PULMONARY VASCULATURE: Note is again made of a right-sided aortic arch. LUNGS: No focal consolidating infiltrates are seen. Note is also made of a azygos lobe which is a no rmal variant. PLEURAL SPACE: No pleural effusion or pneumothorax. BONE:Within normal limits for the patient's age. Sternal wires are in place. OTHER FINDINGS:Normal. IMPRESSION: No acute pulmonary findings. DATA REPOSITORY: RADIATION DOSE DELIVERED:
--- NOTE | 2024-09-01 15:15 | RT.EKG_ITS ---
APPROVED REPORT Exam: Resting ECG Reason for Exam: repeat ekg Patient Location: E HR:55 bpm ECG Measurements Heart Rate 55 AXIS LA 63 P 0 QRSd 147 QRS 18 QT 500 T 45 QTc 478 Conclusion Sinus rhythm at a rate of 55 with a RBBB without acute ischemic change. In comparison to EKG done ear lier on the same day, the patient is back to sinus rhythm.
[2024-09-01 15:36] LABS: ALT 34 U/L (14-59); AST 68 U/L (15-37); Albumin 4.3 g/dL (3.4-5.0); Alkaline Phosphatase 64 U/L (46-116); Anion Gap 12.2 mmol/L (3-11); BUN 8 mg/dL (7-18); Bilirubin, Total 0.49 mg/dL (0.2-1.0); CO2 24.8 mmol/L (21.0-32.0); CREATININE 1.2 mg/dL (0.55-1.02); Calcium 9.3 mg/dL (8.5-10.1); Chloride 105 mmol/L (98-107); Estimated GFR 66.05 (mL/min/1.73m2); Glucose 93 mg/dL (74-106); Magnesium 1.8 mg/dL (1.8-2.4); Potassium 3.9 mmol/L (3.5-5.1); Sodium 142 mmol/L (136-145); Total Protein 7.8 g/dL (6.4-8.2); Troponin I 9 ng/L (<or=51)
[2024-09-01 15:37] LABS: D-Dimer 296 ng/mlFEU (<500)
[2024-09-01 15:48] LABS: HCG Qual (Serum) Negative
[2024-09-01 15:50] VITALS: BP 111/67; PULSE 64; PULSE 72; RESP 11; O2SAT 98
[2024-09-01 16:00] VITALS: PULSE 62; RESP 11; O2SAT 95
[2024-09-01 16:01] VITALS: BP 127/93; PULSE 62; PULSE 65; RESP 10; O2SAT 96
[2024-09-01 16:10] VITALS: PULSE 59; RESP 15; O2SAT 96
== END 2024-09-01 16:20 | disposition home or self-care (01) ==
PROVIDERS: Emergency Provider Emergency Medicine; PCP Pediatrics
DX: I48.91 Unspecified atrial fibrillation (principal); R07.9 Chest pain, unspecified
CPT/HCPCS: 80053; 93005; 99285; 71046; 83735; 84484; 84703; 85025; 85379; 93010; 99284

== ENCOUNTER 2024-09-09 10:43 | Emergency (ER) | payer BC, SELFPAY ==
[2024-09-09] VITALS (18 sets, daily range): BP systolic 99–122; BP diastolic 45–78; PULSE 49–75; RESP 10–19; TEMP 36.9; O2SAT 97–100
--- NOTE | 2024-09-09 10:30 | RT.EKG_ITS ---
APPROVED REPORT Exam: Resting ECG Reason for Exam: chest pain Patient Location: E HR:73 bpm ECG Measurements Heart Rate 73 AXIS MA 148 P 5 QRSd 143 QRS 70 QT 442 T 40 QTc 485 Conclusion Sinus rhythm...normal P axis, V-rate 60- 99 Atrial premature complex...SV complex w/ short R-R interval Right bundle branch block...QRSd>120, terminal axis(90,270)
--- NOTE | 2024-09-09 10:58 | W.ED.GENAD ---
Discharge Plan Disposition Patient Disposition: Home Condition: Stable Discharge Details Clinical Impression: Chest pain Primary Care Provider: Inge Carl ED Provider: Kamryn Mancilla Home Meds and New Rx's Prescriptions: No Action No Known Home Meds Discharge Instructions Instructions: Chest Pain, Adult ED Additional Instructions: At this time the cardiac workup is within normal limits. No evidence to suggest any infection blood clots in your lungs or cardiac abnormality. However please follow-up with your night club manager as discussed for recurrent chest pain. Follow up with primary care provider in 3-5 days. Return to ED sooner if any worsening or concerns. Consider taking 2 chewable baby aspirin's daily. Stand Alone Forms: Work Release Referrals: Inge Carl [Primary Care Provider] - 1 week HPI General Mode of arrival: ambulatory. Date/Time Provider Initiated Documentation: 09/09/24 10:47. Limitations to Documentation: no limitations. Information obtained by: patient, RN notes reviewed and old records reviewed. HPI Narrative: 19-year-old female presents to the ER with chief complaint of midsternal chest pain which is constant since last night. Patient was seen here approximately a week ago for similar and had a negative workup at that time. She reports some nausea last night was unable to vomit and some mild shortness of breath this morning. Patient does have a history of tetralogy of Fallot which was repaired as an child. She also has a history of atrial fibrillation and is anticoagulated. EKG is unchanged from last week shows right bundle branch block. Denies any other associated symptoms or concerns however patient does report recent URI type symptoms. Related Data Home Medications ?Medication ?Instructions ?Recorded ?Confirmed Unknown [No Known Home Meds] 09/01/24 09/09/24 Allergies Allergy/AdvReac Type Severity Reaction Status Date / Time No Known Allergies Allergy Verified 09/09/24 11:09 General Stated Complaint: Chest Pain BERTIN: 2 Review of Systems All systems reviewed & are unremarkable except as noted in HPI and below Cardiovascular Cardiovascular: Reports as per HPI, Reports chest pain and Reports chest pain at rest Exam Narrative Exam Narrative: Constitutional: Alert and oriented x3. Appears stated age. Normal body habitus. Head: Normocephalic, no trauma. Eyes: Pupils PERRL, Red reflex noted, EOM's intact. Eyelids symmetrical without lesions, discharge, or swelling. ENT: Bilateral TM's WNL, External ear normal to inspection, no mastoid TTP, swelling, or erythema, Nasal turbinates WNL, no nasal discharge. Normal dentition, Posterior pharynx WNL, no exudate. Chest: RRR, Normal S1, S2, distal pulses intact. Healed midsternal scar. Resp: Lungs clear to auscultation bilaterally, no wheezes, rales, or rhonchi. Abdomen: Soft, non-distended, Normoactive bowel sounds all 4 quads. Musculoskeletal: Normal gait, Moves all 4 extremities without difficulty. Skin: No suspicious rashes or lesions. Capillary refill less than 2 sec. Neurologic: Cranial nerves II-XII intact. Alert and oriented x 3. Motor: No deficits noted. Sensory: Intact bilaterally all 4 extremities. Hematologic/Lymphatic: No ecchymosis, no lymphadenopathy. Course Vital Signs Vital signs: Vital Signs Temperature 36.9 C 09/09/24 10:44 Pulse 68 09/09/24 10:44 Respiratory Rate 16 09/09/24 10:44 Blood Pressure 122/78 09/09/24 10:44 Pulse Oximetry 99 09/09/24 10:44 Temperature 36.9 C 09/09/24 10:44 Temperature Source Oral 09/09/24 10:44 Pulse 68 09/09/24 10:44 Respiratory Rate 16 09/09/24 10:44 Blood Pressure 122/78 09/09/24 10:44 Blood Pressure Position Sitting 09/09/24 10:44 Pulse Oximetry 99 09/09/24 10:44 Oxygen Delivery Method Room Air 09/09/24 10:44 Oxygen Flow Rate 0 09/09/24 10:44 Pain Level 8 09/09/24 10:44 Medical Decision Making Cardiac workup ordered including troponin and D-dimer. EKG was reviewed by Dr. Janes JEFFERS attending, old EKG available for review, no significant change from previous. Initial cardiac workup within normal limits, repeat troponin within normal limits. D-dimer 271. Magnesium slightly low at 1.7. Will give magnesium supplement. On patient reevaluation patient is still complaining of pain. I did discuss plan of care to give Ativan she verbalized understanding. Differential diagnosis includes not limited to anxiety, musculoskeletal strain, or other. Patient discharged in hemodynamically stable condition. This text was generated using Nuance dictation system, please disregard any oddities of phrase or misspellings. Medical Records Medical records reviewed: Yes I reviewed the patient's medical records. Lab Data Lab results reviewed: Yes I reviewed the patient's lab results. Labs: Laboratory Tests Range/Units 09/09/24 09/09/24 11:02 12:02 WBC (4.4-10.8) 10^3/uL 4.57 RBC (3.93-5.22) 10^6/uL 4.24 Hgb (11.2-15.7) g/dL 12.8 Hct (36.0-46.0) % 39.5 MCV (80-95) fL 93 MCH (27.0-33.0) pg 30.2 MCHC (32.0-36.0) % 32.4 RDW (11.7-14.6) % 13.3 Plt Count (130-400) 10^3/uL 160 MPV (8.0-11.0) fL 12.1 H Immature Gran % % 0.2 Neutrophils % % 61.3 Lymphocytes % % 22.1 Monocytes % % 9.6 Eosinophils % % 5.5 Basophils % % 1.3 Nucleated RBC % (0.0-0.3) % 0.0 Absolute Neutrophils (1.2-6.7) 10^3/uL 2.80 Absolute Lymphocytes (1.2-3.4) 10^3/uL 1.01 L Absolute Monocytes (0.1-0.8) 10^3/uL 0.44 Absolute Eosinophils (0.0-0.7) 10^3/uL 0.25 Absolute Basophils (0.0-0.2) 10^3/uL 0.06 D-Dimer (<500) ng/mlFEU 271 Sodium (136-145) mmol/L 142 Potassium (3.5-5.1) mmol/L 3.8 Chloride (98-107) mmol/L 106 Carbon Dioxide (21.0-32.0) mmol/L 25.3 Anion Gap (3-11) mmol/L 10.7 BUN (7-18) mg/dL 9 Creatinine (0.55-1.02) mg/dL 1.0 Est GFR (CKD-EPI 2020) (mL/min/1.73m2) 82.20 Glucose (74-106) mg/dL 98 Calcium (8.5-10.1) mg/dL 8.9 Magnesium (1.8-2.4) mg/dL 1.7 L Total Bilirubin (0.2-1.0) mg/dL 0.62 AST (15-37) U/L 18 ALT (14-59) U/L 26 Alkaline Phosphatase (46-116) U/L 58 Troponin I (<or=51) ng/L < 4 < 4 Total Protein (6.4-8.2) g/dL 7.8 Albumin (3.4-5.0) g/dL 4.0 Quality:SDOH Health Related Social Needs: No Data to Display PFSH All Active Problems (Updated 09/09/24 @ 12:32 by Kamryn Mancilla NP) Chest pain (Acute) Atrial fibrillation (Chronic) Social History Smoking/Tobacco Use Status: Never Smoking risk assessment performed?: Yes Alcohol Intake: never Drug use: Socially Substance use type: marijuana Housing: apartment Do you feel safe at home: Yes Do you feel safe in your relationship?: Yes
[2024-09-09] MEDS: Aspirin 81 MG CHEW 324 MG CH (11:12)
[2024-09-09 11:17] LABS: Abs Immature Grans 0.01 10^3/uL (0.0-0.06); Absolute Basophil Count 0.06 10^3/uL (0.0-0.2); Absolute Eosinophil Count 0.25 10^3/uL (0.0-0.7); Absolute Lymphocyte Count 1.01 10^3/uL (1.2-3.4); Absolute Monocyte Count 0.44 10^3/uL (0.1-0.8); Basophils % 1.3 %; Eosinophils % 5.5 %; HCT 39.5 % (36.0-46.0); HGB 12.8 g/dL (11.2-15.7); Immature Grans % 0.2 %; Lymphocytes % 22.1 %; MCH 30.2 pg (27.0-33.0); MCHC 32.4 % (32.0-36.0); MCV 93 fL (80-95); MPV 12.1 fL (8.0-11.0); Monocytes % 9.6 %; Neutrophils % 61.3 %; Platelet Count 160 10^3/uL (130-400); RBC 4.24 10^6/uL (3.93-5.22); RDW 13.3 % (11.7-14.6); RDW-SD 45.6 fL; WBC 4.57 10^3/uL (4.4-10.8)
[2024-09-09 11:28] LABS: ALT 26 U/L (14-59); AST 18 U/L (15-37); Alkaline Phosphatase 58 U/L (46-116); Anion Gap 10.7 mmol/L (3-11); BUN 9 mg/dL (7-18); Bilirubin, Total 0.62 mg/dL (0.2-1.0); CO2 25.3 mmol/L (21.0-32.0); Calcium 8.9 mg/dL (8.5-10.1); Chloride 106 mmol/L (98-107); Glucose 98 mg/dL (74-106); Magnesium 1.7 mg/dL (1.8-2.4); Potassium 3.8 mmol/L (3.5-5.1); Sodium 142 mmol/L (136-145); Total Protein 7.8 g/dL (6.4-8.2)
[2024-09-09 11:31] LABS: Troponin I < 4 ng/L (<or=51)
[2024-09-09 11:52] LABS: D-Dimer 271 ng/mlFEU (<500)
[2024-09-09] MEDS: LORazepam 0.5 MG TAB PO (12:09)
[2024-09-09 12:26] LABS: Troponin I < 4 ng/L (<or=51)
== END 2024-09-09 12:40 | disposition home or self-care (01) ==
PROVIDERS: Emergency Provider Registered Nurse Emergency; PCP Pediatrics
DX: R07.9 Chest pain, unspecified (principal); I45.10 Unspecified right bundle-branch block
CPT/HCPCS: 36415; 80053; 93005; 99283; 83735; 84484; 85025; 85379; 93010